=== PATIENT | male | born 1940 | race Caucasian/White ===

== ENCOUNTER 2023-11-26 11:57 | Inpatient (IN) ==
--- NOTE | 2023-11-26 12:11 | Emergency Department Note ---
Impression & Plan CHI (closed head injury), Facial laceration, Contusion of left shoulder, Knee pain, left, Ambulatory dysfunction ED Provider Note ED Provider Note NAME: KEY CHILDRESS AGE:83 SEX: Male : 1940 ARRIVES VIA: EMS INFORMANT: Patient ED PROVIDER(s): Michelle Lay DO CHIEF COMPLAINT: Fall, head injury HPI: This is an 83-year-old male who presents via EMS after a fall from home. Patient states his left knee "gave out" and he was not using his walker and he fell down striking his head on the floor. Patient believes he may have passed out very briefly but was able to crawl to begin to pull himself up and call a neighbor for help. The neighbor then contacted 911 due to concern for obvious head injury and patient's use of Coumadin. Patient states he takes a blood thinner due to a heart history and states he had prior heart surgery but cannot provide further details. He states his left knee gives out on him a lot and he has had frequent falls. He denies any recent fevers, chills, or illness. Denies any change in bowel or bladder function. He denies any change in his medication recently. PAST MEDICAL HISTORY:See Below PAST SURGICAL HISTORY:See Below FAMILY HISTORY:See Below SOCIAL HISTORY:See Below HOME MEDICATIONS:See Below ALLERGIES:See Below VITALS:See Below PHYSICAL EXAMINATION: GENERAL: alert, well appearing, well nourished, no distress, non-toxic EYE EXAM: normal conjunctiva, PERRL and EOM's grossly intact OROPHARYNX: no exudate, no erythema, lips, buccal mucosa, and tongue normal and mucous membranes are moist NECK: supple, no nuchal rigidity, no adenopathy, non-tender LUNGS: Clear to auscultation. Normal chest wall mechanics, no w/r/r HEART: no murmurs, S1 normal and S2 normal ABDOMEN: abdomen soft, non-tender, normo-active bowel sounds, no masses, no rebound or guarding. BACK: Back is symmetrical on inspection and there is no deformity, no midline tenderness, no CVA tenderness. SKIN: no rashes, petechiae, orbruising UPPER EXTREMITIES: upper extremities are grossly normal. FROM, nml pulses b/l. LOWER EXTREMITIES: No pitting edema. FROM, nml pulses b/l. NEURO EXAM: Normal sensorium, cranial nerves II-XII grossly intact, normal speech, no facial droop,nogross weakness of arms, no gross weakness of legs. Gross sensation intact. No ataxia. Vital Signs: reviewed and remarkable Differential Diagnosis: CHI, CVA, occult fracture, contusion, laceration, dehydration, stroke, anemia, hypoglycemia, hyponatremia, hypernatremia, urinary tract infection, pneumonia, bronchitis, sepsis, gastroenteritis, additional abdominal pathology, metabolic abnormalities, as well as others were considered MEDICAL DECISION MAKING: This is an 83-year-old male presents emergency department due to concern for fall and inability to get back up. Patient admits to multiple falls recently. He does use an ambulatory assistive device at home. He was afebrile and vital signs stable on arrival. He was noted to have obvious head/facial trauma and also complained of pain in the left knee and the left ribs. Labs drawn and sent, IV established, EKG and multiple x-rays performed at bedside interpreted by me and patient monitored on telemetry. He was sent for CT head and C-spine additionally. Patient's labs and imaging reassuring. He was cautiously hydrated and given IV Tylenol. He did have persistent complaints of pain at the left knee despite the negative x-ray. Patient was unable to stand and/or walk at bedside. Due to concern for ambulatory dysfunction in the setting of patient living at home alone and being anticoagulated with multiple recent falls, case discussed with the hospitalist team for additional evaluation and management. I did also involve case management to discuss options for ongoing care and/or assistance as well as considering inpatient rehab with the patient and family member who came to bedside. At this time I have low suspicion for any additional occult traumatic injury. Consultation(s): 1508: Discussed with Everton Alvarez hospitalist team, for additional evaluation and management. ER Treatment Provided: See below Diagnostics Interpreted By Me: -ECG: Normal sinus at 65, leftward axis, normal intervals, incomplete right bundle branch block, nonspecific ST/T wave changes, baseline artifact noted -Cardiac Monitoring: An order was placed for continuous cardiac monitoring. The monitor shows a rate of 66 with normal sinus rhythm. -Laboratory studies: As stated above and show below. -Imaging studies: X-ray Chest/ribs: A single view study of the chest was reviewed and was negative for cardiomegaly, focal infiltrate, effusion, pulmonary edema, or wide mediastinum. No evidence of rib fracture or pneumothorax X-ray pelvis: No obvious fracture or dislocation X-ray left shoulder: No obvious fracture or dislocation Triage Nursing Note Reviewed Prior/Outside Records Reviewed Past Med/Surg History Problem List Ambulatory dysfunction (Acute) Knee pain, left (Acute) Contusion of left shoulder (Acute) Facial laceration (Acute) CHI (closed head injury) (Acute) HTN (hypertension) HLD (hyperlipidemia) CHF (congestive heart failure) Medical History No pertinent family history Surgical History H/O heart surgery Social History Smoking Status: Never smoker Tobacco Type: Smokeless Tobacco (Dip or Chew) Second Hand Exposure: No; Do You Dip or Chew Tobacco: Yes (2 cans a day); Hx Alcohol Use: Yes Alcohol type: beer Hx Substance Use: No Preferred Language: Upper Sorbian Communication Ability: Effective Director Public Required: No Beliefs That Will Affect Care: None Current Living Situation: Alone Other Information That Helps Us Care for You: No Feels Safe at Home: Yes Safety Concerns: Feels Safe At This Time Assistive Devices: Cane and Walker Allergies Allergies Allergy/AdvReac Type Severity Reaction Status Date / Time No Known Allergies Allergy Unverified 11/26/23 15:12 Home Meds Home Medications Medication Instructions Recorded Confirmed atorvastatin 40 mg tablet 40 mg PO HS 06/07/19 11/26/23 carvedilol 25 mg tablet 25 mg PO BID 06/07/19 11/26/23 docusate sodium 100 mg capsule 100 mg PO BID PRN Constipation 06/07/19 11/26/23 furosemide 20 mg tablet 40 mg PO QAM 06/07/19 11/26/23 warfarin 2.5 mg tablet 5 mg PO QPM 06/07/19 11/26/23 amlodipine 5 mg tablet 5 mg PO QAM 09/23/19 11/27/23 Previous Rx's Medication Instructions Recorded diclofenac sodium 1 % topical gel 4 g topical QID #100 grams 04/06/22 (Voltaren Arthritis Pain) Results & Data (ED) Vital Signs Vital Signs - 24 hr 11/26/23 14:30 11/26/23 14:30 Pulse Rate from SpO2 Sensor 70 Blood Pressure 150/83 H Blood Pressure Mean 100 Pulse Oximetry 98 Laboratory Data 11/26/23 12:10 11/27/23 06:46 Lab Results 11/26/23 Range/Units 12:10 WBC 8.52 (4.8-10.8) K/ul RBC 4.59 L (4.70-6.10) M/uL Hgb 13.2 L (14.0-18.0) g/dl Hct 39.4 L (42.0-52.0) % MCV 85.8 (80.0-100.0) fL MCH 28.8 (25.0-34.0) pg MCHC 33.5 (32.0-36.0) g/dL RDW Std Deviation 42.6 (36.4-46.3) fL RDW Coeff of Juanito 13.5 (11.5-14.5) % Plt Count 282 (130-400) K/uL MPV 9.6 (9.4-12.4) fL Immature Gran % (Auto) 0.4 % Neut % (Auto) 70.3 % Lymph % (Auto) 19.5 % [place] % (Auto) 7.7 % Eos % (Auto) 1.5 % Baso % (Auto) 0.6 % Neut # (Auto) 5.99 (1.40-6.50) K/uL Lymph # (Auto) 1.66 (1.20-3.40) K/uL [place] # (Auto) 0.66 H (0.11-0.59) K/uL Eos # (Auto) 0.13 (0.00-0.50) K/uL Baso # (Auto) 0.05 (0.00-0.20) K/uL Immature Gran # (Auto) 0.03 (0.01-0.20) K/uL PT 22.2 H (9.0-12.0) Seconds INR 2.2 H (0.9-1.1) Sodium 141 (136-145) mmol/L Potassium 4.0 (3.5-5.1) mmol/L Chloride 109 H (98-107) mmol/L Carbon Dioxide 26 (21-32) mmol/L Anion Gap 6 (3-11) BUN 22 (6-23) mg/dl Creatinine 1.31 (0.6-1.4) mg/dl Est Cr Clr Drug Dosing 36.3 ml/min Est GFR ( Amer) 57.1 ml/min Est GFR (Non-Af Amer) 49.3 ml/min BUN/Creatinine Ratio 16.8 (10-20) Glucose 98 (70-99(Fasting)) mg/dl Calcium 9.1 (8.6-10.3) mg/dl Magnesium 2.4 (1.7-2.4) mg/dl Total Bilirubin 0.9 (0.2-1.0) mg/dl AST 15 (13-39) U/L ALT 11 (7-52) U/L Alkaline Phosphatase 155 H (34-104) U/L Troponin I High Sens 6.3 (0-20) pg/ml Total Protein 7.8 (6.0-8.3) gm/dl Albumin 3.9 (3.4-5.0) gm/dl Globulin 3.9 (2.5-4.0) gm/dl Albumin/Globulin Ratio 1.0 (0.9-2) Lipase 40 (11-82) U/L Administered Medications Acetaminophen (Acetaminophen 325 Mg Tab) 650 mg PO QID YEHUDA Stop: 12/26/23 20:59 Last Admin: 11/27/23 14:00 Dose: 650 mg Documented By: Admin: 11/27/23 09:40 Dose: 650 mg Documented By: Admin: 11/26/23 20:00 Dose: 650 mg Documented By: JERMAINE Atorvastatin Calcium (Atorvastatin 40 Mg Tab) 40 mg PO HS YEHUDA Stop: 12/26/23 20:59 Last Admin: 11/26/23 20:00 Dose: 40 mg Documented By: JERMAINE Carvedilol (Carvedilol 25 Mg Tab) 25 mg PO BID YEHUDA Stop: 12/26/23 20:59 Last Admin: 11/27/23 09:41 Dose: 25 mg Documented By: Admin: 11/26/23 20:00 Dose: 25 mg Documented By: JERMAINE Furosemide (Furosemide 40 Mg Tab) 40 mg PO QAM YEHDUA Stop: 12/27/23 08:59 Last Admin: 11/27/23 09:42 Dose: 40 mg Documented By: JOVANNY Warfarin Sodium (Warfarin Sod 5 Mg Tab) 5 mg PO DAILY@1600 [facility] Stop: 12/26/23 19:29 Last Admin: 11/26/23 20:00 Dose: 5 mg Documented By: JERMAINE Discontinued Medications Sodium Chloride (Nss) 500 mls @ 80 mls/hr IV .Q6H15M YEHUDA Stop: 12/26/23 12:14 Last Admin: 11/26/23 19:47 Dose: Not Given Documented By: Infusion: 11/26/23 14:47 Dose: Infused Documented By: Admin: 11/26/23 13:15 Dose: 80 mls/hr Documented By: XOCHITL Acetaminophen (Ofirmev) 1,000 mg in 100 mls @ 400 mls/hr IV NOW STA Stop: 11/26/23 13:53 Last Infusion: 11/26/23 14:47 Dose: Infused Documented By: Admin: 11/26/23 14:05 Dose: 400 mls/hr Documented By: XOCHITL Imaging Data Radiologist's Impression: Ribs w/Chest X-Ray 11/26/23 12:08 XR ribs LT min 2V w CXR1V CLINICAL HISTORY: trauma TECHNIQUE: 3 views of the left ribs were obtained. Single frontal view of the chest was obtained. Comparison: Comparison is made to chest radiographs for 923 FINDINGS: No acute fractures are seen. The chest wall and soft tissues are normal. Median sternotomy wires are unchanged. Calcified aortic knob is seen. The lungs are clear. No evidence of pleural effusion or pneumothorax. IMPRESSION: No evidence of acute fracture or other acute abnormalities in the visualized portions of the chest. ACT 112: Negative or not required by law. Electronically signed by: Shaun Gonzalez M.D. 11/26/2023 2:[address] 11/26/23 12:09 CT cervical spine wo con CLINICAL HISTORY: trauma TECHNIQUE: Multidetector row helical CT of the cervical spine was performed without administration of intravenous contrast. Coronal and sagittal reformations were obtained. Automated dose lowering techniques and/or adjustment according to patient size were utilized for this exam. Comparison: None available at the time of this dictation. FINDINGS: No acute fractures or subluxations are identified. Degenerative changes are seen in the visualized spine. The alignment is normal. Soft tissues are unremarkable. IMPRESSION: Degenerative changes without evidence of acute bony injury. ACT 112: Negative or not required by law. Electronically signed by: Shaun Gonzalez M.D. 11/26/2023 1:[address] 11/26/23 12:09 CT head/brain wo con CLINICAL HISTORY: 83 years-old Male with trauma. Acute head trauma TECHNIQUE: Multiple axial CT images of the head were obtained without contrast. A dose lowering technique was utilized adhering to the principles of ALARA. COMPARISON: 10/20/2022 FINDINGS: No acute intracranial hemorrhage, midline shift, intracranial mass, hydrocephalus, territorial ischemia or abnormal extra-axial collection. Involutional changes with suggestion of mild chronic microvascular ischemic disease. The calvarium is intact. The paranasal sinuses, mastoid air cells, and middle ear cavities are clear. IMPRESSION: No acute intracranial abnormality or calvarial fracture. ACT 112: Negative or not required by law. The above report was generated using voice recognition software. It may contain grammatical, syntax or spelling errors. Electronically signed by: Lincoln Velasquez M.D. 11/26/2023 1:07 PM Pelvis X-Ray 11/26/23 12:09 SINGLE VIEW PELVIS CLINICAL HISTORY: Trauma. Fall. FINDINGS: An AP, portable, supine pelvic radiograph is obtained. No prior studies are available for comparison at the time of dictation. The skeletal structures are osteopenic. There is no radiographic evidence of acute fracture involving the hips or bony pelvis. Mild arthritic change and joint space narrowing is seen in the hips. There is degenerative sclerosis of the sacroiliac joints. Lumbosacral spondylosis is partially visualized. The overlying soft tissues are within normal limits. Atherosclerotic calcification is noted in the femoral arteries. Surgical clips project over the left groin. IMPRESSION: No acute bony abnormality is identified. Electronically signed by: Vaibhav Price M.D. 11/26/2023 2:09 PM Knee X-Ray 11/26/23 12:11 LEFT KNEE 2 VIEWS CLINICAL HISTORY: Fall. Left knee injury. FINDINGS: AP and crosstable lateral views of the left knee are obtained. No prior studies are available for comparison at the time of dictation. The skeletal structures are osteopenic. No fracture is seen. There is minimal degenerative joint space narrowing. A joint effusion is observed. Soft tissue swelling is seen around the knee. There is advanced atherosclerotic calcification of the regional arteries. Surgical clips are seen in the distal thigh and upper calf. IMPRESSION: Soft tissue swelling and joint effusion with no fracture identified. Electronically signed by: Vaibhav Price M.D. 11/26/2023 2:22 PM Shoulder X-Ray 11/26/23 12:12 XR shoulder LT min 2V routine HISTORY: 83 years-old Male trauma acute left shoulder pain status post fall COMPARISON: Rib and chest radiographs of same day TECHNIQUE: 3 views of the left shoulder FINDINGS: Median sternotomy wires. Demineralized appearance of the bones. Moderate glenohumeral and AC joint osteoarthritis. No acute fracture or dislocation identified. IMPRESSION: No acute fracture or dislocation identified. ACT 112: Negative or not required by law. The above report was generated using voice recognition software. It may contain grammatical, syntax or spelling errors. Electronically signed by: Lincoln Velasquez M.D. 11/26/2023 2:54 PM Discharge Plan Visit Data Chief Complaint: Fall Stated Complaint: FALL, LAC TO HEAD, RIB PAIN ED Provider: Michelle Lay Discharge Problem: CHI (closed head injury), Facial laceration, Contusion of left shoulder, Knee pain, left, Ambulatory dysfunction Patient Disposition: Admitted As Inpatient Discharge Instructions Interventions: ED Discharge Assessment Last Done: 11/26/23 17:52
[2023-11-26 13:06] LABS: Albumin Level 3.9 gm/dl (3.4-5.0); BUN Creatinine Ratio 16.8 (10-20); Bilirubin,Total 0.9 mg/dl (0.2-1.0); Calcium 9.1 mg/dl (8.6-10.3); Creatinine Clr Calc Pharmacy 36.3 ml/min; Est GFR (African American) 57.1 ml/min; Est GFR (Non-African American) 49.3 ml/min; Globulin 3.9 gm/dl (2.5-4.0); Magnesium 2.4 mg/dl (1.7-2.4); Total Protein 7.8 gm/dl (6.0-8.3)
[2023-11-26 13:09] LABS: Basophils # (auto) 0.05 K/uL (0.00-0.20); Basophils % (auto) 0.6 %; Eosinophils # (auto) 0.13 K/uL (0.00-0.50); Eosinophils % (auto) 1.5 %; Hematocrit (blood only) 39.4 % (42.0-52.0); Hemoglobin 13.2 g/dl (14.0-18.0); Immature Granulocytes # (auto) 0.03 K/uL (0.01-0.20); Immature Granulocytes % (auto) 0.4 %; Lymphocytes # (auto) 1.66 K/uL (1.20-3.40); Lymphocytes % (auto) 19.5 %; Mean Corpuscular Hemoglobin 28.8 pg (25.0-34.0); Mean Corpuscular Hgb Conc 33.5 g/dL (32.0-36.0); Mean Corpuscular Volume 85.8 fL (80.0-100.0); Mean Platelet Volume 9.6 fL (9.4-12.4); Monocytes # (auto) 0.66 K/uL (0.11-0.59); Monocytes % (auto) 7.7 %; Neutrophils # (auto) 5.99 K/uL (1.40-6.50); Neutrophils % (auto) 70.3 %; Platelet Count 282 K/uL (130-400); RDW Coefficient of Variation 13.5 % (11.5-14.5); RDW Standard Deviation 42.6 fL (36.4-46.3); Red Blood Count 4.59 M/uL (4.70-6.10); White Blood Count 8.52 K/ul (4.8-10.8)
--- NOTE | 2023-11-26 13:09 | CT Scan Report ---
CT head/brain wo con CLINICAL HISTORY: 83 years-old Male with trauma. Acute head trauma TECHNIQUE: Multiple axial CT images of the head were obtained without contrast. A dose lowering tech nique was utilized adhering to the principles of ALARA. COMPARISON: 10/20/2022 FINDINGS: No acute intracranial hemorrhage, midline shift, intracranial mass, hydrocephalus, territorial ischem ia or abnormal extra-axial collection. Involutional changes with suggestion of mild chronic microvasc ular ischemic disease. The calvarium is intact. The paranasal sinuses, mastoid air cells, and middle ear cavities are clear . IMPRESSION: No acute intracranial abnormality or calvarial fracture. ACT 112: Negative or not required by law. The above report was generated using voice recognition software. It may contain grammatical, syntax o r spelling errors. Electronically signed by: Lincoln Velasquez M.D. 11/26/2023 1:07 PM
[2023-11-26 13:12] LABS: Troponin I High Sensitivity 6.3 pg/ml (0-20)
[2023-11-26 13:14] LABS: INR 2.2 (0.9-1.1); Prothrombin Time 22.2 Seconds (9.0-12.0)
[2023-11-26] MEDS: SODIUM CHLORIDE 0.9% 500 ML IV SCH (13:15)
--- NOTE | 2023-11-26 13:37 | CT Scan Report ---
CT cervical spine wo con CLINICAL HISTORY: trauma TECHNIQUE: Multidetector row helical CT of the cervical spine was performed without administration of intravenous contrast. Coronal and sagittal reformations were obtained. Automated dose lowering techn iques and/or adjustment according to patient size were utilized for this exam. Comparison: None available at the time of this dictation. FINDINGS: No acute fractures or subluxations are identified. Degenerative changes are seen in the visualized sp ine. The alignment is normal. Soft tissues are unremarkable. IMPRESSION: Degenerative changes without evidence of acute bony injury. ACT 112: Negative or not required by law. Electronically signed by: Shaun Gonzalez M.D. 11/26/2023 1:35 PM
[2023-11-26] MEDS: ACETAMINOPHEN 1,000 MG/100 ML VIAL IV STA (14:05)
--- NOTE | 2023-11-26 14:10 | XRay Report ---
SINGLE VIEW PELVIS CLINICAL HISTORY: Trauma. Fall. FINDINGS: An AP, portable, supine pelvic radiograph is obtained. No prior studies are available for c omparison at the time of dictation. The skeletal structures are osteopenic. There is no radiographic evidence of acute fracture involving the hips or bony pelvis. Mild arthritic change and joint space n arrowing is seen in the hips. There is degenerative sclerosis of the sacroiliac joints. Lumbosacral s pondylosis is partially visualized. The overlying soft tissues are within normal limits. Atherosclero tic calcification is noted in the femoral arteries. Surgical clips project over the left groin. IMPRESSION: No acute bony abnormality is identified. Electronically signed by: Vaibhav Price M.D. 11/26/2023 2:09 PM
--- NOTE | 2023-11-26 14:11 | XRay Report ---
XR ribs LT min 2V w CXR1V CLINICAL HISTORY: trauma TECHNIQUE: 3 views of the left ribs were obtained. Single frontal view of the chest was obtained. Comparison: Comparison is made to chest radiographs for 923 FINDINGS: No acute fractures are seen. The chest wall and soft tissues are normal. Median sternotomy wires are unchanged. Calcified aortic knob is seen. The lungs are clear. No evidenc e of pleural effusion or pneumothorax. IMPRESSION: No evidence of acute fracture or other acute abnormalities in the visualized portions of the chest. ACT 112: Negative or not required by law. Electronically signed by: Shaun Gonzalez M.D. 11/26/2023 2:10 PM
--- NOTE | 2023-11-26 14:23 | XRay Report ---
LEFT KNEE 2 VIEWS CLINICAL HISTORY: Fall. Left knee injury. FINDINGS: AP and crosstable lateral views of the left knee are obtained. No prior studies are availab le for comparison at the time of dictation. The skeletal structures are osteopenic. No fracture is se en. There is minimal degenerative joint space narrowing. A joint effusion is observed. Soft tissue sw elling is seen around the knee. There is advanced atherosclerotic calcification of the regional arter ies. Surgical clips are seen in the distal thigh and upper calf. IMPRESSION: Soft tissue swelling and joint effusion with no fracture identified. Electronically signed by: Vaibhav Price M.D. 11/26/2023 2:22 PM
--- NOTE | 2023-11-26 14:55 | XRay Report ---
XR shoulder LT min 2V routine HISTORY: 83 years-old Male trauma acute left shoulder pain status post fall COMPARISON: Rib and chest radiographs of same day TECHNIQUE: 3 views of the left shoulder FINDINGS: Median sternotomy wires. Demineralized appearance of the bones. Moderate glenohumeral and AC joint os teoarthritis. No acute fracture or dislocation identified. IMPRESSION: No acute fracture or dislocation identified. ACT 112: Negative or not required by law. The above report was generated using voice recognition software. It may contain grammatical, syntax o r spelling errors. Electronically signed by: Lincoln Velasquez M.D. 11/26/2023 2:54 PM
--- NOTE | 2023-11-26 16:41 | History & Physical Report ---
Date of Service November 26, 2023 Assessment & Plan (1) Ambulatory dysfunction: Plan: Physical therapy (2) Knee pain, left: Plan: Tylenol and as needed oxycodone (3) Contusion of left shoulder: Plan: Tylenol and as needed oxycodone (4) Facial laceration: Plan: Nursing wound care (5) CHI (closed head injury): Plan: Continue to monitor (6) HTN (hypertension): Plan: Continue home meds (7) HLD (hyperlipidemia): Plan: Continue home meds (8) CHF (congestive heart failure): Plan: Continue home meds Plan Patient 83-year-old gentleman presents to the emergency room after a mechanical fall at home. Patient has acute on chronic ambulatory dysfunction with acute closed head injury, contusion of the left shoulder, ribs and knee. Continue to care for patient in the hospital Physical therapy and Occupational Therapy evaluations Care management for assistance possible placement Scheduled Tylenol for pain control, oxycodone IR as needed for more severe pain Continue home medications as prescribed Continue to monitor INR and dose warfarin daily Admission and Anticipated Discharge Date Admission Date: 11/26/2023 Anticipated date of discharge: 11/28/23 History of Present Illness Chief Complaint: Fall at home Primary Care Provider: Akiko Joy MD Patient 83-year-old gentleman who continues to live independently at home. He has chronic ambulatory dysfunction and has usually used a cane to get around in his house. Recently he has been using a walker to get around in his home because he has been having some frequent falls. Earlier today was walking in his home and his foot got caught on a rug and he slipped and fell. He did hit his head. Neighbor found him and called 911. In the emergency room patient underwent extensive imaging. There is no evidence of fracture. Did have evidence of contusion over his left eye left shoulder and knee. Patient was unable to stand without significant pain or assistance here in the emergency department he was unable to ambulate. He was referred to our service for ongoing care here in the hospital due to the fact that he was unable to care for himself at home and is unsafe to go home. Time of my evaluation the patient denies any significant pain. He denies any loss of consciousness. He states has been eating and drinking well. Denies any fever or chills, no chest pain, no shortness of breath. He even really denies any significant joint pain at this time. States his bowels and bladder have been doing well. He does recognize he has been having increasing issues with ambulation and is willing to consider a rehab facility if deemed necessary. Allergies Allergy/AdvReac Type Severity Reaction Status Date / Time No Known Allergies Allergy Unverified 11/26/23 15:12 Home Medications Medication Instructions Recorded Confirmed Type atorvastatin 40 mg tablet 40 mg PO HS 06/07/19 11/26/23 History carvedilol 25 mg tablet 25 mg PO BID 06/07/19 11/26/23 History docusate sodium 100 mg capsule 100 mg PO BID PRN Constipation 06/07/19 11/26/23 History furosemide 20 mg tablet 40 mg PO QAM 06/07/19 11/26/23 History warfarin 2.5 mg tablet 5 mg PO QPM 06/07/19 11/26/23 History amlodipine 5 mg tablet 0 mg PO QAM 09/23/19 11/26/23 History diclofenac sodium 1 % topical gel 4 g topical QID #100 grams 04/06/22 11/26/23 Rx (Voltaren Arthritis Pain) Past Med/Surg History Problem List Ambulatory dysfunction (Acute) Knee pain, left (Acute) Contusion of left shoulder (Acute) Facial laceration (Acute) CHI (closed head injury) (Acute) HTN (hypertension) HLD (hyperlipidemia) CHF (congestive heart failure) Medical History No pertinent family history Surgical History H/O heart surgery Social History Smoking Status: Never smoker Tobacco Type: Smokeless Tobacco (Dip or Chew) Preferred Language: [place] Feels Safe at Home: Yes Review of Systems Review of Systems: Pertinent positive and negative review of systems as mentioned in the HPI Physical Exam Physical Exam: Constitutional: Alert, nontoxic HEENT: Mucous membranes moist. Sclera clear, contusion and small laceration over left lateral eyebrow and forehead Neck: Soft, no adenopathy Lungs: Clear to auscultation, decreased, no wheezes rales or rhonchi CV: S1-S2, regular, grade 3/6 systolic ejection murmur Abdomen: Soft, nontender, nondistended Extremities: No significant edema Musculoskeletal: Contusion over her left shoulder with some mild tenderness, evidence of contusion over left ribs but denies tenderness to palpation, mild contusion left knee, minimal tenderness to palpation Skin: Did not see any open skin tears from fall Neuro: No focal deficits, generalized weakness Psych: Cooperative, normal mood Results & Data Results & Data Vital Signs (Past 12 Hours) Vital Signs Temp Pulse Resp BP Pulse Ox O2 Del Method 11/26/23 14:30 150/83 H 11/26/23 14:30 98 11/26/23 14:14 96 11/26/23 14:13 142/79 H 11/26/23 13:19 64 14 98 11/26/23 13:18 65 15 98 11/26/23 13:18 141/70 H 11/26/23 13:17 66 18 98 11/26/23 13:06 69 18 99 11/26/23 13:06 152/74 H 11/26/23 13:04 67 12 11/26/23 12:30 132/88 11/26/23 12:30 68 16 98 11/26/23 12:29 67 11/26/23 12:27 71 22 97 11/26/23 12:15 36.8 C 70 18 151/85 H 98 Room Air Laboratory Results Reviewed imaging, laboratory and diagnostic studies. Pertinent findings as below. Personally reviewed chest x-ray, no consolidative pneumonia, evidence of previous cardiac surgery Hemoglobin 13.2 INR 2.2 EKG junctional rhythm Reviewed other imaging reports, no significant fractures Code Status & VTE Plan Code Status DNR/DNI VTE Prophylaxis Plan VTE Prophylaxis will be ordered: No Reason for no VTE drug order: Contraindicated (Patient on therapeutic warfarin)
--- NOTE | 2023-11-26 16:51 | Electrocardiogram Report ---
Test Reason : Blood Pressure : / mmHG Vent. Rate : 065 BPM Atrial Rate : 000 BPM P-R Int : 000 ms QRS Dur : 106 ms QT Int : 436 ms P-R-T Axes : 000 -34 034 degrees QTc Int : 453 ms Poor data quality, interpretation may be adversely affected probably sinus rhythm Left axis deviation Incomplete right bundle branch block Abnormal ECG When compared with ECG of 20-OCT-2022 14:52, Incomplete right bundle branch block is now Present Confirmed by Jose C Angel ([id number]) on 11/26/2023 4:51:07 PM Referred By: Confirmed By:Shay Angel
[2023-11-26 17:42] LABS: Appearance Urine Clear (Clear); Bacteria Urine Automated None Seen (None Seen); Bilirubin Urine Negative (Negative); Blood Urine Negative (Negative); Cast Urine Automated 0-2 /lpf (0-2); Color Urine Yellow; Epithelial Cell Urine Auto 0-2 /hpf (0-2); Glucose Urine UA Negative (Negative); Ketones Urine 1+ (Negative); Leukocyte Esterase Urine Negative (Negative); Nitrite Urine Negative (Negative); Protein Urine Trace (Negative); Urobilinogen Urine Negative (Negative); WBC Urine Automated 0-5 /hpf (0-5); pH Urine 6.5 (4.5-7.5)
[2023-11-26] MEDS ORDERED: ALUMINUM/MAGNESIUM SUSP 30 ML UDC PO PRN (19:00)
[2023-11-26] MEDS ORDERED: DOCUSATE SODIUM 100 MG CAP PO PRN (19:00)
[2023-11-26] MEDS ORDERED: ONDANSETRON INJ 2 MG/ML 2 ML VIAL IV PRN (19:00)
[2023-11-26] MEDS: WARFARIN SOD 5 MG TAB PO SCH (20:00)
[2023-11-26] MEDS: carvediloL 25 MG TAB PO SCH (20:00)
[2023-11-26] MEDS: ATORVASTATIN 40 MG TAB PO SCH (20:00)
[2023-11-26] MEDS: ACETAMINOPHEN 325 MG TAB PO SCH (20:00)
[2023-11-26 20:54] LABS: INR 1.9 (0.9-1.1); Prothrombin Time 19.8 Seconds (9.0-12.0)
[2023-11-27 07:32] LABS: BUN Creatinine Ratio 18.3 (10-20); Calcium 8.3 mg/dl (8.6-10.3); Creatinine Clr Calc Pharmacy 41.5 ml/min; Est GFR (African American) 66.9 ml/min; Est GFR (Non-African American) 57.7 ml/min; Potassium 3.8 mmol/L (3.5-5.1)
[2023-11-27 07:56] LABS: INR 2.1 (0.9-1.1); Prothrombin Time 21.7 Seconds (9.0-12.0)
[2023-11-27] MEDS ORDERED: amLODIPine BESYLATE 5 MG TAB PO SCH (09:00)
[2023-11-27] MEDS: FUROSEMIDE 40 MG TAB PO SCH (09:42)
--- NOTE | 2023-11-27 14:36 | Hospitalist Progress Note ---
Date of Service November 27, 2023 Assessment & Plan (1) Ambulatory dysfunction: Plan: Patient 83-year-old gentleman presents to the emergency room after a mechanical fall at home. Patient has acute on chronic ambulatory dysfunction with acute closed head injury, contusion of the left shoulder, ribs and knee. Ambulatory dysfunction Mechanical fall Uses cane/walker at baseline for ambulation Imaging studies showed no signs of acute fractures Patient denies any loss of consciousness PT OT, fall precautions Patient is interested in rehab placement if he qualifies based on therapy (2) Knee pain, left: Plan: Left knee x-ray:Soft tissue swelling and joint effusion with no fracture identified. Pain control (3) Contusion of left shoulder: Plan: Shoulder x-ray:No acute fracture or dislocation identified. Tylenol and as needed oxycodone (4) Facial laceration: Plan: Nursing wound care (5) CHI (closed head injury): Plan: --CT head:No acute intracranial abnormality or calvarial fracture. Continue to monitor (6) HTN (hypertension): Plan: Continue carvedilol Hold amlodipine for now Monitor BP (7) HLD (hyperlipidemia): Plan: Continue atorvastatin (8) CHF (congestive heart failure): Plan: Chronic heart failure with preserved EF Continue Lasix No signs of volume overload Monitor volume status Plan DVT Px: Coumadin CODE STATUS DNR/DNI Disposition PT OT prior to discharge Admission and Anticipated Discharge Date Admission Date: November 26, 2023 Subjective Patient is seen and examined at bedside Admits to have mild left rib, knee soreness Otherwise feels well Denies any dyspnea, dizziness, nausea, vomiting, abdominal pain Review of Systems Review of Systems: All systems reviewed & are unremarkable except as noted in Subjective Physical Exam Physical Exam: Physical Exam: Vitals signs as noted above General Appearance:Moderately built and nourished, no apparent distress Head: normocephalic, + Small laceration above left eyebrow Eyes: normal inspection, EOMI Neck: supple, Trachea midline Respiratory/Chest: Normal breath sounds, CTA, mild left rib tender, No accessory muscle use Cardiovascular: S1, S2, + murmur Abdomen/GI:Soft, Non tender, Bowel sounds present Extremities/Musculoskeletal:normal inspection, no edema Neurologic/Psych:AAOX3, grossly no focal neurological deficits, +decreased hearing Skin: normal color, warm Results & Data Results & Data Vital Signs (Past 12 Hours) Vital Signs Temp Pulse Resp BP Pulse Ox O2 Del Method 11/27/23 14:04 36.3 C L 59 L 16 127/71 99 Room Air 11/27/23 07:08 36.7 C 60 18 120/62 96 Room Air Laboratory Results [facility] 11/27/23 06:46 Sodium 140 Potassium 3.8 Chloride 110 H Carbon Dioxide 23 BUN 21 Creatinine 1.15 Glucose 91 Calcium 8.3 L Urine 11/26/23 Range/Units Unknown Urine Color Yellow Urine Appearance Clear (Clear) Urine pH 6.5 (4.5-7.5) Ur Specific [place] 1.020 (1.000-1.030) Urine Protein Trace H (Negative) Urine Glucose (UA) Negative (Negative)
--- OUTSIDE RECORDS SUMMARY | 2023-11-27 17:53 | External Medical Summary | Summary of Care ---
Author Name Unknown Organization [facility] Address [address] [facility] [address] Phone [phone] Care Team Providers Care Explosive Operator Bomb Name Role Phone Akiko Joy MD Primary Care Provide r Reason for Referral * Evaluate & Treat - Unlimited Visits (Within 3 days (urgent)) - Pending Review Specialty Diagnoses / Procedures Referred By Contac t Referred To Contact ANTI-COAG CLINIC / Pharmacy Diagnoses Paroxysmal atrial fibrillation (HCC) Akiko Joy MD [address] [place] [address] [place] [id number] Referral ID Status Reason Start Date Expiration Date Visits Requested Visits Authorized [id number] Pending Review Specialty Services Required 11/20/2023 99 99 Question Answer Referral Priority Within 3 days (urgent) Where should this appointment be scheduled? [facility] Antico[facility] referral for management of: Warfarin Indication and INR goal for Warfarin Management: Stroke Prevention: Atrial Fibrillation/Flutter 2.0 - 3.0 Relevant History: Bioprosthetic Aortic Valve Replacement Enoxaparin bridging required? No Minimum frequency patient should be seen in person for medication management: as appropriate per clinical condition and patient status By my signature, I understand that my patient Mal Tran will have his medication therapy managed by the [facility] ([facility]) per established policies, procedures, and protocols. I also certify that this referral may serve as an initiation of service for the management of drug therapy in the above noted patient. [facility] providers will be responsible for scheduling patient visits, obtaining appropriate laboratory studies, and adjusting medication management therapy per patient's need, in addition to those roles spelled out in the clinic policy, procedures, and drug management protocols. I understand that the service provided by the [facility] Clinic is voluntary and have informed patient that they can refuse the service at their discretion. I am aware that the [facility] Clinic will provide me with a copy of the patient encounter via my [employer]. I authorize the [facility] Clinic to carry out these activities on my behalf. I consider this program to be a necessary part of the patient's medical care. Akiko Joy MD Reason for Visit * Reason Onset Date Comments Referral 11/20/2023 Encounter Details Date Type Department Care Team (Late st Contact Info) Description 11/20/2023 Telephone Pharmacy Call Center [address] [place] [address] [facility] [address] [place] [address] Referral Allergies No known active allergiesdocumented as of this encounter (statuses as of 11/20/2023) Medications Medication Sig Dispensed Refills Start Date End Date Status SENNA LAXATIVE 8.6 MG PO TABS 1 tab at noon 30 Tab 5 12/31/2013 Active famotidine (PEPCID) 20 MG Tablet Take 1 Tab by mouth 2 times a day. 180 Tab 1 10/16/2017 Active Docusate Sodium 100 MG Oral Capsule (Colace) Take 1 Capsule by mouth in the morning and 1 Capsule before bedtime. 0 Active Diclofenac Sodium 1 % External Gel Apply topically to affected area. Apply 4g to knee up to 4 times a day 0 Active Warfarin Sodium 2.5 MG Oral Tablet (Coumadin)Indication s:Unspecified atrial fibrillation (HCC) TAKE 2-3 TABLETS BY MOUTH DAILY DIRECTED BY COUMADIN CLINIC ON PHONE. 270 Tablet 1 04/16/2023 Active Furosemide 20 MG Oral Tablet (Lasix)Indications:C oronary artery disease involving campo coronary artery of campo heart without angina pectoris TAKE 2 TABLETS BY MOUTH EVERY DAY 180 Tablet 1 05/19/2023 Active Atorvastatin Calcium 40 MG Oral Tablet (Lipitor)Indications :Dyslipidemia, goal LDL below 100 TAKE 1 TABLET BY MOUTH EVERYDAY AT BEDTIME 90 Tablet 1 05/19/2023 Active Carvedilol 25 MG Oral Tablet (Coreg)Indications:S /P aortic valve replacement,Aortocor onary bypass status,HTN, goal below 140/90 TAKE 1 TABLET BY MOUTH TWICE A DAY 180 Tablet 3 05/19/2023 Active amLODIPine Besylate 5 MG Oral Tablet (Norvasc)Indications :HTN, goal below 140/90 TAKE 1 TABLET BY MOUTH EVERY DAY 90 Tablet 1 07/20/2023 Active documented as of this encounter (statuses as of 11/20/2023) Active Problems Problem Noted Date Diagnosed Date Chronic kidney disease, stage 3a 09/24/2021 Overview: Per CKD protocol Hypertensive kidney disease with stage 3a chronic kidney disease 09/24/2021 Overview: Per CKD protocol Paroxysmal atrial fibrillation 02/17/2019 S/P aortic valve replacement 12/31/2013 CAD (coronary artery disease) 12/28/2013 Aortocoronary bypass status 12/28/2013 Dyslipidemia, goal LDL below 100 09/28/2013 HTN, goal below 140/90 03/24/2013 documented as of this encounter (statuses as of 11/20/2023) Resolved Problems Problem Noted Date Diagnosed Date Resolved Date Hypertensive kidney disease with stage 3 chronic kidney disease 11/19/2021 10/23/2022 Chronic coronary artery disease 02/20/2021 10/23/2022 Hypertensive kidney disease with chronic kidney disease stage III 05/07/2018 09/26/2021 Overview: Per CKD protocol Atrial fibrillation 12/31/2013 10/24/19 23 Aortic valve stenosis 11/25/20132017 Severe aortic stenosis 03/24/201311/25 Kidney disease, chronic, sta ge III (GFR 30-59 ml/min) (aka CKD) 09/26/2021 Overview: Per CKD protocol documented as of this encounter (statuses as of 11/20/2023) Immunizations Name Administration Dates Next Due COVID-19 mRNA, LNP-s, No Pre serve, 2-Dose Series (Moderna) 11/28/2020 COVID-19, MRNA-LNP, 23-24, P F, 30 MCG/0.3 mL, 12 YRS AND ABOVE, IM (PFIZER-Comirnaty) 09/22/2023 Pneumococcal Conjugate Vacc, 13 Valent (Prevnar) 11/23/2015,03/14/2012 Pneumococcal Polysaccharide PPV23 (Pneumovax) 03/14/2012 Seasonal Influenza, PF, 6 M & above, IM , (FluLaval or Fluzone) 05/07/2018 Seasonal Influenza, Quadriva lent Hd (Fluzone Hd) 03/26/2023 Seasonal Influenza, Quadriva lent, No Preserve, IM 04/16/2016,05/04/2015 Seasonal Influenza, Split, I IV3, With Preserve, Inj 04/13/2017,06/14/2014,03/24/2013 documented as of this encounter Social History Tobacco Use Types Packs/Day Years Used Date Smoking Tobacco: Never Smokeless Tobacco: Current Snuff Comments:cutting down Alcohol Use Standard Drinks/Week Comments Yes 0 (1 standard drink = 0.6 oz pur e alcohol) not very much PHQ-2 Answer Date Recorded PHQ-2 Score 0 02/17/2019 Hunger Vital Sign Answer Date Recorded Worried About Running Out of Food in the Last Ye ar Never true 02/20/2021 Ran Out of Food in the Last Year Never true 02/20/2021 Sex and Gender Information Value Date Recorded Sex Assigned at Male 02/17/2019 9:08 AM EDT Gender Identity Male 02/17/2019 9:08 AM EDT Sexual Orientation Not on file Job Start Date Occupation Industry Not on file Not on file Not on file documented as of this encounter Miscellaneous Notes * Telephone Encounter - Akiko Joy MD - 11/20/2023 9:01 AM EDT Signed * Telephone Encounter - Laura Ahmadi [facility] - 11/20/2023 8:53 AM EDT Please review and sign the pending referral for [facility] to continue managing patient's coumadin dosing and monitoring on your behalf. Thank You Laura Shaver, PharmD Clinical Pharmacist [facility] Pharm[facility] Services ([facility]) (formerly Telepharmacy) [phone] / [phone] 11/20/2023, 8:53 AM documented in this encounter Plan of Treatment Upcoming Encounters Date Type Department Care Team (Late st Contact Info) Description 03/24/2024 9:40 AM EDT Office Visit [address] [phone] Rebeca Mendez PA-C [address] [place] [address] [place] [phone] 09/24/2024 1:40 PM EDT Office Visit [address] [phone] Akiko Joy MD [address] [place] [address] [place] [phone] Scheduled Referrals Name Type Priority Associated Diagnoses Orde r Schedule ANTI-COAGULATION REFERRAL OP Referral Within 3 days (urgent) Paroxysmal atrial fibrillation (HCC) Ordered: 11/20/2023 Health Maintenance Due Date Last Done Comments Albumin/Creatinine Ratio 1958 DTaP,Tdap,and Td Vaccines (1 - Tdap) 1957 Zoster Vaccines (1 of 2) 1988 Depression Screening 02/18/2020 02/17/2019 CKD PHOS USE SMARTSET 76446 02/27/202402/11, 02/20/2021, 05/07/2018, Additional history exists CKD HGB USE SMARTSET 95963 09/23/202409/23, 09/24/2023, 04/09/2023, Additional history exists Pneumococcal Vaccine: 65+ Years Completed 11/23/2015, 03/14/2012, 03/14/2012 Influenza Vaccine (FLU shot) Completed , 05/07/2018, 04/13/2017, Additional history exists COVID-19 Vaccine Completed 09/22/2023, 11/28/2020 GARDASIL-HPV IMMUNIZATION SERIES Aged Out No longer eligible based on patient's age to complete this topic Hepatitis B Aged Out No longer eligi ble based on patient's age to complete this topic MENINGOCOCCAL (MENACTRA/MENVEO) Aged Out No longer eligible based on patient's age to complete this topic documented as of this encounter Medical Devices Not on filedocumented as of this encounter Visit Diagnoses Diagnosis Paroxysmal atrial fibrillation (HCC)- Primary Atrial fibrillation documented in this encounter Care Teams Explosive Operator Bomb Relationship Specialty Start Date End Date Akiko Joy MD PCP - General Family Medicine 05/22/15 documented as of this encounter
--- OUTSIDE RECORDS SUMMARY | 2023-11-27 17:53 | External Medical Summary | Summary of Care ---
Author Name Unknown Organization [facility] Address [address] [facility] [place] [address] Phone [phone] Care Team Providers Care Boiler Operator Name Role Phone Akiko Joy MD Primary Care Provide r Reason for Visit * Reason Comments Dosage Adjustment Via Phone (anticoag Cl inic) Encounter Details Date Type Department Care Team (Latest Contact Info) Description 11/20/2023 6:00 AM EDT Anticoagulation Pharmacy Call Center [phone] [place] [address] [facility] [address] [place] [address] Paroxysmal atrial fibrillation (HCC)* Allergies No known active allergiesdocumented as of [...] Oral Tablet (Lasix)Indications:C oronary artery disease involving false pass coronary artery of false pass heart without angina pectoris TAKE 2 TABLETS [...] on file documented as of this encounter Progress Notes * Olive Severino, party plan salesperson - 11/20/2023 9:05 AM EDT Contacts Type Contact Phone/Fax 11/20/2023 09:02 AM EDT Phone (Outgoing) Mal Tran (Self) [phone] (H) Spoke to Patient Subjective Patient Findings Negatives: Signs/symptoms of bleeding, Change in health, Change in activity, Upcoming invasive procedure, Missed doses, Extra doses, Change in medications, Change in diet/appetite, Bruising Advised patient to contact Anticoagulation Clinic if any unusual bruising or bleeding, recent illness, changes in medication, or questions/concerns. PT/INR results, Coumadin dose instructions, and next PT/INR date communicated as noted by Pharmacist: Yes TRE Roberson 11/20/2023, 9:05 AM * Laura Ahmadi RPh - 11/20/2023 8:52 AM EDT Images from the original note were not included. Coumadin Clinic (region specific) Objective Current Warfarin Dose As of 11/20/2023 Warfarin maintenance plan: 7.5 mg (2.5 mg x 3) every Sun, Tue; 5 mg (2.5 mg x 2) all other days INR Result As of 11/20/2023 INR goal: 2.0-3.0 INR used for dosin.5 (11/19/2023) Assessment & Plan Warfarin Plan As of 11/20/2023 Full warfarin instructions: 11/19: 10 mg; Otherwise 7.5 mg every Sun, Tue; 5 mg all other days Next INR check: 12/03/2023 Repeat PT/INR in 2 week(s) Weekly dose: not changed Additional Dosing Information: Description [facility] Tech to contact patient with dose instructions as noted. Laura Ahmadi RPh 11/20/2023, 8:52 AM documented in this encounter Plan of Treatment Upcoming Encounters Date Type Department Care Team (Late st Contact Info) Description 03/24/2024 9:40 AM EDT Office Visit [address] [place] [phone] Rebeca Mendez PA-C [address] [place] [address] [place] [address] 09/24/2024 1:40 PM EDT Office Visit Family Medicine [address] [place] [phone] Akiko Joy MD [address] [place] [address] [place] [address] Health Maintenance Due Date Last Done Comments Albumin/Creatinine Ratio 1956 DTaP,Tdap,and Td Vaccines (1 - Tdap) 1957 Zoster Vaccines (1 of 2) 1988 Depression Screening 02/18/2020 02/17/2019 CKD PHOS USE SMARTSET 60628 02/27/202402/11, 02/20/2021, 05/07/2018, Additional history exists CKD HGB USE SMARTSET 48663 09/23/202409/23, 09/24/2023, 04/09/2023, Additional history exists Pneumococcal [...] fibrillation documented in this encounter Care Teams Boiler Operator Relationship Specialty Start Date End Date Akiko Joy MD PCP - General Family Medicine 05/22/15 documented as of this encounter
--- OUTSIDE RECORDS SUMMARY | 2023-11-27 17:54 | External Medical Summary ---
Author Name Unknown Address Unknown Organization [id number][place] [place] [address] [place] [address] Laboratory Report Ordering Provider Test Date Status SHON VALADEZ 11/19/2023 07:42:00 Final Warfarin Therapy
INR: 2 .0-3.0 conventional anticoagulation
INR: 2.5- 3.5 high intensity anticoagulation Observation Date Value Abnormality Reference (Units ) Status PT 11/19/2023 07:42:00 18.4 Above high normal 11 .6-15.2 (seconds) Final INR 11/19/2023 07:42:00 1.5 Above high normal 0. 8-1.2 Final Performing Location [facility] [place] [address] [place] [address]
--- OUTSIDE RECORDS SUMMARY | 2023-11-27 17:54 | External Medical Summary | Summary of Care ---
Author Name Unknown Organization [facility] Address [address] [facility] [place] [address] Phone [phone] Care Team Providers Care Mascara Molder Name Role Phone Akiko Joy MD Primary Care Provide r Reason for Visit * Reason Comments Dosage Adjustment Via Phone (anticoag Cl inic) Encounter Details Date Type Department Care Team (Latest Contact Info) Description 11/20/2023 6:00 AM EDT Anticoagulation Pharmacy Call Center 58-60 [place] [address] [facility] 58 60 [place] [address] Paroxysmal atrial fibrillation (HCC)* Allergies No known [...] Oral Tablet (Lasix)Indications: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 Laura Ahmadi RPh 11/20/2023, 8:52 AM documented in this encounter Plan of Treatment Upcoming Encounters Date Type Department Care Team (Late st Contact Info) Description 03/24/2024 9:40 AM EDT Office Visit [address] [place] [phone] Rebeca Mendez PA-C [address] [place] [address] [place] [address] 09/24/2024 1:40 PM EDT Office Visit Family Medicine [address] [place] [phone] Akiko Joy MD [address] [place] [address] [place] [address] Health Maintenance Due Date Last Done Comments Albumin/Creatinine Ratio 1958 DTaP,Tdap,and Td Vaccines (1 - Tdap) 1957 Zoster Vaccines (1 of 2) 1988 Depression Screening 02/18/2020 02/17/2019 CKD PHOS USE SMARTSET 75600 02/27/202402/11, 02/20/2021, 05/07/2018, Additional history exists CKD HGB USE SMARTSET 86692 09/23/202409/23, 09/24/2023, 04/09/2023, Additional history exists Pneumococcal [...] fibrillation documented in this encounter Care Teams Mascara Molder Relationship Specialty Start Date End Date Akiko Joy MD PCP - General Family Medicine 05/22/15 documented as of this encounter
--- OUTSIDE RECORDS SUMMARY | 2023-11-27 17:54 | External Medical Summary | Summary of Care ---
Author Name Unknown Organization [facility] Address [address] [facility] [place] [address] Phone [phone] Care Team Providers Care Hose Tubing Backer Name Role Phone Akiko Joy MD Primary Care Provide r Reason for Visit * Reason Comments Dosage Adjustment Via Phone (anticoag Cl inic) Encounter Details Date Type Department Care Team (Latest Contact Info) Description 11/06/2023 6:00 AM EDT Anticoagulation Pharmacy Call Center 58-60 [place] [address] [facility] 58 60 [facility] [address] Anticoagulation management encounter* Allergies No known active allergiesdocumented as of this encounter (statuses as of 11/06/2023) Medications Medication Sig Dispensed Refills Start Date [...] Oral Tablet (Lasix)Indications: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 TAKE 2 TABLETS [...] as of this encounter (statuses as of 11/06/2023) Active Problems Problem Noted Date Diagnosed Date [...] as of this encounter (statuses as of 11/06/2023) Resolved Problems Problem Noted Date Diagnosed Date [...] as of this encounter (statuses as of 11/06/2023) Immunizations Name Administration Dates Next Due COVID-19 [...] as of this encounter Progress Notes * Nicole Avery, waiver analyst - 11/06/2023 9:21 AM EDT Contacts Type Contact Phone/Fax 11/06/2023 09:17 AM EDT Phone (Outgoing) Mal Tran (Self) [phone] (H) Spoke to Patient Subjective Patient Findings [...] date communicated as noted by Pharmacist: Yes NICOLE AVERY CPhT 11/06/2023, 9:21 AM * Monique Andrews RPh - 11/06/2023 8:18 AM EDT Images from the original note were not included. Coumadin Clinic (region specific) Objective Current Warfarin Dose As of 11/06/2023 Warfarin maintenance plan: 7.5 mg (2.5 mg x 3) every Sun, Tue; 5 mg (2.5 mg x 2) all other days INR Result As of 11/06/2023 INR goal: 2.0-3.0 INR used for dosin.4 (11/05/2023) Assessment & Plan Warfarin Plan As of 11/06/2023 Full warfarin instructions: 11/05: Hold; 11/06: Hold; Otherwise 7.5 mg every Sun, Tue; 5 mg all otherdays Next INR check: 11/17/2023 Repeat PT/INR in 1.5 week(s) Weekly dose: not changed Additional Dosing Information: Description [facility] ([facility]) Tech to contact patient with dose instructions as noted. Monique Andrews RPh 11/06/2023, 8:19 AM documented in this encounter Plan of Treatment Upcoming Encounters Date Type Department Care Team (Late st Contact Info) Description 03/24/2024 9:40 AM EDT Office Visit [address] [place] [address] Rebeca Mendez PA-C [address] [place] [address] [place] [address] 09/24/2024 1:40 PM EDT Office Visit Family Medicine [address] [place] [address] Akiko Joy MD [address] [place] [address] [place] [address] Health Maintenance Due Date Last Done Comments Albumin/Creatinine Ratio 1958 DTaP,Tdap,and Td Vaccines (1 - Tdap) 1957 Zoster Vaccines (1 of 2) 1988 Depression Screening 02/18/2020 02/17/2019 CKD PHOS USE SMARTSET 81942 02/27/202402/11, 02/20/2021, 05/07/2018, Additional history exists CKD HGB USE SMARTSET 58909 09/23/202409/23, 09/24/2023, 04/09/2023, Additional history exists Pneumococcal [...] as of this encounter Visit Diagnoses Diagnosis Anticoagulation management encounter- Primary Encounter for therapeutic drug monitoring documented in this encounter Care Teams Hose Tubing Backer Relationship Specialty Start Date End Date Akiko Joy MD PCP - General Family Medicine 05/22/15 documented as of this encounter
--- OUTSIDE RECORDS SUMMARY | 2023-11-27 17:55 | External Medical Summary ---
Author Name Unknown Address Unknown Organization K01:[place] [facility] [place] [address] [place] [address] Laboratory Report Ordering Provider Test Date Status SHON VALADEZ 10/22/2023 07:46:00 Final Warfarin Therapy
INR: 2 .0-3.0 conventional anticoagulation
INR: 2.5- 3.5 high intensity anticoagulation Observation Date Value Abnormality Reference (Units ) Status PT 10/22/2023 07:46:00 24.2 Above high normal 11 .6-15.2 (seconds) Final INR 10/22/2023 07:46:00 2.2 Above high normal 0. 8-1.2 Final Performing Location [facility] [place] [address] [place] [address]
--- OUTSIDE RECORDS SUMMARY | 2023-11-27 17:55 | External Medical Summary | Summary of Care ---
Author Name Unknown Organization [facility] Address [address] [facility] [place] [address] Phone [phone] Care Team Providers Care Dry Mixer Name Role Phone Akiko Joy MD Primary Care Provide r Reason for Visit * Reason Comments Dosage Adjustment Via Phone (anticoag Cl inic) Encounter Details Date Type Department Care Team (Latest Contact Info) Description 10/23/2023 6:00 AM EDT [facility] 58[facility]60 [facility] [address] [facility] 58 60 [facility] [address] detention current use of anticoagulant therapy* Allergies No known active allergiesdocumented as of this encounter (statuses as of 10/23/2023) Medications Medication Sig Dispensed Refills Start Date [...] Oral Tablet (Lasix)Indications: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 TAKE 2 TABLETS [...] as of this encounter (statuses as of 10/23/2023) Active Problems Problem Noted Date Diagnosed Date [...] as of this encounter (statuses as of 10/23/2023) Resolved Problems Problem Noted Date Diagnosed Date [...] as of this encounter (statuses as of 10/23/2023) Immunizations Name Administration Dates Next Due COVID-19 [...] as of this encounter Progress Notes * Javon Ahmadi, Brielle - 10/23/2023 8:36 AM EDT Contacts Type Contact Phone/Fax 10/23/2023 08:30 AM EDT Phone (Outgoing) Mal Tran (Self) [phone] (H) Spoke to Patient Subjective Patient Findings Negatives: Signs/symptoms of thrombosis, Signs/symptoms of bleeding, Change in health, Change in alcohol use, Change in activity, Upcoming invasive procedure, Missed doses, Extra doses, Change in medications, Change in diet/appetite, Bruising Advised patient to contact Anticoagulation Clinic if any unusual bruising or bleeding, recent illness, changes in medication, or questions/concerns. PT/INR results, Coumadin dose instructions, and next PT/INR date communicated as noted by Pharmacist: Yes Javon Ahmadi CPhT 10/23/2023, 8:36 AM * Monique Andrews RPh - 10/23/2023 8:07 AM EDT Coumadin Clinic (region specific) Objective Current Warfarin Dose As of 10/23/2023 Warfarin maintenance plan: 7.5 mg (2.5 mg x 3) every Sun, Tue; 5 mg (2.5 mg x 2) all other days INR Result As of 10/23/2023 INR goal: 2.0-3.0 INR used for dosin.2 (10/22/2023) Assessment & Plan Warfarin Plan As of 10/23/2023 Full warfarin instructions: 7.5 mg every Sun, Tue; 5 mg all other days No change documented: Monique Andrews RPh Next INR check: 11/05/2023 Repeat PT/INR in 2 week(s) Weekly dose: not changed Additional Dosing Information: Description [facility] Tech to contact patient with dose instructions as noted. Monique Andrews RPh 10/23/2023, 8:07 AM documented in this encounter Plan of Treatment Upcoming Encounters Date Type Department Care Team (Late st Contact Info) Description 11/06/2023 6:00 AM EDT Anticoagulation Pharmacy Call Center WB [address] [place] [address] [facility] [address] [facility] [place] [address] 03/24/2024 9:40 AM EDT Office Visit [address] [phone] Rebeca Mendez PA-C [address] [place] [address] [place] [address] 09/24/2024 1:40 PM EDT Office Visit [address] [phone] Akiko Joy MD [address] [place] [address] [place] [address] Health Maintenance Due Date Last Done Comments Albumin/Creatinine Ratio 1956 DTaP,Tdap,and Td Vaccines (1 - Tdap) 1957 Zoster Vaccines (1 of 2) 1988 Depression Screening 02/18/2020 02/17/2019 CKD PHOS USE SMARTSET 71012 02/27/202402/11, 02/20/2021, 05/07/2018, Additional history exists CKD HGB USE SMARTSET 05896 09/23/202409/23, 09/24/2023, 04/09/2023, Additional history exists Pneumococcal [...] as of this encounter Visit Diagnoses Diagnosis detention current use of anticoagulant therapy- Primary documented in this encounter Care Teams Dry Mixer Relationship Specialty Start Date End Date Akiko Joy MD PCP - General Family Medicine 05/22/15 documented as of this encounter
--- OUTSIDE RECORDS SUMMARY | 2023-11-27 17:55 | External Medical Summary ---
Author Name Unknown Address Unknown Organization K01:[facility] [place] - [address] [place] [address] Laboratory Report Ordering Provider Test Date Status SHON VALADEZ 11/05/2023 08:01:00 Final Warfarin Therapy
INR: 2 .0-3.0 conventional anticoagulation
INR: 2.5- 3.5 high intensity anticoagulation Observation Date Value Abnormality Reference (Units ) Status PT 11/05/2023 08:01:00 43.7 Above high normal 11 .6-15.2 (seconds) Final INR 11/05/2023 08:01:00 4.4 Above high normal 0. 8-1.2 Final Performing Location LAB[facility] [place] - [address] [place] [address]
--- OUTSIDE RECORDS SUMMARY | 2023-11-27 17:56 | External Medical Summary | Summary of Care ---
Author Name Unknown Organization [facility] Address [address] [facility] [place] [address] Phone [phone] Care Team Providers Care Metalworking Instructor Name Role Phone Akiko Joy MD Primary Care Provide r Reason for Visit * Reason Comments Dosage Adjustment Via Phone (anticoag Cl inic) Encounter Details Date Type Department Care Team (Latest Contact Info) Description 10/09/2023 6:00 AM EDT Anticoagulation Pharmacy Call Center 58-60 [place] [address] [facility] 58 60 [place] [address] Atrial fibrillation, unspecified type (HCC)* Allergies No known active allergiesdocumented as of this encounter (statuses as of 10/09/2023) Medications Medication Sig Dispensed Refills Start Date [...] Oral Tablet (Lasix)Indications: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 Clinical Pharmacist [facility] ([facility]) (formerly Telepharmacy) [phone] 10/09/2023,12:37 PM * Clayton Bates PHARM Tech - 10/09/2023 9:59 AM EDT Contacts Type Contact Phone/Fax 10/09/2023 09:55 AM EDT Phone (Outgoing) Marc Mal Nitish (Self) [phone] (H) Subjective Patient Findings Positives: Change in alcohol use (Had a couple beers advised same plan per [facility] advised greater then2 will increase INR and risk of bleed) Negatives: Signs/symptoms of thrombosis, Signs/symptoms of bleeding, Change in health, Change in activity, Upcoming invasive procedure, Missed doses, Extra doses, Change in medications, Change in diet/appetite, Bruising Advised patient to contact Anticoagulation Clinic if any unusual bruising or bleeding, recent illness, changes in medication, or questions/concerns. PT/INR results, Coumadin dose instructions, and next PT/INR date communicated as noted by Pharmacist: Yes TRE LANDRUM 10/09/2023, 9:59 AM * Monique Andrews [facility] - 10/09/2023 8:20 AM EDT Images from the original note were not included. Coumadin Clinic (region specific) Objective Current Warfarin Dose As of 10/09/2023 Warfarin maintenance plan: 7.5 mg (2.5 mg x 3) every Sun, Tue; 5 mg (2.5 mg x 2) all other days INR Result As of 10/09/2023 INR goal: 2.0-3.0 INR used for dosin.1 (10/08/2023) Assessment & Plan Warfarin Plan As of 10/09/2023 Full warfarin instructions: 10/08: Hold; 10/09: Hold; Otherwise 7.5 mg every Sun, Tue; 5 mg all otherdays Next INR check: 10/22/2023 Repeat PT/INR in 2 week(s) Weekly dose: not changed Additional Dosing Information: Description GML (MWF) Confirm current regimen w/ pt after 08/04 INR Tech to contact patient with dose instructions as noted. Monique Andrews RPh 10/09/2023, 8:21 AM documented in this encounter Plan of Treatment Upcoming Encounters Date Type Department Care Team (Late st Contact Info) Description 10/22/2023 7:00 AM EDT Laboratory Lab [facility] [address] [place] [address] [facility], G[facility] Draw [address] [place] [address] 10/23/2023 6:00 AM EDT Anticoagulation Pharmacy Call Center 58-60 [facility] [place] [address] [facility] 58 60 [facility] [place] [address] 03/24/2024 9:40 AM EDT Office Visit Family [address] [place] [phone] Rebeca Mendez PA-C [address] [place] [address] [place] [address] 09/24/2024 1:40 PM EDT Office Visit Family [address] [place] [phone] Akiko Joy MD [address] [place] [address] [place] [address] Health Maintenance Due Date Last Done Comments Albumin/Creatinine Ratio 1958 DTaP,Tdap,and Td Vaccines (1 - Tdap) 1957 Zoster Vaccines (1 of 2) 1988 Depression Screening 02/18/2020 02/17/2019 CKD PHOS USE SMARTSET 98605 02/27/202402/11, 02/20/2021, 05/07/2018, Additional history exists CKD HGB USE SMARTSET 65384 09/23/202409/23, 09/24/2023, 04/09/2023, Additional history exists Pneumococcal [...] as of this encounter Visit Diagnoses Diagnosis Atrial fibrillation, unspecified type (HCC)- Primary documented in this encounter Care Teams Metalworking Instructor Relationship Specialty Start Date End Date Akiko Joy MD PCP - General Family Medicine 05/22/15 documented as of this encounter
--- OUTSIDE RECORDS SUMMARY | 2023-11-27 17:57 | External Medical Summary ---
Author Name Unknown Address Unknown Organization K01:LABORATORY [facility] [place] - [address] [place] [address] Laboratory Report Ordering Provider Test Date Status SHON VALADEZ 10/08/2023 08:05:00 Final Warfarin Therapy
INR: 2 .0-3.0 conventional anticoagulation
INR: 2.5- 3.5 high intensity anticoagulation Observation Date Value Abnormality Reference (Units ) Status PT 10/08/2023 08:05:00 40.4 Above high normal 11 .6-15.2 (seconds) Final INR 10/08/2023 08:05:00 4.1 Above high normal 0. 8-1.2 Final Performing Location LABORATORY [facility] [place] - [address] [place] [address]
--- OUTSIDE RECORDS SUMMARY | 2023-11-27 17:57 | External Medical Summary ---
Author Name Unknown Address Unknown Organization K01:LAB[facility]ATORY [facility] [place] - [address] [facility] [address] [place] [address] Laboratory Report Ordering Provider Test Date Status SIMONA KENNY 09/24/2023 08:02:00 Final Observation Date Value Abnormality Reference (Units ) Status WBC, Total 09/24/2023 08:02:00 6.82 4.00-10.80 (K/uL) Final RBC 09/24/2023 08:02:00 4.04 4.50-5.25 (M/uL) Final Hemoglobin 09/24/2023 08:02:00 12.5 Below low normal 14.0-16.8 (g/dL) Final HCT 09/24/2023 08:02:00 37.2 Below low normal 40.0-48.4 (%) Final MCV 09/24/2023 08:02:00 92.1 82.0-99.5 (fL) Final MCH 09/24/2023 08:02:00 30.9 27.0-34.0 (pg) Final MCHC 09/24/2023 08:02:00 33.6 32.0-36.0 (g/dL) Final RDW 09/24/2023 08:02:00 14.1 11.5-15.5 (%) Final Platelets 09/24/2023 08:02:00 223 140-400 (K/uL) Final MPV 09/24/2023 08:02:00 10.3 6.6-11.1 (fL) Final Nucleated erythrocytes/100 leukocytes [Ratio] in Blood by Automated count 09/24/2023 08:02:00 0 <=0 (/100 WBCs) Final Performing Location LABORATORY [facility] [place] - [address] [place] [address]
--- OUTSIDE RECORDS SUMMARY | 2023-11-27 17:57 | External Medical Summary | Summary of Care ---
Author Name Unknown Organization [facility] Address [address] [facility] [place] [address] Phone [phone] Care Team Providers Care Patient Care Associate Name Role Phone Akiko Joy MD Primary Care Provide r Reason for Visit * Reason Comments Dosage Adjustment Via Phone (anticoag Cl inic) Encounter Details Date Type Department Care Team (Latest Contact Info) Description 09/25/2023 6:00 AM EDT Anticoagulation Pharmacy Call Center 58-60 [place] [address] [facility] 58 60 [place] [address] Atrial fibrillation (HCC)* Allergies No known active allergiesdocumented as of this encounter (statuses as of 09/25/2023) Medications Medication Sig Dispensed Refills Start Date [...] Oral Tablet (Lasix)Indications: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 TAKE 2 TABLETS [...] as of this encounter (statuses as of 09/25/2023) Active Problems Problem Noted Date Diagnosed Date [...] as of this encounter (statuses as of 09/25/2023) Resolved Problems Problem Noted Date Diagnosed Date [...] as of this encounter (statuses as of 09/25/2023) Immunizations Name Administration Dates Next Due COVID-19 [...] this encounter Progress Notes * Olive Severino, road contractor - 09/25/2023 8:31 AM EDT Contacts Type Contact Phone/Fax 09/25/2023 08:23 AM EDT Phone (Outgoing) Mal Tran (Self) [phone] (H) Spoke to Patient Subjective Patient Findings [...] PT/INR date communicated as noted by Pharmacist: TRE Macias 09/25/2023, 8:31 AM * Monique Andrews RPh - 09/25/2023 8:08 AM EDT Coumadin Clinic (region specific) Objective Current Warfarin Dose As of 09/25/2023 Warfarin maintenance plan: 7.5 mg (2.5 mg x 3) every Sun, Tue; 5 mg (2.5 mg x 2) all other days INR Result As of 09/25/2023 INR goal: 2.0-3.0 INR used for dosin.5 (09/24/2023) Assessment & Plan Warfarin Plan As of 09/25/2023 Full warfarin instructions: 7.5 mg every Sun, Tue; 5 mg all other days No change documented: Monique Andrews RPh Next INR check: 10/08/2023 Repeat PT/INR in 2 week(s) Weekly dose: not changed Additional Dosing Information: Description G[facility] ([facility]) Confirm current regimen w/ pt after 08/04 INR Tech to contact patient with dose instructions as noted. Monique Andrews RPh 09/25/2023, 8:08 AM documented in this encounter Plan of Treatment Upcoming Encounters Date Type Department Care Team (Late st Contact Info) Description 10/09/2023 6:00 AM EDT Anticoagulation Pharmacy Call Center [address] [place] [address] [facility] [address] [place] [address] 10/09/2023 11:00 AM EDT Cardiac Studies Cardiac Studies [address] [place] [address] 03/24/2024 9:40 AM EDT Office Visit [address] [place] [phone] Rebeca Mendez PA-C [address] [place] [address] [place] [address] 09/24/2024 1:40 PM EDT Office Visit [address] [place] [phone] Akiko Joy MD [address] [place] [address] [place] [address] Health Maintenance Due Date Last Done Comments Albumin/Creatinine Ratio 1958 DTaP,Tdap,and Td Vaccines (1 - Tdap) 1957 Zoster Vaccines (1 of 2) 1988 Depression Screening 02/18/2020 02/17/2019 CKD PHOS USE SMARTSET 39991 02/27/202402/11, 02/20/2021, 05/07/2018, Additional history exists CKD HGB USE SMARTSET 10988 09/23/202409/23, 09/24/2023, 04/09/2023, Additional history exists Pneumococcal [...] of this encounter Visit Diagnoses Diagnosis Atrial fibrillation (HCC)- Primary Atrial fibrillation documented in this encounter Care Teams Patient Care Associate Relationship Specialty Start Date End Date Akiko Joy MD PCP - General Family Medicine 05/22/15 documented as of this encounter
--- OUTSIDE RECORDS SUMMARY | 2023-11-27 17:57 | External Medical Summary ---
Author Name Unknown Address Unknown Organization K01:[facility]ORY [facility] [place] [address] [facility] [place] [address] Laboratory Report Ordering Provider Test Date Status SIMONA KENNY 09/24/2023 08:02:00 Final Observation Date Value Abnormality Reference (Units ) Status SYNC LEUKOCYTES IN BLOOD BY AUTOMATED COUNT 09/24/2023 08:02:00 6.82 4.00-10.80 (K/uL) Final Segs 09/24/2023 08:02:00 62.3 40.0-75.0 (%) Final Lymphs % 09/24/2023 08:02:00 21.6 18.0-42.0 (%) Final Monos 09/24/2023 08:02:00 11.4 Above high normal 1.0-11.0 (%) Final Eosinophils 09/24/2023 08:02:00 3.7 0.0-6.0 (%) Final Basos 09/24/2023 08:02:00 0.7 0.0-2.0 (%) Final Immature Granulocyte, Percent 09/24/2023 08:02:00 0.3 0.0-2.0 (%) Final Absolute Segs 09/24/2023 08:02:00 4.25 1.80-7.70 (K/uL) Final Lymphs, absolute 09/24/2023 08:02:00 1.47 1.00-4.80 (K/ul) Final Monos, Abs 09/24/2023 08:02:00 0.78 0.00-1.10 (K/uL) Final Eos, Abs 09/24/2023 08:02:00 0.25 0.00-0.70 (K/uL) Final Basos, Abs 09/24/2023 08:02:00 0.05 0.00-0.20 (K/uL) Final Immature Granulocytes, Number 09/24/2023 08:02:00 0.02 0.00-0.20 (K/uL) Final Performing Location LABOR[facility]ORY [facility] [place] - [facility] [address] [facility] [address]
--- OUTSIDE RECORDS SUMMARY | 2023-11-27 17:58 | External Medical Summary | Summary of Care ---
Author Name Unknown Organization [facility] Address [address] [facility] [place] [address] Phone [phone] Care Team Providers Care Healthcare Liaison Name Role Phone Akiko Joy MD Primary Care Provide r Reason for Referral * Precert (Within 10 days (routine)) - Pending Review Specialty Diagnoses / Procedures Referred By Contac t Referred To Contact Cardiac Studies Diagnoses Paroxysmal atrial fibrillation (HCC) Hypertensive kidney disease with stage 3a chronic kidney disease (HCC) S/P aortic valve replacement Procedures ECHO, COMPLETE (2D), TRANS-THORACIC Akiko Joy MD [address] [place] [address] [place] [address] Referral ID Status Reason Start Date Expiration Date Visits Requested Visits Authorized [id number] Pending Review Precert 09/22/2023 999 999 Reason for Visit * Reason Comments Re-Check Encounter Details Date Type Department Care Team (Late st Contact Info) Description 09/22/2023 4:00 PM EDT Office Visit Family Medicine [address] [place] [phone] Akiko Joy MD [address] [place] [address] [place] [address] Hypertensive kidney disease with stage 3a chronic kidney disease (HCC)*; Paroxysmal atrial fibrillation (HCC); Chronic kidney disease, stage 3a (HCC); HTN, goal below 140/90; Dyslipidemia, goal LDL below 100; Coronary artery disease involving [place] coronary artery of [place] heart without angina pectoris; S/P aortic valve replacement; Need for first booster dose of COVID-19 vaccine Allergies No known active allergiesdocumented as of this encounter (statuses as of 09/22/2023) Medications Medication Sig Dispensed Refills Start Date [...] Oral Tablet (Lasix)Indications:C oronary artery disease involving [place] coronary artery of [place] heart without angina pectoris TAKE 2 TABLETS [...] as of this encounter (statuses as of 09/22/2023) Active Problems Problem Noted Date Diagnosed Date [...] as of this encounter (statuses as of 09/22/2023) Resolved Problems Problem Noted Date Diagnosed Date [...] as of this encounter (statuses as of 09/22/2023) Immunizations Name Administration Dates Next Due COVID-19 mRNA, LNP-s, No Pre serve, 2-Dose Series (Moderna) 11/28/2020 COVID-19, MRNA-LNP, 23-24, P F, 30 MCG/0.3 mL, 12 YRS AND ABOVE, IM [facility] 09/22/2023 Pneumococcal Conjugate Vacc, 13 Valent (Prevnar) [...] on file documented as of this encounter Last Filed Vital Signs Vital Sign Reading Time Taken Comments Blood Pressure 122/62 09/22/2023 3:55 PM EDT Pulse 72 09/22/2023 3:55 PM EDT Temperature 36.6 C (97.8 F) 09/22/2023 3:55 PM ED T Respiratory Rate - - Oxygen Saturation 95% 09/22/2023 3:55 PM EDT Inhaled Oxygen Concentration - - Weight 63 kg (139 lb) 09/22/2023 3:55 PM EDT Height 162.6 cm (5' 4") 09/22/2023 3:55 PM EDT Body Mass Index 23.86 09/22/2023 3:55 PM EDT documented in this encounter Progress Notes * Akiko Joy MD - 09/22/2023 4:00 PM EDT Subjective: Mal Tran is a 83 year old male. Chief Complaint Patient presents with Re-Check HPI: Brief Clinical History Mr. Tran is an 83 year old man last seen in Family Medicine 5 months ago (03-26-23). He is not duefor eval of any conditions. Here for a check up with his [id number], who assists with his medications, shopping, bills, and driving. Last seen by me in 2018. Fell about one month ago and hurt the left hand. Is not hurting anymore. Has full ROM of the hand. Uses the cane for ambulation. States his son wanted him to mention it. Is on Coumadin. Has mobile lab come out. No longer sees cardiology. Had tissue aortic valve replacement in 2013. Denies any chest pain or shortness of breath. Is taking Lasix every day. [id number] he urinates a lot. Agrees to COVID booster today. Results for orders placed or performed in visit on 09/10/23 PT INR Result Value Ref Range Prothrombin Time 15.4 (H) 11.6 - 15.2 seconds INR 1.2 0.8 - 1.2 CBC Results: Results for orders placed or performed in visit on 02/20/21 CBC Result Value Ref Range WBC 9.85 4.00 - 10.80 K/uL RBC 4.72 4.50 - 5.25 M/uL HGB 14.0 14.0 - 16.8 g/dL HCT 42.2 40.0 - 48.4 % MCV 89.4 82.0 - 99.5 fL MCH 29.7 27.0 - 34.0 pg MCHC 33.2 32.0 - 36.0 g/dL RDW 14.6 11.5 - 15.5 % MPV 10.4 6.6 - 11.1 fL nRBCs 0 <=0 /100 WBCs PLT 243 140 - 400 K/uL Basic Panel Results: Results for orders placed or performed in visit on 05/07/18 BASIC METAB PANEL, BMP Result Value Ref Range BUN 20 6 - 20 mg/dL Creatinine 1.2 0.6 - 1.2 mg/dL Estimated Glomerular Filtration Rate 55.1 (L) >60 Sodium 142 135 - 146 mmol/L Potassium 4.0 3.5 - 5.1 mmol/L Chloride 106 98 - 107 mmol/L CO2 23 22 - 32 mmol/L Anion Gap 13 7 - 15 mmol/L Glucose 82 70 - 120 mg/dL Calcium 9.3 8.4 - 10.2 mg/dL PHM: Patient Active Problem List Diagnosis Code HTN, goal below 140/90 I10 Dyslipidemia, goal LDL below 100 E78.5 CAD (coronary artery disease) I25.10 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 180 Tab 1 Docusate Sodium 100 MG Oral Capsule (Colace) Take 1 Capsule by mouth in the morning and 1 Capsule before bedtime. Diclofenac Sodium 1 % External Gel Apply topically to affected area. Apply 4g to knee up to 4 timesa day Warfarin Sodium 2.5 MG Oral Tablet (Coumadin) TAKE 2-3 TABLETS BY MOUTH DAILY DIRECTED BY COUMADIN CLINIC ON PHONE. 270 Tablet 1 Furosemide 20 MG Oral Tablet (Lasix) TAKE 2 TABLETS BY MOUTH EVERY DAY 180 Tablet 1 Atorvastatin Calcium 40 MG Oral Tablet (Lipitor) TAKE 1 TABLET BY MOUTH EVERYDAY AT BEDTIME 90 Tablet 1 Carvedilol 25 MG Oral Tablet (Coreg) TAKE 1 TABLET BY MOUTH TWICE A DAY 180 Tablet 3 amLODIPine Besylate 5 MG Oral Tablet (Norvasc) TAKE 1 TABLET BY MOUTH EVERY DAY 90 Tablet 1 No current facility-administered medications for this visit. 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 Cesar Holley Past Surgical History: Procedure Laterality Date REMOVE TONSILS & ADENOIDS, UNDER 12 REPLACEMENT AORTIC VALVE, BYPASS WITH PROSTHETIC VALVE 12/08/2013 Dr. Holley--[facility] Nicasio-bioprosthetic Social History Socioeconomic History Marital status: Spouse name: Not on file Number of children: Not on file Years of education: Not on file Highest education level: Not on file Occupational History Not on file Tobacco Use Smoking status: Never Smokeless tobacco: Current Types: Snuff Tobacco comments: cutting down Substance and Sexual Activity Alcohol use: Yes Comment: not very much Drug use: No Sexual activity: Not on file Other Topics Concern Not on file Social History Narrative Not on file Social Determinants of Health Financial Resource Strain: Not on file Food Insecurity: No Food Insecurity (02/20/2021) Hunger Vital Sign Worried About Running Out of Food in the Last Year: Never true Ran Out of Food in the Last Year: Never true Transportation Needs: Not on file Physical Activity: Not on file Stress: Not on file Social Connections: Not on file Intimate Partner Violence: Not on file Housing Stability: Not on file Review of patient's allergies indicates: No Known Allergies Objective: BP 122/62 | Pulse 72 | Temp 36.6 C (97.8 F) (Tympanic) | Ht 1.626 m (5' 4") | Wt 63 kg (139 lb)| SpO2 95% | BMI 23.86 kg/m | BSA 1.69 m Physical Exam: General: alert, healthy, no distress, well nourished, and well developed Head: Normocephalic, No masses, lesions, tenderness or abnormalities Eye Exam: PERRLA, extraocular movements intact, conjunctiva are pink and non- injected, sclera clear Ears: External ears normal, Canals clear, TM's Normal Nose: no mucosal erythema, no mucosal edema, no purulent discharge Oropharynx: no exudate, no erythema, lips, buccal mucosa, and tongue normal, and mucous membranes are moist Neck: supple, no adenopathy, no bruits Heart: no gallops, irregularly irregular, and 2/6 holosystolic low pitched harsh murmur aortic area Lungs: chest symmetric with normal AP diameter, no chest deformities noted, no chest wall tenderness, lungs clear to auscultation Extremities: no clubbing, no cyanosis, 1+ distal lower extremity edema bilaterally Neuro Exam: alert & oriented x 3 with fluent speech, no focal motor/sensory deficits Extensive ROS Constitutional (f/c/wt/vision/hearing): Negative Resp (cough/sob/buchanan): Negative CV (cp/palp/fluttering/diaphoresis/buchanan/pnd):see above hpi GI (n/v/d/hrtburn): Negative Endo (hair/cold or heat intol/ 3 p's): Negative Neuro (shaking/weak/fatigu/parasthesi/): Negative Skin (rash/easy bruis/xerosis): Negative Psy (si/hi/halluc/): Negative (nocturia/hesit/drib/sexual review): Negative Lymph (swollen glands/b sx's/: Negative ASSESSMENT: Hypertensive kidney disease with stage 3a chronic kidney disease (HCC) (Primary)--blood pressure controlled with amlodipine 5 mg daily and carvedilol 25 mg twice daily. Due for GFR. Will have labs checked with next INR draw by mobile phlebotomy. - CBC WITH WBC DIFFERENTIAL; Future; Expected date: 09/22/2023 - COMPREHENSIVE METABOLIC PANEL; Future; Expected date: 09/22/2023 - ECHO, COMPLETE (2D), TRANS-THORACIC; Future; Expected date: 09/22/2023 Paroxysmal atrial fibrillation (HCC)--rate controlled. Continue Coumadin. Check echo. - ECHO, COMPLETE (2D), TRANS-THORACIC; Future; Expected date: 09/22/2023 Chronic kidney disease, stage 3a (HCC)--due for GFR as above. HTN, goal below 140/90--controlled as above. Dyslipidemia, goal LDL below 100--continue atorvastatin 40 mg daily. Due for lipid panel. - COMPREHENSIVE METABOLIC PANEL; Future; Expected date: 09/22/2023 - LIPID PANEL WITH DIRECT LDL IF TG IS HIGH; Future; Expected date: 09/22/2023 Coronary artery disease involving [place] coronary artery of [place] heart without angina pectoris--stable S/P aortic valve replacement--has murmur noted today. Has tissue aortic valve replacement in 2013. No longer seeing cardiology. Check follow-up echo. - ECHO, COMPLETE (2D), TRANS-THORACIC; Future; Expected date: 09/22/2023 Need for first booster dose of COVID-19 vaccine - COVID-19, MRNA-LNP, PF, 23-24, 30MCG/0.3ML, IM, 12YRS AND ABOVE ([place]) Follow Up: Return in about 6 months (around 03/24/2024) for Clinic Visit. | For: Clinic Visit PLAN: Continue present medication(s): Study(ies) ordered: Echocardiogram to follow-up aortic valve replacement and murmur. Has some leg edema as well. Immunization(s) ordered: COVID booster. Schedule labs: CBC w/diff, CMP, Lipid panel with next INR Patient education: Discussed echo, COVID booster, and labs. Follow up: in 6 month(s). Akiko Joy MD documented in this encounter Nursing Notes * Esthela Dennis LPN - 09/22/2023 3:55 PM EDT Recheck No concerns today documented in this encounter Plan of Treatment Upcoming Encounters Date Type Department Care Team (Late st Contact Info) Description 09/24/2023 9:00 AM EDT Laboratory Lab [facility] [address] [place] [address] [facility] Mobile Home Draw [address] [place] [address] 09/25/2023 6:00 AM EDT Anticoagulation Pharmacy Call Center [address] [place] [address] [facility], [facility] [address] [facility] [address] 10/09/2023 11:00 AM EDT Cardiac Studies Cardiac Studies [address] [place] [address] 03/24/2024 9:40 AM EDT Office Visit Family Medicine [address] [phone] Rebeca Mendez PA-C [address] [place] [address] [place] [address] 09/24/2024 1:40 PM EDT Office Visit [address] [place] [phone] Akiko Joy MD [address] [place] [address] [place] [address] Scheduled Orders Name Type Priority Associated Diagnoses Orde r Schedule CBC WITH WBC DIFFERENTIAL Lab Routine Hypertensive kidney disease with stage 3a chronic kidney disease (HCC) Expected: 09/22/2023 (Approximate), Expires: 09/21/2024 COMPREHENSIVE METABOLIC PANEL Lab Routine Dyslipidemia, goal LDL below 100 Hypertensive kidney disease with stage 3a chronic kidney disease (HCC) Expected: 09/22/2023 (Approximate), Expires: 09/21/2024 LIPID PANEL WITH DIRECT LDL IF TG IS HIGH Lab Routine Dyslipidemia, goal LDL below 100 Expected: 09/22/2023, Expires: 09/21/2024 ECHO, COMPLETE (2D), TRANS-THORACIC Echocardiology Routine Paroxysmal atrial fibrillation (HCC) Hypertensive kidney disease with stage 3a chronic kidney disease (HCC) S/P aortic valve replacement Expected: 09/22/2023 (Approximate), Expires: 09/21/2024 Health Maintenance Due Date Last Done Comments Albumin/Creatinine Ratio 1958 DTaP,Tdap,and Td Vaccines (1 - Tdap) 1957 Zoster Vaccines (1 of 2) 1988 Depression Screening 02/18/2020 02/17/2019 CKD PHOS USE SMARTSET 02208 02/27/202402/11, 02/20/2021, 05/07/2018, Additional history exists CKD HGB USE SMARTSET 79307 04/09/202404/09, 04/09/2023, 02/26/2023, Additional history exists Pneumococcal Vaccine: 65+ Years [...] as of this encounter Visit Diagnoses Diagnosis Hypertensive kidney disease with stage 3a chronic kidney disease (HCC)- Primary Paroxysmal atrial fibrillation (HCC) Atrial fibrillation Chronic kidney disease, stage 3a (HCC) HTN, goal below 140/90 Unspecified essential hypertension Dyslipidemia, goal LDL below 100 Other and unspecified hyperlipidemia Coronary artery disease involving p[place] coronary artery of p[place] heart without angina pectoris S/P aortic valve replacement Heart valve replaced by other means Need for first booster dose of COVID-19 vaccine documented in this encounter Care Teams Healthcare Liaison Relationship Specialty Start Date End Date Akiko Joy MD PCP - General Family Medicine 05/22/15 documented as of this encounter
--- OUTSIDE RECORDS SUMMARY | 2023-11-27 17:58 | External Medical Summary | Summary of Care ---
Author Name Unknown Organization [facility] Address [address] [facility] [place] [address] Phone [phone] Care Team Providers Care Rock Worker Name Role Phone Akiko Joy MD Primary Care Provide r Reason for Visit * Reason Comments Dosage Adjustment Via Phone (anticoag Cl inic) Encounter Details Date Type Department Care Team (Latest Contact Info) Description 09/11/2023 6:00 AM EST Anticoagulation Pharmacy Call Center [phone] [place] [address] [facility] [address] [place] [address] Atrial fibrillation (HCC)* Allergies No known active allergiesdocumented as of this encounter (statuses as of 09/11/2023) Medications Medication Sig Dispensed Refills Start Date [...] Oral Tablet (Lasix)Indications:C oronary artery disease involving [place] coronary artery of [place] heart without angina pectoris TAKE 2 TABLETS [...] as of this encounter (statuses as of 09/11/2023) Active Problems Problem Noted Date Diagnosed Date [...] as of this encounter (statuses as of 09/11/2023) Resolved Problems Problem Noted Date Diagnosed Date [...] as of this encounter (statuses as of 09/11/2023) Immunizations Name Administration Dates Next Due COVID-19 mRNA, LNP-s, No Pre serve, 2-Dose Series (Moderna) 11/28/2020 Pneumococcal Conjugate Vacc, 13 Valent (Prevnar) 11/23/2015,03/14/2012 [...] this encounter Progress Notes * Olive Severino, pharmacy data analyst - 09/11/2023 11:45 AM EST Contacts Type Contact Phone/Fax 09/11/2023 11:43 AM EST Phone (Outgoing) Mal Tran (Self) [phone] (H) Spoke to Patient Subjective Patient Findings [...] as noted by Pharmacist: Yes TRE Roberson 09/11/2023, 11:45 AM * Monique Andrews RPh - 09/11/2023 9:56 AM EST Images from the original note were not included. Coumadin Clinic (region specific) Objective Current Warfarin Dose As of 09/11/2023 Warfarin maintenance plan: 7.5 mg (2.5 mg x 3) every Sun; 5 mg (2.5 mg x 2) all other days INR Result As of 09/11/2023 INR goal: 2.0-3.0 INR used for dosin.2 (09/10/2023) Assessment & Plan Warfarin Plan As of 09/11/2023 Full warfarin instructions: : 10 mg; Otherwise 7.5 mg every Sun, Tue; 5 mg all other days Next INR check: 09/24/2023 Repeat PT/INR in 2 week(s) Weekly dose: increased Additional Dosing Information: Description L ([facility]) Confirm current regimen w/ pt after 08/04 INR Tech to contact patient with dose instructions as noted. Monique Andrews RPh 09/11/2023, 9:56 AM documented in this encounter Plan of Treatment Upcoming Encounters Date Type Department Care Team (Late st Contact Info) Description 09/22/2023 4:00 PM EDT Office Visit Family [address] [phone] Akiko Joy MD [address] [place] [address] [place] [address] 09/24/2023 9:00 AM EDT Laboratory Lab Mobile Phlebotomy [address] [place] [address] [facility], [facility] Mobile Home Draw [address] [place] [address] Health Maintenance Due Date Last Done Comments Albumin/Creatinine Ratio 1958 DTaP,Tdap,and Td Vaccines (1 - Tdap) 1957 Zoster Vaccines (1 of 2) 1988 Depression Screening 02/18/2020 02/17/2019 COVID-19 Vaccine (2 - 2022- season) 2023 11/28/2020 CKD PHOS USE SMARTSET 05351 02/27/202402/11, 02/20/2021, 05/07/2018, Additional history exists CKD HGB USE SMARTSET 51576 04/09/202404/09, 04/09/2023, 02/26/2023, Additional history exists Pneumococcal Vaccine: 65+ Years Completed 11/23/2015, 03/14/2012, 03/14/2012 Influenza Vaccine (FLU shot) Completed , 05/07/2018, 04/13/2017, Additional history exists GARDASIL-HPV IMMUNIZATION SERIES Aged Out No longer [...] fibrillation documented in this encounter Care Teams Rock Worker Relationship Specialty Start Date End Date Akiko Joy MD PCP - General Family Medicine 05/22/15 documented as of this encounter
--- OUTSIDE RECORDS SUMMARY | 2023-11-27 17:58 | External Medical Summary ---
Author Name Unknown Address Unknown Organization [id number]:[facility] [place] [address] [place] [address] Laboratory Report Ordering Provider Test Date Status SHON VALADEZ 09/24/2023 08:02:00 Final Warfarin Therapy
INR: 2 .0-3.0 conventional anticoagulation
INR: 2.5- 3.5 high intensity anticoagulation Observation Date Value Abnormality Reference (Units ) Status PT 09/24/2023 08:02:00 27.6 Above high normal 11 .6-15.2 (seconds) Final INR 09/24/2023 08:02:00 2.5 Above high normal 0. 8-1.2 Final Performing Location [facility] [place] [address] [place] [address]
--- OUTSIDE RECORDS SUMMARY | 2023-11-27 17:58 | External Medical Summary ---
Author Name Unknown Address Unknown Organization [id number]:[facility] [place] [facility] [address] [facility] [place] [address] Laboratory Report Ordering Provider Test Date Status SIMONA KENNY 09/24/2023 08:02:00 Final Observation Date Value Abnormality Reference (Units ) Status Triglyceride 09/24/2023 08:02:00 97 <=174 ( mg/dL) Final Triglyceride Reference Range s (mg/dL):
<150 Acceptable
150-174 Borderline high
175-499 High
>=500 Very high Cholesterol 09/24/2023 08:02:00 150 <200 (mg /dL) Final Total Cholesterol Reference Ranges (mg/dL):
<200 Desirable
200-239 Borderline high
>=240 High HDL 09/24/2023 08:02:00 42 >39 (mg/dL ) Final HDL Cholesterol Reference Ra nges (mg/dL):
>=60 High (Desirable)
<50 Low (Undesirable) For Females
<40 Low (Undesirable) For Males NON-HDL CHOLESTEROL 09/24/2023 08:02:00 108 <=159 (mg/dL) Final Non-HDL Cholesterol Referenc e Range (mg/dL):
<100 Target level for high risk ASCVD patient
<130 Optimal for general population
130-159 Near optimal for general population
160-189 Borderline High
190-219 High
>=220 Very High LDL, (calculated) 09/24/2023 08:02:00 89 <= 129 (mg/dL) Final LDL Cholesterol Reference Ra nges (mg/dL):
<70 Target level for high risk ASCVD patient
<100 Optimal for general population
100-129 Near optimal for general population
130-159 Borderline high
160-189 High
>=190 Very high Performing Location [facility]ORY [facility] [place] - [address] [facility] [address]
--- OUTSIDE RECORDS SUMMARY | 2023-11-27 17:59 | External Medical Summary ---
Author Name Unknown Address Unknown Organization [id number]:[facility] [place] - [address] [place] [address] Laboratory Report Ordering Provider Test Date Status SHON VALADEZ 09/10/2023 08:26:00 Final Warfarin Therapy
INR: 2 .0-3.0 conventional anticoagulation
INR: 2.5- 3.5 high intensity anticoagulation Observation Date Value Abnormality Reference (Units ) Status PT 09/10/2023 08:26:00 15.4 Above high normal 11 .6-15.2 (seconds) Final INR 09/10/2023 08:26:00 1.2 0.8-1.2 Final Performing Location [facility] [place] - [address] [place] [address]
--- OUTSIDE RECORDS SUMMARY | 2023-11-27 17:59 | External Medical Summary | Summary of Care ---
Author Name Unknown Organization [facility] Address [address] [facility] [place] [address] Phone [phone] Care Team Providers Care Rehabilitation Teacher Name Role Phone Akiko Joy MD Primary Care Provide r Reason for Visit * Reason Comments Dosage Adjustment Via Phone (anticoag Cl inic) Encounter Details Date Type Department Care Team (Latest Contact Info) Description 08/27/2023 6:00 PM EST Anticoagulation Pharmacy Call Center [address] [place] [address] [facility] [address] [place] [address] Atrial fibrillation, unspecified type (HCC)* Allergies No known active allergiesdocumented as of this encounter (statuses as of 08/27/2023) Medications Medication Sig Dispensed Refills Start Date [...] Oral Tablet (Lasix)Indications:C oronary artery disease involving [place] coronary artery of [place] heart without angina pectoris TAKE 2 TABLETS [...] as of this encounter (statuses as of 08/27/2023) Active Problems Problem Noted Date Diagnosed Date [...] as of this encounter (statuses as of 08/27/2023) Resolved Problems Problem Noted Date Diagnosed Date [...] as of this encounter (statuses as of 08/27/2023) Immunizations Name Administration Dates Next Due COVID-19 [...] as of this encounter Progress Notes * Alison Funez, [facility] - 08/27/2023 3:55 PM EST Images from the original note were not included. Medication Therapy Disease Management - Anticoagulation Patient: Mal Tran | : 1940 Subjective Contacts Type Contact Phone/Fax 08/27/2023 03:56 PM EST Phone (Outgoing) Mal Tran (Self) [phone] (H) Patient-Reported Symptoms: Patient Findings Negatives: Signs/symptoms of bleeding, Change in health, Upcoming invasive procedure, Missed doses,Extra doses, Change in medications, Change in diet/appetite, Bruising Objective Current Warfarin Dose As of 08/27/2023 Warfarin maintenance plan: 7.5 mg (2.5 mg x 3) every Sun; 5 mg (2.5 mg x 2) all other days INR Result As of 08/27/2023 INR goal: 2.0-3.0 INR used for dosin.2 (08/27/2023) Assessment & Plan Warfarin Plan As of 08/27/2023 Full warfarin instructions: 08/27: 10 mg; Otherwise 7.5 mg every Sun; 5 mg all other days Next INR check: 09/10/2023 Repeat PT/INR in 2 week(s) Weekly dose: not changed Additional Dosing Information: Description GML (MW) Confirm current regimen w/ pt after 08/04 INR Alison Funez RP Clinical Pharmacist 08/27/2023, 3:55 PM documented in this encounter Plan of Treatment Upcoming Encounters Date Type Department Care Team (Late st Contact Info) Description 09/11/2023 6:00 AM EST Anticoagulation Pharmacy Call Center WB [address] [place] [address] [facility] 58 60 [facility] [place] [address] 09/26/2023 3:20 PM EDT Office Visit Family Medicine [address] [place] [phone] Akiko Joy MD [address] [place] [address] [place] [address] Health Maintenance Due Date Last Done Comments Albumin/Creatinine Ratio 1958 DTaP,Tdap,and Td Vaccines (1 - Tdap) 1957 Zoster Vaccines (1 of 2) 1988 Depression Screening 02/18/2020 02/17/2019 COVID-19 Vaccine (2 - 2022-24 season) 2023 11/28/2020 CKD PHOS USE SMARTSET 88869 02/27/202402/11, 02/20/2021, 05/07/2018, Additional history exists CKD HGB USE SMARTSET 33375 04/09/202404/09, 04/09/2023, 02/26/2023, Additional history exists Pneumococcal [...] Primary documented in this encounter Care Teams Rehabilitation Teacher Relationship Specialty Start Date End Date Akiko Joy MD PCP - General Family Medicine 05/22/15 documented as of this encounter"
--- OUTSIDE RECORDS SUMMARY | 2023-11-27 18:00 | External Medical Summary ---
Author Name Unknown Address Unknown Organization [id number]:[facility] [address] [place] [address] Laboratory Report Ordering Provider Test Date Status SHON VALADEZ 08/27/2023 09:30:00 Final Warfarin Therapy
INR: 2 .0-3.0 conventional anticoagulation
INR: 2.5- 3.5 high intensity anticoagulation Observation Date Value Abnormality Reference (Units ) Status PT 08/27/2023 09:30:00 15.0 11.6-15.2 (seconds) Final INR 08/27/2023 09:30:00 1.2 0.8-1.2 Final Performing Location [facility] [address] [place] [address]
--- OUTSIDE RECORDS SUMMARY | 2023-11-27 18:00 | External Medical Summary | Summary of Care ---
Author Name Unknown Organization [facility] Address [address] [facility] [place] [address] Phone [phone] Care Team Providers Care Rail Transportation Operator Name Role Phone Akiko Joy MD Primary Care Provide r Reason for Visit * Reason Comments Dosage Adjustment Via Phone (anticoag Cl inic) Encounter Details Date Type Department Care Team (Latest Contact Info) Description 08/11/2023 6:00 AM [facility] Anticoagulation Pharmacy Call Center [phone] [place] [address] [facility] [address] [place] [address] Anticoagulation management encounter* Allergies No known active allergiesdocumented as of this encounter (statuses as of 08/11/2023) Medications Medication Sig Dispensed Refills Start Date [...] Oral Tablet (Lasix)Indications:C oronary artery disease involving [place] coronary artery of [place] heart without angina pectoris TAKE 2 TABLETS [...] as of this encounter (statuses as of 08/11/2023) Active Problems Problem Noted Date Diagnosed Date [...] as of this encounter (statuses as of 08/11/2023) Resolved Problems Problem Noted Date Diagnosed Date Resolved Date Hypertensive kidney disease with stage 3 chronic kidney disease 11/19/2021 10/23/2022 Chronic coronary artery disease 02/20/2021 10/23/2022 Hypertensive kidney disease with chronic kidney disease stage III 05/07/2018 09/26/2021 Overview: Per CKD protocol Atrial fibrillation 12/31/2013 10/24/19 Aortic valve stenosis 11/25/20132017 Severe aortic stenosis 03/24/201311/25 Kidney disease, chronic, sta ge III (GFR 30-59 ml/min) (aka CKD) 09/26/2021 Overview: Per CKD protocol documented as of this encounter (statuses as of 08/11/2023) Immunizations Name Administration Dates Next Due COVID-19 [...] as of this encounter Progress Notes * Michelle Leahy chemical engraver - 08/11/2023 7:38 AM EST 08/08 GML visit was cancelled by pt. Chart routed to GML asking that pt be rescheduled for 08/13/23. F/U call scheduled for 08/14 Thank you, Michelle Leahy Drip Molder [facility] ([facility]) (formerly Telepharmacy) [phone] 08/11/2023,7:39 AM documented in this encounter Plan of Treatment Upcoming Encounters Date Type Department Care Team (Late st Contact Info) Description 08/14/2023 6:00 AM EST Anticoagulation Pharmacy Call Center [phone] [place] [address] [facility] 58 60 [facility] [place] [address] 09/26/2023 3:20 PM EDT Office Visit Family Medicine [address] [place] [phone] Akiko Joy MD [address] [place] [address] [place] [address] Health Maintenance Due Date Last Done Comments Albumin/Creatinine Ratio 1958 DTaP,Tdap,and Td Vaccines (1 - Tdap) 1957 Zoster Vaccines (1 of 2) 1988 Depression Screening 02/18/2020 02/17/2019 COVID-19 Vaccine (2 - 2022- season) 2023 11/28/2020 CKD PHOS USE SMARTSET 64322 02/27/202402/11, 02/20/2021, 05/07/2018, Additional history exists CKD HGB USE SMARTSET 33753 04/09/202404/09, 04/09/2023, 02/26/2023, Additional history exists Pneumococcal [...] monitoring documented in this encounter Care Teams Rail Transportation Operator Relationship Specialty Start Date End Date Akiko Joy MD PCP - General Family Medicine 05/22/15 documented as of this encounter
--- OUTSIDE RECORDS SUMMARY | 2023-11-27 18:00 | External Medical Summary ---
Author Name Unknown Address Unknown Organization K01:[facility] - [address] [place] [address] Laboratory Report Ordering Provider Test Date Status SHON VALADEZ 08/13/2023 07:55:00 Final Warfarin Therapy
INR: 2 .0-3.0 conventional anticoagulation
INR: 2.5- 3.5 high intensity anticoagulation Observation Date Value Abnormality Reference (Units ) Status PT 08/13/2023 07:55:00 27.8 Above high normal 11 .6-15.2 (seconds) Final INR 08/13/2023 07:55:00 2.6 Above high normal 0. 8-1.2 Final Performing Location [facility] - [address] [place] [address]
--- OUTSIDE RECORDS SUMMARY | 2023-11-27 18:00 | External Medical Summary | Summary of Care ---
Author Name Unknown Organization [facility] Address [address] [facility] [place] [address] Phone [phone] Care Team Providers Care Ratings Analyst Name Role Phone Akiko Joy MD Primary Care Provide r Reason for Visit * Reason Comments Dosage Adjustment Via Phone (anticoag Cl inic) Encounter Details Date Type Department Care Team (Latest Contact Info) Description 08/14/2023 6:00 AM [facility] Anticoagulation Pharmacy Call Center [phone] [place] [address] [facility] [address] [facility] [place] [address] Anticoagulation management encounter* Allergies No known active allergiesdocumented as of this encounter (statuses as of 08/14/2023) Medications Medication Sig Dispensed Refills Start Date [...] Oral Tablet (Lasix)Indications:C oronary artery disease involving [place] coronary artery of [place] heart without angina pectoris TAKE 2 TABLETS [...] as of this encounter (statuses as of 08/14/2023) Active Problems Problem Noted Date Diagnosed Date [...] as of this encounter (statuses as of 08/14/2023) Resolved Problems Problem Noted Date Diagnosed Date [...] as of this encounter (statuses as of 08/14/2023) Immunizations Name Administration Dates Next Due COVID-19 [...] as of this encounter Progress Notes * Nida Craven, braille translator - 08/14/2023 10:54 AM EST Contacts Type Contact Phone/Fax 08/14/2023 10:52 AM EST Phone (Outgoing) Mal Tran (Self) [phone] (H) Spoke to Patient Subjective Patient Findings [...] date communicated as noted by Pharmacist: Yes NIDA CRAVEN braille translator 08/14/2023, 10:54 AM * Monique Andrews RP - 08/14/2023 8:50 AM EST Coumadin Clinic (region specific) Objective Current Warfarin Dose As of 08/14/2023 Warfarin maintenance plan: 7.5 mg (2.5 mg x 3) every Sun; 5 mg (2.5 mg x 2) all other days INR Result As of 08/14/2023 INR goal: 2.0-3.0 INR used for dosin.6 (08/13/2023) Assessment & Plan Warfarin Plan As of 08/14/2023 Full warfarin instructions: 7.5 mg every Sun; 5 mg all other days Next INR check: 08/25/2023 Repeat PT/INR in 1.5 week(s) Weekly dose: not changed Additional Dosing Information: Description [place] [facility] Confirm current regimen w/ pt after 08/04 INR Tech to contact patient with dose instructions as noted. Monique Andrews RPh 08/14/2023, 8:50 AM documented in this encounter Plan of Treatment Upcoming Encounters Date Type Department Care Team (Late st Contact Info) Description 08/27/2023 8:50 AM EST Laboratory Lab [facility] [address] [place] [address] [facility] [address] [place] [address] 09/26/2023 3:20 PM EDT Office Visit [address] [phone] Akiko Joy MD [address] [place] [address] [place] [address] Health Maintenance Due Date Last Done Comments Albumin/Creatinine Ratio 1956 DTaP,Tdap,and Td Vaccines (1 - Tdap) 1957 Zoster Vaccines (1 of 2) 1988 Depression Screening 02/18/2020 02/17/2019 COVID-19 Vaccine (2 - 2022- season) 2023 11/28/2020 CKD PHOS USE SMARTSET 30037 02/27/202402/11, 02/20/2021, 05/07/2018, Additional history exists CKD HGB USE SMARTSET 35100 04/09/202404/09, 04/09/2023, 02/26/2023, Additional history exists Pneumococcal [...] monitoring documented in this encounter Care Teams Ratings Analyst Relationship Specialty Start Date End Date Akiko Joy MD PCP - General Family Medicine 05/22/15 documented as of this encounter
--- OUTSIDE RECORDS SUMMARY | 2023-11-27 18:01 | External Medical Summary | Summary of Care ---
Author Name Unknown Organization [facility] Address [address] [facility] [place] [address] Phone [phone] Care Team Providers Care Medical Professionals Name Role Phone Akiko Joy MD Primary Care Provide r Reason for Visit * Reason Comments Dosage Adjustment Via Phone (anticoag Cl inic) Encounter Details Date Type Department Care Team (Latest Contact Info) Description 08/05/2023 6:45 AM EST Anticoagulation Pharmacy Call Center [address] [place] [address] [facility] 58 60 [place] [address] Atrial fibrillation, unspecified type (HCC)* Allergies No known active allergiesdocumented as of this encounter (statuses as of 08/05/2023) Medications Medication Sig Dispensed Refills Start Date [...] Oral Tablet (Lasix)Indications:C oronary artery disease involving [place] coronary artery of [place] heart without angina pectoris TAKE 2 TABLETS [...] as of this encounter (statuses as of 08/05/2023) Active Problems Problem Noted Date Diagnosed Date [...] as of this encounter (statuses as of 08/05/2023) Resolved Problems Problem Noted Date Diagnosed Date [...] as of this encounter (statuses as of 08/05/2023) Immunizations Name Administration Dates Next Due COVID-19 [...] of this encounter Progress Notes * Alison Funez [facility] - 08/05/2023 9:27 AM EST Per most recent encounter 07/28/23 - pt home from staying with family out of town. [facility] noted currentdosing of 7.5 mg on Sun and 5 mg all other days. Pt agreeable to GML 08/04. It appears that chart was not routed to GML team and ACC tracker was not updated. Updated ACC tracker to reflect dosing pt reported taking. GML comes to pt area MWF -- will route toGML for Friday08/08/23. Spoke with pt; he confirmed 08/08/23 is fine for INR draw at this time. Thanks, Alison Funez, PharmD Clinical Pharmacist [facility] ([facility]) [phone] 08/05/2023 9:31 AM documented in this encounter Plan of Treatment Upcoming Encounters Date Type Department Care Team (Late st Contact Info) Description 09/26/2023 3:20 PM EDT Office Visit Family Medicine [address] [place] [phone] Akiko Joy MD [address] [place] [address] [place] [address] Health Maintenance Due Date Last Done Comments Albumin/Creatinine Ratio 1958 DTaP,Tdap,and Td Vaccines (1 - Tdap) 1957 Zoster Vaccines (1 of 2) 1988 Depression Screening 02/18/2020 02/17/2019 COVID-19 Vaccine (2 - 2022- season) 2023 11/28/2020 CKD PHOS USE SMARTSET 06537 02/27/202402/11, 02/20/2021, 05/07/2018, Additional history exists CKD HGB USE SMARTSET 91310 04/09/202404/09, 04/09/2023, 02/26/2023, Additional history exists Pneumococcal [...] Primary documented in this encounter Care Teams Medical Professionals Relationship Specialty Start Date End Date Akiko Joy MD PCP - General Family Medicine 05/22/15 documented as of this encounter
--- OUTSIDE RECORDS SUMMARY | 2023-11-27 18:01 | External Medical Summary | Summary of Care ---
Author Name Unknown Organization [facility] Address [address] [facility] [place] [address] Phone [phone] Care Team Providers Care Rerecording Mixer Name Role Phone Efraín Joy MD Primary Care Provide r Reason for Visit * Reason Comments eRx-Medication Refill Encounter Details Date Type Department Care Team (Late st Contact Info) Description 07/20/2023 Refill Family Medicine [address] [phone] Efraín Joy MD [address] [place] [address] [place] [address] HTN, goal below 140/90 Allergies No known active allergiesdocumented as of this encounter (statuses as of 07/20/2023) Medications Medication Sig Dispensed Refills Start Date [...] Active Warfarin Sodium 2.5 MG Oral Tablet (Coumadin)Indicati ons:Unspecified atrial fibrillation (HCC) TAKE 2-3 TABLETS BY MOUTH DAILY DIRECTED BY COUMADIN CLINIC ON PHONE. 270 Tablet 1 04/16/2023 Active Furosemide 20 MG Oral Tablet (Lasix)Indications :Coronary artery disease involving [place] coronary artery of [place] heart without angina pectoris TAKE 2 TABLETS BY MOUTH EVERY DAY 180 Tablet 1 05/19/2023 Active Atorvastatin Calcium 40 MG Oral Tablet (Lipitor)Indicatio ns:Dyslipidemia, goal LDL below 100 TAKE 1 TABLET BY MOUTH EVERYDAY AT BEDTIME 90 Tablet 1 05/19/2023 Active Carvedilol 25 MG Oral Tablet (Coreg)Indications :S/P aortic valve replacement,Aortoc oronary bypass status,HTN, goal below 140/90 TAKE 1 TABLET BY MOUTH TWICE A DAY 180 Tablet 3 05/19/2023 Active amLODIPine Besylate 5 MG Oral Tablet (Norvasc)Indicatio ns:HTN, goal below 140/90 TAKE 1 TABLET BY MOUTH EVERY DAY 90 Tablet 1 07/20/2023 Active amLODIPine Besylate 5 MG Oral Tablet (Norvasc)Indicatio ns:HTN, goal below 140/90 TAKE 1 TABLET BY MOUTH EVERY DAY 90 Tablet 1 01/15/2023 Discontinued documented as of this encounter (statuses as of 07/20/2023) Active Problems Problem Noted Date Diagnosed Date [...] as of this encounter (statuses as of 07/20/2023) Resolved Problems Problem Noted Date Diagnosed Date [...] as of this encounter (statuses as of 07/20/2023) Immunizations Name Administration Dates Next Due COVID-19 [...] encounter Miscellaneous Notes * Telephone Encounter - Heather Phelan, [facility] - 07/20/2023 12:01 PM EST Signed Prescriptions: Disp Refills amLODIPine Besylate 5 MG Oral Tablet (Norv*90 Tab*1 Sig: TAKE 1 TABLET BY MOUTH EVERY DAYAuthorizing Provider: EFRAÍN JOY User: HEATHER PHELAN documented in this encounter Plan of Treatment Upcoming Encounters Date Type Department Care Team (Late st Contact Info) Description 09/26/2023 3:20 PM EDT Office Visit Family Medicine [address] [place] [phone] Efraín Joy MD [address] [place] [address] [place] [phone] Health Maintenance Due Date Last Done Comments Albumin/Creatinine Ratio 1958 DTaP,Tdap,and Td Vaccines (1 - Tdap) 1957 Zoster Vaccines (1 of 2) 1988 Depression Screening 02/18/2020 02/17/2019 COVID-19 Vaccine (2 - 2022- season) 2023 11/28/2020 CKD PHOS USE SMARTSET 65516 02/27/202402/11, 02/20/2021, 05/07/2018, Additional history exists CKD HGB USE SMARTSET 58092 04/09/202404/09, 04/09/2023, 02/26/2023, Additional history exists Pneumococcal [...] as of this encounter Visit Diagnoses Diagnosis HTN, goal below 140/90 Unspecified essential hypertension documented in this encounter Care Teams Rerecording Mixer Relationship Specialty Start Date End Date Efraín Joy MD PCP - General Family Medicine 05/22/15 documented as of this encounter
--- OUTSIDE RECORDS SUMMARY | 2023-11-27 18:01 | External Medical Summary | Summary of Care ---
Author Name Unknown Organization [facility] Address [address] [facility] [place] [address] Phone [phone] Care Team Providers Care Coal Screener Name Role Phone Akiko Joy MD Primary Care Provide r Reason for Visit * Reason Comments Dosage Adjustment Via Phone (anticoag Cl inic) Encounter Details Date Type Department Care Team (Latest Contact Info) Description 07/28/2023 6:45 AM [facility] Anticoagulation Pharmacy Call Center [address] [place] [address] [facility] 58 60 [place] [address] Anticoagulation management encounter* Allergies No known active allergiesdocumented as of this encounter (statuses as of 07/28/2023) Medications Medication Sig Dispensed Refills Start Date [...] Oral Tablet (Lasix)Indications:C oronary artery disease involving [place] coronary artery of [place] heart without angina pectoris TAKE 2 TABLETS [...] as of this encounter (statuses as of 07/28/2023) Active Problems Problem Noted Date Diagnosed Date [...] as of this encounter (statuses as of 07/28/2023) Resolved Problems Problem Noted Date Diagnosed Date [...] as of this encounter (statuses as of 07/28/2023) Immunizations Name Administration Dates Next Due COVID-19 [...] Progress Notes * Monique Andrews RPh - 07/28/2023 12:18 PM EST Date/Time Type Contact Phone/Fax 07/28/2023 12:26 PM EST by Monique Andrews RPh Outgoing Mal Tran (Self) Remove Spoke to Patient Pt is now home but has not had INR drawn. Denies any concerns at this time. States he takes 7.5mg on Friday only and 5mg all other days. Will confirm at next visit. Pt agrees to GML come next Mon 08/04 Monique Andrews Rph, Pharm.D. Clinical Pharmacist [facility] ([facility]) (formerly Telepharmacy) [phone] 07/28/2023,12:30 PM documented in this encounter Plan of Treatment Upcoming Encounters Date Type Department Care Team (Late st Contact Info) Description 09/26/2023 3:20 PM EDT Office Visit Family Medicine [address] [place] [phone] Akiko Joy MD [address] [place] [address] [place] [address] Health Maintenance Due Date Last Done Comments Albumin/Creatinine Ratio 1958 DTaP,Tdap,and Td Vaccines (1 - Tdap) 1957 Zoster Vaccines (1 of 2) 1988 Depression Screening 02/18/2020 02/17/2019 COVID-19 Vaccine (2 - 2022- season) 2023 11/28/2020 CKD PHOS USE SMARTSET 44319 02/27/202402/11, 02/20/2021, 05/07/2018, Additional history exists CKD HGB USE SMARTSET 70310 04/09/202404/09, 04/09/2023, 02/26/2023, Additional history exists Pneumococcal [...] monitoring documented in this encounter Care Teams Coal Screener Relationship Specialty Start Date End Date Akiko Joy MD PCP - General Family Medicine 05/22/15 documented as of this encounter
--- OUTSIDE RECORDS SUMMARY | 2023-11-27 18:02 | External Medical Summary | Summary of Care ---
Author Name Unknown Organization [facility] Address [address] [facility] [place] [address] Phone [phone] Care Team Providers Care Public Safety Teacher Name Role Phone Akiko Joy MD Primary Care Provide r Reason for Visit * Reason Comments Dosage Adjustment Via Phone (anticoag Cl inic) Encounter Details Date Type Department Care Team (Latest Contact Info) Description 07/17/2023 6:45 AM [facility] Anticoagulation Pharmacy Call Center [phone] [facility] [place] [address] [facility] [address] [facility] [address] Anticoagulation management encounter* Allergies No known active allergiesdocumented as of this encounter (statuses as of 07/17/2023) Medications Medication Sig Dispensed Refills Start Date [...] to 4 times a day 0 Active amLODIPine Besylate 5 MG Oral Tablet (Norvasc)Indications :HTN, goal below 140/90 TAKE 1 TABLET BY MOUTH EVERY DAY 90 Tablet 1 01/15/2023 Active Warfarin Sodium 2.5 MG Oral Tablet (Coumadin)Indication s:Unspecified atrial fibrillation (HCC) TAKE 2-3 TABLETS BY MOUTH DAILY DIRECTED BY COUMADIN CLINIC ON PHONE. 270 Tablet 1 04/16/2023 Active Furosemide 20 MG Oral Tablet (Lasix)Indications:C oronary artery disease involving lower [place] coronary artery of [place] heart without angina pectoris TAKE 2 TABLETS [...] A DAY 180 Tablet 3 05/19/2023 Active documented as of this encounter (statuses as of 07/17/2023) Active Problems Problem Noted Date Diagnosed Date [...] as of this encounter (statuses as of 07/17/2023) Resolved Problems Problem Noted Date Diagnosed Date [...] as of this encounter (statuses as of 07/17/2023) Immunizations Name Administration Dates Next Due COVID-19 [...] Progress Notes * Monique Andrews RPh - 07/17/2023 1:04 PM EST Result still not in process. Will continue to follow up for result. Per previous note pt temporarily staying with step daughter. Attempted to go to lab near her home. Last INR drawn 05/21/23. Monique Andrews Rph, Pharm.D. Clinical Pharmacist [facility] ([facility]) (formerly Telepharmacy) [phone] 07/17/2023,1:06 PM documented in this encounter Plan of Treatment Upcoming Encounters Date Type Department Care Team (Late st Contact Info) Description 09/26/2023 3:20 PM EDT Office Visit Family Medicine [address] [place] [address] Akiko Joy MD [address] [place] [address] [place] [address] Health Maintenance Due Date Last Done Comments Albumin/Creatinine Ratio 1958 DTaP,Tdap,and Td Vaccines (1 - Tdap) 1957 Zoster Vaccines (1 of 2) 1988 Depression Screening 02/18/2020 02/17/2019 COVID-19 Vaccine (2 - 2022- season) 2023 11/28/2020 CKD PHOS USE SMARTSET 77854 02/27/202402/11, 02/20/2021, 05/07/2018, Additional history exists CKD HGB USE SMARTSET 35083 04/09/202404/09, 04/09/2023, 02/26/2023, Additional history exists Pneumococcal [...] monitoring documented in this encounter Care Teams Public Safety Teacher Relationship Specialty Start Date End Date Akiko Joy MD PCP - General Family Medicine 05/22/15 documented as of this encounter
--- OUTSIDE RECORDS SUMMARY | 2023-11-27 18:03 | External Medical Summary | Summary of Care ---
Author Name Unknown Organization [facility] Address [address] [facility] [place] [address] Phone [phone] Care Team Providers Care Mandarin Speaking Nanny Name Role Phone Akiko Joy MD Primary Care Provide r Reason for Visit * Reason Comments Dosage Adjustment Via Phone (anticoag Cl inic) Encounter Details Date Type Department Care Team (Latest Contact Info) Description 07/10/2023 6:45 AM [facility] Anticoagulation Pharmacy Call Center [phone] [place] [address] [facility] 58 [address] [place] [address] Anticoagulation management encounter* Allergies No known active allergiesdocumented as of this encounter (statuses as of 07/10/2023) Medications Medication Sig Dispensed Refills Start Date [...] Oral Tablet (Lasix)Indications:C oronary artery disease involving [place] coronary artery of [place] heart without angina pectoris TAKE 2 TABLETS [...] as of this encounter (statuses as of 07/10/2023) Active Problems Problem Noted Date Diagnosed Date [...] as of this encounter (statuses as of 07/10/2023) Resolved Problems Problem Noted Date Diagnosed Date [...] as of this encounter (statuses as of 07/10/2023) Immunizations Name Administration Dates Next Due COVID-19 [...] Progress Notes * Monique Andrews RPh - 07/10/2023 12:07 PM EST Date/Time Type Contact Phone/Fax 07/10/2023 12:09 PM EST by Monique Andrews RPh Outgoing Marc Mal Nitish (Self) Remove Spoke to Patient Pt denies any concerns at this time. He hasn't been able to make it to the lab yet. States he will go next week. Monique Andrews Rph, Pharm.D. Clinical Pharmacist [facility] ([facility]) (formerly Telepharmacy) [phone] 07/10/2023,12:12 PM documented in this encounter Plan of Treatment Upcoming Encounters Date Type Department Care Team (Late st Contact Info) Description 09/26/2023 3:20 PM EDT Office Visit Family Medicine [address] [place] [phone] Akiko Joy MD [address] [place] [address] [place] [address] Health Maintenance Due Date Last Done Comments Albumin/Creatinine Ratio 1958 DTaP,Tdap,and Td Vaccines (1 - Tdap) 1957 Zoster Vaccines (1 of 2) 1988 Depression Screening 02/18/2020 02/17/2019 COVID-19 Vaccine (2 - 2022- season) 2023 11/28/2020 CKD PHOS USE SMARTSET 74370 02/27/202402/11, 02/20/2021, 05/07/2018, Additional history exists CKD HGB USE SMARTSET 93530 04/09/202404/09, 04/09/2023, 02/26/2023, Additional history exists Pneumococcal [...] monitoring documented in this encounter Care Teams Mandarin Speaking Nanny Relationship Specialty Start Date End Date Akiko Joy MD PCP - General Family Medicine 05/22/15 documented as of this encounter
--- OUTSIDE RECORDS SUMMARY | 2023-11-27 18:03 | External Medical Summary | Summary of Care ---
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 He is unsure of name but will call and let us know. [facility] will follow up once result received. Monique Andrews Rph, Pharm.D. Clinical Pharmacist [facility] ([facility]) (formerly Telepharmacy) [phone] 07/03/2023,10:25 AM * Alison Funez RPh - 07/02/2023 7:56 AM EST Received the following message from [facility] staff on teams, "Just wanted to give you a heads up that wewere informed that this patient is out of town until Aug." Alison Powell PharmD Clinical Pharmacist [facility] Pharm[facility] Services ([facility]) (Formerly Telepharmacy) [phone] 07/02/2023 7:57 AM documented in this encounter Plan of Treatment Upcoming Encounters Date Type Department Care Team (Late st Contact Info) Description 09/26/2023 3:20 PM EDT Office Visit Family Medicine [address] [phone] Akiko Joy MD [address] [place] [address] [place] [address] Health Maintenance Due Date Last Done Comments Albumin/Creatinine Ratio 1958 DTaP,Tdap,and Td Vaccines (1 - Tdap) 1957 Zoster Vaccines (1 of 2) 1988 Depression Screening 02/18/2020 02/17/2019 COVID-19 Vaccine (2 - 2022-24 season) 2023 11/28/2020 CKD PHOS USE SMARTSET 97808 02/27/202402/11, 02/20/2021, 05/07/2018, Additional history exists CKD HGB USE SMARTSET 31587 04/09/202404/09, 04/09/2023, 02/26/2023, Additional history exists Pneumococcal [...] monitoring documented in this encounter Care Teams Ship Construction Teacher Relationship Specialty Start Date End Date Akiko Joy MD PCP - General Family Medicine 05/22/15 documented as of this encounter
[2023-11-28] MEDS: oxyCODONE HCL IR 5 MG TAB (IMMEDIATE RELEASE) PO PRN (05:30)
[2023-11-28 08:53] LABS: BUN Creatinine Ratio 17.6 (10-20); Calcium 8.6 mg/dl (8.6-10.3); Creatinine Clr Calc Pharmacy 36.4 ml/min; Est GFR (African American) 57.1 ml/min; Est GFR (Non-African American) 49.3 ml/min; Potassium 3.9 mmol/L (3.5-5.1)
[2023-11-28 09:07] LABS: INR 2.5 (0.9-1.1); Prothrombin Time 25.2 Seconds (9.0-12.0)
--- NOTE | 2023-11-28 17:20 | Hospitalist Progress Note ---
Date of Service November 28, 2023 Assessment & Plan (1) Ambulatory dysfunction: Plan: Patient 83-year-old gentleman presents to the emergency room after a mechanical fall at home. Patient has acute on chronic ambulatory dysfunction with acute closed head injury, contusion of the left shoulder, ribs and knee. Ambulatory dysfunction Mechanical fall Uses cane/walker at baseline for ambulation Imaging studies showed no signs of acute fractures Patient denies any loss of consciousness PT OT, fall precautions Plan to discharge to rehab facility as able Case management to help with discharge planning (2) Knee pain, left: Plan: Left knee x-ray:Soft tissue swelling and joint effusion with no fracture identified. Pain control (3) Contusion of left shoulder: Plan: Shoulder x-ray:No acute fracture or dislocation identified. Tylenol and as needed oxycodone (4) Facial laceration: Plan: Nursing wound care (5) CHI (closed head injury): Plan: --CT head:No acute intracranial abnormality or calvarial fracture. Continue to monitor (6) HTN (hypertension): Plan: Continue carvedilol Hold amlodipine for now Blood pressure variable Continue to monitor BP Resume amlodipine if blood pressure persistently elevated (7) HLD (hyperlipidemia): Plan: Continue atorvastatin (8) CHF (congestive heart failure): Plan: Chronic heart failure with preserved EF Continue Lasix No signs of volume overload Monitor volume status Plan DVT Px: Coumadin CODE STATUS DNR/DNI Disposition PT OT prior to discharge Admission and Anticipated Discharge Date Admission Date: November 26, 2023 Subjective Patient is seen and examined at bedside left rib soreness improving Denies any left knee pain today No new complaints Denies any dyspnea, dizziness, nausea, vomiting, abdominal pain Waiting for rehab placement Review of Systems Review of Systems: All systems reviewed & are unremarkable except as noted in Subjective Physical Exam Physical Exam: Physical Exam: Vitals signs as noted above General Appearance:Moderately built and nourished, no apparent distress Head: normocephalic, + Small laceration above left eyebrow Eyes: normal inspection, EOMI Neck: supple, Trachea midline Respiratory/Chest: Normal breath sounds, CTA, mild left rib tender, No accessory muscle use Cardiovascular: S1, S2, + murmur Abdomen/GI:Soft, Non tender, Bowel sounds present Extremities/Musculoskeletal:normal inspection, no edema Neurologic/Psych:AAOX3, grossly no focal neurological deficits, +decreased hearing Skin: normal color, warm Results & Data Results & Data Vital Signs (Past 12 Hours) Vital Signs Temp Pulse Pulse Resp BP Pulse Ox O2 Del Method 11/28/23 14:59 36.5 C 66 16 144/76 H 97 Room Air 11/28/23 13:16 36.6 C 61 17 110/72 97 Room Air 11/28/23 07:29 36.6 C 64 16 120/76 95 Room Air Laboratory Results [facility] 11/28/23 08:03 Sodium 135 L Potassium 3.9 Chloride 105 Carbon Dioxide 25 BUN 23 Creatinine 1.31 Glucose 91 Calcium 8.6
[2023-11-29 07:58] LABS: INR 3.4 (0.9-1.1); Prothrombin Time 33.5 Seconds (9.0-12.0)
--- NOTE | 2023-11-29 16:16 | Hospitalist Progress Note ---
Date of Service November 29, 2023 Assessment & Plan (1) Ambulatory dysfunction: Plan: Patient 83-year-old gentleman presents to the emergency room after a mechanical fall at home. Patient has acute on chronic ambulatory dysfunction with acute closed head injury, contusion of the left shoulder, ribs and knee. Ambulatory dysfunction Mechanical fall Uses cane/walker at baseline for ambulation Imaging studies showed no signs of acute fractures Patient denies any loss of consciousness PT OT, fall precautions Case management to help with discharge planning Medically stable Waiting for rehab placement (2) Knee pain, left: Plan: Left knee x-ray:Soft tissue swelling and joint effusion with no fracture identified. Pain control (3) Contusion of left shoulder: Plan: Shoulder x-ray:No acute fracture or dislocation identified. Tylenol and as needed oxycodone (4) Facial laceration: Plan: Nursing wound care (5) CHI (closed head injury): Plan: --CT head:No acute intracranial abnormality or calvarial fracture. Continue to monitor (6) HTN (hypertension): Plan: Continue carvedilol Hold amlodipine for now--May need to discontinue on discharge Monitor BP (7) HLD (hyperlipidemia): Plan: Continue atorvastatin (8) CHF (congestive heart failure): Plan: Chronic heart failure with preserved EF Continue Lasix No signs of volume overload Monitor volume status Supratherapeutic INR INR 3.4 today Hold Coumadin today Plan DVT Px: Coumadin--held CODE STATUS DNR/DNI Disposition Rehab when accepted Admission and Anticipated Discharge Date Admission Date: November 26, 2023 Subjective Patient is seen and examined at bedside States feeling well today No new complaints Left knee pain resolved Waiting for rehab placement Denies any dyspnea, dizziness, nausea, vomiting, abdominal pain Review of Systems Review of Systems: All systems reviewed & are unremarkable except as noted in Subjective Physical Exam Physical Exam: Physical Exam: Vitals signs as noted above General Appearance:Moderately built and nourished, no apparent distress Head: normocephalic, + Small laceration above left eyebrow Eyes: normal inspection, EOMI Neck: supple, Trachea midline Respiratory/Chest: Normal breath sounds, CTA, mild left rib tender, No accessory muscle use Cardiovascular: S1, S2, + murmur Abdomen/GI:Soft, Non tender, Bowel sounds present Extremities/Musculoskeletal:normal inspection, no edema Neurologic/Psych:AAOX3, grossly no focal neurological deficits, +decreased hearing Skin: normal color, warm Results & Data Results & Data Vital Signs (Past 12 Hours) Vital Signs Temp Pulse Resp BP Pulse Ox O2 Del Method 11/29/23 14:27 36.6 C 65 16 128/72 94 Room Air 11/29/23 08:00 Room Air 11/29/23 07:03 36.8 C 62 16 131/70 94 Room Air
[2023-11-30 08:33] LABS: INR 3.3 (0.9-1.1); Prothrombin Time 32.1 Seconds (9.0-12.0)
--- NOTE | 2023-11-30 15:32 | Hospitalist Progress Note ---
Date of Service November 30, 2023 Assessment & Plan (1) Ambulatory dysfunction: Plan: Patient 83-year-old gentleman presents to the emergency room after a mechanical fall at home. Patient has acute on chronic ambulatory dysfunction with acute closed head injury, contusion of the left shoulder, ribs and knee. Ambulatory dysfunction Mechanical fall Uses cane/walker at baseline for ambulation Imaging studies showed no signs of acute fractures Patient denies any loss of consciousness PT OT, fall precautions Case management to help with discharge planning Medically stable Waiting for rehab placement Continue PT OT while hospitalized (2) Knee pain, left: Plan: Left knee x-ray:Soft tissue swelling and joint effusion with no fracture identified. Pain control (3) Contusion of left shoulder: Plan: Shoulder x-ray:No acute fracture or dislocation identified. Tylenol and as needed oxycodone Incentive spirometry (4) Facial laceration: Plan: Nursing wound care (5) CHI (closed head injury): Plan: --CT head:No acute intracranial abnormality or calvarial fracture. Continue to monitor (6) HTN (hypertension): Plan: Continue carvedilol Hold amlodipine for now--May need to discontinue on discharge Monitor BP (7) HLD (hyperlipidemia): Plan: Continue atorvastatin (8) CHF (congestive heart failure): Plan: Chronic heart failure with preserved EF Continue Lasix No signs of volume overload Monitor volume status Supratherapeutic INR INR 3.3 today Hold Coumadin today Plan DVT Px: Coumadin--held CODE STATUS DNR/DNI Disposition Rehab when accepted Admission and Anticipated Discharge Date Admission Date: November 26, 2023 Subjective Patient is seen and examined at bedside No new complaints Waiting for rehab placement Denies any dyspnea, dizziness, nausea, vomiting, abdominal pain Sitting in chair comfortably during my encounter Review of Systems Review of Systems: All systems reviewed & are unremarkable except as noted in Subjective Physical Exam Physical Exam: Physical Exam: Vitals signs as noted above General Appearance:Moderately built and nourished, no apparent distress Head: normocephalic, + Small laceration above left eyebrow Eyes: normal inspection, EOMI Neck: supple, Trachea midline Respiratory/Chest: Normal breath sounds, CTA, mild left rib tender, No accessory muscle use Cardiovascular: S1, S2, + murmur Abdomen/GI:Soft, Non tender, Bowel sounds present Extremities/Musculoskeletal:normal inspection, no edema Neurologic/Psych:AAOX3, grossly no focal neurological deficits, +decreased hearing Skin: normal color, warm Results & Data Results & Data Vital Signs (Past 12 Hours) Vital Signs Temp Pulse Pulse Resp BP Pulse Ox O2 Del Method 11/30/23 14:19 36.3 C L 65 65 16 107/63 97 Room Air 11/30/23 07:23 36.6 C 60 16 128/67 96 Room Air
[2023-12-01 07:40] LABS: INR 2.7 (0.9-1.1); Prothrombin Time 26.8 Seconds (9.0-12.0)
--- NOTE | 2023-12-01 16:51 | Hospitalist Progress Note ---
Date of Service December 01, 2023 Assessment & Plan (1) Ambulatory dysfunction: Plan: Patient 83-year-old gentleman presents to the emergency room after a mechanical fall at home. Patient has acute on chronic ambulatory dysfunction with acute closed head injury, contusion of the left shoulder, ribs and knee. Ambulatory dysfunction Mechanical fall Uses cane/walker at baseline for ambulation Imaging studies showed no signs of acute fractures Patient denies any loss of consciousness PT OT, fall precautions Case management to help with discharge planning Medically stable Continue PT OT while hospitalized Waiting for insurance Auth approval for rehab (2) Knee pain, left: Plan: Left knee x-ray:Soft tissue swelling and joint effusion with no fracture identified. Pain control (3) Contusion of left shoulder: Plan: Shoulder x-ray:No acute fracture or dislocation identified. Tylenol and as needed oxycodone Incentive spirometry No significant pain currently (4) Facial laceration: Plan: Nursing wound care (5) CHI (closed head injury): Plan: --CT head:No acute intracranial abnormality or calvarial fracture. Continue to monitor (6) HTN (hypertension): Plan: Continue carvedilol Hold amlodipine for now--May need to discontinue on discharge Monitor BP (7) HLD (hyperlipidemia): Plan: Continue atorvastatin (8) CHF (congestive heart failure): Plan: Chronic heart failure with preserved EF Continue Lasix No signs of volume overload Monitor volume status Supratherapeutic INR INR 3.3 today Hold Coumadin today Plan DVT Px: Coumadin--held CODE STATUS DNR/DNI Disposition Rehab when accepted Admission and Anticipated Discharge Date Admission Date: November 26, 2023 Subjective Patient is seen and examined at bedside Left rib pain much improved Denies any dyspnea, dizziness, nausea, vomiting, abdominal pain Waiting for insurance Auth approval for rehab Review of Systems Review of Systems: All systems reviewed & are unremarkable except as noted in Subjective Physical Exam Physical Exam: Physical Exam: Vitals signs as noted above General Appearance:Moderately built and nourished, no apparent distress Head: normocephalic, + Small laceration above left eyebrow Eyes: normal inspection, EOMI Neck: supple, Trachea midline Respiratory/Chest: Normal breath sounds, CTA, mild left rib tender, No accessory muscle use Cardiovascular: S1, S2, + murmur Abdomen/GI:Soft, Non tender, Bowel sounds present Extremities/Musculoskeletal:normal inspection, no edema Neurologic/Psych:AAOX3, grossly no focal neurological deficits, +decreased hearing Skin: normal color, warm Results & Data Results & Data Vital Signs (Past 12 Hours) Vital Signs Temp Pulse Resp BP Pulse Ox O2 Del Method 12/01/23 14:16 36.6 C 64 16 104/63 97 Room Air 12/01/23 08:00 Room Air 12/01/23 07:29 36.7 C 63 16 149/75 H 97 Room Air
[2023-12-02 07:40] LABS: INR 2.1 (0.9-1.1); Prothrombin Time 21.5 Seconds (9.0-12.0)
--- NOTE | 2023-12-02 13:06 | Hospitalist Progress Note ---
Date of Service December 02, 2023 Assessment & Plan (1) Ambulatory dysfunction: Plan: Patient 83-year-old gentleman presents to the emergency room after a mechanical fall at home. Patient has acute on chronic ambulatory dysfunction with acute closed head injury, contusion of the left shoulder, ribs and knee. Ambulatory dysfunction Mechanical fall Uses cane/walker at baseline for ambulation Imaging studies showed no signs of acute fractures Patient denies any loss of consciousness PT OT, fall precautions Case management to help with discharge planning Medically stable Continue PT OT while hospitalized A peer to peer was performed today and denied, this was discussed with CM who will apply for SNF auth (2) Knee pain, left: Plan: Left knee x-ray:Soft tissue swelling and joint effusion with no fracture identified. Pain control (3) Contusion of left shoulder: Plan: Shoulder x-ray:No acute fracture or dislocation identified. Tylenol and as needed oxycodone Incentive spirometry No significant pain currently (4) Facial laceration: Plan: Nursing wound care (5) CHI (closed head injury): Plan: --CT head:No acute intracranial abnormality or calvarial fracture. Continue to monitor (6) HTN (hypertension): Plan: Continue carvedilol Hold amlodipine for now--May need to discontinue on discharge BP has been stable off amlodipine (7) HLD (hyperlipidemia): Plan: Continue atorvastatin (8) CHF (congestive heart failure): Plan: Chronic heart failure with preserved EF Continue Lasix No signs of volume overload Monitor volume status Supratherapeutic INR INR 2.1 will resume warfarin Plan DVT Px: Coumadin CODE STATUS DNR/DNI Disposition Rehab when accepted A total of 40 minutes was spent coordinating, documenting, and providing care for this patient excluding time spent in the performance of separately billed services. This included personally viewing all current laboratories and imaging studies, medication reconciliation, outpatient chart review, and discussion with specialists. Admission and Anticipated Discharge Date Admission Date: November 26, 2023 Supervising Physician Co-Signing Physician Notes Patient is not personally evaluated by me on 12/02/2023. Patient is currently being managed by [facility] by Esthela Sherman PA-C Subjective Patient seen and examined in 376. Follow-up ambulatory dysfunction and fall. He continues to have right anterior chest wall discomfort. It is worse with inspiration. He otherwise has no complaints. He denies shortness of breath, cough, nausea or vomiting. He is tolerating diet. He is moving bowels and voiding without difficulty. Review of Systems Review of Systems: All systems reviewed & are unremarkable except as noted in HPI & below Physical Exam Physical Exam: Gen: WD/WN, NAD, A&O x3 HEENT: Normocephalic, atraumatic, conjunctivae moist, sclerae anicteric, mucous membranes moist. Lung: Clear to Auscultation bilaterally, no wheezes/rales/rhonchi Heart: Regular rate, regular rhythm, no murmurs, rubs, or gallops Abdomen: Soft, NT, ND +BS x 4 Extremities: No edema Skin: Warm, no rash, negative turgor. Results & Data Results & Data Vital Signs (Past 12 Hours) Vital Signs Temp Pulse Resp BP Pulse Ox O2 Del Method 12/02/23 07:47 36.7 C 61 17 126/71 97 Room Air Medications Administered Current Inpatient Medications Acetaminophen (Acetaminophen 325 Mg Tab) 650 mg PO QID [facility] Stop: 12/26/23 20:59 Last Admin: 12/02/23 07:55 Dose: 650 mg Al Hydrox/Mg Hydrox/Simethicone (Aluminum/Magnesium Susp 30 Ml Udc) 30 ml PO Q6H PRN PRN Reason: Dyspepsia Stop: 12/26/23 18:59 Atorvastatin Calcium (Atorvastatin 40 Mg Tab) 40 mg PO HS [facility] Stop: 12/26/23 20:59 Last Admin: 12/01/23 19:30 Dose: 40 mg Carvedilol (Carvedilol 25 Mg Tab) 25 mg PO BID [facility] Stop: 12/26/23 20:59 Last Admin: 12/02/23 07:55 Dose: 25 mg Docusate Sodium (Docusate Sodium 100 Mg Cap) 100 mg PO BID PRN PRN Reason: Constipation Stop: 12/26/23 18:59 Furosemide (Furosemide 40 Mg Tab) 40 mg PO QAM [facility] Stop: 12/27/23 08:59 Last Admin: 12/02/23 07:55 Dose: 40 mg Ondansetron HCl (Ondansetron Inj 2 Mg/Ml 2 Ml Vial) 4 mg IV Q6H PRN PRN Reason: Nausea Stop: 12/26/23 18:59 Warfarin Sodium (Warfarin Sod 2.5 Mg Tab) 2.5 mg PO DAILY@1600 [facility] Stop: 12/31/23 15:59
[2023-12-02] MEDS: WARFARIN SOD 2.5 MG TAB PO SCH (17:12)
[2023-12-03 06:38] LABS: INR 1.7 (0.9-1.1); Prothrombin Time 17.6 Seconds (9.0-12.0)
--- NOTE | 2023-12-03 11:32 | Discharge Summary ---
Discharge Summary Date of Service December 03, 2023 Notes For Next Care Provider Please obtain INR in 2 days. INR today is 1.7. I would recommend resume patients dosing per [facility] pharmacy, as below. Pt follows with [facility] anticoagulation clinic. Per anti coagulation clinic recommendation is 7.5mg of warfarin on Friday and Friday; 5mg all other days. Medication Changes From Visit STOP Amlodipine Admission HPI Per Admitting Provider Patient 83-year-old gentleman who continues to live independently at home. He has chronic ambulatory dysfunction and has usually used a cane to get around in his house. Recently he has been using a walker to get around in his home because he has been having some frequent falls. Earlier today was walking in his home and his foot got caught on a rug and he slipped and fell. He did hit his head. Neighbor found him and called 911. In the emergency room patient underwent extensive imaging. There is no evidence of fracture. Did have evidence of contusion over his left eye left shoulder and knee. Patient was unable to stand without significant pain or assistance here in the emergency department he was unable to ambulate. He was referred to our service for ongoing care here in the hospital due to the fact that he was unable to care for himself at home and is unsafe to go home. Time of my evaluation the patient den ies any significant pain. He denies any loss of consciousness. He states has been eating and drinking well. Denies any fever or chills, no chest pain, no shortness of breath. He even really denies any significant joint pain at this time. States his bowels and bladder have been doing well. He does recognize he has been having increasing issues with ambulation and is willing to consider a rehab facility if deemed necessary. Admission Exam Per Admitting Provider Constitutional: Alert, nontoxic HEENT: Mucous membranes moist. Sclera clear, contusion and small laceration over left lateral eyebrow and forehead Neck: Soft, no adenopathy Lungs: Clear to auscultation, decreased, no wheezes rales or rhonchi CV: S1-S2, regular, grade 3/6 systolic ejection murmur Abdomen: Soft, nontender, nondistended Extremities: No significant edema Musculoskeletal: Contusion over her left shoulder with some mild tenderness, evidence of contusion over left ribs but denies tenderness to palpation, mild contusion left knee, minimal tenderness to palpation Skin: Did not see any open skin tears from fall Neuro: No focal deficits, generalized weakness Psych: Cooperative, normal mood Principal Dx & Hospital Course #1 = Principal Diagnosis (1) Ambulatory dysfunction: Patient 83-year-old gentleman presents to the emergency room after a mechanical fall at home. Patient has acute on chronic ambulatory dysfunction with acute closed head injury, contusion of the left shoulder, ribs and knee. Ambulatory dysfunction Mechanical fall Uses cane/walker at baseline for ambulation Imaging studies showed no signs of acute fractures Patient denies any loss of consciousness PT OT, fall precautions Case management to help with discharge planning Medically stable Continue PT OT while hospitalized He will be discharged to SNF today, he continues to have some L sided chest wall musculoskeletal pain, his L forehead laceration is healing with steri strips in place (2) Knee pain, left: Left knee x-ray:Soft tissue swelling and joint effusion with no fracture identified. Pain control (3) Contusion of left shoulder: Shoulder x-ray:No acute fracture or dislocation identified. Tylenol and as needed oxycodone Incentive spirometry No significant pain currently (4) Facial laceration: Allow steri strips to fall off Keep Clean, dry (5) CHI (closed head injury): --CT head:No acute intracranial abnormality or calvarial fracture. Continue to monitor (6) HTN (hypertension): Continue carvedilol Discontinue amlodipine as blood pressure has been adequate with out it recommend continuing to monitor blood pressure at rehab (7) HLD (hyperlipidemia): Continue atorvastatin (8) CHF (congestive heart failure): Chronic heart failure with preserved EF Continue Lasix No signs of volume overload Monitor volume status Supratherapeutic INR INR 1.7 today, it was on hold at one point due to supratherapeutic INR will resume warfarin at recommended home dose with close follow up Plan DVT Px: Coumadin CODE STATUS DNR/DNI [facility]position [facility] A total of 44 minutes was spent coordinating, documenting, and providing care for this patient excluding time spent in the performance of separately billed services. This included personally viewing all current laboratories and imaging studies, medication reconciliation, outpatient chart review, and discussion with specialists. On day of discharge pt is in good spirits and ready to go to rehab. He continues to still have some L sided chest wall discomfort but this is improving. He has no acute concerns and is hemodynamically stable. INR is 1.7 today and will continue home warfarin dosing with close monitoring of INR. Discharge Exam Gen: WD/WN, NAD, A&O x3 HEENT: Normocephalic, atraumatic, conjunctivae moist, sclerae anicteric, mucous membranes moist. Lung: Clear to Auscultation bilaterally, no wheezes/rales/rhonchi Heart: Regular rate, regular rhythm, no murmurs, rubs, or gallops Abdomen: Soft, NT, ND +BS x 4 Extremities: No edema Skin: Warm, no rash, negative turgor. Updated Medication List Medication Instructions Recorded Confirmed Type atorvastatin 40 mg tablet 40 mg PO HS 06/07/19 11/26/23 History carvedilol 25 mg tablet 25 mg PO BID 06/07/19 11/26/23 History docusate sodium 100 mg capsule 100 mg PO BID PRN Constipation 06/07/19 11/26/23 History furosemide 20 mg tablet 40 mg PO QAM 06/07/19 11/26/23 History warfarin 2.5 mg tablet 5 mg PO QPM 06/07/19 11/26/23 History diclofenac sodium 1 % topical gel 4 g topical QID #100 grams 04/06/22 11/26/23 Rx (Voltaren Arthritis Pain) Hospital Stay Data Consultations 11/26/23 15:12 ED Decision to Admit Stat Diagnostic Imagining Performed Ribs w/Chest X-Ray 11/26/23 12:08 XR ribs LT min 2V w CXR1V CLINICAL HISTORY: trauma TECHNIQUE: 3 views of the left ribs were obtained. Single frontal view of the chest was obtained. Comparison: Comparison is made to chest radiographs for 923 FINDINGS: No acute fractures are seen. The chest wall and soft tissues are normal. Median sternotomy wires are unchanged. Calcified aortic knob is seen. The lungs are clear. No evidence of pleural effusion or pneumothorax. IMPRESSION: No evidence of acute fracture or other acute abnormalities in the visualized portions of the chest. ACT 112: Negative or not required by law. Electronically signed by: Shaun Gonzalez M.D. 11/26/2023 2:[address] 11/26/23 12:09 CT cervical spine wo con CLINICAL HISTORY: trauma TECHNIQUE: Multidetector row helical CT of the cervical spine was performed without administration of intravenous contrast. Coronal and sagittal reformations were obtained. Automated dose lowering techniques and/or adjustment according to patient size were utilized for this exam. Comparison: None available at the time of this dictation. FINDINGS: No acute fractures or subluxations are identified. Degenerative changes are seen in the visualized spine. The alignment is normal. Soft tissues are unremarkable. IMPRESSION: Degenerative changes without evidence of acute bony injury. ACT 112: Negative or not required by law. Electronically signed by: Shaun Gonzalez M.D. 11/26/2023 1:[address] 11/26/23 12:09 CT head/brain wo con CLINICAL HISTORY: 83 years-old Male with trauma. Acute head trauma TECHNIQUE: Multiple axial CT images of the head were obtained without contrast. A dose lowering technique was utilized adhering to the principles of ALARA. COMPARISON: 10/20/2022 FINDINGS: No acute intracranial hemorrhage, midline shift, intracranial mass, hydrocephalus, territorial ischemia or abnormal extra-axial collection. Involutional changes with suggestion of mild chronic microvascular ischemic disease. The calvarium is intact. The paranasal sinuses, mastoid air cells, and middle ear cavities are clear. IMPRESSION: No acute intracranial abnormality or calvarial fracture. ACT 112: Negative or not required by law. The above report was generated using voice recognition software. It may contain grammatical, syntax or spelling errors. Electronically signed by: Lincoln Velasquez M.D. 11/26/2023 1:07 PM Pelvis X-Ray 11/26/23 12:09 SINGLE VIEW PELVIS CLINICAL HISTORY: Trauma. Fall. FINDINGS: An AP, portable, supine pelvic radiograph is obtained. No prior studies are available for comparison at the time of dictation. The skeletal structures are osteopenic. There is no radiographic evidence of acute fracture involving the hips or bony pelvis. Mild arthritic change and joint space na rrowing is seen in the hips. There is degenerative sclerosis of the sacroiliac joints. Lumbosacral spondylosis is partially visualized. The overlying soft tissues are within normal limits. Atherosclerotic calcification is noted in the femoral arteries. Surgical clips project over the left groin. IMPRESSION: No acute bony abnormality is identified. Electronically signed by: Vaibhav Price M.D. 11/26/2023 2:09 PM Knee X-Ray 11/26/23 12:11 LEFT KNEE 2 VIEWS CLINICAL HISTORY: Fall. Left knee injury. FINDINGS: AP and crosstable lateral views of the left knee are obtained. No prior studies are available for comparison at the time of dictation. The skeletal structures are osteopenic. No fracture is seen. There is minimal degenerative joint space narrowing. A joint effusion is observed. Soft tissue swelling is seen around the knee. There is advanced atherosclerotic calcification of the regional arteries. Surgical clips are seen in the distal thigh and upper calf. IMPRESSION: Soft tissue swelling and joint effusion with no fracture identified. Electronically signed by: Vaibhav Price M.D. 11/26/2023 2:22 PM Shoulder X-Ray 11/26/23 12:12 XR shoulder LT min 2V routine HISTORY: 83 years-old Male trauma acute left shoulder pain status post fall COMPARISON: Rib and chest radiographs of same day TECHNIQUE: 3 views of the left shoulder FINDINGS: Median sternotomy wires. Demineralized appearance of the bones. Moderate glenohumeral and AC joint osteoarthritis. No acute fracture or dislocation identified. IMPRESSION: No acute fracture or dislocation identified. ACT 112: Negative or not required by law. The above report was generated using voice recognition software. It may contain grammatical, syntax or spelling errors. Electronically signed by: Lincoln Velasquez M.D. 11/26/2023 2:54 PM Pending Results Patient Have Any Pending Studies at Discharge: No Discharge Instructions Given to Patient (Per Discharging Provider) MEDICATION CHANGES: * STOP amlodipine * Continue all other medications * SUMMARY OF TEST RESULTS: You were admitted to hospital after suffering a fall. You had a laceration to your Left forehead as well as multiple areas of contusions. You INR was high and low during your hospital stay. You will need to have this closely monitored at rehab. Your amlodipine was discontinued as your blood pressure was normal with out it. Continue to monitor your blood pressure at home. PENDING TEST RESULTS: None RECOMMENDATIONS FOR FOLLOW-UP: Please follow up with Primary Care Provider upon discharge from rehab facility. Please have your INR checked with in 2 days of being discharged. Your INR on day of discharge was 1.7. Pt follows with [facility] anticoagulation clinic. Per anti coagulation clinic recommendation is 7.5mg of warfarin on Friday and Friday; 5mg all other days. OTHER INSTRUCTIONS: Seek medical attention if you have: * temperature above 101 * chest pain or trouble breathing * abdominal pain, nausea, vomiting * diarrhea, dark stools or bloody stools * any unanswered questions or concerns Call 911 if symptoms are severe. Please take good care of yourself. It has been a pleasure taking care of you. Please take care of yourself. If you have any questions regarding your recent hospitalization please contact [facility] and request Everton Teague @ [phone]. Total Time Total Time Spent Total Time Spent (In Minutes): 45 minutes Supervising Physician Co-Signing Physician Notes I have seen and discussed the case with the collaborating advanced practitioner. I agree with the above H&P. I have reviewed and confirmed the patients medical history, the findings on physical examination, and the patients diagnosis and treatment plan with Lane WILSON and agree with the information documented. In short, Mr. Tran is an 83 year old gentleman admitted for evaluation of mechanical fall. Patient determined stable for discharge to SNF. Chronic medical conditions stable. Patient with subtherapeutic INR, resumed on home dosing with plans for close INR follow up . GENERAL APPEARANCE: AxOx4, generally well-appearing gentleman, no acute distress. HEENT: NC, AT. MMM. EOMI, clear conjunctiva, oropharynx clear. NECK: Supple without lymphadenopathy. No stiffness or restricted ROM. HEART: Normal rate and regular rhythm, normal S1/S1, no m/r/g LUNGS: CTAB, moving air well. No crackles or wheezes are heard. ABDOMEN: Soft, nontender, nondistended with good bowel sounds heard. BACK: No CVAT, no obvious deformity. EXTREMITIES: Without cyanosis, clubbing or edema. NEUROLOGICAL: Grossly nonfocal. Alert and oriented, moving all 4 extremities. CN not formally tested but appear grossly intact Plan as above. I spent a total of 15 minutes coordinating, documenting, and providing care for this patient excluding time spent in the performance of separately billed services. All of the aforementioned completed outside of collaborating with the assigned advanced practitioner for a full treatment plan. I have reviewed the advanced practitioner's documentation, and I agree with, and take responsibility for the plan of care
== END 2023-12-03 13:12 | DRG 914 ==
LOC: ED 11:57 → SUATTDRO 16:24 → 3N 16:24

== ENCOUNTER 2024-04-11 03:43 | Observation (INO) ==
--- OUTSIDE RECORDS SUMMARY | 2024-04-11 03:48 | External Medical Summary | Summary of Care ---
Author Name Unknown Organization [facility] Address [address] [facility] [place] [address] Phone [phone] Care Team Providers Care Manager Of Pmo Name Role Phone Akiko Joy MD Primary Care Provide r Encounter Details Date Type Department Care Team (Late st Contact Info) Description 02/27/2024 Orders Only Centralized Clinical [facility] Services, [facility] [address] [place] [address] [place] [id number] Alison Funez, [facility] [phone] [place] [id number] Paroxysmal atrial fibrillation (HCC)* Allergies No known active allergiesdocumented as of this encounter (statuses as of 02/27/2024) Medications Medication Sig Dispensed Refills Start Date End Date Status Acetaminophen 325 MG Oral Tablet (Tylenol) Take 2 Tablets by mouth every 4 hours as needed for Fever >38C(100.5F), Pain, Severe, Pain, Moderate or Pain, Mild. 12/09/2023 Active Atorvastatin Calcium 40 MG Oral Tablet (Lipitor)Indications :Dyslipidemia, goal LDL below 100 TAKE 1 TABLET BY MOUTH EVERYDAY AT BEDTIME 90 Tablet 1 12/11/2023 Active Carvedilol 25 MG Oral Tablet (Coreg)Indications:S /P aortic valve replacement,Aortocor onary bypass status,HTN, goal below 140/90 Take 1 Tablet by mouth in the morning and 1 Tablet before bedtime. 180 Tablet 3 12/11/2023 Active Diclofenac Sodium 1 % External Gel (Voltaren) Apply topically to affected area 4 times a day as needed (joint and muscle pain). Apply 4g to knee up to 4 times a day 100 g 12/11/2023 Active Warfarin Sodium 2.5 MG Oral Tablet (Coumadin)Indication s:Unspecified atrial fibrillation (HCC) Take 2-3 tablets by mouth daily as directed by Coumadin Clinic on phone. 270 Tablet 1 12/11/2023 Active Furosemide 20 MG Oral Tablet (Lasix)Indications:C oronary artery disease involving [place] coronary artery of [place] heart without angina pectoris TAKE 2 TABLETS BY MOUTH EVERY DAY 180 Tablet 1 01/19/2024 Active documented as of this encounter (statuses as of 02/27/2024) Active Problems Problem Noted Date Diagnosed Date Ambulatory dysfunction 12/15/2023 DNR (do not resuscitate) 12/09/2023 Cerebrovascular disease 12/09/2023 DDD (degenerative disc disease), cervical 2023 Chronic kidney disease, stage 3a 09/24/2021 Overview: Per CKD protocol Hypertensive kidney disease with stage 3a chronic kidney disease 09/24/2021 Overview: Per CKD protocol Paroxysmal atrial fibrillation 02/17/2019 S/P aortic valve replacement 12/31/2013 CAD (coronary artery disease) 12/28/2013 Aortocoronary bypass status 12/28/2013 Dyslipidemia, goal LDL below 100 09/28/2013 HTN, goal below 140/90 03/24/2013 documented as of this encounter (statuses as of 02/27/2024) Resolved Problems Problem Noted Date Diagnosed Date [...] as of this encounter (statuses as of 02/27/2024) Immunizations Name Administration Dates Next Due COVID-19 [...] on file documented as of this encounter Plan of Treatment Upcoming Encounters Date Type Department Care Team (Late st Contact Info) Description 03/10/2024 7:00 AM EDT Laboratory Lab Mobile Phlebotomy [facility] [address] [place] [id number] [facility] [address] [place] [address] [id number] 03/11/2024 6:00 AM EDT Anticoagulation Centralized Clinical [facility]acy Services, [facility] [address] [place] [address] [place] [address] [place] [address] 03/24/2024 9:40 AM EDT Office Visit [address] [place] [phone] Rebeca Mendez PA-C [address] [place] [address] [place] [id number] 09/24/2024 1:40 PM EDT Office Visit [address] [place] [phone] Akiko Joy MD [address] [place] [address] [place] [id number] Scheduled Orders Name Type Priority Associated Diagnoses Orde r Schedule PT INR Lab Routine Paroxysmal atrial fibrillation (HCC) Other, Please specify in Comments field for 26 Occurrences starting 02/27/2024 until 02/26/2025 Health Maintenance Due Date Last Done Comments Albumin/Creatinine Ratio 1958 DTaP,Tdap,and Td Vaccines (1 - Tdap) 1957 Zoster Vaccines (1 of 2) 1988 Adult Wellness Visit 02/18/2020 02/17/2019 Depression Screening 02/18/2020 02/17/2019 COVID-19 Vaccine ( season) 2024 09/22/2023, 11/28/2020 CKD PHOS USE SMARTSET 60715 02/27/202402/11, 02/20/2021, 05/07/2018, Additional history exists Influenza Vaccine (FLU shot) (#1) 2024 03/26/2023, 05/07/2018, 06/19/2017, Additional history exists CKD HGB USE SMARTSET 44725 12/09/202412/09, 12/05/2023, 09/24/2023, Additional history exists Pneumococcal Vaccine: 65+ Years Completed 11/23/2015, 03/14/2012, 03/14/2012 HPV (Gardasil) Vaccine Aged Out No lo nger eligible based on patient's age to complete this topic Hepatitis B Vaccine Aged Out No longe r eligible based on patient's age to complete this topic MENINGOCOCCAL (MENACTRA/MENVEO) Aged Out No longer eligible based on patient's age to complete this topic documented as of this encounter Medical Devices Not on filedocumented as of this encounter Visit Diagnoses Diagnosis Paroxysmal atrial fibrillation (HCC)- Primary Atrial fibrillation documented in this encounter Care Teams Manager Of Pmo Relationship Specialty Start Date End Date Akiko Joy MD PCP - General Family Medicine 05/22/15 documented as of this encounter
--- OUTSIDE RECORDS SUMMARY | 2024-04-11 03:48 | External Medical Summary ---
Author Name Unknown Address Unknown Organization [id number]:LABORATORY [facility] [place] - [address] [place] [address] Laboratory Report Ordering Provider Test Date Status ALLYSONSHON 03/31/2024 07:36:00 Final Please draw PT/INR every 1-4 weeks or as requested by the [facility]

Warfarin Therapy
INR: 2.0-3.0 conventional anticoagulation
INR: 2.5-3.5 high intensity anticoagulation Observation Date Value Abnormality Reference (Units ) Status PT 03/31/2024 07:36:00 21.1 Above high normal 11 .6-15.2 (seconds) Final INR 03/31/2024 07:36:00 1.8 Above high normal 0. 8-1.2 Final Performing Location LABORATORY [facility] [place] - [address] [place] [address]
--- OUTSIDE RECORDS SUMMARY | 2024-04-11 03:48 | External Medical Summary ---
Author Name Unknown Address Unknown Organization K01:[place] [facility] [place] [address] [place] [address] Laboratory Report Ordering Provider Test Date Status SHON VALADEZ 02/04/2024 07:38:00 Final Warfarin Therapy
INR: 2 .0-3.0 conventional anticoagulation
INR: 2.5- 3.5 high intensity anticoagulation Observation Date Value Abnormality Reference (Units ) Status PT 02/04/2024 07:38:00 21.0 Above high normal 11 .6-15.2 (seconds) Final INR 02/04/2024 07:38:00 1.8 Above high normal 0. 8-1.2 Final Performing Location [facility] [place] [address] [place] [address]
--- OUTSIDE RECORDS SUMMARY | 2024-04-11 03:48 | External Medical Summary ---
Author Name Unknown Address Unknown Organization K01:LABORATORY [facility] [place] - [address] [place] [address] Laboratory Report Ordering Provider Test Date Status BERNARD KELLY 04/07/2024 13:52:30 Final Observation Date Value Abnormality Reference (Units ) Status Triglyceride 04/07/2024 13:52:30 201 Above high normal <=174 (mg/dL) Final Triglyceride Reference Range s (mg/dL):
<150 Acceptable
150-174 Borderline high
175-499 High
>=500 Very high Cholesterol 04/07/2024 13:52:30 206 Above high normal <200 (mg/dL) Final Total Cholesterol Reference Ranges (mg/dL):
<200 Desirable
200-239 Borderline high
>=240 High HDL 04/07/2024 13:52:30 46 >39 (mg/dL ) Final HDL Cholesterol Reference Ra nges (mg/dL):
>=60 High (Desirable)
<50 Low (Undesirable) For Females
<40 Low (Undesirable) For Males NON-HDL CHOLESTEROL 04/07/2024 13:52:30 160 Above high normal <=159 (mg/dL) Final Non-HDL Cholesterol Referenc e Range (mg/dL):
<100 Target level for high risk ASCVD patient
<130 Optimal for general population
130-159 Near optimal for general population
160-189 Borderline High
190-219 High
>=220 Very High LDL, (calculated) 04/07/2024 13:52:30 120 <= 129 (mg/dL) Final LDL Cholesterol Reference Ra nges (mg/dL):
<70 Target level for high risk ASCVD patient
<100 Optimal for general population
100-129 Near optimal for general population
130-159 Borderline high
160-189 High
>=190 Very high Performing Location LABORATORY [facility] [place] - [address] [facility] [address]
--- OUTSIDE RECORDS SUMMARY | 2024-04-11 03:48 | External Medical Summary | Summary of Care ---
Author Name Unknown Organization [facility] Address [address] [place] [address] Phone [phone] Care Team Providers Care Kitchen Steward/Stewardess Name Role Phone Akiko Joy MD Primary Care Provide r Reason for Visit * Reason Onset Date Comments Hospital Call 03/11/2024 Encounter Details Date Type Department Care Team (Late st Contact Info) Description 03/11/2024 Telephone Pharmacy, [place] [address] [place] [address] [facility] [address], [place] [id number] Hospital Call Allergies No known active allergiesdocumented as of this encounter (statuses as of 03/11/2024) Medications Medication Sig Dispensed Refills Start Date [...] Oral Tablet (Lasix)Indications: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 Please see [facility] encounter today 03/11/24 for warfarin dosing/monitoring instructions. Thanks, Alison Funez PharmD Clinical Pharmacist [facility] Services ([facility]) [phone] 03/11/2024 7:57 AM * Telephone Encounter - Georgi Smith [facility] - 03/11/2024 12:47 AM EDT [phone] (home) INR= 5.3 Goal INR 2-3 Did not call patient due to the lateness of the hours in which the call was received from the lab. Anticoagulation Clinic pharmacist will contact patient in morning with further dosing instructions. Georgi Smith [facility] Clinical Pharmacist Medication Therapy Management Clinic 03/11/2024, 12:47 AM documented in this encounter Plan of Treatment Upcoming Encounters Date Type Department Care Team (Late st Contact Info) Description 03/24/2024 9:40 AM EDT Office Visit [address] [phone] Rebeca Mendez PA-C [address] [place] [address] [place] [address] 09/24/2024 1:40 PM EDT Office Visit [address] [phone] Akiko Joy MD [address] [place] [address] [place] [address] Health Maintenance Due Date Last Done Comments Albumin/Creatinine Ratio 1958 DTap/Tdap Vaccines (1 - Tdap) 1957 Zoster Vaccines (1 of 2) 1988 Adult Wellness Visit 02/18/2020 02/17/2019 Depression Screening 02/18/2020 02/17/2019 COVID-19 Vaccine (3 season) 2024 09/22/2023, 11/28/2020 CKD PHOS USE SMARTSET 00690 02/27/202402/11, 02/20/2021, 05/07/2018, Additional history exists Influenza Vaccine (FLU shot) (#1) 2024 03/26/2023, 05/07/2018, 06/19/2017, Additional history exists CKD HGB USE SMARTSET 31194 12/09/202412/09, 12/05/2023, 09/24/2023, Additional history exists Pneumococcal [...] Not on filedocumented as of this encounter Care Teams Kitchen Steward/Stewardess Relationship Specialty Start Date End Date Akiko Joy MD PCP - General Family Medicine 05/22/15 documented as of this encounter
--- OUTSIDE RECORDS SUMMARY | 2024-04-11 03:48 | External Medical Summary | Summary of Care ---
Author Name Unknown Organization [facility] Address [address] [facility] [place] [address] Phone [phone] Care Team Providers Care Supervisor Paper Machine Name Role Phone Akiko Joy MD Primary Care Provide r Reason for Visit * Reason Comments Dosage Adjustment Via Phone (anticoag Cl inic) Encounter Details Date Type Department Care Team (Late st Contact Info) Description 01/16/2024 6:00 AM EDT Anticoagulation [facility] Services, Juvenal Guerrero [address] [place] [address] [place] [address] [facility], [address] [place] [address] Paroxysmal atrial fibrillation (HCC)* Allergies No known active allergiesdocumented as of this encounter (statuses as of 01/16/2024) Medications Medication Sig Dispensed Refills Start Date [...] times a day 100 g 12/11/2023 Active Furosemide 20 MG Oral Tablet (Lasix)Indications: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 180 Tablet 1 12/11/2023 Active Warfarin Sodium 2.5 MG Oral Tablet (Coumadin)Indication s:Unspecified atrial fibrillation (HCC) Take 2-3 tablets by mouth daily as directed by Coumadin Clinic on phone. 270 Tablet 1 12/11/2023 Active documented as of this encounter (statuses as of 01/16/2024) Active Problems Problem Noted Date Diagnosed Date [...] as of this encounter (statuses as of 01/16/2024) Resolved Problems Problem Noted Date Diagnosed Date [...] as of this encounter (statuses as of 01/16/2024) Immunizations Name Administration Dates Next Due COVID-19 [...] Progress Notes * Monique Andrews RPh - 01/16/2024 4:11 PM EDT Tracker updated Monique Andrews Rph, Pharm.D. Clinical Pharmacist [facility] ([facility]) [phone] 01/16/2024,4:11 PM * Cat Houser PHARM Tech - 01/16/2024 9:21 AM EDT Contacts Type Contact Phone/Fax 01/16/2024 09:15 AM EDT Phone (Outgoing) Mal Tran (Self) [phone] (H) Subjective Patient Findings Negatives: Signs/symptoms of thrombosis, Signs/symptoms of bleeding, Change in health, Change in alcohol use, Change in activity, Upcoming invasive procedure, Missed doses, Extra doses, Change in medications, Change in diet/appetite, Bruising Comments: Pt already took his dosing for today, so he will hold his dose for tomorrow 01/17/24 Advised patient to contact Anticoagulation Clinic if any unusual bruising or bleeding, recent illness, changes in medication, or questions/concerns. PT/INR results, Coumadin dose instructions, and next PT/INR date communicated as noted by Pharmacist: Yes TRE CHANDLER 01/16/2024, 9:21 AM * Monique Andrews RP - 01/16/2024 8:21 AM EDT Images from the original note were not included. Coumadin Clinic (region specific) Objective Current Warfarin Dose As of 01/16/2024 Warfarin maintenance plan: 7.5 mg (2.5 mg x 3) every Sun, Tue; 5 mg (2.5 mg x 2) all other days INR Result As of 01/16/2024 INR goal: 2.0-3.0 INR used for dosin.3 (01/14/2024) Assessment & Plan Warfarin Plan As of 01/16/2024 Full warfarin instructions: 01/15: Hold; Otherwise 7.5 mg every Sun, Tue; 5 mg all other days Next INR check: 02/04/2024 Repeat PT/INR in 3 week(s) Weekly dose: not changed Additional Dosing Information: Description GML (MWF) Tech to contact patient with dose instructions as noted. Monique Andrews RPh 01/16/2024, 8:21 AM documented in this encounter Plan of Treatment Upcoming Encounters Date Type Department Care Team (Late st Contact Info) Description 02/04/2024 7:10 AM EDT Laboratory Lab [facility] [address] [place] [address] [facility] Draw [address] [place] [address] 02/05/2024 6:00 AM EDT Anticoagulation Centralized Clinical Pharmacy Services, Juvenal Guerrero [address] [place] [address] [place] [address] [facility], [address] [place] [address] 03/24/2024 9:40 AM EDT Office Visit Family [address] [place] [phone] Rebeca Mendez PA-C [address] [place] [address] [place] [address] 09/24/2024 1:40 PM EDT Office Visit [address] [phone] Akiko Joy MD [address] [place] [address] [place] [address] Health Maintenance Due Date Last Done Comments Albumin/Creatinine Ratio 1958 DTaP,Tdap,and Td Vaccines (1 - Tdap) 1957 Zoster Vaccines (1 of 2) 1988 Depression Screening 02/18/2020 02/17/2019 COVID-19 Vaccine (3 - season) 2024 09/22/2023, 11/28/2020 CKD PHOS USE SMARTSET 59861 02/27/202402/11, 02/20/2021, 05/07/2018, Additional history exists Influenza Vaccine (FLU shot) (#1) 2024 03/26/2023, 05/07/2018, 06/19/2017, Additional history exists CKD HGB USE SMARTSET 73384 12/09/202412/09, 12/05/2023, 09/24/2023, Additional history exists Pneumococcal [...] fibrillation documented in this encounter Care Teams Supervisor Paper Machine Relationship Specialty Start Date End Date Akiko Joy MD PCP - General Family Medicine 05/22/15 documented as of this encounter
--- OUTSIDE RECORDS SUMMARY | 2024-04-11 03:48 | External Medical Summary ---
Author Name Unknown Address Unknown Organization K01:LABORATORY [facility] [place] - [address] [place] [address] Laboratory Report Ordering Provider Test Date Status BERNARD KELLY 04/07/2024 13:52:30 Final Observation Date Value Abnormality Reference (Units ) Status WBC, Total 04/07/2024 13:52:30 11.29 Above high normal 4 .00-10.80 (K/uL) Final RBC 04/07/2024 13:52:30 4.33 4.50-5.25 (M/uL) Final Hemoglobin 04/07/2024 13:52:30 12.9 Below low normal 14 .0-16.8 (g/dL) Final Anemia reflex testing trigge rs on a HGB < 12.0 for Females and HGB < 13.0 for Males in accordance with the WHO Anemia Guidelines
Anemia reflex testing triggers on a HGB < 12.0 for Females and HGB < 13.0 for Males in accordance with the WHO Anemia Guidelines HCT 04/07/2024 13:52:30 39.0 Below low normal 40. 0-48.4 (%) Final MCV 04/07/2024 13:52:30 90.1 82.0-99.5 (fL) Final MCH 04/07/2024 13:52:30 29.8 27.0-34.0 (pg) Final MCHC 04/07/2024 13:52:30 33.1 32.0-36.0 (g/dL) Final RDW 04/07/2024 13:52:30 14.0 11.5-15.5 (%) Final Platelets 04/07/2024 13:52:30 265 140-400 (K /uL) Final MPV 04/07/2024 13:52:30 9.9 6.6-11.1 ( fL) Final Nucleated erythrocytes/100 leukocytes [Ratio] in Blood by Automated count 04/07/2024 13:52:30 0 <=0 (/100 WBCs) Final Performing Location LABORATORY [facility] [place] - [facility] [address] [facility] [address]
--- OUTSIDE RECORDS SUMMARY | 2024-04-11 03:48 | External Medical Summary ---
Author Name Unknown Address Unknown Organization K01:LAB[facility]ORY [facility] [place] [address] [place] [address] Laboratory Report Ordering Provider Test Date Status KULDEEP KELLYGABBY 04/07/2024 13:52:30 Final Observation Date Value Abnormality Reference (Units ) Status Iron 04/07/2024 13:52:30 63 45-176 (ug /dL) Final Iron-binding capacity 04/07/2024 13:52:30 289 250-425 (ug/dL) Final Transferrin Sat % 04/07/2024 13:52:30 22 15 -55 (%) Final Performing Location LAB[facility]ATORY [facility] [place] [address] [place] [address]
--- OUTSIDE RECORDS SUMMARY | 2024-04-11 03:48 | External Medical Summary ---
Author Name Unknown Address Unknown Organization K01:[place] [facility] [place] [address] [facility] [place] [address] Laboratory Report Ordering Provider Test Date Status BERNARD KELYL 04/07/2024 13:52:30 Final Observation Date Value Abnormality Reference (Units ) Status SYNC LEUKOCYTES IN BLOOD BY AUTOMATED COUNT 04/07/2024 13:52:30 11.29 Above high normal 4.00-10.80 (K/uL) Final Segs 04/07/2024 13:52:30 65.4 40.0-75.0 (%) Final Lymphs % 04/07/2024 13:52:30 20.8 18.0-42.0 (%) Final Monos 04/07/2024 13:52:30 9.4 1.0-11.0 (%) Final Eosinophils 04/07/2024 13:52:30 3.1 0.0-6.0 (%) Final Basos 04/07/2024 13:52:30 0.8 0.0-2.0 (%) Final Immature Granulocyte, Percent 04/07/2024 13:52:30 0.5 0.0-2.0 (%) Final Absolute Segs 04/07/2024 13:52:30 7.38 1.80-7.70 (K/uL) Final Lymphs, absolute 04/07/2024 13:52:30 2.35 1.00-4.80 (K/ul) Final Monos, Abs 04/07/2024 13:52:30 1.06 0.00-1.10 (K/uL) Final Eos, Abs 04/07/2024 13:52:30 0.35 0.00-0.70 (K/uL) Final Basos, Abs 04/07/2024 13:52:30 0.09 0.00-0.20 (K/uL) Final Immature Granulocytes, Number 04/07/2024 13:52:30 0.06 0.00-0.20 (K/uL) Final Performing Location [place] [facility] [place] [facility] [address] [place] [address]
--- OUTSIDE RECORDS SUMMARY | 2024-04-11 03:48 | External Medical Summary | Summary of Care ---
Author Name Unknown Organization [facility] Address [address] [facility] [place] [address] Phone [phone] Care Team Providers Care Sales And Marketing Professional Name Role Phone Akiko Joy MD Primary Care Provide r Reason for Visit * Reason Comments Dosage Adjustment Via Phone (anticoag Cl inic) Encounter Details Date Type Department Care Team (Late st Contact Info) Description 03/25/2024 6:00 AM EDT Anticoagulation Centralized Clinical Pharmacy Services, Juvenal Guerrero [address] [place] [address] [place] [address] [facility], [address] [place] [address] Paroxysmal atrial fibrillation (HCC)* Allergies No known active allergiesdocumented as of this encounter (statuses as of 03/25/2024) Medications Medication Sig Dispensed Refills Start Date [...] Oral Tablet (Lasix)Indications: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 TAKE 2 TABLETS BY MOUTH EVERY DAY 180 Tablet 1 01/19/2024 Active documented as of this encounter (statuses as of 03/25/2024) Active Problems Problem Noted Date Diagnosed Date [...] as of this encounter (statuses as of 03/25/2024) Resolved Problems Problem Noted Date Diagnosed Date [...] as of this encounter (statuses as of 03/25/2024) Immunizations Name Administration Dates Next Due COVID-19 [...] lent, No Preserve, IM 04/16/2016,05/04/2015 Seasonal Influenza, Trivalen t, (IIV3), with Preserv, (Fluzone) 04/13/2017,06/14/2014,03/24/2013 documented as of this encounter Social [...] of this encounter Progress Notes * Nicole Lora, [facility] - 03/25/2024 7:27 AM EDT Patient was marked a no show for [facility] appointment on 03/24/2024. Routed chart to [facility] to have patientplaced back on schedule for tomorrow 03/26/2024. Patient is back on schedule for [facility] to follow up on for 03/29/2024. Thank you, Nicole Lora CPhT Podiatric Medicine Doctor II [facility] Clinical Pharmacy Services ([facility]) 03/25/2024,7:30 AM documented in this encounter Plan of Treatment Upcoming Encounters Date Type Department Care Team (Late st Contact Info) Description 03/29/2024 6:00 AM EDT Anticoagulation Centralized Clinical Pharmacy Services, Juvenal Guerrero [address] [place] [address] [place] [address] [facility], [address] [place] [address] 04/07/2024 1:40 PM EDT Office Visit [address] [place] [phone] Rebeca Mendez PA-C [address] [place] [address] [place] [address] 09/24/2024 1:40 PM EDT Office [place] [address] [place] [phone] Akiko Joy MD [address] [place] [address] [place] [address] Health Maintenance Due Date Last Done Comments Albumin/Creatinine Ratio 1956 DTap/Tdap Vaccines (1 - Tdap) 1957 Zoster Vaccines (1 of 2) 1988 Adult Wellness Visit 02/18/2020 02/17/2019 Depression Screening 02/18/2020 02/17/2019 CKD PHOS USE SMARTSET 80573 02/27/2024 0812/2022, 02/20/2021, 05/07/2018, Additional history exists COVID-19 Vaccine ( season) 2024 09/22/2023, 11/28/2020 Influenza Vaccine (FLU shot) (#1) 2024 03/26/2023, 05/07/2018, 06/19/2017, Additional history exists CKD HGB USE SMARTSET 06854 12/09/202412/09, 12/05/2023, 09/24/2023, Additional history exists Pneumococcal [...] fibrillation documented in this encounter Care Teams Sales And Marketing Professional Relationship Specialty Start Date End Date Akiko Joy MD PCP - General Family Medicine 05/22/15 documented as of this encounter
--- OUTSIDE RECORDS SUMMARY | 2024-04-11 03:48 | External Medical Summary ---
Author Name Unknown Address Unknown Organization K01:[place] [facility] [place] [address] [facility] [place] [address] Laboratory Report Ordering Provider Test Date Status BERNARD KELLY 04/07/2024 13:52:30 Final Observation Date Value Abnormality Reference (Units ) Status BUN 04/07/2024 13:52:30 24 Above high normal 6-20 (mg/dL) Final Creatinine 04/07/2024 13:52:30 1.5 Above high normal 0.6-1.2 (mg/dL) Final Glomerular filtration rate/1.73 sq M.predicted [Volume Rate/Area] in Serum, Plasma or Blood by Creatinine-based formula (CKD-EPI) 04/07/2024 13:52:30 46 Below low normal >=60 (mL/min) Final eGFR is calculated based on the CKD-EPI 2020 equation. Sodium 04/07/2024 13:52:30 143 135-146 (m mol/L) Final Potassium 04/07/2024 13:52:30 4.0 3.5-5.1 (m mol/L) Final Cl 04/07/2024 13:52:30 109 Above high normal 98 -107 (mmol/L) Final CO2 04/07/2024 13:52:30 22 22-32 (mmo l/L) Final Anion gap 04/07/2024 13:52:30 12 7-15 (mmol /L) Final Glucose 04/07/2024 13:52:30 95 70-120 (mg /dL) Final Albumin 04/07/2024 13:52:30 4.3 3.8-5.0 (g /dL) Final AST (Aspartate aminotransferase) 04/07/2024 13:52:30 19 10-50 (U/L) Fin al Alk Phos 04/07/2024 13:52:30 118 35-130 (U/ L) Final Bilirubin, Total 04/07/2024 13:52:30 0.7 <=1 .2 (mg/dL) Final Calcium 04/07/2024 13:52:30 9.2 8.4-10.2 ( mg/dL) Final Protein 04/07/2024 13:52:30 7.3 6.0-8.3 (g /dL) Final ALT (Alanine aminotransferase) 04/07/2024 13:52:30 15 10-50 (U/L) Blayne cook Performing Location LABOR[facility]ORY [facility] [place] [address] [facility] [address]
--- OUTSIDE RECORDS SUMMARY | 2024-04-11 03:48 | External Medical Summary ---
Author Name Unknown Address Unknown Organization K0G:LABORATORY [facility] [facility] - [address] [place] [address] Laboratory Report Ordering Provider Test Date Status SHON VALADEZ 02/25/2024 07:00:00 Final Warfarin Therapy
INR: 2 .0-3.0 conventional anticoagulation
INR: 2.5- 3.5 high intensity anticoagulation Observation Date Value Abnormality Reference (Units ) Status PT 02/25/2024 07:00:00 38.7 Above high normal 11 .6-15.2 (seconds) Final INR 02/25/2024 07:00:00 3.9 Above high normal 0. 8-1.2 Final Performing Location LABORATORY [facility] - [address] [place] [address]
--- OUTSIDE RECORDS SUMMARY | 2024-04-11 03:48 | External Medical Summary ---
Author Name Unknown Address Unknown Organization K01:[place] [facility] [place] [address] [place] [address] Laboratory Report Ordering Provider Test Date Status BERNARD KELLY 04/07/2024 13:52:30 Final Observation Date Value Abnormality Reference (Units ) Status Vitamin B12 04/07/2024 13:52:30 [phone] (pg/mL) Final Performing Location LABORATORY [facility] - [address] [place] [address]
--- OUTSIDE RECORDS SUMMARY | 2024-04-11 03:48 | External Medical Summary ---
Author Name Unknown Address Unknown Organization K01:[place] [facility] [place] [address] [place] [address] Laboratory Report Ordering Provider Test Date Status SHON VALADEZ 01/14/2024 07:22:00 Final Warfarin Therapy
INR: 2 .0-3.0 conventional anticoagulation
INR: 2.5- 3.5 high intensity anticoagulation Observation Date Value Abnormality Reference (Units ) Status PT 01/14/2024 07:22:00 34.0 Above high normal 11 .6-15.2 (seconds) Final INR 01/14/2024 07:22:00 3.3 Above high normal 0. 8-1.2 Final Performing Location LAB[facility] [facility] [place] [address] [place] [address]
--- OUTSIDE RECORDS SUMMARY | 2024-04-11 03:48 | External Medical Summary | Summary of Care ---
Author Name Unknown Organization [facility] Address [address] [facility] [place] [place] [address] Phone [phone] Care Team Providers Care Phlebotomy Specialist Name Role Phone Akiko Joy MD Primary Care Provide r Reason for Visit * Reason Comments Outpatient Testing Encounter Details Date Type Department Care Team (Late st Contact Info) Description 04/07/2024 2:20 PM EDT Laboratory Laboratory [address] [place] [phone] [place], Lab [address] [place] [address] HTN, goal below 140/90; Dyslipidemia, goal LDL below 100 Allergies No known active allergiesdocumented as of this encounter (statuses as of 04/07/2024) Medications Medication Sig Dispensed Refills Start Date End Date Status Acetaminophen 325 MG Oral Tablet (Tylenol) Take 2 Tablets by mouth every 4 hours as needed for Fever >38C(100.5F), Pain, Severe, Pain, Moderate or Pain, Mild. 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 TAKE 2 TABLETS BY MOUTH EVERY DAY 180 Tablet 1 01/19/2024 Active Atorvastatin Calcium 40 MG Oral Tablet (Lipitor)Indications :Dyslipidemia, goal LDL below 100 TAKE 1 TABLET BY MOUTH EVERYDAY AT BEDTIME 90 Tablet 1 04/07/2024 Active documented as of this encounter (statuses as of 04/07/2024) Active Problems Problem Noted Date Diagnosed Date [...] as of this encounter (statuses as of 04/07/2024) Resolved Problems Problem Noted Date Diagnosed Date [...] as of this encounter (statuses as of 04/07/2024) Immunizations Name Administration Dates Next Due COVID-19 mRNA, LNP-s, No Pre serve, 2-Dose Series (Moderna) 11/28/2020 COVID-19, MRNA-LNP, 23-24, P F, 30 MCG/0.3 mL, 12 YRS AND ABOVE, IM (PFIZER-Comirnaty) 09/22/2023 Pneumococcal Conjugate Vacc, 13 Valent (Prevnar) 11/23/2015,03/14/2012 Pneumococcal Polysaccharide PPV23 (Pneumovax) 03/14/2012 Seasonal Influenza, High Dos e, Trivalent, PF, IM (Fluzone HD) 04/07/2024 Seasonal Influenza, PF, 6 M & above, [...] Care Team (Late st Contact Info) Description 04/14/2024 7:05 AM EDT Laboratory Lab Mobile Phlebotomy [facility] [address] [place] [address] [facility], Gml Mobile Home Draw [address] [facility] [place] [address] 04/15/2024 6:00 AM EDT Anticoagulation Central[facility] Clinical [facility], Juvenal Guerrero [address] [place] [address] [place] [address] [place] [address] 09/24/2024 1:40 PM EDT Office Visit Family Medicine [address] [place] [phone] Akiko Joy MD [address] [place] [address] [place] [address] Pending Results Name Type Priority Associated Diagnoses Date /Time COMPREHENSIVE METABOLIC PANEL Lab Routine HTN, goal below 140/90 04/07/2024 1:52 PM EDT CBC WITH WBC DIFFERENTIAL AND ANEMIA REFLEX WORKUP Lab Routine HTN, goal below 140/90 04/07/2024 1:52 PM EDT LIPID PANEL WITH DIRECT LDL IF TG IS HIGH Lab Routine Dyslipidemia, goal LDL below 100 04/07/2024 1:52 PM EDT ALBUMIN / CREATININE RATIO, URINE Lab Routine HTN, goal below 140/90 04/07/2024 1:52 PM EDT PHOSPHORUS Lab Routine HTN, goal below 140/90 04/07/2024 1:52 PM EDT ANEMIA CBC Lab Routine HTN, goal below 140/90 04/07/2024 1:52 PM EDT DIFFERENTIAL, AUTOMATED Lab Routine HTN, goal below 140/90 04/07/2024 1:52 PM EDT ANEMIA REFLEX CHEMISTRY HOLD Lab Routine HTN, goal below 140/90 04/07/2024 1:52 PM EDT Health Maintenance Due Date Last Done Comments Albumin/Creatinine Ratio 1958 DTap/Tdap Vaccines (1 - Tdap) 1957 Zoster Vaccines (1 of 2) 1988 Adult Wellness Visit 02/18/2020 02/17/2019 Depression Screening 02/18/2020 02/17/2019 CKD PHOS USE SMARTSET 11402 02/27/202402/11, 02/20/2021, 05/07/2018, Additional history exists COVID-19 Vaccine ( season) 2024 09/22/2023, 11/28/2020 CKD HGB USE SMARTSET 74338 12/09/202412/09, 12/05/2023, 09/24/2023, Additional history exists Pneumococcal Vaccine: 65+ Years Completed 11/23/2015, 03/14/2012, 03/14/2012 Influenza Vaccine (FLU shot) Completed , 03/26/2023, 05/07/2018, Additional history exists HPV (Gardasil) Vaccine Aged Out No lo [...] LDL below 100 Other and unspecified hyperlipidemia documented in this encounter Care Teams Phlebotomy Specialist Relationship Specialty Start Date End Date Akiko Joy MD PCP - General Family Medicine 05/22/15 documented as of this encounter
--- OUTSIDE RECORDS SUMMARY | 2024-04-11 03:48 | External Medical Summary | Summary of Care ---
Author Name Unknown Organization [facility] Address [address] [facility] [place] [address] Phone [phone] Care Team Providers Care Orthopedic Nurse Name Role Phone Akiko Joy MD Primary Care Provide r Reason for Visit * Reason Comments Dosage Adjustment Via Phone (anticoag Cl inic) Encounter Details Date Type Department Care Team (Late st Contact Info) Description 03/11/2024 6:00 AM EDT Anticoagulation Centralized Clinical Pharmacy Services, Juvenal Guerrero [address] [place] [address] [place] [address] [facility], [address] [place] [address] Paroxysmal atrial fibrillation (HCC)* Allergies No known [...] Oral Tablet (Lasix)Indications:C oronary artery disease involving [place] coronary artery of [place] heart without angina pectoris TAKE 2 TABLETS [...] Progress Notes * Monique Andrews RPh - 03/11/2024 12:58 PM EDT Tracker updated Monique Andrews Rph, Pharm.D. Clinical Pharmacist [facility] ([facility]) [phone] 03/11/2024,12:59 PM * Javon Ahmadi CPhT - 03/11/2024 10:11 AM EDT Contacts Contact Date/Time Type Contact Phone/Fax 03/11/2024 08:44 AM EDT Phone (Outgoing) Marc Mal Nitish (Self) [phone] (H) No Answer/Busy 03/11/2024 10:07 AM EDT Phone (Outgoing) Mal Tran (Self) [phone] (H) Spoke to Patient Subjective Patient Findings Negatives: Signs/symptoms of thrombosis, Signs/symptoms of bleeding, Change in health, Change in alcohol use, Change in activity, Upcoming invasive procedure, Missed doses, Extra doses, Change in medications, Change in diet/appetite, Bruising Comments: Patient Held Coumadin last evening. Advised Hold today and then 7.5 mg every Tue; 5 mg all other days. Advised patient to contact Anticoagulation Clinic if any unusual bruising or bleeding, recent illness, changes in medication, or questions/concerns. PT/INR results, Coumadin dose instructions, and next PT/INR date communicated as noted by Pharmacist: Yes (See comment above) Javon Ahmadi CPhT 03/11/2024, 10:11 AM * Monique Andrews RP - 03/11/2024 7:55 AM EDT Images from the original note were not included. Coumadin Clinic (region specific) Objective Current Warfarin Dose As of 03/11/2024 Warfarin maintenance plan: 7.5 mg (2.5 mg x 3) every Sun, Tue; 5 mg (2.5 mg x 2) all other days INR Result As of 03/11/2024 INR goal: 2.0-3.0 INR used for dosin.3 (03/10/2024) Assessment & Plan Warfarin Plan As of 03/11/2024 Full warfarin instructions: 03/11: Hold; 03/12: Hold; Otherwise 7.5 mg every Tue; 5 mg all other days Next INR check: 03/19/2024 Repeat PT/INR in 1.5 week(s) Weekly dose: decreased Additional Dosing Information: Description [facility] (MWF) Tech to contact patient with dose instructions as noted. Monique Andrews RPh 03/11/2024, 7:55 AM documented in this encounter Plan of Treatment Upcoming Encounters Date Type Department Care Team (Late st Contact Info) Description 03/19/2024 7:05 AM EDT Laboratory Lab Mobile Phlebotomy [facility] [address] [place] [address] [facility], l Mobile Home Draw [address] [place] [address] 03/22/2024 6:00 AM EDT Anticoagulation Centralized Clinical Pharmacy Services, Juvenal Guerrero [address] [place] [address] [place] [address] [facility], [address] [place] [address] 03/24/2024 9:40 AM EDT Office Visit [address] [phone] Rebeca Mendez PA-C [address] [place] [address] [place] [address] 09/24/2024 1:40 PM EDT Office Visit [address] [phone] Akiko Joy MD [address] [place] [address] [place] [address] Health Maintenance Due Date Last Done Comments Albumin/Creatinine Ratio 1956 DTap/Tdap Vaccines (1 - Tdap) 1957 Zoster Vaccines (1 of 2) 1988 Adult Wellness Visit 02/18/2020 02/17/2019 Depression Screening 02/18/2020 02/17/2019 COVID-19 Vaccine (3 season) 2024 09/22/2023, 11/28/2020 CKD PHOS USE SMARTSET 39810 02/27/202402/11, 02/20/2021, 05/07/2018, Additional history exists Influenza Vaccine (FLU shot) (#1) 2024 03/26/2023, 05/07/2018, 06/19/2017, Additional history exists CKD HGB USE SMARTSET 18018 12/09/202412/09, 12/05/2023, 09/24/2023, Additional history exists Pneumococcal [...] fibrillation documented in this encounter Care Teams Orthopedic Nurse Relationship Specialty Start Date End Date Akiko Joy MD PCP - General Family Medicine 05/22/15 documented as of this encounter
--- OUTSIDE RECORDS SUMMARY | 2024-04-11 03:48 | External Medical Summary ---
Author Name Unknown Address Unknown Organization K01:[facility] [address] [place] [address] Laboratory Report Ordering Provider Test Date Status BERNARD KELLY 04/07/2024 13:52:30 Final Observation Date Value Abnormality Reference (Units ) Status Phosphate 04/07/2024 13:52:30 3.1 2.5-4.8 (m g/dL) Final Performing Location [facility] [address] [place] [address]
--- OUTSIDE RECORDS SUMMARY | 2024-04-11 03:48 | External Medical Summary | Summary of Care ---
Author Name Unknown Organization [facility] Address [address] [place] [address] Phone [phone] Care Team Providers Care Screen Room Operator Name Role Phone Akiko Joy MD Primary Care Provide r Reason for Visit * Reason Onset Date Comments Re-Check Medication Administration 04/07/2024 Flu an d/or Pneumo Inj Encounter Details Date Type Department Care Team (Late st Contact Info) Description 04/07/2024 1:40 PM EDT Office Visit Family Medicine [address] [phone] Rebeca Mendez PA-C [address] [place] [address] [place] [address] HTN, goal below 140/90*; Need for prophylactic vaccination and inoculation against influenza; Coronary artery disease involving [place] coronary artery of [place] heart without angina pectoris; S/P aortic valve replacement; Cerebrovascular disease; Chronic kidney disease, stage 3a (HCC); DDD (degenerative disc disease), cervical; Dyslipidemia, goal LDL below 100; Paroxysmal atrial fibrillation (HCC); Hypertensive kidney disease with stage 3a chronic kidney disease (HCC) Allergies No known active allergiesdocumented as of this encounter (statuses as of 04/07/2024) Medications Medication Sig Dispensed Refills Start Date End Date Status Acetaminophen 325 MG Oral Tablet (Tylenol) Take 2 Tablets by mouth every 4 hours as needed for Fever >38C(100.5F), Pain, Severe, Pain, Moderate or Pain, Mild. 12/09/2023 Active Carvedilol 25 MG Oral Tablet (Coreg)Indications :S/P aortic valve replacement,Aortoc oronary bypass status,HTN, goal below 140/90 Take 1 [...] Oral Tablet (Coumadin)Indicati ons:Unspecified atrial fibrillation (HCC) Take 2-3 tablets by mouth daily as directed by Coumadin Clinic on phone. 270 Tablet 1 12/11/2023 Active Furosemide 20 MG Oral Tablet (Lasix)Indications :Coronary artery disease involving [place] coronary artery of [place] heart without angina pectoris TAKE 2 TABLETS BY MOUTH EVERY DAY 180 Tablet 1 01/19/2024 Active Atorvastatin Calcium 40 MG Oral Tablet (Lipitor)Indicatio ns:Dyslipidemia, goal LDL below 100 TAKE 1 TABLET BY MOUTH EVERYDAY AT BEDTIME 90 Tablet 1 04/07/2024 Active Atorvastatin Calcium 40 MG Oral Tablet (Lipitor)Indicatio ns:Dyslipidemia, goal LDL below 100 TAKE 1 TABLET BY MOUTH EVERYDAY AT BEDTIME 90 Tablet 1 12/11/2023 Discontinue d(Refill) documented as of this encounter (statuses as [...] Sign Reading Time Taken Comments Blood Pressure 120/72 04/07/2024 1:38 PM EDT Pulse 61 04/07/2024 1:38 PM EDT Temperature 36.1 C (97 F) 04/07/2024 1:38 PM EDT Respiratory Rate - - Oxygen Saturation 97% 04/07/2024 1:38 PM EDT Inhaled Oxygen Concentration - - Weight 64.4 kg (142 lb) 04/07/2024 1:38 PM EDT Height 162.6 cm (5' 4") 04/07/2024 1:38 PM EDT Body Mass Index 24.37 04/07/2024 1:38 PM EDT documented in this encounter Progress Notes * Rebeca Mendez PA-C - 04/07/2024 1:43 PM EDT Nursing Notes: Esthela Dennis LPN 04/07/24 1338 Sign at exiting of workspace 6 month recheck No concerns today Pt here today for recheck. Pt with PMH of HTN, dyslipidemia, A. Fib, CKD, CAD, SP AVR. Pt has no issues at this time. Pt is due for some labs. Review of patient's allergies indicates: No Known Allergies Current Outpatient Medications Medication Sig Dispense Refill Acetaminophen 325 MG Oral Tablet (Tylenol) Take 2 Tablets by mouth every 4 hours as needed for Fever >38C(100.5F), Pain, Severe, Pain, Moderate or Pain, Mild. Atorvastatin Calcium 40 MG Oral Tablet (Lipitor) TAKE 1 TABLET BY MOUTH EVERYDAY AT BEDTIME 90 Tablet 1 Carvedilol 25 MG Oral Tablet (Coreg) Take 1 Tablet by mouth in the morning and 1 Tablet before bedtime. 180 Tablet 3 Diclofenac Sodium 1 % External Gel (Voltaren) Apply topically to affected area 4 times a day as needed (joint and muscle pain). Apply 4g to knee up to 4 times a day 100 g 0 Warfarin Sodium 2.5 MG Oral Tablet (Coumadin) Take 2-3 tablets by mouth daily as directed by Coumadin Clinic on phone. 270 Tablet 1 Furosemide 20 MG Oral Tablet (Lasix) TAKE 2 TABLETS BY MOUTH EVERY DAY 180 Tablet 1 No current facility-administered medications for this visit. 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 Cesar Holley Social History Socioeconomic History Marital status: Spouse [...] Never true Transportation Needs: Not on file Social Connections: Unknown (04/07/2024) Social Connections How often do you feel lonely or isolated from those around you? (Adult - for ages 18 years and over): Not on file Housing Stability: Not on file O:Blood pressure 120/72, pulse 61, temperature 36.1 C (97 F), temperature source Tympanic, height 1.626 m (5' 4"), weight 64.4 kg (142 lb), SpO2 97%. GENERAL: alert, healthy, and no distress NECK: supple, no adenopathy, no bruits, thyroid normal size, non-tender, without nodularity EYES: PERRLA, conjunctiva are pink and non-injected, sclera clear EARS: External ears normal, Canals clear, TM's Normal NOSE: no mucosal erythema, no mucosal edema, no purulent discharge OROPHARYNX: no exudate, no erythema, lips, buccal mucosa, and tongue normal, and mucous membranes are moist HEART: regular rate & rhythm, no murmur, and no gallops LUNGS: chest symmetric with normal AP diameter, no chest deformities noted, no chest wall tenderness, lungs clear to auscultation EXTREMITIES: less than 2 second capillary refill, no joint deformities, effusion, or inflammation. Mild edema in lower legs A:HTN, goal below 140/90 (Primary) - COMPREHENSIVE METABOLIC PANEL; Future; Expected date: 04/07/2024 - CBC WITH WBC DIFFERENTIAL AND ANEMIA REFLEX WORKUP; Future; Expected date: 04/07/2024 - ALBUMIN / CREATININE RATIO, URINE; Future; Expected date: 04/07/2024 - PHOSPHORUS; Future; Expected date: 04/07/2024 Need for prophylactic vaccination and inoculation against influenza - INFLUENZA VAC., TRIVALENT, HD, PF, 65 AND ABOVE, 0.5 ML IM (FLUZONE HD) Coronary artery disease involving [place] coronary artery of [place] heart without angina pectoris S/P aortic valve replacement Cerebrovascular disease Chronic kidney disease, stage 3a (HCC) DDD (degenerative disc disease), cervical Dyslipidemia, goal LDL below 100 - LIPID PANEL WITH DIRECT LDL IF TG IS HIGH; Future; Expected date: 04/07/2024 - Atorvastatin Calcium 40 MG Oral Tablet (Lipitor); TAKE 1 TABLET BY MOUTH EVERYDAY AT BEDTIME Paroxysmal atrial fibrillation (HCC) Hypertensive kidney disease with stage 3a chronic kidney disease (HCC) Will check some labs. Continue current meds. Any questions/problems, please call. If anything changes, worsens, develops new sx, please call [facility]. Follow Up: Return if symptoms worsen or fail to improve. Rebeca Mendez PA-C documented in this encounter Nursing Notes * Esthela Dennis LPN - 04/07/2024 1:38 PM EDT 6 month recheck No concerns today documented in this encounter Plan of Treatment Upcoming Encounters Date Type Department Care Team (Late st Contact Info) Description 04/07/2024 2:20 PM EDT Laboratory Laboratory [address] [place] [phone] [place] [address] HTN, goal below 140/90; Dyslipidemia, goal LDL below 100 04/14/2024 7:05 AM EDT Laboratory Lab Mobile Phlebotomy [facility] [address] [place] [address] [facility], Gml Mobile Home Draw [address] [place] [address] 04/15/2024 6:00 AM EDT Anticoagulation Centralized Clinical Pharmacy Services, Juvenal Guerrero [address] [place] [address] [place] [address] [facility], [address] [place] [address] 09/24/2024 1:40 PM EDT Office Visit Family Medicine [address] [place] [phone] Akiko Joy MD [address] [place] [address] [place] [address] Pending Results Name Type Priority Associated Diagnoses [...] goal below 140/90 04/07/2024 1:52 PM EDT Scheduled Orders Name Type Priority Associated Diagnoses Orde r Schedule COMPREHENSIVE METABOLIC PANEL Lab Routine HTN, goal below 140/90 Expected: 04/07/2024 (Approximate), Expires: 04/07/2025 CBC WITH WBC DIFFERENTIAL AND ANEMIA REFLEX WORKUP Lab Routine HTN, goal below 140/90 Expected: 04/07/2024 (Approximate), Expires: 04/07/2025 LIPID PANEL WITH DIRECT LDL IF TG IS HIGH Lab Routine Dyslipidemia, goal LDL below 100 Expected: 04/07/2024, Expires: 04/07/2025 ALBUMIN / CREATININE RATIO, URINE Lab Routine HTN, goal below 140/90 Expected: 04/07/2024 (Approximate), Expires: 04/07/2025 PHOSPHORUS Lab Routine HTN, goal below 140/90 Expected: 04/07/2024 (Approximate), Expires: 04/07/2025 Health Maintenance Due Date Last Done Comments Albumin/Creatinine Ratio 1956 DTap/Tdap Vaccines (1 - Tdap) 1957 Zoster Vaccines (1 of 2) 1988 Adult Wellness Visit 02/18/2020 02/17/2019 Depression Screening 02/18/2020 02/17/2019 CKD PHOS USE SMARTSET 66647 02/27/202402/11, 02/20/2021, 05/07/2018, Additional history exists COVID-19 Vaccine ( season) 2024 09/22/2023, 11/28/2020 CKD HGB USE SMARTSET 89265 12/09/202412/09, 12/05/2023, 09/24/2023, Additional history exists Pneumococcal [...] encounter Visit Diagnoses Diagnosis HTN, goal below 140/90- Primary Unspecified essential hypertension Need for prophylactic vaccination and inoculation against influenza Coronary artery disease involving [place] coronary artery of [place] heart without angina pectoris S/P aortic valve replacement Heart valve replaced by other means Cerebrovascular disease Cerebrovascular disease, unspecified Chronic kidney disease, stage 3a (HCC) DDD (degenerative disc disease), cervical Degeneration of cervical intervertebral disc Dyslipidemia, goal LDL below 100 Other and unspecified hyperlipidemia Paroxysmal atrial fibrillation (HCC) Atrial fibrillation Hypertensive kidney disease with stage 3a chronic kidney disease (HCC) HTN, goal below 140/90 Unspecified essential hypertension Dyslipidemia, goal LDL below 100 Other and unspecified hyperlipidemia documented in this encounter Care Teams Screen Room Operator Relationship Specialty Start Date End Date Akiko Joy MD PCP - General Family Medicine 05/22/15 documented as of this encounter
--- OUTSIDE RECORDS SUMMARY | 2024-04-11 03:48 | External Medical Summary | Summary of Care ---
Author Name Unknown Organization [facility] Address [address] [facility] [place] [address] Phone [phone] Care Team Providers Care Automotive Drivability Technician Name Role Phone Akiko Joy MD Primary Care Provide r Reason for Visit * Reason Comments Dosage Adjustment Via Phone (anticoag Cl inic) Encounter Details Date Type Department Care Team (Late st Contact Info) Description 03/18/2024 6:00 AM EDT Anticoagulation Centralized Clinical Pharmacy Services, Juvenal Guerrero [address] [place] [place] [address] [place] [address] [facility], [address] [place] [address] Paroxysmal atrial fibrillation (HCC)* Allergies No known active allergiesdocumented as of this encounter (statuses as of 03/18/2024) Medications Medication Sig Dispensed Refills Start Date [...] Oral Tablet (Lasix)Indications:C oronary artery disease involving [place] coronary artery of [place] heart without angina pectoris TAKE 2 TABLETS BY MOUTH EVERY DAY 180 Tablet 1 01/19/2024 Active documented as of this encounter (statuses as of 03/18/2024) Active Problems Problem Noted Date Diagnosed Date [...] as of this encounter (statuses as of 03/18/2024) Resolved Problems Problem Noted Date Diagnosed Date [...] as of this encounter (statuses as of 03/18/2024) Immunizations Name Administration Dates Next Due COVID-19 [...] this encounter Progress Notes * Nida Craven, [facility] - 03/18/2024 8:41 AM EDT Contacts Contact Date/Time Type Contact Phone/Fax 03/18/2024 08:40 AM EDT Phone (Outgoing) Mal Tran (Self) [phone] (H) Spoke to Patient Subjective Patient Findings [...] as noted by Pharmacist: Yes NIDA CRAVEN CPhT 03/18/2024, 8:41 AM * Monique Andrews RPh - 03/18/2024 8:24 AM EDT Coumadin Clinic (region specific) Objective Current Warfarin Dose As of 03/18/2024 Warfarin maintenance plan: 7.5 mg (2.5 mg x 3) every Tue; 5 mg (2.5 mg x 2) all other days INR Result As of 03/18/2024 INR goal: 2.0-3.0 INR used for dosin.5 (2024) Assessment & Plan Warfarin Plan As of 03/18/2024 Full warfarin instructions: 7.5 mg every Tue; 5 mg all other days No change documented: Monique Andrews RPh Next INR check: 03/24/2024 Repeat PT/INR in 1 week(s) Weekly dose: not changed Additional Dosing Information: Description [facility] Tech to contact patient with dose instructions as noted. Monique Andrews RPh 03/18/2024, 8:24 AM documented in this encounter Plan of Treatment Upcoming Encounters Date Type Department Care Team (Late st Contact Info) Description 03/24/2024 9:40 AM EDT Office Visit [address] [phone] Rebeca Mendez PA-C [address] [place] [address] [place] [address] 03/25/2024 6:00 AM EDT Anticoagulation Centralized Clinical Pharmacy Services, Juvenal Guerrero [address] [place] [address] [place] [address] [facility], [address] [place] [address] 09/24/2024 1:40 PM EDT Office Visit Family Medicine [address] [place] [phone] Akiko Joy MD [address] [place] [address] [place] [address] Health Maintenance Due Date Last Done Comments Albumin/Creatinine Ratio 1956 DTap/Tdap Vaccines (1 - Tdap) 1957 Zoster Vaccines (1 of 2) 1988 Adult Wellness Visit 02/18/2020 02/17/2019 Depression Screening 02/18/2020 02/17/2019 CKD PHOS USE SMARTSET 76392 02/27/202402/11, 02/20/2021, 05/07/2018, Additional history exists COVID-19 Vaccine (3 - 2022- season) 2024 09/22/2023, 11/28/2020 Influenza Vaccine (FLU shot) (#1) 2024 03/26/2023, 05/07/2018, 06/19/2017, Additional history exists CKD HGB USE SMARTSET 40230 12/09/202412/09, 12/05/2023, 09/24/2023, Additional history exists Pneumococcal [...] fibrillation documented in this encounter Care Teams Automotive Drivability Technician Relationship Specialty Start Date End Date Akiko Joy MD PCP - General Family Medicine 05/22/15 documented as of this encounter
--- OUTSIDE RECORDS SUMMARY | 2024-04-11 03:48 | External Medical Summary | Summary of Care ---
Author Name Unknown Organization [facility] Address [address] [facility] [place] [address] Phone [phone] Care Team Providers Care Tire Design Engineer Name Role Phone Akiko Joy MD Primary Care Provide r Reason for Visit * Reason Comments Dosage Adjustment Via Phone (anticoag Cl inic) Encounter Details Date Type Department Care Team (Late st Contact Info) Description 04/01/2024 6:00 AM EDT Anticoagulation Centralized Clinical Pharmacy Services, Juvenal Guerrero [address] [place] [address] [place] [address] [facility], [address] [place] [address] Paroxysmal atrial fibrillation (HCC)* Allergies No known active allergiesdocumented as of this encounter (statuses as of 04/01/2024) Medications Medication Sig Dispensed Refills Start Date [...] Oral Tablet (Lasix)Indications:C oronary artery disease involving [place] coronary artery of [place] heart without angina pectoris TAKE 2 TABLETS BY MOUTH EVERY DAY 180 Tablet 1 01/19/2024 Active documented as of this encounter (statuses as of 04/01/2024) Active Problems Problem Noted Date Diagnosed Date [...] as of this encounter (statuses as of 04/01/2024) Resolved Problems Problem Noted Date Diagnosed Date [...] as of this encounter (statuses as of 04/01/2024) Immunizations Name Administration Dates Next Due COVID-19 [...] this encounter Progress Notes * Olive Severino, composition tile layer - 04/01/2024 1:20 PM EDT Contacts Contact Date/Time Type Contact Phone/Fax 04/01/2024 10:51 AM EDT Phone (Outgoing) Mal Tran (Self) [phone] (H) No Answer/Busy - line was busy 04/01/2024 01:18 PM EDT Phone (Outgoing) Mal Tran (Self) [phone] (H) Spoke to Patient Subjective Patient Findings [...] as noted by Pharmacist: Yes TRE Roberson 04/01/2024, 1:20 PM * Monique Andrews RPh - 04/01/2024 8:09 AM EDT Coumadin Clinic (region specific) Objective Current Warfarin Dose As of 04/01/2024 Warfarin maintenance plan: 7.5 mg (2.5 mg x 3) every Tue; 5 mg (2.5 mg x 2) all other days INR Result As of 04/01/2024 INR goal: 2.0-3.0 INR used for dosin.8 (03/31/2024) Assessment & Plan Warfarin Plan As of 04/01/2024 Full warfarin instructions: 04/01: 7.5 mg; Otherwise 7.5 mg every Tue; 5 mg all other days Next INR check: 04/14/2024 Repeat PT/INR in 2 week(s) Weekly dose: not changed Additional Dosing Information: Description GML (MW) Tech to contact patient with dose instructions as noted. Monique Andrews RPh 04/01/2024, 8:09 AM documented in this encounter Plan of Treatment Upcoming Encounters Date Type Department Care Team (Late st Contact Info) Description 04/07/2024 1:40 PM EDT Office Visit [address] [place] [phone] Rebeca Mendez PA-C [address] [place] [address] [place] [address] 04/14/2024 7:05 AM EDT Laboratory Lab Mobile Phlebotomy [facility] [address] [place] [address] [facility], [facility] Mobile Home Draw [address] [place] [address] 04/15/2024 6:00 AM EDT Anticoagulation Centralized Clinical Pharmacy Services, Juvenal Guerrero [address] [place] [address] [place] [address] [facility], [address] [place] [address] 09/24/2024 1:40 PM EDT Office Visit [address] [place] [phone] Akiko Joy MD [address] [place] [address] [place] [address] Health Maintenance Due Date Last Done Comments Albumin/Creatinine Ratio 1958 DTap/Tdap Vaccines (1 - Tdap) 1957 Zoster Vaccines (1 of 2) 1988 Adult Wellness Visit 02/18/2020 02/17/2019 Depression Screening 02/18/2020 02/17/2019 CKD PHOS USE SMARTSET 60296 02/27/202402/11, 02/20/2021, 05/07/2018, Additional history exists COVID-19 Vaccine ( - 2023- season) 2024 09/22/2023, 11/28/2020 Influenza Vaccine (FLU shot) (#1) 2024 03/26/2023, 05/07/2018, 06/19/2017, Additional history exists CKD HGB USE SMARTSET 32724 12/09/202412/09, 12/05/2023, 09/24/2023, Additional history exists Pneumococcal [...] fibrillation documented in this encounter Care Teams Tire Design Engineer Relationship Specialty Start Date End Date Akiko Joy MD PCP - General Family Medicine 05/22/15 documented as of this encounter
--- OUTSIDE RECORDS SUMMARY | 2024-04-11 03:48 | External Medical Summary | Summary of Care ---
Author Name Unknown Organization [facility] Address [address] [facility] [place] [address] Phone [phone] Care Team Providers Care Blade Boner Name Role Phone Efraín Joy MD Primary Care Provide r Reason for Visit * Reason Comments eRx-Medication Refill Encounter Details Date Type Department Care Team (Late st Contact Info) Description 01/17/2024 Refill Family Medicine [address] [phone] Efraín Joy MD [address] [place] [address] [place] [address] Coronary artery disease involving [place] coronary artery of [place] heart without angina pectoris Allergies No known active allergiesdocumented as of this encounter (statuses as of 01/19/2024) Medications Medication Sig Dispensed Refills Start Date [...] 12/11/2023 Active Carvedilol 25 MG Oral Tablet (Coreg)Indications [...] Oral Tablet (Lasix)Indications :Coronary artery disease involving [place] coronary artery of [place] heart without angina pectoris TAKE 2 TABLETS BY MOUTH EVERY DAY 180 Tablet 1 01/19/2024 Active Furosemide 20 MG Oral Tablet (Lasix)Indications :Coronary artery disease involving [place] coronary artery of [place] heart without angina pectoris Take 2 Tablets by mouth in the morning. 180 Tablet 1 12/11/2023 Discontinued documented as of this encounter (statuses as of 01/19/2024) Active Problems Problem Noted Date Diagnosed Date [...] as of this encounter (statuses as of 01/19/2024) Resolved Problems Problem Noted Date Diagnosed Date Resolved Date Hypertensive kidney disease with stage 3 chronic kidney disease 11/19/2021 10/23/2022 Chronic coronary artery disease 02/20/2021 10/23/2022 Hypertensive kidney disease with chronic kidney disease stage III 05/07/2018 09/26/2021 Overview: Per CKD protocol Atrial fibrillation 12/31/2013 04/12/20 23 Aortic valve stenosis 11/25/20132017 Severe aortic stenosis 03/24/201311/25 Kidney disease, chronic, sta ge III (GFR 30-59 ml/min) (aka CKD) 09/26/2021 Overview: Per CKD protocol documented as of this encounter (statuses as of 01/19/2024) Immunizations Name Administration Dates Next Due COVID-19 [...] encounter Miscellaneous Notes * Telephone Encounter - Philippe Berry RPh - 01/19/2024 1:24 PM EDTSigned Prescriptions: Disp Refills Furosemide 20 MG Oral Tablet (Lasix) 180 Ta*1 Sig: TAKE 2 TABLETS BY MOUTH EVERY DAYAuthorizing Provider: EFRAÍN JOY User: PHILIPPE BERRY- documented in this encounter Plan of Treatment Upcoming Encounters Date Type Department Care Team (Late st Contact Info) Description 02/04/2024 7:10 AM EDT Laboratory Lab Mobile [facility] [address] [facility] [place] [address] [facility], [facility] Mobile Home Draw [facility] [facility] [place] [address] 02/05/2024 6:00 AM EDT Anticoagulation Centralized Clinical Pharmacy Services, [address] [place] [address] [place] [address] 03/24/2024 9:40 AM EDT Office Visit [address] [place] [phone] Rebeca Mendez PA-C [address] [place] [address] [place] [address] 09/24/2024 1:40 PM EDT Office Visit [address] [place] [phone] Efraín Joy MD [address] [place] [address] [place] [address] Health Maintenance Due Date Last Done Comments Albumin/Creatinine Ratio 1958 DTaP,Tdap,and Td Vaccines (1 - Tdap) 1957 Zoster Vaccines (1 of 2) 1988 Depression Screening 02/18/2020 02/17/2019 COVID-19 Vaccine (3 - 2022- season) 2024 09/22/2023, 11/28/2020 CKD PHOS USE SMARTSET 47773 02/27/202402/11, 02/20/2021, 05/07/2018, Additional history exists Influenza Vaccine (FLU shot) (#1) 2024 03/26/2023, 05/07/2018, 06/19/2017, Additional history exists CKD HGB USE SMARTSET 05343 12/09/202412/09, 12/05/2023, 09/24/2023, Additional history exists Pneumococcal [...] as of this encounter Visit Diagnoses Diagnosis Coronary artery disease involving [place] coronary artery of [place] heart without angina pectoris documented in this encounter Care Teams Blade Boner Relationship Specialty Start Date End Date Efraín Joy MD PCP - General Family Medicine 05/22/15 documented as of this encounter
--- OUTSIDE RECORDS SUMMARY | 2024-04-11 03:48 | External Medical Summary ---
Author Name Unknown Address Unknown Organization K01:LABORATORY [facility] - [facility] [place] [address] [place] [address] Laboratory Report Ordering Provider Test Date Status [id number] 04/07/2024 13:52:30 Final Observation Date Value Abnormality Reference (Units ) Status Retic, % (auto) 04/07/2024 13:52:30 1.54 0.80-1.90 (%) Final Reticulocytes, Absolute 04/07/2024 13:52:30 66.4 31.3-100.1 (K/uL) Final Reticulocyte fraction, immature 04/07/2024 13:52:30 11.7 2.5-20.6 (%) Final Reticulocyte HGB 04/07/2024 13:52:30 33.6 29.7-37.4 (pg) Final Performing Location LABORATORY [facility] - [address] [place] [address]
--- OUTSIDE RECORDS SUMMARY | 2024-04-11 03:48 | External Medical Summary | Summary of Care ---
Author Name Unknown Organization [facility] Address [address] [facility] [place] [address] Phone [phone] Care Team Providers Care Airborne Operations Superintendent Name Role Phone Akiko Joy MD Primary Care Provide r Reason for Visit * Reason Comments Dosage Adjustment Via Phone (anticoag Cl inic) Encounter Details Date Type Department Care Team (Late st Contact Info) Description 02/26/2024 6:00 AM EDT Anticoagulation Centralized Clinical Pharmacy Services, Juvenal Guerrero [address] [place] [address] [place] [address] [facility], [address] [place] [address] Paroxysmal atrial fibrillation (HCC)* Allergies No known active allergiesdocumented as of this encounter (statuses as of 02/26/2024) Medications Medication Sig Dispensed Refills Start Date [...] Oral Tablet (Lasix)Indications:C oronary artery disease involving [place] coronary artery of [place] heart without angina pectoris TAKE 2 TABLETS BY MOUTH EVERY DAY 180 Tablet 1 01/19/2024 Active documented as of this encounter (statuses as of 02/26/2024) Active Problems Problem Noted Date Diagnosed Date [...] as of this encounter (statuses as of 02/26/2024) Resolved Problems Problem Noted Date Diagnosed Date [...] as of this encounter (statuses as of 02/26/2024) Immunizations Name Administration Dates Next Due COVID-19 [...] as of this encounter Progress Notes * Yuli Castillo, lactation consultant - 02/26/2024 10:07 AM EDT Contacts Type Contact Phone/Fax 02/26/2024 10:04 AM EDT Phone (Outgoing) Mal Tran (Self) [phone] (H) Spoke to Patient Subjective Patient Findings [...] communicated as noted by Pharmacist: Yes TRE GARDINER Tech 02/26/2024, 10:07 AM * Monique Andrews RPh - 02/25/2024 8:47 PM EDT Images from the original note were not included. Coumadin Clinic (region specific) Objective Current Warfarin Dose As of 02/26/2024 Warfarin maintenance plan: 7.5 mg (2.5 mg x 3) every Sun, Tue; 5 mg (2.5 mg x 2) all other days INR Result As of 02/26/2024 INR goal: 2.0-3.0 INR used for dosin.9 (02/25/2024) Assessment & Plan Warfarin Plan As of 02/26/2024 Full warfarin instructions: 02/25: Hold; Otherwise 7.5 mg every Sun, Tue; 5 mg all other days Next INR check: 03/10/2024 Repeat PT/INR in 2 week(s) Weekly dose: not changed Additional Dosing Information: Description [facility] Tech to contact patient with dose instructions as noted. Monique Andrews RPh 02/25/2024, 8:47 PM documented in this encounter Plan of Treatment Upcoming Encounters Date Type Department Care Team (Late st Contact Info) Description 03/24/2024 9:40 AM EDT Office Visit Family [address] [place] [phone] Rebeca Mendez PA-C [address] [place] [address] [place] [phone] 09/24/2024 1:40 PM EDT Office Visit Family Medicine [address] [place] [phone] Akiko Joy MD [address] [place] [address] [place] [address] Health Maintenance Due Date Last Done Comments Albumin/Creatinine Ratio 1956 DTaP,Tdap,and Td Vaccines (1 - Tdap) 1957 Zoster Vaccines (1 of 2) 1988 Adult Wellness Visit 02/18/2020 02/17/2019 Depression Screening 02/18/2020 02/17/2019 COVID-19 Vaccine ( season) 2024 09/22/2023, 11/28/2020 CKD PHOS USE SMARTSET 67328 02/27/202402/11, 02/20/2021, 05/07/2018, Additional history exists Influenza Vaccine (FLU shot) (#1) 2024 03/26/2023, 05/07/2018, 06/19/2017, Additional history exists CKD HGB USE SMARTSET 52775 12/09/202412/09, 12/05/2023, 09/24/2023, Additional history exists Pneumococcal [...] fibrillation documented in this encounter Care Teams Airborne Operations Superintendent Relationship Specialty Start Date End Date Akiko Joy MD PCP - General Family Medicine 11/9/15 documented as of this encounter
--- OUTSIDE RECORDS SUMMARY | 2024-04-11 03:48 | External Medical Summary ---
Author Name Unknown Address Unknown Organization K01:[facility] [place] [address] [place] [address] Laboratory Report Ordering Provider Test Date Status BERNARD KELLY 04/07/2024 13:52:30 Final Observation Date Value Abnormality Reference (Units ) Status Folic Acid 04/07/2024 13:52:30 9.7 >4.5 (ng/ mL) Final Performing Location [facility] [place] [address] [place] [address]
--- OUTSIDE RECORDS SUMMARY | 2024-04-11 03:48 | External Medical Summary ---
Author Name Unknown Address Unknown Organization K01:[place] [place] [address] [place] [address] Laboratory Report Ordering Provider Test Date Status SHON VALADEZ 03/10/2024 08:04:00 Final Please draw PT/INR every 1-4 weeks or as requested by the [facility] Coumadin Clinic

Warfarin Therapy
INR: 2.0-3.0 conventional anticoagulation
INR: 2.5-3.5 high intensity anticoagulation Observation Date Value Abnormality Reference (Units ) Status PT 03/10/2024 08:04:00 49.8 Above high normal 11.6-15.2 (seconds) Final INR 03/10/2024 08:04:00 5.3 Above upper panic limits 0.8-1.2 Final Performing Location [facility] [place] [address] [place] [address]
--- OUTSIDE RECORDS SUMMARY | 2024-04-11 03:48 | External Medical Summary ---
Author Name Unknown Address Unknown Organization K01:[facility]ORY [facility] [place] [address] [place] [address] Laboratory Report Ordering Provider Test Date Status BERNARD KELLY 04/07/2024 13:52:30 Final Observation Date Value Abnormality Reference (Units ) Status Ferritin 04/07/2024 13:52:30 127 30-400 (ng /mL) Final Performing Location LABORATORY [facility] - [address] [place] [address]
--- OUTSIDE RECORDS SUMMARY | 2024-04-11 03:48 | External Medical Summary | Summary of Care ---
Author Name Unknown Organization [facility] Address [address] [facility] [place] [address] Phone [phone] Care Team Providers Care Concrete Carpenter Name Role Phone Akiko Joy MD Primary Care Provide r Reason for Visit * Reason Comments eRx-Medication Refill Encounter Details Date Type Department Care Team (Late st Contact Info) Description 01/17/2024 Refill Family Medicine [address] [phone] Akiko Joy MD [address] [place] [address] [place] [address] HTN, goal below 140/90 Allergies No known [...] Oral Tablet (Lasix)Indications :Coronary artery disease involving [place] coronary artery of [place] heart without angina pectoris Take 2 Tablets [...] encounter Miscellaneous Notes * Telephone Encounter - Selina Groves, [facility] - 01/19/2024 1:23 PM EDT Refused Prescriptions: Disp Refills amLODIPine Besylate 5 MG Oral Tablet (Norv*90 Tab*1 Sig: TAKE 1TABLET BY MOUTH EVERY DAYRefused By: SELINA GROVES for Refusal: Course of treatment c omplete documented in this encounter Plan of Treatment Upcoming Encounters Date Type Department Care Team (Late st Contact Info) Description 02/04/2024 7:10 AM EDT Laboratory Lab Mobile Phlebotomy [facility] [address] [facility] [address] [place] [address] [facility], Gml Mobile Home Draw [address] [place] [address] 02/05/2024 6:00 AM EDT Anticoagulation Centralized Clinical Pharmacy Services, [address] [place] [address] [facility], [address] [place] [address] 03/24/2024 9:40 AM EDT Office Visit Family [address] [phone] Rebeca Mendez PA-C [address] [place] [address] [place] [address] 09/24/2024 1:40 PM EDT Office Visit Family [address] [phone] Akiko Joy MD [address] [place] [address] [place] [address] Health Maintenance Due Date Last Done Comments Albumin/Creatinine Ratio 1956 DTaP,Tdap,and Td Vaccines (1 - Tdap) 1957 Zoster Vaccines (1 of 2) 1988 Depression Screening 02/18/2020 02/17/2019 COVID-19 Vaccine ( season) 2024 09/22/2023, 11/28/2020 CKD PHOS USE SMARTSET 30376 02/27/202402/11, 02/20/2021, 05/07/2018, Additional history exists Influenza Vaccine (FLU shot) (#1) 2024 03/26/2023, 05/07/2018, 06/19/2017, Additional history exists CKD HGB USE SMARTSET 16016 12/09/202412/09, 12/05/2023, 09/24/2023, Additional history exists Pneumococcal [...] hypertension documented in this encounter Care Teams Concrete Carpenter Relationship Specialty Start Date End Date Akiko Joy MD PCP - General Family Medicine 05/22/15 documented as of this encounter
--- OUTSIDE RECORDS SUMMARY | 2024-04-11 03:48 | External Medical Summary | Summary of Care ---
Author Name Unknown Organization [facility] Address [address] [facility] [place] [address] Phone [phone] Care Team Providers Care Microscopist Name Role Phone Akiko Joy MD Primary Care Provide r Reason for Visit * Reason Comments Dosage Adjustment Via Phone (anticoag Cl inic) Encounter Details Date Type Department Care Team (Late st Contact Info) Description 02/05/2024 6:00 AM EDT Anticoagulation Centralized Clinical Pharmacy Services, Juvenal Guerrero [address] [place] [address] [place] [address] [facility], [address] [place] [address] Paroxysmal atrial fibrillation (HCC)* Allergies No known active allergiesdocumented as of this encounter (statuses as of 02/05/2024) Medications Medication Sig Dispensed Refills Start Date [...] Oral Tablet (Lasix)Indications:C oronary artery disease involving [place] coronary artery of [place] heart without angina pectoris TAKE 2 TABLETS BY MOUTH EVERY DAY 180 Tablet 1 01/19/2024 Active documented as of this encounter (statuses as of 02/05/2024) Active Problems Problem Noted Date Diagnosed Date [...] as of this encounter (statuses as of 02/05/2024) Resolved Problems Problem Noted Date Diagnosed Date [...] as of this encounter (statuses as of 02/05/2024) Immunizations Name Administration Dates Next Due COVID-19 [...] of this encounter Progress Notes * Michelle Leahy, medical illustrator - 02/05/2024 8:59 AM EDT Contacts Type Contact Phone/Fax 02/05/2024 08:57 AM EDT Phone (Outgoing) Mal Tran (Self) [phone] (H) Spoke to Patient Subjective Patient Findings [...] communicated as noted by Pharmacist: Yes TRE SANTOYO 02/05/2024, 8:59 AM * Alison Funez RPh - 02/05/2024 8:53 AM EDT Images from the original note were not included. Coumadin Clinic (region specific) Objective Current Warfarin Dose As of 02/05/2024 Warfarin maintenance plan: 7.5 mg (2.5 mg x 3) every Sun, Tue; 5 mg (2.5 mg x 2) all other days INR Result As of 02/05/2024 INR goal: 2.0-3.0 INR used for dosin.8 (02/04/2024) Assessment & Plan Warfarin Plan As of 02/05/2024 Full warfarin instructions: 02/04: 7.5 mg; Otherwise 7.5 mg every Sun, Tue; 5 mg all other days Next INR check: 02/25/2024 Repeat PT/INR in 3 week(s) Weekly dose: not changed Additional Dosing Information: Description [facility]) Tech to contact patient with dose instructions as noted. Alison Funez RPh 02/05/2024, 8:53 AM documented in this encounter Plan of Treatment Upcoming Encounters Date Type Department Care Team (Late st Contact Info) Description 02/26/2024 6:00 AM EDT Anticoagulation Centralized Clinical Pharmacy Services, Juvenal Guerrero [address] [place] [address] [place] [address] [facility], [address] [place] [address] 03/24/2024 9:40 AM EDT Office Visit [address] [phone] Rebeca Mendez PA-C [address] [place] [address] [place] [address] 09/24/2024 1:40 PM EDT Office Visit [address] [place] [phone] Akiko Joy MD [address] [place] [address] [place] [address] Health Maintenance Due Date Last Done Comments Albumin/Creatinine Ratio 1958 DTaP,Tdap,and Td Vaccines (1 - Tdap) 1957 Zoster Vaccines (1 of 2) 1988 Depression Screening 02/18/2020 02/17/2019 COVID-19 Vaccine (3 - season) 2024 09/22/2023, 11/28/2020 CKD PHOS USE SMARTSET 64632 02/27/202402/11, 02/20/2021, 05/07/2018, Additional history exists Influenza Vaccine (FLU shot) (#1) 2024 03/26/2023, 05/07/2018, 06/19/2017, Additional history exists CKD HGB USE SMARTSET 75571 12/09/202412/09, 12/05/2023, 09/24/2023, Additional history exists Pneumococcal [...] fibrillation documented in this encounter Care Teams Microscopist Relationship Specialty Start Date End Date Akiko Joy MD PCP - General Family Medicine 05/22/15 documented as of this encounter
--- OUTSIDE RECORDS SUMMARY | 2024-04-11 03:48 | External Medical Summary ---
Author Name Unknown Address Unknown Organization K01:[facility] [place] [address] [facility] [address] [place] [address] Laboratory Report Ordering Provider Test Date Status BERNARD KELLY 04/07/2024 13:52:30 Final Observation Date Value Abnormality Reference (Units ) Status TSH 04/07/2024 13:52:30 4.98 Above high normal 0. 27-4.20 (uIU/mL) Final Performing Location LABORATORY C - [address] [place] [address]
--- OUTSIDE RECORDS SUMMARY | 2024-04-11 03:48 | External Medical Summary ---
Author Name Unknown Address Unknown Organization K01:LABORATORY [facility] - [address] [place] [address] Laboratory Report Ordering Provider Test Date Status SHON VALADEZ 2024 08:09:00 Final Please draw PT/INR every 1-4 weeks or as requested by the [facility] Coumadin Clinic

Warfarin Therapy
INR: 2.0-3.0 conventional anticoagulation
INR: 2.5-3.5 high intensity anticoagulation Observation Date Value Abnormality Reference (Units ) Status PT 2024 08:09:00 27.3 Above high normal 11 .6-15.2 (seconds) Final INR 2024 08:09:00 2.5 Above high normal 0. 8-1.2 Final Performing Location LABORATORY [facility] - [address] [place] [address]
--- OUTSIDE RECORDS SUMMARY | 2024-04-11 03:49 | External Medical Summary | Continuity Of Care Document ---
Author Name Unknown Address [address] [place] [address] Organization [facility] ( ) Care Team Providers Care Plain Clothes Police Officer Name Role Phone Rufino Yrntoby Primary Care Provider [phone] Allergies Allergy Reaction Start Date End Date Status NO KNOWN DRUG ALLERGIES A ctive VITAL SIGNS Date Time Diastolic blood pressure Systolic blood pressure Body height Body weight Temperature SpO2 Blood Sugar Pulse Respirations 93830 522 14179 0 75.00 mm[Hg] - Sitting 135.00 mm[Hg] - Sitting 97.00 Oral 97.00 % 66.00/ min 18.00/min 00503 522 02661 2 75.00 mm[Hg] - Sitting 135.00 mm[Hg] - Sitting 97.00 Ear 66.00/ min 18.00/min 36582 522 15944 2 138.00 NI [id number] 08590 8 66 NI [id number] 522 52905 0 138.00 NI [id number] 1
--- OUTSIDE RECORDS SUMMARY | 2024-04-11 03:49 | External Medical Summary ---
Author Name Unknown Address Unknown Organization K0G:[facility] [address] [place] [address] Laboratory Report Ordering Provider Test Date Status SHON VALADEZ 12/26/2023 09:45:00 Final Warfarin Therapy
INR: 2 .0-3.0 conventional anticoagulation
INR: 2.5- 3.5 high intensity anticoagulation Observation Date Value Abnormality Reference (Units ) Status PT 12/26/2023 09:45:00 43.9 Above high normal 11 .6-15.2 (seconds) Final INR 12/26/2023 09:45:00 4.6 Above high normal 0. 8-1.2 Final Results rechecked. Performing Location [facility] [address] [place] [address]
--- OUTSIDE RECORDS SUMMARY | 2024-04-11 03:49 | External Medical Summary | Summary of Care ---
Author Name Unknown Organization [facility] Address [address] [facility] [place] [address] Phone [phone] Care Team Providers Care Treasury Accountant Name Role Phone Akiko Joy MD Primary Care Provide r Reason for Visit * Reason Comments Dosage Adjustment Via Phone (anticoag Cl inic) Encounter Details Date Type Department Care Team (Latest Contact Info) Description 12/04/2023 6:00 AM EDT Anticoagulation Pharmacy Call Center 58[address] [place] [address] [facility] 58 60 [place] [address] Paroxysmal atrial fibrillation (HCC)* Allergies No known active allergiesdocumented as of this encounter (statuses as of 12/04/2023) Medications Medication Sig Dispensed Refills Start Date End Date Status Docusate Sodium 100 MG Oral Capsule (Colace) Take 1 Capsule by mouth in the morning and 1 Capsule before bedtime. Active Diclofenac Sodium 1 % External Gel Apply topically to affected area. Apply 4g to knee up to 4 times a day Active Warfarin Sodium 2.5 MG Oral Tablet (Coumadin)Indication s:Unspecified atrial fibrillation (HCC) TAKE 2-3 TABLETS BY MOUTH DAILY DIRECTED BY COUMADIN CLINIC ON PHONE. 270 Tablet 1 04/16/2023 Active Furosemide 20 MG Oral Tablet (Lasix)Indications:C oronary artery disease involving [place] coronary artery of [place] heart without angina pectoris TAKE 2 TABLETS [...] as of this encounter (statuses as of 12/04/2023) Active Problems Problem Noted Date Diagnosed Date [...] as of this encounter (statuses as of 12/04/2023) Resolved Problems Problem Noted Date Diagnosed Date [...] as of this encounter (statuses as of 12/04/2023) Immunizations Name Administration Dates Next Due COVID-19 mRNA, LNP-s, No Pre serve, 2-Dose Series (Moderna) 11/28/2020 COVID-19, MRNA-LNP, 23-24, P F, 30 MCG/0.3 mL, 12 YRS AND ABOVE, IM ([facility]) 09/22/2023 Pneumococcal Conjugate Vacc, 13 Valent (Prevnar) [...] this encounter Progress Notes * Michelle Leahy letterset press set up operator - 12/04/2023 7:37 AM EDT Pt no showed GML appt on 12/02. Chart routed to mobile lab asking that pt be rescheduled for pt/inr draw on F/U call scheduled. Thank you, Michelle Leahy Pv Design And Installation Technician [facility] ([facility]) [phone] 12/04/2023,7:39 AM documented in this encounter Plan of Treatment Upcoming Encounters Date Type Department Care Team (Late st Contact Info) Description 12/11/2023 6:00 AM EDT Anticoagulation Pharmacy Call Center WB 58-08 [facility] [place] [address] [facility] 58 60 [facility] [place] [address] 03/24/2024 9:40 AM EDT Office Visit [address] [phone] Rebeca Mendez PA-C [address] [place] [address] [place] [address] 09/24/2024 1:40 PM EDT Office Visit [address] [place] [phone] Akiko Joy MD [address] [place] [address] [place] [address] Health Maintenance Due Date Last Done Comments Albumin/Creatinine Ratio 1958 DTaP,Tdap,and Td Vaccines (1 - Tdap) 1957 Zoster Vaccines (1 of 2) 1988 Depression Screening 02/18/2020 02/17/2019 COVID-19 Vaccine ( - 2022- season) 2024 09/22/2023, 11/28/2020 CKD PHOS USE SMARTSET 77119 02/27/202402/11, 02/20/2021, 05/07/2018, Additional history exists CKD HGB USE SMARTSET 82494 09/23/202409/23, 09/24/2023, 04/09/2023, Additional history exists Pneumococcal [...] fibrillation documented in this encounter Care Teams Treasury Accountant Relationship Specialty Start Date End Date Akiko Joy MD PCP - General Family Medicine 05/22/15 documented as of this encounter
--- OUTSIDE RECORDS SUMMARY | 2024-04-11 03:49 | External Medical Summary ---
Author Name Unknown Address Unknown Organization K0G:[facility] [address] [place] [address] Laboratory Report Ordering Provider Test Date Status SIMONA KENNY 12/10/2023 06:00:00 Final Observation Date Value Abnormality Reference (Units ) Status HCT 12/10/2023 06:00:00 33.2 Below low normal 40. 0-48.4 (%) Final Performing Location [facility] [address] [place] [address]
--- OUTSIDE RECORDS SUMMARY | 2024-04-11 03:49 | External Medical Summary | Summary of Care ---
Author Name Unknown Organization [facility] Address [address] [facility] [place] [address] Phone [phone] Care Team Providers Care Rotary Shear Worker Helper Name Role Phone Akiko Joy MD Primary Care Provide r Reason for Visit * Reason Comments Dosage Adjustment Via Phone (anticoag Cl inic) Encounter Details Date Type Department Care Team (Latest Contact Info) Description 12/26/2023 6:00 PM EDT Anticoagulation [facility], [place]ven[place] Guerrero [address] [place] [address] [place] [address] [facility] 58 60 [facility] [place] [address] Paroxysmal atrial fibrillation (HCC)* Allergies No known active allergiesdocumented as of this encounter (statuses as of 12/26/2023) Medications Medication Sig Dispensed Refills Start Date [...] Oral Tablet (Lasix)Indications: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 180 Tablet 1 12/11/2023 Active Warfarin Sodium 2.5 MG Oral Tablet (Coumadin)Indication s:Unspecified atrial fibrillation (HCC) Take 2-3 tablets by mouth daily as directed by Coumadin Clinic on phone. 270 Tablet 1 12/11/2023 Active documented as of this encounter (statuses as of 12/26/2023) Active Problems Problem Noted Date Diagnosed Date [...] as of this encounter (statuses as of 12/26/2023) Resolved Problems Problem Noted Date Diagnosed Date [...] as of this encounter (statuses as of 12/26/2023) Immunizations Name Administration Dates Next Due COVID-19 [...] this encounter Progress Notes * Nicole Avery, [facility] - 12/26/2023 1:19 PM EDT Contacts Type Contact Phone/Fax 12/26/2023 12:50 PM EDT Phone (Outgoing) Mal Tran (Self) [phone] (H) No Answer/Busy 12/26/2023 01:15 PM EDT Phone (Outgoing) Mal Tran (Self) [phone] (H) Spoke to Patient Subjective Patient Findings [...] noted by Pharmacist: Yes NICOLE AVERY CPhT 12/26/2023, 1:19 PM * Monique Andrews RPh - 12/26/2023 12:38 PM EDT Images from the original note were not included. Coumadin Clinic (region specific) Objective Current Warfarin Dose As of 12/26/2023 Warfarin maintenance plan: 7.5 mg (2.5 mg x 3) every Sun, Tue; 5 mg (2.5 mg x 2) all other days INR Result As of 12/26/2023 INR goal: 2.0-3.0 INR used for dosin.6 (12/26/2023) Assessment & Plan Warfarin Plan As of 12/26/2023 Full warfarin instructions: 12/25: Hold; 12/26: Hold; Otherwise 7.5 mg every Sun, Tue; 5 mg all otherdays Next INR check: 01/02/2024 Repeat PT/INR in 1 week(s) Weekly dose: not changed Additional Dosing Information: Description GML (MW) Tech to contact patient with dose instructions as noted. Monique Andrews RPh 12/26/2023, 12:38 PM documented in this encounter Plan of Treatment Upcoming Encounters Date Type Department Care Team (Late st Contact Info) Description 01/05/2024 6:00 AM EDT Anticoagulation [facility], Juvenal Guerrero [address] [place] [address] [place] [address] [facility] 58 60 [facility] [place] [address] 03/24/2024 9:40 AM EDT Office Visit [address] [place] [phone] Rebeca Mendez PA-C [address] [place] [address] [place] [address] 09/24/2024 1:40 PM EDT Office Visit [address] [place] [phone] Akiko Joy MD [address] [place] [address] [place] [address] Health Maintenance Due Date Last Done Comments Albumin/Creatinine Ratio 1958 DTaP,Tdap,and Td Vaccines (1 - Tdap) 1957 Zoster Vaccines (1 of 2) 1988 Depression Screening 02/18/2020 02/17/2019 COVID-19 Vaccine (3 - 2022- season) 2024 09/22/2023, 11/28/2020 CKD PHOS USE SMARTSET 99896 02/27/202402/11, 02/20/2021, 05/07/2018, Additional history exists CKD HGB USE SMARTSET 51670 12/09/202412/09, 12/05/2023, 09/24/2023, Additional history exists Pneumococcal Vaccine: 65+ Years Completed 11/23/2015, 03/14/2012, 03/14/2012 Influenza Vaccine (FLU shot) Completed , 05/07/2018, 06/19/2017, Additional history exists GARDASIL-HPV IMMUNIZATION SERIES Aged [...] fibrillation documented in this encounter Care Teams Rotary Shear Worker Helper Relationship Specialty Start Date End Date Akiko Joy MD PCP - General Family Medicine 05/22/15 documented as of this encounter
--- OUTSIDE RECORDS SUMMARY | 2024-04-11 03:49 | External Medical Summary ---
Author Name Unknown Address Unknown Organization K0G:[facility] [address] [place] [address] Laboratory Report Ordering Provider Test Date Status SIMONA KENNY 12/05/2023 05:25:00 Final Warfarin Therapy
INR: 2 .0-3.0 conventional anticoagulation
INR: 2.5- 3.5 high intensity anticoagulation Observation Date Value Abnormality Reference (Units ) Status PT 12/05/2023 05:25:00 24.3 Above high normal 11 .6-15.2 (seconds) Final INR 12/05/2023 05:25:00 2.2 Above high normal 0. 8-1.2 Final Performing Location [facility] [address] [place] [address]
--- OUTSIDE RECORDS SUMMARY | 2024-04-11 03:49 | External Medical Summary | Summary of Care ---
Author Name Unknown Organization [facility] Address [address] 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 58 60 [facility] [place] [address] 03/24/2024 9:40 AM EDT Office Visit [address] [place] [phone] Rebeca Mendez PA-C [address] [place] [address] [place] [address] 09/24/2024 1:40 PM EDT Office Visit [address] [place] [phone] Akiko Joy MD [address] [place] [address] [place] [address] Scheduled Orders Name Type Priority Associated Diagnoses Orde r Schedule CBC Lab Routine Confusion Chronic kidney disease (CKD) A-fib ([facility]) Expected: 12/05/2023, Expires: 12/03/2024 BASIC METABOLIC PANEL Lab Routine Confusion Chronic kidney disease (CKD) A-fib ([facility]) Expected: 12/05/2023, Expires: 12/03/2024 PT INR Lab Routine Confusion Chronic kidney disease (CKD) A-fib ([facility]) Expected: 12/05/2023, Expires: 12/03/2024 Health Maintenance Due Date Last Done Comments Albumin/Creatinine Ratio 1956 DTaP,Tdap,and Td Vaccines (1 - Tdap) 1957 Zoster Vaccines (1 of 2) 1988 Depression Screening 02/18/2020 02/17/2019 COVID-19 Vaccine (3 - season) 2024 09/22/2023, 11/28/2020 CKD PHOS USE SMARTSET 66667 02/27/202402/11, 02/20/2021, 05/07/2018, Additional history exists CKD HGB USE SMARTSET 65592 09/23/202409/23, 09/24/2023, 04/09/2023, Additional history exists Pneumococcal [...] as of this encounter Visit Diagnoses Diagnosis Confusion- Primary Unspecified psychosis Chronic kidney disease (CKD) Chronic kidney disease, unspecified A-fib (HCC) Atrial fibrillation documented in this encounter Care Teams Logging Shovel Operator Relationship Specialty Start Date End Date Akiko Joy MD PCP - General Family Medicine 05/22/15 documented as of this encounter
--- OUTSIDE RECORDS SUMMARY | 2024-04-11 03:49 | External Medical Summary | Summary of Care ---
Author Name Unknown Organization [facility] Address [address] [facility] [place] [address] Phone [phone] Care Team Providers Care Insurance Adviser Name Role Phone Akiko Joy MD Primary Care Provide r Reason for Visit * Reason Comments eRx-Medication Refill Encounter Details Date Type Department Care Team (Late st Contact Info) Description 12/17/2023 Refill Family Medicine [address] [place] [phone] Rebeca Mendez PA-C [address] [place] [address] [place] [address] Dyslipidemia, goal LDL below 100; Coronary artery disease involving [place] coronary artery of [place] heart without angina pectoris Allergies No known active allergiesdocumented as of this encounter (statuses as of 12/18/2023) Medications Medication Sig Dispensed Refills Start Date [...] Oral Tablet (Lasix)Indications: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 180 Tablet 1 12/11/2023 Active Warfarin Sodium 2.5 MG Oral Tablet (Coumadin)Indication s:Unspecified atrial fibrillation (HCC) Take 2-3 tablets by mouth daily as directed by Coumadin Clinic on phone. 270 Tablet 1 12/11/2023 Active documented as of this encounter (statuses as of 12/18/2023) Active Problems Problem Noted Date Diagnosed Date [...] as of this encounter (statuses as of 12/18/2023) Resolved Problems Problem Noted Date Diagnosed Date [...] as of this encounter (statuses as of 12/18/2023) Immunizations Name Administration Dates Next Due COVID-19 [...] encounter Miscellaneous Notes * Telephone Encounter - Nida Dudley, [facility] - 12/18/2023 9:57 AM EDTRefused Prescriptions: Disp Refills Atorvastatin Calcium 40 MG Oral Tablet (Li*90 Tab*1 Sig: TAKE 1TABLET BY MOUTH EVERYDAY AT BEDTIMERefused By: NIDA DUDLEY for Refusal: Other (comment below)Reason for Refusal Comment: pt provied hardcopy from [facility] at discharge. Furosemide 20 MG Oral Tablet (Lasix) 180 Ta*1 Sig: TAKE 2 TABLETS BY MOUTH EVERY DAYRefused By: NIDA DUDLEY for Refusal: Other (comment below)Reason for Refusal Comment: pt provied hardcopy from [facility] at discharge. * Telephone Encounter - Nida Dudley RPh - 12/18/2023 9:55 AM EDT Discharged from [facility] 12[facility]11/23. Orders from 12/11/23 were not transmitted electronically. Patient requested printed orders. Thank you, Nida Dudley, PharmD Clinical Pharmacist [facility] ([facility]) 12/18/23 9:57 AM [phone] documented in this encounter Plan of Treatment Upcoming Encounters Date Type Department Care Team (Late st Contact Info) Description 12/18/2023 3:20 PM EDT Office Visit Family Medicine [address] [place] [phone] Curt Jacob MD [address] [place] [address] [place] [address] 12/22/2023 5:30 PM EDT Anticoagulation [facility], Juvenal Guerrero [address] [place] [address] [place] [address] [facility], [address] [place] [address] 03/24/2024 9:40 AM EDT Office Visit [address] [place] [phone] Rebeca Mendez PA-C [address] [place] [address] [place] [address] 09/24/2024 1:40 PM EDT Office Visit [address] [place] [phone] Akiko Joy MD [address] [place] [address] [place] [address] Health Maintenance Due Date Last Done Comments Albumin/Creatinine Ratio 1956 DTaP,Tdap,and Td Vaccines (1 - Tdap) 1957 Zoster Vaccines (1 of 2) 1988 Depression Screening 02/18/2020 02/17/2019 COVID-19 Vaccine (3 - season) 2024 09/22/2023, 11/28/2020 CKD PHOS USE SMARTSET 95096 02/27/202402/11, 02/20/2021, 05/07/2018, Additional history exists CKD HGB USE SMARTSET 20921 12/09/202412/09, 12/05/2023, 09/24/2023, Additional history exists Pneumococcal [...] as of this encounter Visit Diagnoses Diagnosis Dyslipidemia, goal LDL below 100 Other and unspecified hyperlipidemia Coronary artery disease involving [place] coronary artery of [place] heart without angina pectoris documented in this encounter Care Teams Insurance Adviser Relationship Specialty Start Date End Date Akiko Joy MD PCP - General Family Medicine 05/22/15 documented as of this encounter
--- OUTSIDE RECORDS SUMMARY | 2024-04-11 03:49 | External Medical Summary ---
Author Name Unknown Address Unknown Organization K0G:[facility] [address] [place] [address] Laboratory Report Ordering Provider Test Date Status SIMONA KENNY 12/10/2023 06:00:00 Final Warfarin Therapy
INR: 2 .0-3.0 conventional anticoagulation
INR: 2.5- 3.5 high intensity anticoagulation Observation Date Value Abnormality Reference (Units ) Status PT 12/10/2023 06:00:00 26.9 Above high normal 11 .6-15.2 (seconds) Final INR 12/10/2023 06:00:00 2.5 Above high normal 0. 8-1.2 Final Performing Location [facility] [address] [place] [address]
--- OUTSIDE RECORDS SUMMARY | 2024-04-11 03:49 | External Medical Summary ---
Author Name Unknown Address Unknown Organization K0G:[facility] [address] [place] [address] Laboratory Report Ordering Provider Test Date Status SIMONA KENNY 12/05/2023 05:25:00 Final Observation Date Value Abnormality Reference (Units ) Status BUN 12/05/2023 05:25:00 34 Above high normal 6-20 (mg/dL) Final Creatinine 12/05/2023 05:25:00 1.3 Above high normal 0.6-1.2 (mg/dL) Final Glomerular filtration rate/1.73 sq M.predicted [Volume Rate/Area] in Serum, Plasma or Blood by Creatinine-based formula (CKD-EPI) 12/05/2023 05:25:00 52 Below low normal >=60 (mL/min) Final eGFR is calculated based on the CKD-EPI 2020 equation Sodium 12/05/2023 05:25:00 143 135-146 (m mol/L) Final Potassium 12/05/2023 05:25:00 4.0 3.5-5.1 (m mol/L) Final Cl 12/05/2023 05:25:00 109 Above high normal 98 -107 (mmol/L) Final CO2 12/05/2023 05:25:00 23 22-32 (mmo l/L) Final Anion gap 12/05/2023 05:25:00 11 7-15 (mmol /L) Final Glucose 12/05/2023 05:25:00 88 70-120 (mg /dL) Final Calcium 12/05/2023 05:25:00 8.8 8.4-10.2 ( mg/dL) Final [facility] [place] [address]
--- OUTSIDE RECORDS SUMMARY | 2024-04-11 03:49 | External Medical Summary | Summary of Care ---
Author Name Unknown Organization [facility] Address [address] [facility] [place] [address] Phone [phone] Care Team Providers Care Beauty Director Name Role Phone Akiko Joy MD Primary Care Provide r Reason for Visit * Reason Onset Date Comments Shelter Visit - Discharge 12/11/2023 Encounter Details Date Type Department Care Team (Latest Contact Info) Description 12/11/2023 11:00 AM EDT Shelter Visit [facility] [address] [place] [address] Mel Boyd PA-C [address] [place] [address] Fall, subsequent encounter*; Laceration of left eyebrow, subsequent encounter; Contusion of left chest wall, subsequent encounter; Paroxysmal atrial fibrillation (HCC); Hypertensive kidney disease with stage 3a chronic kidney disease (HCC); Dyslipidemia, goal LDL below 100; Coronary artery disease involving [place] coronary artery of [place] heart without angina pectoris; S/P aortic valve replacement Allergies No known active allergiesdocumented as of this encounter (statuses as of 12/11/2023) Medications Medication Sig Dispensed Refills Start Date End Date Status Acetaminophen 325 MG Oral Tablet (Tylenol) Take 2 Tablets by mouth every 4 hours as needed for Fever >38C(100.5F), Pain, Severe, Pain, Moderate or Pain, Mild. 12/09/2023 Active Diclofenac Sodium 1 % External Gel Apply topically to affected area. Apply 4g to knee up to 4 times a day 4 Discontinue d(Refill) Warfarin Sodium 2.5 MG Oral Tablet (Coumadin)Indicati ons:Unspecified atrial fibrillation (HCC) TAKE 2-3 TABLETS BY MOUTH DAILY DIRECTED BY COUMADIN CLINIC ON PHONE. 270 Tablet 1 04/16/2023 4 Discontinue d(Refill) Furosemide 20 MG Oral Tablet (Lasix)Indications :Coronary artery disease involving [place] coronary artery of [place] heart without angina pectoris TAKE 2 TABLETS BY MOUTH EVERY DAY 180 Tablet 1 05/19/2023 4 Discontinue d(Refill) Atorvastatin Calcium 40 MG Oral Tablet (Lipitor)Indicatio ns:Dyslipidemia, goal LDL below 100 TAKE 1 TABLET BY MOUTH EVERYDAY AT BEDTIME 90 Tablet 1 05/19/2023 4 Discontinue d(Refill) Carvedilol 25 MG Oral Tablet (Coreg)Indications :S/P aortic valve replacement,Aortoc oronary bypass status,HTN, goal below 140/90 TAKE 1 TABLET BY MOUTH TWICE A DAY 180 Tablet 3 05/19/2023 4 Discontinue d(Refill) documented as of this encounter (statuses as of 12/11/2023) Active Problems Problem Noted Date Diagnosed Date DNR (do not resuscitate) 12/09/2023 Cerebrovascular disease [...] as of this encounter (statuses as of 12/11/2023) Resolved Problems Problem Noted Date Diagnosed Date [...] as of this encounter (statuses as of 12/11/2023) Immunizations Name Administration Dates Next Due COVID-19 [...] Description 12/18/2023 3:20 PM EDT Office Visit [address] [place] [phone] Curt Jacob MD [address] [place] [address] [place] [address] 12/22/2023 5:30 PM EDT Anticoagulation Pharmacy Call Center WB [address] Public [place] [address] [facility], [facility] 58 60 [facility] [place] [address] 03/24/2024 9:40 AM EDT Office Visit [address] [place] [phone] Rebeca Mendez PA-C [address] [place] [address] [place] [address] 09/24/2024 1:40 PM EDT Office [place] [address] [place] [phone] Akiko Joy MD [address] [place] [address] [place] [address] Health Maintenance Due Date Last Done Comments Albumin/Creatinine Ratio 1958 DTaP,Tdap,and Td Vaccines (1 - Tdap) 1957 Zoster Vaccines (1 of 2) 1988 Depression Screening 02/18/2020 02/17/2019 COVID-19 Vaccine (3 - 2022- season) 2024 09/22/2023, 11/28/2020 CKD PHOS USE SMARTSET 76249 02/27/2024 08/12/2022, 02/20/2021, 05/07/2018, Additional history exists CKD HGB USE SMARTSET 63172 12/09/202412/09, 12/05/2023, 09/24/2023, Additional history exists Pneumococcal [...] as of this encounter Visit Diagnoses Diagnosis Fall, subsequent encounter- Primary Laceration of left eyebrow, subsequent encounter Contusion of left chest wall, subsequent encounter Paroxysmal atrial fibrillation (HCC) Atrial fibrillation Hypertensive kidney disease with stage 3a chronic kidney disease (HCC) Dyslipidemia, goal LDL below 100 Other and unspecified hyperlipidemia Coronary artery disease involving [place] coronary artery of [place] heart without angina pectoris S/P aortic valve replacement Heart valve replaced by other means documented in this encounter Care Teams Beauty Director Relationship Specialty Start Date End Date Akiko Joy MD PCP - General Family Medicine 05/22/15 documented as of this encounter
--- OUTSIDE RECORDS SUMMARY | 2024-04-11 03:49 | External Medical Summary | Continuity Of Care Document ---
Author Name Unknown Address [address] [place] [address] Organization [facility] ( ) Care Team Providers Care Manager Medical Writing Name Role Phone Akiko Joy Primary Care Provider [phone] Allergies Allergy Reaction Start Date End Date Status NO KNOWN DRUG ALLERGIES A ctive Problems Code Description Start Date End Date Status W19.XXXA Unspecified fall, initial encounter 12/03/2023 Active S09.90XD Unspecified injury o f head, subsequent encounter 12/03/2023 Active S01.91XD Laceration without f oreign body of unspecified part of head, subsequent encounter 12/03/2023 Activ e S40.012D Contusion of left sh oulder, subsequent encounter 12/03/2023 Active M25.562 Pain in left knee 12/03/2023 Active R26.2 Difficulty in walking, not elsewhere classified 12/03/2023 Active I10. Essential (primary) hypertension 12/03/2023 Active I50.9 Heart failure, unspecified 12/03/2023 0 Active E78.5 Hyperlipidemia, unspecified 12/03/2023 00 Active VITAL SIGNS Date Time Diastolic blood pressure Systolic blood pressure Body height Body weight Temperature SpO2 Blood Sugar Pulse Respirations 522 59679 0 75.00 mm[Hg] - Sitting 135.00 mm[Hg] - Sitting 97.00 Oral 97.00 % 66.00/ min 18.00/min 522 77652 2 75.00 mm[Hg] - Sitting 135.00 mm[Hg] - Sitting 97.00 Ear 66.00/ min 18.00/min 522 12437 2 138.00 NI 522 31833 8 66 NI 85002 522 21275 0 138.00 NI 21054 523 00498 1 88874 523 86540 0 73.00 mm[Hg] - Sitting 130.00 mm[Hg] - Sitting 98.80 Oral 95.00 % 70.00/ min 20.00/min 67573 523 31506 2 73.00 mm[Hg] - Sitting 130.00 mm[Hg] - Sitting 98.80 X-Other 16633 523 13304 7 66 NI 138.00 NI 70.00/ min 20.00/min 33372 524 55530 8 19628 524 78311 8 45420 524 64865 5 46478 525 96316 2 79.00 mm[Hg] - Sitting 130.00 mm[Hg] - Sitting 97.30 Ear 95.00 % 71.00/ min 20.00/min 09516 525 75327 8 70.00 mm[Hg] - Sitting 122.00 mm[Hg] - Sitting 99.50 Ear 94.00 % 66.00/ min 18.00/min 19233 526 88075 1 70.00 mm[Hg] - Sitting 144.00 mm[Hg] - Sitting 98.30 Oral 98.00 % 65.00/ min 16.00/min 93793 527 50227 5 76.00 mm[Hg] - Sitting 127.00 mm[Hg] - Sitting 98.20 Ear 96.00 % 71.00/ min 20.00/min
--- OUTSIDE RECORDS SUMMARY | 2024-04-11 03:49 | External Medical Summary | Continuity Of Care Document ---
Author Name Unknown Address [address] [place] [address] Organization [facility] ( ) Care Team Providers Care Sizer Hand Name Role Phone Rufino Yrntoby Primary Care Provider [phone] Allergies Allergy Reaction Start Date End Date Status NO KNOWN DRUG ALLERGIES A ctive VITAL SIGNS Date Time Diastolic blood pressure Systolic blood pressure Body height Body weight Temperature SpO2 Blood Sugar Pulse Respirations 36458 522 84655 0 75.00 mm[Hg] - Sitting 135.00 mm[Hg] - Sitting 97.00 Oral 97.00 % 66.00/ min 18.00/min 04636 522 51670 2 75.00 mm[Hg] - Sitting 135.00 mm[Hg] - Sitting 97.00 Ear 66.00/ min 18.00/min 77954 522 81329 2 138.00 NI 69796 522 35223 8 66 NI 72971 522 68196 0 138.00 NI 73340 523 57456 1
--- OUTSIDE RECORDS SUMMARY | 2024-04-11 03:49 | External Medical Summary | Summary of Care ---
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 Apply 4g to knee up to 4 times a day Active Warfarin Sodium 2.5 MG Oral Tablet (Coumadin)Indication s:Unspecified atrial fibrillation (HCC) TAKE 2-3 TABLETS BY MOUTH DAILY DIRECTED BY COUMADIN CLINIC ON PHONE. 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 12/09/2023 Active documented as of this encounter (statuses as of 12/10/2023) Active Problems Problem Noted Date Diagnosed Date [...] as of this encounter (statuses as of 12/10/2023) Resolved Problems Problem Noted Date Diagnosed Date [...] as of this encounter (statuses as of 12/10/2023) Immunizations Name Administration Dates Next Due COVID-19 [...] Care Team (Late st Contact Info) Description 12/10/2023 6:10 AM EDT Laboratory Lab Mobile Phlebotomy [facility] [address] [facility] [place] [address] [place] [address] 12/10/2023 8:30 AM EDT Longterm Visit [address] [place] [address] Akiko Joy MD [address] [place] [address] [place] [address] 12/11/2023 6:00 AM EDT Anticoagulation Pharmacy Call Center [facility] [address] [facility] [place] [address] [facility] 58 60 [facility] [place] [address] 03/24/2024 9:40 AM EDT Office Visit [address] [place] [address] Rebeca Mendez PA-C [address] [place] [address] [place] [address] 09/24/2024 1:40 PM EDT Office [place] [address] [place] [address] Akiko Joy MD [address] [place] [address] [place] [address] Scheduled Orders Name Type Priority Associated Diagnoses Orde r Schedule PT INR Lab Routine buttermaker helper (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 Expected: 12/11/2023, Expires: 12/09/2024 HCT Lab Routine intermediate (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 Expected: 12/10/2023, Expires: 12/09/2024 HGB Lab Routine buttermaker helper (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 Expected: 12/10/2023, Expires: 12/09/2024 Health Maintenance Due Date Last Done Comments Albumin/Creatinine Ratio 1958 DTaP,Tdap,and Td Vaccines (1 - Tdap) 1957 Zoster Vaccines (1 of 2) 1988 Depression Screening 02/18/2020 02/17/2019 COVID-19 Vaccine (3 - season) 2024 09/22/2023, 11/28/2020 CKD PHOS USE SMARTSET 52350 02/27/202402/11, 02/20/2021, 05/07/2018, Additional history exists CKD HGB USE SMARTSET 15383 12/04/202412/04, 09/24/2023, 09/24/2023, Additional history exists Pneumococcal Vaccine: 65+ [...] as of this encounter Visit Diagnoses Diagnosis intermediate (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- Primary Long-term (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 documented in this encounter Care Teams Transitional Living Specialist Relationship Specialty Start Date End Date Akiko Joy MD PCP - General Family Medicine 05/22/15 documented as of this encounter
--- OUTSIDE RECORDS SUMMARY | 2024-04-11 03:49 | External Medical Summary | Summary of Care ---
Author Name Unknown Organization [facility] Address [address] [place] [address] Phone [phone] Care Team Providers Care Industrial Machine Operator Name Role Phone Akiko Joy MD Primary Care Provide r Reason for Visit * Reason Comments eRx-Medication Refill Encounter Details Date Type Department Care Team (Late st Contact Info) Description 01/04/2024 Refill Family Medicine [address] [phone] Rbeeca Mendez PA-C [address] [place] [address] [place] [address] Dyslipidemia, goal LDL below 100 Allergies No known active allergiesdocumented as of this encounter (statuses as of 01/05/2024) Medications Medication Sig Dispensed Refills Start Date [...] Oral Tablet (Lasix)Indications:C oronary artery disease involving [place] coronary artery of [place] heart without angina pectoris Take 2 Tablets by mouth in the morning. 180 Tablet 1 12/11/2023 Active Warfarin Sodium 2.5 MG Oral Tablet (Coumadin)Indication s:Unspecified atrial fibrillation (HCC) Take 2-3 tablets by mouth daily as directed by Coumadin Clinic on phone. 270 Tablet 1 12/11/2023 Active documented as of this encounter (statuses as of 01/05/2024) Active Problems Problem Noted Date Diagnosed Date [...] as of this encounter (statuses as of 01/05/2024) Resolved Problems Problem Noted Date Diagnosed Date [...] as of this encounter (statuses as of 01/05/2024) Immunizations Name Administration Dates Next Due COVID-19 [...] encounter Miscellaneous Notes * Telephone Encounter - Cecilia Morales [facility] - 01/05/2024 1:00 PM EDTRefused Prescriptions: Disp Refills Atorvastatin Calcium 40 MG Oral Tablet (Li*90 Tab*1 Sig: TAKE 1TABLET BY MOUTH EVERYDAY AT BEDTIMERefused By: CECILIA MORALES for Refusal: Too soon--------- documented in this encounter Plan of Treatment Upcoming Encounters Date Type Department Care Team (Late st Contact Info) Description 03/24/2024 9:40 AM EDT Office Visit [address] [place] [phone] Rebeca Mendez PA-C [address] [place] [address] [place] [address] 09/24/2024 1:40 PM EDT Office Visit [address] [place] [phone] Akiko Joy MD [address] [place] [address] [place] [address] Health Maintenance Due Date Last Done Comments Albumin/Creatinine Ratio 1956 DTaP,Tdap,and Td Vaccines (1 - Tdap) 1957 Zoster Vaccines (1 of 2) 1988 Depression Screening 02/18/2020 02/17/2019 COVID-19 Vaccine (3 - 2022- season) 2024 09/22/2023, 11/28/2020 CKD PHOS USE SMARTSET 59311 02/27/202402/11, 02/20/2021, 05/07/2018, Additional history exists CKD HGB USE SMARTSET 93187 12/09/202412/09, 12/05/2023, 09/24/2023, Additional history exists Pneumococcal [...] hyperlipidemia documented in this encounter Care Teams Industrial Machine Operator Relationship Specialty Start Date End Date Akiko Joy MD PCP - General Family Medicine 05/22/15 documented as of this encounter
--- OUTSIDE RECORDS SUMMARY | 2024-04-11 03:49 | External Medical Summary ---
Author Name Unknown Address Unknown Organization [facility] [address] [place] [address] Laboratory Report Ordering Provider Test Date Status SIMONA KENNY 12/05/2023 05:25:00 Final Observation Date Value Abnormality Reference (Units ) Status WBC, Total 12/05/2023 05:25:00 7.25 4.00-10.8 0 (K/uL) Final RBC 12/05/2023 05:25:00 3.78 4.50-5.25 (M/uL) Final Hemoglobin 12/05/2023 05:25:00 11.1 Below low normal 14 .0-16.8 (g/dL) Final HCT 12/05/2023 05:25:00 33.8 Below low normal 40. 0-48.4 (%) Final MCV 12/05/2023 05:25:00 89.4 82.0-99.5 (fL) Final MCH 12/05/2023 05:25:00 29.4 27.0-34.0 (pg) Final MCHC 12/05/2023 05:25:00 32.8 32.0-36.0 (g/dL) Final RDW 12/05/2023 05:25:00 14.4 11.5-15.5 (%) Final Platelets 12/05/2023 05:25:00 220 140-400 (K /uL) Final MPV 12/05/2023 05:25:00 9.9 6.6-11.1 ( fL) Final Performing Location [facility] [address] [place] [address]
--- OUTSIDE RECORDS SUMMARY | 2024-04-11 03:49 | External Medical Summary | Summary of Care ---
Author Name Unknown Organization [facility] Address [address] [facility] [place] [address] Phone [phone] Care Team Providers Care Workplace Rehabilitation Officer Name Role Phone Akiko Joy MD Primary Care Provide r Reason for Visit * Reason Comments Dosage Adjustment Via Phone (anticoag Cl inic) Encounter Details Date Type Department Care Team (Latest Contact Info) Description 01/05/2024 6:00 AM EDT Anticoagulation [facility], Juvenal Guerrero [address] [place] [address] [place] [address] [facility] 58 60 [facility] [place] [address] Paroxysmal atrial fibrillation (HCC)* Allergies No known [...] Oral Tablet (Lasix)Indications:C oronary artery disease involving [place] coronary artery of [place] heart without angina pectoris Take 2 Tablets [...] as of this encounter Progress Notes * Laura Ahmadi, LT[facility], located within [facility] - 01/05/2024 4:10 PM EDT Medication Therapy Disease Management - Anticoagulation Patient: Mal Talbert [place] | : 1940 Subjective Contacts Type Contact Phone/Fax 01/05/2024 10:56 AM EDT Phone (Outgoing) Mal Tran (Self) [phone] ([phone]) No Answer/Busy 01/05/2024 04:09 PM EDT Phone (Outgoing) Mal Tran (Self) [phone] (H) Patient-Reported Symptoms: Patient Findings Negatives: Signs/symptoms of thrombosis, Signs/symptoms of bleeding, Change in health, Change in alcohol use, Change in activity, Upcoming invasive procedure, Missed doses, Extra doses, Change in medications, Change in diet/appetite, Bruising Comments: Patient denies any concerns - he confirmed he is currently away but will be home in a couple of days- He advised he will be home by 01/11 and can schedule GML that day. Objective Current Warfarin Dose As of 01/05/2024 Warfarin maintenance plan: 7.5 mg (2.5 mg x 3) every Sun, Tue; 5 mg (2.5 mg x 2) all other days INR Result As of 01/05/2024 INR goal: 2.0-3.0 INR used for dosing: No new INR was available at the time of this encounter. Assessment & Plan Warfarin Plan As of 01/05/2024 Full warfarin instructions: 7.5 mg every Sun, Tue; 5 mg all other days Next INR check: 01/12/2024 Repeat PT/INR in 1 week(s) Weekly dose: not changed Additional Dosing Information: Description GML ([facility]) Laura Ahmadi RPh Clinical Pharmacist 01/05/2024, 4:11 PM * Yuli Castillo, desktop architect - 01/05/2024 6:55 AM EDT Patient marked a no show by G[facility], with note from them that patient is out of town until middle of January. No future GML appointment scheduled, please advise. User Action Outcome Comment CY WILLETT 12/31/2023 5:03 AM out of town till middle of january Thank you, Yuli Castillo Genetic Counsellor [facility] ([facility]) 01/05/2024,6:56 AM documented in this encounter Plan of Treatment Upcoming Encounters Date Type Department Care Team (Late st Contact Info) Description 01/13/2024 6:00 AM EDT [facility] Clinical Pharmacy Services, Juvenal Guerrero [address] [place] [address] [place] [address] [place] [address] [address] [facility] [place] [address] 03/24/2024 9:40 AM EDT Office Visit Family [address] [place] [phone] Rebeca Mendez PA-C [address] [place] [address] [place] [address] 09/24/2024 1:40 PM EDT Office Visit [address] [place] [phone] Akiko Joy MD [address] [place] [address] [place] [address] Health Maintenance Due Date Last Done Comments Albumin/Creatinine Ratio 1956 DTaP,Tdap,and Td Vaccines (1 - Tdap) 1957 Zoster Vaccines (1 of 2) 1988 Depression Screening 02/18/2020 02/17/2019 COVID-19 Vaccine ( season) 2024 09/22/2023, 11/28/2020 CKD PHOS USE SMARTSET 00662 02/27/202402/11, 02/20/2021, 05/07/2018, Additional history exists CKD HGB USE SMARTSET 15854 12/09/202412/09, 12/05/2023, 09/24/2023, Additional history exists Pneumococcal [...] fibrillation documented in this encounter Care Teams Workplace Rehabilitation Officer Relationship Specialty Start Date End Date Akiko Joy MD PCP - General Family Medicine 05/22/15 documented as of this encounter"
--- OUTSIDE RECORDS SUMMARY | 2024-04-11 03:49 | External Medical Summary | Summary of Care ---
Author Name Unknown Organization [facility] Address [address] [facility] [place] [address] Phone [phone] Care Team Providers Care Respiratory Equipment Assistant Name Role Phone Akiko Joy MD Primary Care Provide r Reason for Visit * Reason Comments Dosage Adjustment Via Phone (anticoag Cl inic) Encounter Details Date Type Department Care Team (Latest Contact Info) Description 12/11/2023 6:00 AM EDT Anticoagulation Pharmacy Call Center [address] [place] [address] [facility] 58 60 [place] [address] Paroxysmal atrial fibrillation (HCC)* Allergies No known [...] Tablet (Lasix)Indications:C oronary artery disease involving [place] coronary artery of [place] heart without angina pectoris TAKE 2 [...] this encounter Progress Notes * Alison Funez, [facility] - 12/11/2023 8:32 AM EDT Medication Therapy Disease Management - Anticoagulation Patient: Mal Tran | : 1940 [facility] Patient Anticoagulation Encounter Patient is a resident at: [facility] -- Fax sent to number listed above detailing plan of care below. Please notify clinic with any unusual brusing or bleeding, N/V/D, medication or diet changes or anymissed or extra doses of Coumadin. Subjective Patient-Reported Symptoms: Objective Current Warfarin Dose As of 12/11/2023 Warfarin maintenance plan: 7.5 mg (2.5 mg x 3) every Sun, Tue; 5 mg (2.5 mg x 2) all other days INR Result As of 12/11/2023 INR goal: 2.0-3.0 INR used for dosin.5 (12/10/2023) Assessment & Plan Warfarin Plan As of 12/11/2023 Full warfarin instructions: 7.5 mg every Sun, Tue; 5 mg all other days No change documented: Alison Funez RPh Next INR check: 12/22/2023 Repeat PT/INR in 1.5 week(s) Weekly dose: not changed Additional Dosing Information: Description GML ([facility]) Alison Funez RPh Clinical Pharmacist 12/11/2023, 8:32 AM documented in this encounter Plan of Treatment Upcoming Encounters Date Type Department Care Team (Late st Contact Info) Description 12/22/2023 5:30 PM EDT Anticoagulation Pharmacy Call Center [address] [facility] [place] [address] [facility] 58 60 [facility] [place] [address] 03/24/2024 9:40 AM EDT Office Visit [address] [place] [phone] Rebeca Mendez PA-C [address] [place] [address] [place] [address] 09/24/2024 1:40 PM EDT Office Visit [address] [place] [phone] Akiko Joy MD [address] [place] [address] [place] [address] Health Maintenance Due Date Last Done Comments Albumin/Creatinine Ratio 1956 DTaP,Tdap,and Td Vaccines (1 - Tdap) 1957 Zoster Vaccines (1 of 2) 1988 Depression Screening 02/18/2020 02/17/2019 COVID-19 Vaccine (3 - 2022- season) 2024 09/22/2023, 11/28/2020 CKD PHOS USE SMARTSET 90128 02/27/202402/11, 02/20/2021, 05/07/2018, Additional history exists CKD HGB USE SMARTSET 34700 12/09/202412/09, 12/05/2023, 09/24/2023, Additional history exists Pneumococcal [...] fibrillation documented in this encounter Care Teams Respiratory Equipment Assistant Relationship Specialty Start Date End Date Akiko Joy MD PCP - General Family Medicine 05/22/15 documented as of this encounter"
--- OUTSIDE RECORDS SUMMARY | 2024-04-11 03:49 | External Medical Summary | Continuity Of Care Document ---
Author Name Unknown Address [address] [place] [address] Organization [facility] ( ) Care Team Providers Care Synthetic Filament Spinner Name Role Phone Akiko Joy Primary Care Provider [phone] Allergies Allergy Reaction Start Date End Date [...] Temperature SpO2 Blood Sugar Pulse Respirations 522 69579 0 75.00 mm[Hg] - Sitting 135.00 mm[Hg] - Sitting 97.00 Oral 97.00 % 66.00/ min 18.00/min 522 49415 2 75.00 mm[Hg] - Sitting 135.00 mm[Hg] - Sitting 97.00 Ear 66.00/ min 18.00/min 522 36028 2 138.00 NI 522 88322 8 66 NI 10882 522 90564 0 138.00 NI 17767 523 23790 1 30918 523 63805 0 73.00 mm[Hg] - Sitting 130.00 mm[Hg] - Sitting 98.80 Oral 95.00 % 70.00/ min 20.00/min 50465 523 87428 2 73.00 mm[Hg] - Sitting 130.00 mm[Hg] - Sitting 98.80 X-Other 21321 523 19110 7 66 NI 138.00 NI 70.00/ min 20.00/min 80185 524 37465 8 99169 524 30661 8 16103 524 41310 5 65459 525 30418 2 79.00 mm[Hg] - Sitting 130.00 mm[Hg] - Sitting 97.30 Ear 95.00 % 71.00/ min 20.00/min
--- OUTSIDE RECORDS SUMMARY | 2024-04-11 03:49 | External Medical Summary | Continuity Of Care Document ---
Author Name Unknown Address [address] [place] [address] Organization [facility] ( ) Care Team Providers Care Electric Arc Furnace Operator Name Role Phone Rufino Yrntoby Primary Care Provider [phone] Allergies Allergy Reaction Start Date End Date Status NO KNOWN DRUG ALLERGIES A ctive VITAL SIGNS Date Time Diastolic blood pressure Systolic blood pressure Body height Body weight Temperature SpO2 Blood Sugar Pulse Respirations 56287 522 99076 0 75.00 mm[Hg] - Sitting 135.00 mm[Hg] - Sitting 97.00 Oral 97.00 % 66.00/ min 18.00/min 72333 522 46949 2 75.00 mm[Hg] - Sitting 135.00 mm[Hg] - Sitting 97.00 Ear 66.00/ min 18.00/min 20298 522 43647 2 138.00 NI [address]300 522 15247 8 66 NI 72011 522 09242 0 138.00 NI 23819 523 45473 1
--- OUTSIDE RECORDS SUMMARY | 2024-04-11 03:49 | External Medical Summary | Summary of Care ---
Author Name Unknown Organization [facility] Address [address] [facility] [place] [address] Phone [phone] Care Team Providers Care Meter Mechanic Name Role Phone Akiko Joy MD Primary Care Provide r Reason for Visit * Reason Onset Date Comments Hospital Follow-Up 12/15/2023 [facility] Encounter Details Date Type Department Care Team (Late st Contact Info) Description 12/15/2023 Telephone [address] [place] [phone] Radha Damico, RN Hospital Follow-Up ([facility]) Allergies No known active allergiesdocumented as of this encounter (statuses as of 12/15/2023) Medications Medication Sig Dispensed Refills Start Date [...] Oral Tablet (Lasix)Indications:C oronary artery disease involving [place] coronary artery of [place] heart without angina pectoris Take 2 Tablets by mouth in the morning. 180 Tablet 1 12/11/2023 Active Warfarin Sodium 2.5 MG Oral Tablet (Coumadin)Indication s:Unspecified atrial fibrillation (HCC) Take 2-3 tablets by mouth daily as directed by [facility] on phone. 270 Tablet 1 12/11/2023 Active documented as of this encounter (statuses as of 12/15/2023) Active Problems Problem Noted Date Diagnosed Date [...] as of this encounter (statuses as of 12/15/2023) Resolved Problems Problem Noted Date Diagnosed Date [...] as of this encounter (statuses as of 12/15/2023) Immunizations Name Administration Dates Next Due COVID-19 [...] encounter Miscellaneous Notes * Telephone Encounter - Radha Damico RN - 12/15/2023 2:30 PM EDT Transitions of Care Note Reason for Referral:Recent Admission Phone visit for follow up: JUANA Admitted to: [facility], Date: 12/02 Discharged to: home, Date: 12/10 Diagnosis driving hospitalization: Fall, subsequent encounter (Primary) Source/Contact: Patient SUBJECTIVE Consent: Verbal consent for review of hospital discharge: Yes REVIEW OF SYSTEMS Patient/Other Reports: Current patient/caregiver problems or concerns: none at this time CV: Denies problems Pulmonary: Denies problems Chills/Sweats/Fever:Denies chills/sweats Denies fever Appetite:Denies problems such as nausea, vomiting, burning, decreased appetite Current diet: as before Bowel: denies problems Bladder: denies problems Wound (If applicable): N/A Pain:Denies Sleep:Denies problems FUNCTIONAL STATUS: ADL'S: Needs Assistance With:N/A as pt is independent IADL'S: Needs Assistance With:N/A as pt is independent Cognitive and Mental Health: denies problems, alert and oriented x 3, and able to communicate, understand instructions, process information. MEDICATION RECONCILIATION Medications: No new medications or medication changes OBJECTIVE ASSESSMENT Medication Risk Assessment: No risks identified Did patient fail outpatient treatment? No Discharge instructions available for review? Yes PLAN Symptom Monitoring Interventions:Member/caregiver education - signs and symptoms to contact PrimaryCare (DO NOT DELETE-Three diaz symptoms patient is to report to PCP) 1. Falls 2. Feeling lightheaded/dizzy 3. pain Academic Affairs ManagerWire Saw Operator of Care interventions/Action Plan: Medication reconciliation and 5 - 7 day follow-up with PCP in place - Date: 12/17 Educated on role of JUANA completed with patient/caregiver. Educated patient/caregiver on patient right to have input on JUANA plan of care. Verification of Home Health/DME if indicated: NO Identified Care Gaps: Yes Care Gaps closed this call: Appointment made or confirmed and Transition of Care follow-up communication Re-evaluation of Plan of Care and progress towards goals achievement: Patient education this visit: Verbal, as above Plan to follow-up as previously scheduled, instructed to call Primary Care Provider with change in symptoms or as needed before next follow-up, discharge needs met, verbalizes understanding and agrees with plan. Radha Damico, RN documented in this encounter Plan of Treatment Upcoming Encounters Date Type Department Care Team (Late st Contact Info) Description 12/18/2023 3:20 PM EDT Office Visit [address] [phone] Curt Jacob MD [address] [place] [address] [place] [address] 12/22/2023 5:30 PM EDT Anticoagulation Pharmacy Call Center WB 58-60 [facility] [place] [address] [facility] 58 60 [facility] [place] [address] 03/24/2024 9:40 AM EDT Office Visit Family [address] [phone] Rebeca Mendez PA-C [address] [place] [address] [place] [address] 09/24/2024 1:40 PM EDT Office Visit [address] [phone] Akiko Joy MD [address] [place] [address] [place] [address] Health Maintenance Due Date Last Done Comments Albumin/Creatinine Ratio 1956 DTaP,Tdap,and Td Vaccines (1 - Tdap) 1957 Zoster Vaccines (1 of 2) 1988 Depression Screening 02/18/2020 02/17/2019 COVID-19 Vaccine (3 - 2022- season) 2024 09/22/2023, 11/28/2020 CKD PHOS USE SMARTSET 88605 02/27/202402/11, 02/20/2021, 05/07/2018, Additional history exists CKD HGB USE SMARTSET 62204 12/09/202412/09, 12/05/2023, 09/24/2023, Additional history exists Pneumococcal [...] filedocumented as of this encounter Care Teams Meter Mechanic Relationship Specialty Start Date End Date Akiko Joy MD PCP - General Family Medicine 05/22/15 documented as of this encounter
--- OUTSIDE RECORDS SUMMARY | 2024-04-11 03:49 | External Medical Summary | Summary of Care ---
Author Name Unknown Organization [facility] Address [address] [place] [address] Phone [phone] Care Team Providers Care Music Assistant Name Role Phone Akiko Joy MD Primary Care Provide r Encounter Details Date Type Department Care Team (Late st Contact Info) Description 12/11/2023 Orders Only [facility] [address] [place], [place] [phone] Mel Boyd PA-C [address] [place] [address] Dyslipidemia, goal LDL below 100; S/P aortic valve replacement; Aortocoronary bypass status; HTN, goal below 140/90; Coronary artery disease involving [place] coronary artery of [place] heart without angina pectoris; Unspecified atrial fibrillation (HCC) Allergies No known active allergiesdocumented as [...] Oral Tablet (Lasix)Indications :Coronary artery disease involving [place] coronary artery of [place] heart without angina pectoris Take 2 Tablets by mouth in the morning. 180 Tablet 1 12/11/2023 Active Warfarin Sodium 2.5 MG Oral Tablet (Coumadin)Indicati ons:Unspecified atrial fibrillation (HCC) Take 2-3 tablets by mouth daily as directed by [facility] on phone. 270 Tablet 1 12/11/2023 Active Diclofenac Sodium 1 % External [...] Oral Tablet (Lasix)Indications :Coronary artery disease involving [place] coronary artery of [place] heart without angina pectoris TAKE 2 TABLETS [...] 12/18/2023 3:20 PM EDT Office Visit Family [address] [place] [phone] Curt Jacob MD [address] [place] [address] [place] [address] 12/22/2023 5:30 PM EDT Anticoagulation Pharmacy Call Center 58-60 [facility] [place] [address] [facility] 58 60 [facility] [place] [address] 03/24/2024 9:40 AM EDT Office Visit Family [address] [place] [phone] Rebeca Mendez PA-C [address] [place] [address] [place] [address] 09/24/2024 1:40 PM EDT Office Visit Family [address] [place] [phone] Akiko Joy MD [address] [place] [address] [place] [address] Health Maintenance Due Date Last Done Comments Albumin/Creatinine Ratio 1956 DTaP,Tdap,and Td Vaccines (1 - Tdap) 1957 Zoster Vaccines (1 of 2) 1988 Depression Screening 02/18/2020 02/17/2019 COVID-19 Vaccine (3 - 2022- season) 2024 09/22/2023, 11/28/2020 CKD PHOS USE SMARTSET 06401 02/27/202402/11, 02/20/2021, 05/07/2018, Additional history exists CKD HGB USE SMARTSET 55338 12/09/202412/09, 12/05/2023, 09/24/2023, Additional history exists Pneumococcal [...] LDL below 100 Other and unspecified hyperlipidemia S/P aortic valve replacement Heart valve replaced by other means 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
--- OUTSIDE RECORDS SUMMARY | 2024-04-11 03:49 | External Medical Summary | Summary of Care ---
Author Name Unknown Organization [facility] Address [address] [facility] [place] [address] Phone [phone] Care Team Providers Care Atomizer Assembler Name Role Phone Akiko Joy MD Primary Care Provide r Reason for Visit * Reason Onset Date Comments Hospital Follow-Up 12/04/2023 JUANA Encounter Details Date Type Department Care Team (Late st Contact Info) Description 12/04/2023 Telephone Family Medicine [address] [phone] Akiko Joy MD [address] [place] [address] [place] [address] Hospital Follow-Up (JUANA) Allergies No known active allergiesdocumented as of [...] Oral Tablet (Lasix)Indications:C oronary artery disease involving [place] coronary artery of [place] heart without angina pectoris TAKE 2 TABLETS [...] encounter Miscellaneous Notes * Telephone Encounter - Crista Naranjo RN - 12/04/2023 7:53 AM EDT Transitions of Care Note Reason for Referral:Recent Admission Phone visit for follow up: Inpatient Hospitalization Admitted to: [facility], Date: 11/26/23 Discharged to: SNF, Date: 12/03/23 JUANA call not indicated due to patient discharged to SNF. documented in this encounter Plan of Treatment Upcoming Encounters Date Type Department Care Team (Late st Contact Info) Description 12/11/2023 6:00 AM EDT Anticoagulation Pharmacy Call Center 58-60 [facility] [place] [address] [facility] 58 60 [facility] [place] [address] 03/24/2024 9:40 AM EDT Office Visit [address] [phone] Rebeca Mendez PA-C [address] [place] [address] [place] [address] 09/24/2024 1:40 PM EDT Office Visit [address] [phone] Akiko Joy MD [address] [place] [address] [place] [address] Health Maintenance Due Date Last Done Comments Albumin/Creatinine Ratio 1956 DTaP,Tdap,and Td Vaccines (1 - Tdap) 1957 Zoster Vaccines (1 of 2) 1988 Depression Screening 02/18/2020 02/17/2019 COVID-19 Vaccine (2022- season) 2024 09/22/2023, 11/28/2020 CKD PHOS USE SMARTSET 97814 02/27/202402/11, 02/20/2021, 05/07/2018, Additional history exists CKD HGB USE SMARTSET 72906 09/23/202409/23, 09/24/2023, 04/09/2023, Additional history exists Pneumococcal [...] filedocumented as of this encounter Care Teams Atomizer Assembler Relationship Specialty Start Date End Date Akiko Joy MD PCP - General Family Medicine 05/22/15 documented as of this encounter
--- OUTSIDE RECORDS SUMMARY | 2024-04-11 03:49 | External Medical Summary | Summary of Care ---
Author Name Unknown Organization [facility] Address [address] [facility] [place] [address] Phone [phone] Care Team Providers Care Solar Development Engineer Name Role Phone Akiko Joy MD Primary Care Provide r Reason for Visit * Reason Comments Dosage Adjustment Via Phone (anticoag Cl inic) Encounter Details Date Type Department Care Team (Latest Contact Info) Description 12/22/2023 5:30 PM EDT Anticoagulation [facility], [place] [address] [place] [address] [place] [address] [facility] 58 60 [facility] [place] [address] Paroxysmal atrial fibrillation (HCC)* Allergies No known active allergiesdocumented as of this encounter (statuses as of 12/22/2023) Medications Medication Sig Dispensed Refills Start Date [...] Oral Tablet (Lasix)Indications:C oronary artery disease involving [place] coronary artery of [place] heart without angina pectoris Take 2 Tablets by mouth in the morning. 180 Tablet 1 12/11/2023 Active Warfarin Sodium 2.5 MG Oral Tablet (Coumadin)Indication s:Unspecified atrial fibrillation (HCC) Take 2-3 tablets by mouth daily as directed by [facility]in Clinic on phone. 270 Tablet 1 12/11/2023 Active documented as of this encounter (statuses as of 12/22/2023) Active Problems Problem Noted Date Diagnosed Date [...] as of this encounter (statuses as of 12/22/2023) Resolved Problems Problem Noted Date Diagnosed Date [...] as of this encounter (statuses as of 12/22/2023) Immunizations Name Administration Dates Next Due COVID-19 [...] of this encounter Progress Notes * Monique Andrews, [facility] - 12/22/2023 1:46 PM EDT Medication Therapy Disease Management - Anticoagulation Patient: Mal Talbert Marc | : 1940 Subjective Contacts Type Contact Phone/Fax 12/22/2023 01:47 PM EDT Phone (Outgoing) Mal Tran (Self) [phone] (H) No Answer/Busy 12/22/2023 03:12 PM EDT Phone (Outgoing) Mal Tran (Self) [phone] (H) Spoke to Patient Patient-Reported Symptoms: Patient Findings Positives: Other complaints Negatives: Signs/symptoms of thrombosis, Signs/symptoms of bleeding, Change in health, Change in alcohol use, Change in activity, Upcoming invasive procedure, Missed doses, Extra doses, Change in medications, Change in diet/appetite, Bruising Comments: Pt discharged from [facility] to home. ACC managed Warfarin while admitted to [facility]. Objective Current Warfarin Dose As of 12/22/2023 Warfarin maintenance plan: 7.5 mg (2.5 mg x 3) every Sun, Tue; 5 mg (2.5 mg x 2) all other days INR Result As of 12/22/2023 INR goal: 2.0-3.0 INR used for dosing: No new INR was available at the time of this encounter. Assessment & Plan Warfarin Plan As of 12/22/2023 Full warfarin instructions: 7.5 mg every Sun, Tue; 5 mg all other days Next INR check: 12/26/2023 Repeat PT/INR in 5 day(s) Weekly dose: not changed Additional Dosing Information: Description [facility] Monique Andrews RPh Clinical Pharmacist 12/22/2023, 1:46 PM * Yuli Castillo chrome polisher - 12/22/2023 12:34 PM EDT Spoke with [facility]. Patient was discharged from their facility to home on 12/11/23. No new INR, please advise. Thank you, Yuli Castillo Contract Administration Specialist [facility] 12/22/2023,12:35 PM documented in this encounter Plan of Treatment Upcoming Encounters Date Type Department Care Team (Late st Contact Info) Description 12/26/2023 6:00 PM EDT Anticoagulation [facility], [place] Guerrero [address] [place] [address] [place] [address] [facility] 58 60 [facility] [place] [address] 03/24/2024 9:40 AM EDT Office Visit [address] [place] [phone] Rebeca Mendez PA-C [address] [place] [address] [place] [address] 09/24/2024 1:40 PM EDT Office Visit [address] [place] [phone] Akiko Joy MD [address] [place] [address] [place] [address] Health Maintenance Due Date Last Done Comments Albumin/Creatinine Ratio 1956 DTaP,Tdap,and Td Vaccines (1 - Tdap) 1957 Zoster Vaccines (1 of 2) 1988 Depression Screening 02/18/2020 02/17/2019 COVID-19 Vaccine (3 - 2022- season) 2024 09/22/2023, 11/28/2020 CKD PHOS USE SMARTSET 63305 02/27/202402/11, 02/20/2021, 05/07/2018, Additional history exists CKD HGB USE SMARTSET 31949 12/09/202412/09, 12/05/2023, 09/24/2023, Additional history exists Pneumococcal [...] fibrillation documented in this encounter Care Teams Solar Development Engineer Relationship Specialty Start Date End Date Akiko Joy MD PCP - General Family Medicine 05/22/15 documented as of this encounter"
--- OUTSIDE RECORDS SUMMARY | 2024-04-11 03:49 | External Medical Summary | Summary of Care ---
Author Name Unknown Organization [facility] Address [address] [place] [place] [address] Phone [phone] Care Team Providers Care Chief Investment Officer Name Role Phone Akiko Joy MD Primary Care Provide r Reason for Visit * Reason Onset Date Comments Alf Visit 12/09/2023 Encounter Details Date Type Department Care Team (Latest Contact Info) Description 12/09/2023 1:00 PM EDT Alf Visit [facility] [address] [place] [address] Mel Boyd PA-C [address] [place] [address] Ambulatory dysfunction*; Fall, initial encounter; Contusion of left shoulder, initial encounter; Facial laceration, initial encounter; Closed head injury, initial encounter; Paroxysmal atrial fibrillation (HCC); Coronary artery disease involving [place] coronary artery of [place] heart without angina pectoris; Dyslipidemia, goal LDL below 100; Hypertensive kidney disease with stage 3a chronic kidney disease (HCC) Allergies No known active allergiesdocumented as of this encounter (statuses as of 12/09/2023) Medications Medication Sig Dispensed Refills Start Date [...] Oral Tablet (Lasix)Indications :Coronary artery disease involving [place] coronary artery of [place] heart without angina pectoris TAKE 2 TABLETS [...] Pain, Moderate or Pain, Mild. 12/09/2023 Active Docusate Sodium 100 MG Oral Capsule (Colace) Take 1 Capsule by mouth in the morning and 1 Capsule before bedtime. Discontinue d(Medicatio n List Clean Up) documented as of this encounter (statuses as of 12/09/2023) Active Problems Problem Noted Date Diagnosed Date [...] as of this encounter (statuses as of 12/09/2023) Resolved Problems Problem Noted Date Diagnosed Date [...] as of this encounter (statuses as of 12/09/2023) Immunizations Name Administration Dates Next Due COVID-19 [...] EDT Laboratory [facility] [address] [facility] [place] [address] [facility] 100 [facility] [place] [address] 12/10/2023 8:30 AM EDT Alf Visit [address] [place] [address] Akiko Joy MD [address] [place] [address] [place] [address] 12/11/2023 6:00 AM EDT Anticoagulation Pharmacy Call Center 58-60 [facility] [place] [address] [facility] 58 60 [facility] [place] [address] 03/24/2024 9:40 AM EDT Office Visit Family Medicine [address] [place] [phone] Rebeca Mendez PA-C [address] [place] [address] [place] [address] 09/24/2024 1:40 PM EDT Office Visit Family [address] [place] [address] Akiko Joy MD [address] [place] [address] [place] [address] Health Maintenance Due Date Last Done Comments Albumin/Creatinine Ratio 1956 DTaP,Tdap,and Td Vaccines (1 - Tdap) 1957 Zoster Vaccines (1 of 2) 1988 Depression Screening 02/18/2020 02/17/2019 COVID-19 Vaccine (3 - season) 2024 09/22/2023, 11/28/2020 CKD PHOS USE SMARTSET 24049 02/27/202402/11, 02/20/2021, 05/07/2018, Additional history exists CKD HGB USE SMARTSET 27436 12/04/202412/04, 09/24/2023, 09/24/2023, Additional history exists Pneumococcal [...] as of this encounter Visit Diagnoses Diagnosis Ambulatory dysfunction- Primary Fall, initial encounter Contusion of left shoulder, initial encounter Facial laceration, initial encounter Closed head injury, initial encounter Paroxysmal atrial fibrillation (HCC) Atrial fibrillation Coronary artery disease involving [place] coronary artery of [place] heart without angina pectoris Dyslipidemia, goal LDL below 100 Other and unspecified hyperlipidemia Hypertensive kidney disease with stage 3a chronic kidney disease (HCC) documented in this encounter Care Teams Chief Investment Officer Relationship Specialty Start Date End Date Akiko Joy MD PCP - General Family Medicine 05/22/15 documented as of this encounter
--- OUTSIDE RECORDS SUMMARY | 2024-04-11 03:49 | External Medical Summary ---
Author Name Unknown Address Unknown Organization [facility] [place] [address] Laboratory Report Ordering Provider Test Date Status SIMONA KENNY 12/10/2023 06:00:00 Final Observation Date Value Abnormality Reference (Units ) Status Hemoglobin 12/10/2023 06:00:00 10.9 Below low normal 14 .0-16.8 (g/dL) Final Performing Location [facility] [place] [address]
--- OUTSIDE RECORDS SUMMARY | 2024-04-11 03:49 | External Medical Summary | Continuity Of Care Document ---
Author Name Unknown Address [address] [place] [address] Organization [facility] ( ) Care Team Providers Care Mica Paster Name Role Phone Akiko Joy Primary Care Provider [phone] Allergies Allergy Reaction Start Date End Date [...] Temperature SpO2 Blood Sugar Pulse Respirations 522 40670 0 75.00 mm[Hg] - Sitting 135.00 mm[Hg] - Sitting 97.00 Oral 97.00 % 66.00/ min 18.00/min 522 71605 2 75.00 mm[Hg] - Sitting 135.00 mm[Hg] - Sitting 97.00 Ear 66.00/ min 18.00/min 522 74244 2 138.00 NI 522 30531 8 66 NI 38315 522 80308 0 138.00 NI 87100 523 05900 1 55281 523 25019 0 73.00 mm[Hg] - Sitting 130.00 mm[Hg] - Sitting 98.80 Oral 95.00 % 70.00/ min 20.00/min 00415 523 79349 2 73.00 mm[Hg] - Sitting 130.00 mm[Hg] - Sitting 98.80 X-Other 21379 523 41481 7 66 NI 138.00 NI 70.00/ min 20.00/min 17413 524 63135 8 71133 524 60962 8 48983 524 03870 5 26155 525 90147 2 79.00 mm[Hg] - Sitting 130.00 mm[Hg] - Sitting 97.30 Ear 95.00 % 71.00/ min 20.00/min 54517 525 06145 8 70.00 mm[Hg] - Sitting 122.00 mm[Hg] - Sitting 99.50 Ear 94.00 % 66.00/ min 18.00/min 38376 526 03629 1 70.00 mm[Hg] - Sitting 144.00 mm[Hg] - Sitting 98.30 Oral 98.00 % 65.00/ min 16.00/min 29097 527 66172 5 76.00 mm[Hg] - Sitting 127.00 mm[Hg] - Sitting 98.20 Ear 96.00 % 71.00/ min 20.00/min 55886 528 31239 7 66.00 mm[Hg] - Sitting 110.00 mm[Hg] - Sitting 98.70 Ear 94.00 % 69.00/ min 18.00/min 98485 529 14992 7 135.00 NI 94255 529 35789 7 135.00 NI 31163 530 81141 2 62.00 mm[Hg] - Sitting 127.00 mm[Hg] - Sitting 98.10 Oral 96.00 % 59.00/ min 16.00/min
--- OUTSIDE RECORDS SUMMARY | 2024-04-11 03:50 | External Medical Summary | Summary of Care ---
Author Name Unknown Organization [facility] [address] [facility] [facility] [address] Phone [phone] Care Team Providers Care Grocery Packer Name Role Phone Akiko Joy MD Primary Care Provide r Reason for Visit * Reason Onset Date Comments [facility] Visit - Admission 12/03/2023 Encounter Details Date Type Department Care Team (Latest Contact Info) Description 12/03/2023 10:00 AM EDT [facility] Visit [address] [place] [id number] Akiko Joy MD [address] [place] [address] [place] [address] Fall, subsequent encounter*; Laceration of left eyebrow, subsequent encounter; Contusion of left chest wall, subsequent encounter; Paroxysmal atrial fibrillation (HCC); Hypertensive kidney disease with stage 3a chronic kidney disease (HCC); Coronary artery disease involving [place] coronary artery of [place] heart without angina pectoris; Aortocoronary bypass status; Dyslipidemia, goal LDL below 100; S/P aortic valve replacement Allergies No known active allergiesdocumented as of this encounter (statuses as of 12/03/2023) Medications Medication Sig Dispensed Refills Start Date [...] Oral Tablet (Lasix)Indications :Coronary artery disease involving [place] coronary artery [...] A DAY 180 Tablet 3 05/19/2023 Active SENNA LAXATIVE 8.6 MG PO TABS 1 tab at noon 30 Tab 5 12/31/2013 4 Discontinued famotidine (PEPCID) 20 MG Tablet Take 1 Tab by mouth 2 times a day. 180 Tab 1 10/16/2017 4 Discontinued amLODIPine Besylate 5 MG Oral Tablet (Norvasc)Indicatio ns:HTN, goal below 140/90 TAKE 1 TABLET BY MOUTH EVERY DAY 90 Tablet 1 07/20/2023 4 Discontinued documented as of this encounter (statuses as of 12/03/2023) Active Problems Problem Noted Date Diagnosed Date [...] as of this encounter (statuses as of 12/03/2023) Resolved Problems Problem Noted Date Diagnosed Date [...] as of this encounter (statuses as of 12/03/2023) Immunizations Name Administration Dates Next Due COVID-19 [...] as of this encounter Progress Notes * Akiko Joy MD - 12/03/2023 2:22 PM EDT ADMISSION HISTORY and PHYSICAL TRANSITION EVENT: Type: SNF admission Date: December 02 Code Status: No Code Name: Mal Tran Date of : 1940 This note pertains to care provided at [facility]. Please see facility medical record for original note. This note is not to be edited or addended in [employer]. Editing or addending needs to occur in the facilities medical record. S: Mal Tran had been admitted to [facility] from [facility] for PT and OT. Recently admitted to [facility] on 11/26/23 because of fall with head laceration and was transferred here and admitted on12/03/2023. Patient of Dr. Joy with PMH of CAD s/p CABG, hypertension with stage 3a CKD, PAF on Coumadin, s/p aortic valve replacement, and dyslipidemia who presented to the ED after a fall at home. Patient states he had taken the garbage out onto the porch and it was wet and slippery because of the rain. He slid and fell going back into the house and hit the left side of his head and his glasses cut above the left eyebrow area. He thinks he was "almost knocked out." He was able to call a neighbor who summoned EMS and was taken to the hospital. He was having pain in the left shoulder, left chest, and left knee after the fall. In the ED, his CBC was normal other than slightly low H&H of 13.2/39.4. INR was 2.2. Creatininewas 1.31. X-ray of the ribs/chest showed no evidence of acute fracture. CT of the cervical spine was negative for acute injuries and showed degenerative changes. Head CT was also negative for acute changes. Pelvis x-cory was negative. Left knee x-ray showed soft tissue swelling and joint effusion wit h no fracture identified. Left shoulder x-ray showed no acute fracture or dislocation. Patient noted to have a laceration above left lateral eyebrow and Steri-strips applied. Pain was controlled with Tylenol and diclofenac gel. His amlodipine was discontinued for concerns of hypotension and blood pressure remained stable. Patient was felt to need PT/OT prior to returning home alone. He states his pain is improved but still having some pain over the left ribs. States Tylenol works well. Appetite is good. No chest pain or shortness of breath. Denies constipation or difficulty urinating. Past Medical History: Patient Active Problem List Diagnosis HTN, goal below 140/90 Dyslipidemia, goal LDL below 100 CAD (coronary artery disease) Aortocoronary bypass status S/P aortic valve replacement Paroxysmal atrial fibrillation (HCC) Chronic kidney disease, stage 3a (HCC) Hypertensive kidney disease with stage 3a chronic kidney disease (HCC) Current Outpatient Medications Medication Sig Dispense Refill Docusate Sodium 100 MG Oral Capsule (Colace) [...] MOUTH TWICE A DAY 180 Tablet 3 No current facility-administered medications for this visit. Review of patient's allergies indicates: No Known Allergies Social History Tobacco Use Smoking status: Never Smokeless tobacco: Current Types: Snuff Tobacco comments: cutting down Substance Use Topics Alcohol use: Yes Comment: not very much Vaping/E-Cigarette Use Vaping/E-Cigarette Substances Vaping/E-Cigarette Devices Past Surgical History: Procedure Laterality Date REMOVE TONSILS & ADENOIDS, UNDER 12 REPLACEMENT AORTIC VALVE, BYPASS WITH PROSTHETIC VALVE 12/08/2013 Dr. Holley--[facility] [place]-bioprosthetic Family History Problem Relation Name Age of Onset Hypertension Mother Heart Disorder Mother Stroke Mother Hypertension Father Heart Disorder Father Heart Disorder Sister Gastro-intestinal disorder Sister hiatal hernia Heart Disorder Sister Family Status Relation Status Mo at age 69 stroke Fa at age 28 [place] Bro Sis Alive Sis Alive Sis Alive Sis Alive Bro Alive Bro Alive Sis (Not Specified) Sis (Not Specified) Sis (Not Specified) Results for orders placed or performed in visit on 11/19/23 PT INR Result Value Ref Range Prothrombin Time 18.4 (H) 11.6 - 15.2 seconds INR 1.5 (H) 0.8 - 1.2 CBC Results: Results for orders placed or performed in visit on 09/24/23 CBC Result Value Ref Range WBC 6.82 4.00 - 10.80 K/uL RBC 4.04 4.50 - 5.25 M/uL HGB 12.5 (L) 14.0 - 16.8 g/dL HCT 37.2 (L) 40.0 - 48.4 % MCV 92.1 82.0 - 99.5 fL MCH 30.9 27.0 - 34.0 pg MCHC 33.6 32.0 - 36.0 g/dL RDW 14.1 11.5 - 15.5 % PLT 223 140 - 400 K/uL MPV 10.3 6.6 - 11.1 fL nRBCs 0 <=0 /100 WBCs Basic Panel Results: Results for orders placed [...] mg/dL Calcium 9.3 8.4 - 10.2 mg/dL Review of Systems: Constitutional ROS: No change in weight, No fatigue, No fevers, sweats, or chills, and +generalizedweakness Eye ROS: No eye pain, redness, discharge and Positive for reduced vision in the right eye Ear ROS: No ear pain, No drainage, No tinnitus or vertigo, and No recent change in hearing Nose ROS: No history of frequent colds or sinusitis, No nasal stuffiness, No history of Hay Fever, and No significant epistaxis Mouth/Throat ROS: No bleeding gums, No thrush, or No sore throat Pulmonary ROS: No cough, sputum, or hemoptysis, No wheezing, No shortness of breath, and No recent change in breathing Cardiovascular ROS: No chest pain, No shortness of breath, No orthopnea, No paroxysmal nocturnal dyspnea, No palpitations, No syncope, and +PAF on Coumadin, +chronic lower extremity edema Gastrointestinal ROS: No abdominal pain, No change in bowel habits, No significant heartburn, No significant change in appetite, No nausea, vomiting, diarrhea, or constipation, No hematemesis, No blood in stools or black tarry stools, No abdominal bloating or early satiety, and No dysphagia Genito-Urinary Male ROS: No dysuria, No frequency, and No incontinence Musculoskeletal/Extremities ROS: +as per HPI Hematologic/Lymphatic ROS: No anemia, No chills, No night sweats, No swollen nodes, and No weight loss Skin/Integumentary ROS: No rash and No itching Neurologic ROS: No headaches and No seizures Endocrine ROS: No heat intolerance, No cold intolerance, No thyroid trouble, No excessive thirst orurination, and No history of diabetes Psychiatric ROS: No depression, No anxiety, and No psychosis. Some grief due to loss of and brother ADL skills: dependent Ambulates with walker OBJECTIVE: PHYSICAL EXAM: I reviewed the most recent facilities vitals. Refer to vital signs flowsheet in intermediate chart.General: alert, no distress, well nourished, and well developed Head: Normocephalic, No masses, lesions, tenderness or abnormalities Eye Exam: PERRLA, extraocular movements intact, conjunctiva are pink and non- injected, sclera clear Ears: External ears normal Nose: no mucosal erythema, no mucosal edema, no purulent discharge Oropharynx: no exudate, no erythema, lips, buccal mucosa, and tongue normal, and mucous membranes are moist Neck: supple, no adenopathy, no bruits Heart: no gallops and irregularly irregular Lungs: chest symmetric with normal AP diameter, no chest deformities noted, no chest wall tenderness, lungs clear to auscultation Abdomen: abdomen soft, non-tender, normal bowel sounds, and no masses or organomegaly Extremities: no clubbing, no cyanosis, trace lower extremity edema bilaterally Neuro Exam: alert & oriented x 3 with fluent speech, no focal motor/sensory deficits Skin: +ecchymosis of left lower anterior rib area. Steri-strips to left lateral supraorbital area clean, dry, and intact ASSESSMENT: Fall, subsequent encounter (Primary)--reviewed hospital records. No fractures. Appears to be mechanical fall. Start routine Tylenol for pain. Laceration of left eyebrow, subsequent encounter--Steri-strips in place. Healing well without signsof infection. Contusion of left chest wall, subsequent encounter--healing. No rib fractures on imaging. Paroxysmal atrial fibrillation (HCC)--rate controlled with carvedilol 25 mg twice daily. Continue Coumadin. Check CBC Hypertensive kidney disease with stage 3a chronic kidney disease (HCC)--blood pressure controlled with carvedilol 25 mg twice daily. GFR mildly reduced and stable. Check BMP. Coronary artery disease involving [place] coronary artery of [place] heart without angina pectoris--no new cardiac symptoms. Aortocoronary bypass status--stable and remote. Dyslipidemia, goal LDL below 100--continue atorvastatin 40 mg daily. S/P aortic valve replacement--stable. PLAN: 1. Continue present medication(s): Begin medication: Acetaminophen 650 mg TID routine for pain from fall. Referral to: Anticoagulation clinic for coumadin management Schedule labs: CBC and BMP with next INR 2. Admission orders, medications, labs, hospital records and care plan reviewed. 3. Physical Therapy, Occupational Therapy, and Speech Therapy ordered. 4. Care plan reviewed. 5. Advance Directives were discussed: The patient is a DNR 6. Half-Way Home Treatment Given: n/a Electronically signed by: Akiko Joy MD I spent a total of 37 minutes coordinating, documenting, and providing care for this patient excluding time spent in the performance of separately billed services or time spent by another provider/QHP. 3 documented in this encounter Plan of Treatment Upcoming Encounters Date Type Department Care Team (Late st Contact Info) Description 12/04/2023 6:00 AM EDT Anticoagulation Pharmacy Call Center WB [phone] [facility] [place] [address] [facility] [address] [facility] [place] [address] 03/24/2024 9:40 AM EDT Office Visit [address] [phone] Rebeca Mendez PA-C [address] [place] [address] [place] [id number] 09/24/2024 1:40 PM EDT Office Visit Family Medicine [address] [place] [phone] Akiko Joy MD [address] [place] [address] [place] [id number] Health Maintenance Due Date Last Done Comments Albumin/Creatinine Ratio 1958 DTaP,Tdap,and Td Vaccines (1 - Tdap) 1957 Zoster Vaccines (1 of 2) 1988 Depression Screening 02/18/2020 02/17/2019 COVID-19 Vaccine (3 - 2022- season) 2024 09/22/2023, 11/28/2020 CKD PHOS USE SMARTSET [id number] 02/27/202402/11, 02/20/2021, 05/07/2018, Additional history exists CKD HGB USE SMARTSET 89177 09/23/202409/23, 09/24/2023, 04/09/2023, Additional history exists Pneumococcal [...] with stage 3a chronic kidney disease (HCC) Coronary artery disease involving [place] coronary artery of [place] heart without angina pectoris Aortocoronary bypass status Postsurgical aortocoronary bypass status Dyslipidemia, goal LDL below 100 Other and unspecified hyperlipidemia S/P aortic valve replacement Heart valve replaced by other means documented in this encounter Care Teams Grocery Packer Relationship Specialty Start Date End Date Akiko Joy MD PCP - General Family Medicine 05/22/15 documented as of this encounter
[2024-04-11 04:17] LABS: Basophils # (auto) 0.07 K/uL (0.00-0.20); Basophils % (auto) 0.8 %; Eosinophils % (auto) 4.6 %; Hematocrit (blood only) 36.5 % (42.0-52.0); Hemoglobin 12.3 g/dl (14.0-18.0); Immature Granulocytes # (auto) 0.03 K/uL (0.01-0.20); Immature Granulocytes % (auto) 0.3 %; Lymphocytes # (auto) 1.48 K/uL (1.20-3.40); Mean Corpuscular Hgb Conc 33.7 g/dL (32.0-36.0); Mean Corpuscular Volume 86.1 fL (80.0-100.0); Mean Platelet Volume 9.4 fL (9.4-12.4); Monocytes # (auto) 0.76 K/uL (0.11-0.59); Monocytes % (auto) 8.7 %; Neutrophils # (auto) 5.99 K/uL (1.40-6.50); Neutrophils % (auto) 68.6 %; Platelet Count 245 K/uL (130-400); RDW Coefficient of Variation 13.8 % (11.5-14.5); RDW Standard Deviation 43.1 fL (36.4-46.3); Red Blood Count 4.24 M/uL (4.70-6.10); White Blood Count 8.73 K/ul (4.8-10.8)
[2024-04-11 04:33] LABS: BUN Creatinine Ratio 17.8 (10-20); Bilirubin Direct 0.1 mg/dl (0-0.2); Bilirubin,Total 0.8 mg/dl (0.2-1.0); Calcium 8.7 mg/dl (8.6-10.3); Creatinine Clr Calc Pharmacy 37.1 ml/min; Est GFR (African American) 57.8 ml/min; Est GFR (Non-African American) 49.9 ml/min; Magnesium 2.1 mg/dl (1.7-2.4); Total Protein 7.5 gm/dl (6.0-8.3)
--- NOTE | 2024-04-11 04:42 | Emergency Department Note ---
History of Present Illness General Chief complaint: Flu Like Symptoms Stated complaint: FLU LIKE SYMTOMS Time Seen by Provider: 04/11/24 03:48 History of Present Illness This 84-year-old male presents ER complaining fever, chills cough and chest discomfort tonight. Patient got his flu vaccine a few days ago. Patient denies abdominal pain, vomiting, diarrhea, headache, sore throat. He speaking full sentences. Home Medications Medication Instructions Recorded Confirmed Type atorvastatin 40 mg tablet 40 mg PO HS 06/07/19 11/26/23 History carvedilol 25 mg tablet 25 mg PO BID 06/07/19 11/26/23 History docusate sodium 100 mg capsule 100 mg PO BID PRN Constipation 06/07/19 11/26/23 History furosemide 20 mg tablet 40 mg PO QAM 06/07/19 11/26/23 History warfarin 2.5 mg tablet 5 mg PO QPM 06/07/19 11/26/23 History diclofenac sodium 1 % topical gel 4 g topical QID #100 grams 04/06/22 11/26/23 Rx (Voltaren Arthritis Pain) Allergies Allergy/AdvReac Type Severity Reaction Status Date / Time No Known Allergies Allergy Unverified 11/26/23 15:12 Past Med/Surg History Problem List (Updated 04/11/24 @ 05:57 by Arianna Rodriguez PA-C) Viral illness (Acute) Chest pain (Acute) Ambulatory dysfunction (Acute) Knee pain, left (Acute) HTN (hypertension) HLD (hyperlipidemia) CHF (congestive heart failure) Medical History No pertinent family history Surgical History H/O heart surgery Social History Smoking Status: Never smoker Tobacco Type: Smokeless Tobacco (Dip or Chew) Second Hand Exposure: No; Do You Dip or Chew Tobacco: Yes (2 cans a day); Hx Alcohol Use: Yes Alcohol type: beer Hx Substance Use: No Preferred Language: Ukrainian Communication Ability: Effective Director Of Guidance Required: No Beliefs That Will Affect Care: None Current Living Situation: Alone Feels Safe at Home: Yes Assistive Devices: Cane and Walker Review of Systems A total of 10 systems reviewed and were otherwise negative Physical Exam Vital Signs Vital Signs - 24 hr 04/11/24 03:50 04/11/24 03:50 04/11/24 03:55 Temperature 36.6 C Temperature Source Oral Pulse Rate 61 Pulse Rate from SpO2 Sensor Respiratory Rate 18 Respiratory Effort / Characteristics Non-Labored Non-Labored Respiratory Depth Normal Normal Blood Pressure 156/82 H Blood Pressure Mean 106 Pulse Oximetry 97 Oxygen Delivery Method Room Air Room Air Sepsis Recent Fever Within 48 Hours No Sepsis New/Unexplained Change in Mental Status No Sepsis Action Taken by Nursing No Action Required 04/11/24 03:55 04/11/24 04:00 04/11/24 04:06 Temperature Temperature Source Pulse Rate 61 62 Pulse Rate from SpO2 Sensor 62 Respiratory Rate 18 Respiratory Effort / Characteristics Non-Labored Respiratory Depth Normal Blood Pressure Blood Pressure Mean Pulse Oximetry 97 Oxygen Delivery Method Sepsis Recent Fever Within 48 Hours Sepsis New/Unexplained Change in Mental Status Sepsis Action Taken by Nursing 04/11/24 04:10 04/11/24 04:12 04/11/24 04:24 Temperature Temperature Source Pulse Rate 62 Pulse Rate from SpO2 Sensor Respiratory Rate 21 17 Respiratory Effort / Characteristics Non-Labored Respiratory Depth Normal Blood Pressure Blood Pressure Mean Pulse Oximetry Oxygen Delivery Method Sepsis Recent Fever Within 48 Hours Sepsis New/Unexplained Change in Mental Status Sepsis Action Taken by Nursing 04/11/24 04:36 04/11/24 05:09 04/11/24 05:15 Temperature Temperature Source Pulse Rate 62 69 Pulse Rate from SpO2 Sensor Respiratory Rate 19 18 Respiratory Effort / Characteristics Non-Labored Respiratory Depth Normal Blood Pressure Blood Pressure Mean Pulse Oximetry Oxygen Delivery Method Sepsis Recent Fever Within 48 Hours Sepsis New/Unexplained Change in Mental Status Sepsis Action Taken by Nursing 04/11/24 05:27 04/11/24 05:30 Temperature Temperature Source Pulse Rate Pulse Rate from SpO2 Sensor Respiratory Rate Respiratory Effort / Characteristics Non-Labored Respiratory Depth Normal Blood Pressure 128/83 Blood Pressure Mean 106 Pulse Oximetry 98 Oxygen Delivery Method Sepsis Recent Fever Within 48 Hours Sepsis New/Unexplained Change in Mental Status Sepsis Action Taken by Nursing VITALS: Vitals are noted on the nurse's note and reviewed by myself. Vital signs stable. GENERAL: Pleasant gentleman, in no acute distress, nondiaphoretic, well- developed well-nourished. SKIN: The skin was without rashes, erythema, edema, or bruising. There is no tenting of the skin. Capillary reflex less than 2 seconds. HEAD: Normocephalic atraumatic. EARS: External auditory canals clear EYES: Pupils equal round and reactive to light and accommodation. Conjunctivae without injection, sclerae without icterus. Extraocular movements intact. NOSE: Patent, no discharge. MOUTH: Mucous membranes moist. Pharynx without erythema or exudate. Uvula midline. Airway patent. Tongue does not deviate. NECK: Supple without nuchal rigidity. No lymphadenopathy. No thyromegaly. Cervical spine is nontender. No JVD. HEART: Regular rate and rhythm LUNGS: Clear to auscultation bilaterally without wheezes, rales or rhonchi. No retractions or accessory muscle use. ABDOMEN: Positive bowel sounds x 4. Normal tympanic percussion. Soft, nontender, without masses or organomegaly. Sampson sign negative. No guarding or rebound tenderness. No CVA tenderness MUSCULOSKELETAL: No muscle atrophy, erythema, or edema noted. NEURO: Patient was alert and oriented to person place and time. Normal sensation to light and sharp touch. No focal neurological deficits. Medical Decision Making Medical Records Attestation: I reviewed the patient's medical records. Home Medications Current Medication List: was personally reviewed by me Laboratory Data Attestation: I reviewed the patient's lab results. 04/11/24 04:00 04/11/24 04:00 Lab Results 04/11/24 04/11/24 04/11/24 Range/Units 04:00 04:15 04:58 WBC 8.73 (4.8-10.8) K/ul RBC 4.24 L (4.70-6.10) M/uL Hgb 12.3 L (14.0-18.0) g/dl Hct 36.5 L (42.0-52.0) % MCV 86.1 (80.0-100.0) fL MCH 29.0 (25.0-34.0) pg MCHC 33.7 (32.0-36.0) g/dL RDW Std Deviation 43.1 (36.4-46.3) fL RDW Coeff of Juanito 13.8 (11.5-14.5) % Plt Count 245 (130-400) K/uL MPV 9.4 (9.4-12.4) fL Immature Gran % (Auto) 0.3 % Neut % (Auto) 68.6 % Lymph % (Auto) 17.0 % [place] % (Auto) 8.7 % Eos % (Auto) 4.6 % Baso % (Auto) 0.8 % Neut # (Auto) 5.99 (1.40-6.50) K/uL Lymph # (Auto) 1.48 (1.20-3.40) K/uL [place] # (Auto) 0.76 H (0.11-0.59) K/uL Eos # (Auto) 0.40 (0.00-0.50) K/uL Baso # (Auto) 0.07 (0.00-0.20) K/uL Immature Gran # (Auto) 0.03 (0.01-0.20) K/uL PT 24.1 H (9.0-12.0) Seconds INR 2.4 H (0.9-1.1) APTT 35 H (21-31) Seconds PTT Ratio 1.3 Sodium 136 (136-145) mmol/L Potassium 4.0 (3.5-5.1) mmol/L Chloride 104 (98-107) mmol/L Carbon Dioxide 25 (21-32) mmol/L Anion Gap 7 (3-11) BUN 23 (6-23) mg/dl Creatinine 1.29 (0.6-1.4) mg/dl Est Cr Clr Drug Dosing 37.1 ml/min Est GFR ( Amer) 57.8 ml/min Est GFR (Non-Af Amer) 49.9 ml/min BUN/Creatinine Ratio 17.8 (10-20) Glucose 101 H (70-99(Fasting)) mg/dl Lactate 0.9 (0.4-2.0) mmol/L Calcium 8.7 (8.6-10.3) mg/dl Magnesium 2.1 (1.7-2.4) mg/dl Total Bilirubin 0.8 (0.2-1.0) mg/dl Direct Bilirubin 0.1 (0-0.2) mg/dl AST 16 (13-39) U/L ALT 11 (7-52) U/L Alkaline Phosphatase 99 (34-104) U/L Troponin I High Sens 8.0 (0-20) pg/ml B-Natriuretic Peptide 181 H (0-100) pg/ml Total Protein 7.5 (6.0-8.3) gm/dl Albumin 4.0 (3.4-5.0) gm/dl Lipase Cancelled Procalcitonin < 0.02 (0-0.5) ng/ml Urine Color Yellow Urine Appearance Clear (Clear) Urine pH 6.5 (4.5-7.5) Ur Specific [place] 1.005 (1.000-1.030) Urine Protein Negative (Negative) Urine Glucose (UA) Negative (Negative) Urine Ketones Negative (Negative) Urine Blood Negative (Negative) Urine Nitrite Negative (Negative) Urine Bilirubin Negative (Negative) Urine Urobilinogen Negative (Negative) Ur Leukocyte Esterase Negative (Negative) Adenovirus (PCR) Not Detected (NotDetected) B. pertussis DNA (PCR) Not Detected (NotDetected) B.parapertussis DNA PCR Not Detected (NotDetected) C. pneumoniae DNA (PCR) Not Detected (NotDetected) Coronavirus OC43 (PCR) Not Detected (NotDetected) Coronavirus HKU1 (PCR) Not Detected (NotDetected) Coronavirus 229E (PCR) Not Detected (NotDetected) SARS-CoV-2 (PCR) Not Detected (NotDetected) Coronavirus NL63 (PCR) Not Detected (NotDetected) Human Metapneumovir PCR Not Detected (NotDetected) Influenza Type A (PCR) Not Detected (NotDetected) Influenza Type B (PCR) Not Detected (NotDetected) M. pneumoniae (PCR) Not Detected (NotDetected) Parainfluenza 1 (PCR) Not Detected (NotDetected) Parainfluenza 2 (PCR) Not Detected (NotDetected) Parainfluenza 3 (PCR) Not Detected (NotDetected) Parainfluenza 4 (PCR) Not Detected (NotDetected) RSV (PCR) Not Detected (NotDetected) Entero/Rhino (PCR) Not Detected (NotDetected) Imaging Data Attestation: I personally reviewed and interpreted this imaging study as follows: MDM Narrative Prior records/ancillary studies reviewed and summarized above. Nursing notes reviewed. Additional history obtained from EMS. The patient's history was concerning for weakness, fever, chills and chest pain. Differential diagnosis: Etiologies such as metabolic, infection, hypo/hyperglycemia, electrolyte abnormalities, cardiac sources, intracerebral event, toxicologic, neurologic, as well as others were entertained. Physical examination: As above. ER treatment provided: IV Lock An order was placed for continuous cardiac monitoring. The monitor shows a rate of 60-100 with a sinus rhythm per my interpretation. Septic protocol was initiated On reassessment the patient felt better. Diagnostics interpretation by me: ECG: Ordered for chest pain EKG: Poor baseline, no acute ST changes, rate of 62. Impression normal sinus rhythm poor baseline independently interpreted by myself The labs Independently Interpreted by myself revealed mild anemia No worrisome leukocytosis Negative troponin Blood cultures pending Imaging studies: Chest x-ray with no acute consolidation, pneumothorax or free air per my independent or potation HEART SCORE: Hx: high/mod/low suspicion: 0 ECG: ST depression/nonspecific changes/normal: 0 Age: Greater than 65/45-64/less than 45: 2 Risk factors: (Hypertension, hyperlipidemia, diabetes, coronary disease, tobacco use, cocaine use): 2 Troponin: Greater than 2 times normal limits/1-2 times normal limits/normal: 0 Total: 4 Consultation: A consultation was placed with the hospitalist. The case was discussed and diagnostics were reviewed. The patient was evaluated in the ER for further treatment. Exam and history seem consistent with chest pain and cold symptoms. First troponin was negative. Clear x-ray. Medicine is consulted case discussed. Patient be admitted to the medical service. By the evaluation outlined above emergent etiologies such as electrolyte abnormalities, intracerebral event, toxologic, neurologic, abnormalities blood glucose, metabolic, as well as others were deemed relatively unlikely. The pt informed about the findings as listed above. All questions were answered and pleased with the treatment. The chart was completed utilizing [employer] Speech voice recognition software. Grammatical errors, random word insertions, pronoun errors, and incomplete sentences are an occassional consequence of this system due to software limitations, ambient noise, and hardware issues. Any formal questions or concerns about the content, text, or information contained within the body of this dictation should be directly addressed to the physician retirement assistant for clarification. Impression & Plan Chest pain, Viral illness Discharge Plan Visit Data Chief Complaint: Flu Like Symptoms Stated Complaint: FLU LIKE SYMTOMS ED Provider: Michelle Lay ED Midlevel Provider: Arianna Rodriguez Discharge Problem: Chest pain, Viral illness Patient Disposition: Admitted As Inpatient Condition: Good Forms Stand Alone Forms: My [facility] Prescriptions Prescriptions: No Action atorvastatin 40 mg tablet 40 mg PO HS carvedilol 25 mg tablet 25 mg PO BID warfarin 2.5 mg tablet 5 mg PO QPM docusate sodium 100 mg Capsule 100 mg PO BID PRN (Reason: Constipation) furosemide 20 mg Tablet 40 mg PO QAM diclofenac sodium [Voltaren Arthritis Pain] 1 % gel 4 g topical QID Qty: 100 0RF Rx Instructions: apply to single knee, ankle, foot; for foot includes sole/toes/top of foot Referrals Referrals: Akiko Joy MD [Primary Care Provider] - Discharge Problem: Chest pain Qualifiers: Chest pain type: unspecified Qualified Code(s): R07.9 - Chest pain, unspecified
[2024-04-11 04:52] LABS: INR 2.4 (0.9-1.1); Partial Thromboplastin Ratio 1.3; Partial Thromboplastin Time 35 Seconds (21-31); Prothrombin Time 24.1 Seconds (9.0-12.0)
[2024-04-11 04:59] LABS: Adenovirus PCR Not Detected (NotDetected); Bordetella parapertussis PCR Not Detected (NotDetected); Bordetella pertussis PCR Not Detected (NotDetected); Chlamydia pneumoniae PCR Not Detected (NotDetected); Coronavirus 229E PCR Not Detected (NotDetected); Coronavirus CoV-2 (COVID19)PCR Not Detected (NotDetected); Coronavirus HKU1 PCR Not Detected (NotDetected); Coronavirus NL63 PCR Not Detected (NotDetected); Coronavirus OC43PCR Not Detected (NotDetected); Human Metapneumovirus PCR Not Detected (NotDetected); Influenza A PCR Not Detected (NotDetected); Influenza B PCR Not Detected (NotDetected); Mycoplasma pneumoniae PCR Not Detected (NotDetected); Parainfluenza Virus 1 PCR Not Detected (NotDetected); Parainfluenza Virus 2 PCR Not Detected (NotDetected); Parainfluenza Virus 3 PCR Not Detected (NotDetected); Parainfluenza Virus 4 PCR Not Detected (NotDetected); Respiratory Syncytial VirusPCR Not Detected (NotDetected); Rhinovirus/Enterovirus PCR Not Detected (NotDetected)
[2024-04-11 05:44] LABS: Appearance Urine Clear (Clear); Bilirubin Urine Negative (Negative); Blood Urine Negative (Negative); Color Urine Yellow; Glucose Urine UA Negative (Negative); Ketones Urine Negative (Negative); Leukocyte Esterase Urine Negative (Negative); Nitrite Urine Negative (Negative); Protein Urine Negative (Negative); Specific Gravity Urine 1.005 (1.000-1.030); Urobilinogen Urine Negative (Negative); pH Urine 6.5 (4.5-7.5)
--- NOTE | 2024-04-11 05:56 | Emergency Department Note ---
ED Visit Note I was consulted by the Advanced Practice Provider. I approved the management plan and take responsibility for the patient management. -History/Physical/Personally seeing the patient -MDM -I independently interpreted the following studies:Studies and results .
[2024-04-11] MEDS: OPTIRAY 320 100ml IV ONE (06:01)
[2024-04-11] MEDS: ACETAMINOPHEN 325 MG TAB PO STA (06:26)
[2024-04-11] MEDS: SODIUM CHLORIDE 0.9% 1,000 ML IV ONE (06:27)
--- NOTE | 2024-04-11 07:17 | History & Physical Report ---
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 Patient requests for son to be given updates regarding care. Mr. Pierre Tran contact #[phone]. Text document was generated using [employer] voice recognition software. It may contain grammatical or spelling errors. Kindly contact undersigned for clarification of any documentation item in question. History of Present Illness Chief Complaint: Abdominal pain, weakness Primary Care Provider: Akiko Joy MD History obtained from patient and records. Medical history significant for CAD status CABG, status post bioprosthetic AVR, A-fib on Coumadin, pulmonary hypertension, hypertension, hyperlipidemia, CVA, chronic anemia (baseline hemoglobin of 12), ambulatory dysfunction as per records. Last admission November 2023 for mechanical fall secondary to ambulatory dysfunction. Patient not feeling well the last couple of days. Achy abdominal discomfort without chest pain, SOB, diarrhea symptoms. Denies headache symptoms. Feeling weak. Medical History as above Surgical History : Tonsillectomy/adenectomy, bioprosthetic AVR Family History : Stroke, heart disease Personal/Social history : Non-smoker, occasional EtOH intake Allergies Allergy/AdvReac Type Severity Reaction Status Date / Time No Known Allergies Allergy Unverified 11/26/23 15:12 Home Medications Medication Instructions Recorded Confirmed Type atorvastatin 40 mg tablet 40 mg PO HS 06/07/19 04/11/24 History carvedilol 25 mg tablet 25 mg PO BID 06/07/19 04/11/24 History docusate sodium 100 mg capsule 100 mg PO BID PRN Constipation 06/07/19 04/11/24 History furosemide 20 mg tablet 40 mg PO QAM 06/07/19 04/11/24 History warfarin 2.5 mg tablet 5 mg PO UD 06/07/19 04/11/24 History diclofenac sodium 1 % topical gel 4 g topical UD 04/11/24 04/11/24 History (Voltaren Arthritis Pain) Past Med/Surg History Problem List (Updated 04/11/24 @ 08:37 by Dain Medeiros MD) Abdominal pain Viral illness (Acute) Chest pain (Acute) Ambulatory dysfunction (Acute) Knee pain, left (Acute) HTN (hypertension) HLD (hyperlipidemia) CHF (congestive heart failure) Medical History No pertinent family history Surgical History H/O heart surgery Social History Smoking Status: Never smoker Tobacco Type: Smokeless Tobacco (Dip or Chew) Second Hand Exposure: No; Do You Dip or Chew Tobacco: Yes (2 cans a day); Hx Alcohol Use: Yes Alcohol type: beer Hx Substance Use: No Preferred Language: Portuguese Communication Ability: Effective 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 Beliefs That Will Affect Care: None Current Living Situation: Alone Feels Safe at Home: Yes Assistive Devices: Cane and Walker Review of Systems Review of Systems: As per HPI, all other systems reviewed and negative Physical Exam Physical Exam: GENERAL: Comfortable, pleasant, slightly hard of hearing, no respiratory distress SKIN: Normal color, warm HEENT: Pale palpebral conjunctivae, no ptosis, dry buccal mucosa NECK : Supple, no tenderness CHEST : CTA, no tenderness HEART : Bradycardic, no obvious murmurs ABDOMEN: Some distention, nontender EXTREMITIES : No LE swelling/tenderness, no other conspicuous deformities noted NEUROLOGIC : Coherent, no facial asymmetry, slightly hard of hearing, no other gross focality Results & Data Results & Data Vital Signs (Past 12 Hours) Vital Signs Temp Pulse Resp BP Pulse Ox O2 Del Method 04/11/24 06:42 55 L 20 04/11/24 06:33 70 18 04/11/24 06:24 59 L 22 04/11/24 06:15 61 21 04/11/24 06:06 131/83 04/11/24 05:48 61 23 97 04/11/24 05:42 61 21 97 04/11/24 05:30 62 22 97 04/11/24 05:27 128/83 04/11/24 05:27 128/83 98 04/11/24 05:09 69 18 04/11/24 04:36 62 19 04/11/24 04:24 62 17 04/11/24 04:12 21 04/11/24 04:06 62 04/11/24 04:00 61 18 97 04/11/24 03:55 Room Air 04/11/24 03:50 36.6 C 61 18 156/82 H 97 Room Air Laboratory Results Laboratory Results WBC 8.73 K/ul (4.8-10.8) 04/11/24 04:00 RBC 4.24 M/uL (4.70-6.10) L 04/11/24 04:00 Hgb 12.3 g/dl (14.0-18.0) L 04/11/24 04:00 Hct 36.5 % (42.0-52.0) L 04/11/24 04:00 MCV 86.1 fL (80.0-100.0) 04/11/24 04:00 MCH 29.0 pg (25.0-34.0) 04/11/24 04:00 MCHC 33.7 g/dL (32.0-36.0) 04/11/24 04:00 RDW Std Deviation 43.1 fL (36.4-46.3) 04/11/24 04:00 RDW Coeff of Juanito 13.8 % (11.5-14.5) 04/11/24 04:00 Plt Count 245 K/uL (130-400) 04/11/24 04:00 MPV 9.4 fL (9.4-12.4) 04/11/24 04:00 Immature Gran % (Auto) 0.3 % 04/11/24 04:00 Neut % (Auto) 68.6 % 04/11/24 04:00 Lymph % (Auto) 17.0 % 04/11/24 04:00 [place] % (Auto) 8.7 % 04/11/24 04:00 Eos % (Auto) 4.6 % 04/11/24 04:00 Baso % (Auto) 0.8 % 04/11/24 04:00 Neut # (Auto) 5.99 K/uL (1.40-6.50) 04/11/24 04:00 Lymph # (Auto) 1.48 K/uL (1.20-3.40) 04/11/24 04:00 [place] # (Auto) 0.76 K/uL (0.11-0.59) H 04/11/24 04:00 Eos # (Auto) 0.40 K/uL (0.00-0.50) 04/11/24 04:00 Baso # (Auto) 0.07 K/uL (0.00-0.20) 04/11/24 04:00 Immature Gran # (Auto) 0.03 K/uL (0.01-0.20) 04/11/24 04:00 PT 24.1 Seconds (9.0-12.0) H 04/11/24 04:00 INR 2.4 (0.9-1.1) H 04/11/24 04:00 APTT 35 Seconds (21-31) H 04/11/24 04:00 PTT Ratio 1.3 04/11/24 04:00 Sodium 136 mmol/L (136-145) 04/11/24 04:00 Potassium 4.0 mmol/L (3.5-5.1) 04/11/24 04:00 Chloride 104 mmol/L (98-107) 04/11/24 04:00 Carbon Dioxide 25 mmol/L (21-32) 04/11/24 04:00 Anion Gap 7 (3-11) 04/11/24 04:00 BUN 23 mg/dl (6-23) 04/11/24 04:00 Creatinine 1.29 mg/dl (0.6-1.4) 04/11/24 04:00 Est Cr Clr Drug Dosing 37.1 ml/min 04/11/24 04:00 Est GFR ( Amer) 57.8 ml/min 04/11/24 04:00 Est GFR (Non-Af Amer) 49.9 ml/min 04/11/24 04:00 BUN/Creatinine Ratio 17.8 (10-20) 04/11/24 04:00 Glucose 101 mg/dl (70-99(Fasting)) H 04/11/24 04:00 Lactate 0.9 mmol/L (0.4-2.0) 04/11/24 04:58 Calcium 8.7 mg/dl (8.6-10.3) 04/11/24 04:00 Magnesium 2.1 mg/dl (1.7-2.4) 04/11/24 04:00 Total Bilirubin 0.8 mg/dl (0.2-1.0) 04/11/24 04:00 Direct Bilirubin 0.1 mg/dl (0-0.2) 04/11/24 04:00 AST 16 U/L (13-39) 04/11/24 04:00 ALT 11 U/L (7-52) 04/11/24 04:00 Alkaline Phosphatase 99 U/L (34-104) 04/11/24 04:00 Troponin I High Sens 8.0 pg/ml (0-20) 04/11/24 04:00 B-Natriuretic Peptide 181 pg/ml (0-100) H 04/11/24 04:00 Total Protein 7.5 gm/dl (6.0-8.3) 04/11/24 04:00 Albumin 4.0 gm/dl (3.4-5.0) 04/11/24 04:00 Lipase 72 U/L (11-82) 04/11/24 04:00 Lipase Cancelled 04/11/24 04:00 Procalcitonin < 0.02 ng/ml (0-0.5) 04/11/24 04:00 Urine Color Yellow 04/11/24 04:15 Urine Appearance Clear (Clear) 04/11/24 04:15 Urine pH 6.5 (4.5-7.5) 04/11/24 04:15 Ur Specific [place] 1.005 (1.000-1.030) 04/11/24 04:15 Urine Protein Negative (Negative) 04/11/24 04:15 Urine Glucose (UA) Negative (Negative) 04/11/24 04:15 Urine Ketones Negative (Negative) 04/11/24 04:15 Urine Blood Negative (Negative) 04/11/24 04:15 Urine Nitrite Negative (Negative) 04/11/24 04:15 Urine Bilirubin Negative (Negative) 04/11/24 04:15 Urine Urobilinogen Negative (Negative) 04/11/24 04:15 Ur Leukocyte Esterase Negative (Negative) 04/11/24 04:15 Adenovirus (PCR) Not Detected (NotDetected) 04/11/24 04:00 B. pertussis DNA (PCR) Not Detected (NotDetected) 04/11/24 04:00 B.parapertussis DNA PCR Not Detected (NotDetected) 04/11/24 04:00 C. pneumoniae DNA (PCR) Not Detected (NotDetected) 04/11/24 04:00 Coronavirus OC43 (PCR) Not Detected (NotDetected) 04/11/24 04:00 Coronavirus HKU1 (PCR) Not Detected (NotDetected) 04/11/24 04:00 Coronavirus 229E (PCR) Not Detected (NotDetected) 04/11/24 04:00 SARS-CoV-2 (PCR) Not Detected (NotDetected) 04/11/24 04:00 Coronavirus NL63 (PCR) Not Detected (NotDetected) 04/11/24 04:00 Human Metapneumovir PCR Not Detected (NotDetected) 04/11/24 04:00 Influenza Type A (PCR) Not Detected (NotDetected) 04/11/24 04:00 Influenza Type B (PCR) Not Detected (NotDetected) 04/11/24 04:00 M. pneumoniae (PCR) Not Detected (NotDetected) 04/11/24 04:00 Parainfluenza 1 (PCR) Not Detected (NotDetected) 04/11/24 04:00 Parainfluenza 2 (PCR) Not Detected (NotDetected) 04/11/24 04:00 Parainfluenza 3 (PCR) Not Detected (NotDetected) 04/11/24 04:00 Parainfluenza 4 (PCR) Not Detected (NotDetected) 04/11/24 04:00 RSV (PCR) Not Detected (NotDetected) 04/11/24 04:00 Entero/Rhino (PCR) Not Detected (NotDetected) 04/11/24 04:00 Diagnostic Findings Chest x-ray as per my interpretation cardiomegaly EKG as per my interpretation : Rate 60, junctional rhythm, LAD, LAFB, no ischemia
[2024-04-11] MEDS ORDERED: PROMETHAZINE 6.25 MG/50.25 ML BAG IV PRN (07:18)
[2024-04-11] MEDS ORDERED: ACETAMINOPHEN 325 MG TAB PO PRN (07:18)
[2024-04-11] MEDS ORDERED: traMADol HCL 50 MG TABLET PO PRN (07:18)
--- NOTE | 2024-04-11 08:13 | XRay Report ---
SINGLE VIEW CHEST CLINICAL HISTORY: Sepsis FINDINGS: An AP, portable, upright chest radiograph is compared to study dated 11/26/2023. The patient is status post midline sternotomy and cardiac valve surgery. The heart is enlarged noting atheroscle rotic calcification of the thoracic aorta. The pulmonary vasculature is noncongested. Chronic interst itial thickening is similar to previous. There is bibasilar scarring/atelectasis. The lungs and pleur al spaces are otherwise clear. No pneumothorax is seen. The skeletal structures are osteopenic. The b sergio thorax is grossly intact. IMPRESSION: Cardiomegaly with no active disease in the chest. ACT 112: Negative or not required by law. Electronically signed by: Vaibhav Price M.D. 04/11/2024 8:11 AM
[2024-04-11 08:28] LABS: Thyroid Stimulating Hormone 8.539 uIu/ml (0.300-4.500)
--- NOTE | 2024-04-11 08:33 | CT Scan Report ---
Exam(s): CT ABDOMEN + PELVIS With Contrast IV Amt: 93 ml EXAM: CT Abdomen and Pelvis With Intravenous Contrast CLINICAL HISTORY: Reason for exam: abd pain, coumadin. TECHNIQUE: Axial computed tomography images of the abdomen and pelvis with intravenous contrast. CTDI is 13.37 mGy and DLP is 686.03 mGy-cm. Automated exposure control was utilized for the study. A dose lowering technique was utilized adhering to the principles of ALARA. CONTRAST: Patient received 93 ml of IV contrast COMPARISON: No relevant prior studies available. FINDINGS: Lung bases: Unremarkable. No mass. No consolidation. Heart: Mild cardiomegaly. Mitral annular calcifications are seen. Mediastinum: Small hiatus hernia. ABDOMEN: Liver: Unremarkable. No mass. Gallbladder and bile ducts: Unremarkable. No calcified stones. No ductal dilation. Pancreas: Unremarkable. No mass. No ductal dilation. Spleen: Unremarkable. No splenomegaly. Adrenals: Unremarkable. No mass. Kidneys and ureters: Unremarkable. No solid mass. No hydronephrosis. Stomach and bowel: There is sigmoid colonic diverticulosis. No obstruction. No mucosal thickening. Small hiatus hernia. PELVIS: Appendix: Normal appendix. Bladder: Unremarkable. No mass. Reproductive: Mild prostatomegaly. ABDOMEN and PELVIS: Intraperitoneal space: Unremarkable. No free air. No significant fluid collection. Bones/joints: Moderately advanced multilevel degenerative disc disease changes seen in the lumbar spine. No acute fracture. No dislocation. Soft tissues: Unremarkable. Vasculature: Unremarkable. No abdominal aortic aneurysm. Lymph nodes: Unremarkable. No enlarged lymph nodes. IMPRESSION: No abdominal or pelvic hematoma Electronically signed by: Maximus Payne MD 04/11/24 08:32 AM
[2024-04-11] MEDS ORDERED: DOCUSATE SODIUM 100 MG CAP PO PRN (08:58)
[2024-04-11 09:04] LABS: T4 Free Thyroxine 1.05 ng/dl (0.61-1.60)
[2024-04-11] MEDS: carvediloL 3.125 MG TAB PO SCH (10:27)
--- NOTE | 2024-04-11 15:17 | Communication Note ---
Date of Service: April 11, 2024 evaluated patient at bedside who reports no return of nausea or vomiting, patient also noted diarrhea day prior but no episode as of yet on exam Reports no appetite as of time of exam around breakfast. CT abp reviewed: no clear signs of bleeding or anything apparent contributing to patient's symptoms #Nausea & Vomiting appears self limited CTM encourage PO intake #Ambulatory dysfunction PT OT, fall precautions Medically stable over all PT/OT ordered # HTN Continue carvedilol # HLD Continue atorvastatin #Chronic heart failure with preserved EF #CAD s/p CABG 2013 No signs of volume overload Monitor volume status Hold lasix, likely resume in am #Chronic anticoagulation #Aortic stenosis s/p AVR INR 2.4, therapeutic Continue Coumadin Trend INR DVT ppx: warfarin Dispo pending PT/OT eval
[2024-04-11] MEDS: DICLOFENAC SOD 1% GEL 100 GM TUBE EXT SCH (16:22)
[2024-04-11] MEDS: carvediloL 12.5 MG TAB PO SCH (16:25)
[2024-04-11] MEDS: WARFARIN SOD 5 MG TAB PO SCH (16:31)
--- NOTE | 2024-04-11 16:54 | Electrocardiogram Report ---
Test Reason : Blood Pressure : */* mmHG Vent. Rate : 62 BPM Atrial Rate : * BPM P-R Int : * ms QRS Dur : 112 ms QT Int : 492 ms P-R-T Axes : * -25 -2 degrees QTcB Int : 499 ms Probable Normal sinus Rhythm Nonspecific ST and T wave abnormality Prolonged QT Abnormal ECG When compared with ECG of 26-Nov-2023 12:04, Artifact limits interpretation Incomplete right bundle branch block is no longer Present Minimal criteria for Anterior infarct are no longer Present Confirmed by Fanny Carrillo (Lux) on 04/11/2024 4:53:48 PM Referred By: REFERRED SELF Confirmed By: Fanny Carrillo
[2024-04-11] MEDS: ATORVASTATIN 40 MG TAB PO SCH (19:47)
[2024-04-12 07:33] VITALS: RESP 18; O2SAT 97
[2024-04-12 08:14] LABS: Basophils # (auto) 0.04 K/uL (0.00-0.20); Basophils % (auto) 0.6 %; Eosinophils # (auto) 0.23 K/uL (0.00-0.50); Eosinophils % (auto) 3.3 %; Hematocrit (blood only) 32.1 % (42.0-52.0); Immature Granulocytes # (auto) 0.01 K/uL (0.01-0.20); Immature Granulocytes % (auto) 0.1 %; Lymphocytes # (auto) 1.72 K/uL (1.20-3.40); Lymphocytes % (auto) 24.9 %; Mean Corpuscular Hemoglobin 29.3 pg (25.0-34.0); Mean Corpuscular Hgb Conc 34.3 g/dL (32.0-36.0); Mean Corpuscular Volume 85.4 fL (80.0-100.0); Mean Platelet Volume 9.6 fL (9.4-12.4); Monocytes # (auto) 0.68 K/uL (0.11-0.59); Monocytes % (auto) 9.8 %; Neutrophils # (auto) 4.23 K/uL (1.40-6.50); Neutrophils % (auto) 61.3 %; Platelet Count 207 K/uL (130-400); RDW Coefficient of Variation 13.9 % (11.5-14.5); RDW Standard Deviation 43.1 fL (36.4-46.3); Red Blood Count 3.76 M/uL (4.70-6.10); White Blood Count 6.91 K/ul (4.8-10.8)
[2024-04-12 08:31] LABS: BUN Creatinine Ratio 15.9 (10-20); Calcium 8.6 mg/dl (8.6-10.3); Est GFR (African American) 59.5 ml/min; Est GFR (Non-African American) 51.3 ml/min; Potassium 3.9 mmol/L (3.5-5.1)
[2024-04-12 08:32] LABS: INR 1.7 (0.9-1.1); Prothrombin Time 17.6 Seconds (9.0-12.0)
--- NOTE | 2024-04-12 13:25 | Hospitalist Progress Note ---
Date of Service April 12, 2024 Assessment & Plan (1) Abdominal pain: Plan Mr. Tran is an 84 year old gentleman with history of ambulatory dysfunction, HTN, HFpEF, aortic stenosis s/p repair on chronic AC who is admitted for nausea and vomiting. Course self limited and no clear eitology. Patient cleared by PT/OT for discharge, however, unable to contact family at this time,. Will continue to make efforts for discharge. #Nausea & Vomiting appears self limited CTM encourage PO intake #Ambulatory dysfunction PT OT, fall precautions Medically stable over all PT/OT ordered # HTN Continue carvedilol # HLD Continue atorvastatin #Chronic heart failure with preserved EF #CAD s/p CABG 2013 No signs of volume overload Monitor volume status Hold lasix, likely resume in am #Chronic anticoagulation #Aortic stenosis s/p AVR INR 2.4, therapeutic Continue Coumadin Trend INR DVT ppx: warfarin Dispo pending contact with family Admission and Anticipated Discharge Date Admission Date: April 11, 2024 Subjective NAEO reports feeling well overall Attempting to discharge but unable to get ahold of family Physical Exam Constitutional: WD/WN, vitals as above Respiratory: normal respiratory effort, lungs clear to auscultation Cardiovascular: RRR, no murmur, no edema Gastrointestinal (Abdomen): normal bowel sounds, soft, nontender, no hepatosplenomegaly Neurologic: PERRL, EOMI, accommodation nl, no face palsy, no dysarthria Results & Data Results & Data Vital Signs (Past 12 Hours) Vital Signs Temp Pulse Resp BP Pulse Ox O2 Del Method 04/12/24 07:32 36.8 C 57 L 18 140/69 97 Room Air Laboratory Results Short CBC 04/12/24 Range/Units 07:31 WBC 6.91 (4.8-10.8) K/ul Hgb 11.0 L (14.0-18.0) g/dl Hct 32.1 L (42.0-52.0) % Plt Count 207 (130-400) K/uL BMP 04/12/24 07:31 Sodium 138 Potassium 3.9 Chloride 110 H Carbon Dioxide 23 BUN 20 Creatinine 1.26 Glucose 85 Calcium 8.6 Medications Administered Home Medications Medication Instructions Recorded Confirmed Last Taken atorvastatin 40 mg tablet 40 mg PO HS 06/07/19 04/11/24 11/25/23 docusate sodium 100 mg capsule 100 mg PO BID PRN Constipation 06/07/19 04/11/24 09/23/19 furosemide 20 mg tablet 40 mg PO QAM 06/07/19 04/11/24 11/26/23 warfarin 2.5 mg tablet 5 mg PO UD 06/07/19 04/11/24 11/25/23 acetaminophen 325 mg tablet 650 mg PO Q4H PRN pain/fever 04/11/24 04/11/24 Unknown diclofenac sodium 1 % topical gel 4 g topical UD 04/11/24 04/11/24 Unknown (Voltaren Arthritis Pain) carvedilol 25 mg tablet 12.5 mg (1/2 x 25 mg) PO BID 30 04/12/24 Unknown days #30 tabs Active Medications Generic Name Dose Route Start Last Admin Trade Name Freq PRN Reason Stop Dose Admin Atorvastatin Calcium 40 mg 04/11/24 21:00 04/11/24 19:47 Atorvastatin 40 Mg Tab PO 05/11/24 20:59 40 mg HS [facility] Administration Carvedilol 12.5 mg 04/11/24 17:00 04/12/24 08:38 Carvedilol 12.5 Mg Tab PO 05/11/24 16:59 Not Given BIDM [facility] Diclofenac Sodium 4 gm 04/11/24 17:00 04/12/24 12:07 Diclofenac Sod 1% Gel 100 Gm Tube EXT 05/11/24 16:59 4 gm QID [facility] Administration Protocol Warfarin Sodium 5 mg 04/11/24 16:00 04/11/24 16:31 Warfarin Sod 5 Mg Tab PO 05/11/24 15:59 5 mg [email or web address] [facility] Administration
[2024-04-13 06:30] LABS: BUN Creatinine Ratio 18.9 (10-20); Calcium 8.7 mg/dl (8.6-10.3); Creatinine Clr Calc Pharmacy 37.7 ml/min; Est GFR (African American) 58.9 ml/min; Est GFR (Non-African American) 50.8 ml/min
[2024-04-13 06:37] LABS: INR 1.8 (0.9-1.1); Prothrombin Time 18.1 Seconds (9.0-12.0)
[2024-04-13 07:30] VITALS: BP 142/71; PULSE 57; TEMP 98.1
--- NOTE | 2024-04-13 13:18 | Discharge Summary ---
Discharge Summary Date of Service April 13, 2024 Principal Dx & Hospital Course #1 = Principal Diagnosis (1) Abdominal pain: Plan Mr. Tran is an 84 year old gentleman with history of ambulatory dysfunction, HTN, HFpEF, aortic stenosis s/p repair on chronic AC who is admitted for nausea and vomiting. Course self limited and no clear eitology. Patient cleared by PT/OT for discharge, however, unable to contact family at this time. Patient's son contacted at [phone] Patient with uneventful admission. Did reduce coreg to 12.5 bid given liable bp. given age, would opt for more liberal bp control, especially w/ hx of ambulatory dysfunction. #Nausea & Vomiting appears self limited CTM encourage PO intake #Ambulatory dysfunction PT OT, fall precautions Medically stable over all pt cleared for home # HTN Continue carvedilol, reduced dose to 12.5mg bid # HLD Continue atorvastatin #Chronic heart failure with preserved EF #CAD s/p CABG 2013 No signs of volume overload Monitor volume status resume lasix #Chronic anticoagulation #Aortic stenosis s/p AVR INR 2.4, therapeutic Continue Coumadin Notes For Next Care Provider Medication Changes From Visit Reduced Coreg to 12.5mg bid given liable bp (110s-140s) Admission HPI Per Admitting Provider History obtained from patient and records. Medical history significant for CAD status CABG, status post bioprosthetic AVR, A-fib on Coumadin, pulmonary hypertension, hypertension, hyperlipidemia, CVA, chronic anemia (baseline hemoglobin of 12), ambulatory dysfunction as per records. Last admission November 2023 for mechanical fall secondary to ambulatory dysfunction. Patient not feeling well the last couple of days. Achy abdominal discomfort without chest pain, SOB, diarrhea symptoms. Denies headache symptoms. Feeling weak. Medical History as above Surgical History : Tonsillectomy/adenectomy, bioprosthetic AVR Family History : Stroke, heart disease Personal/Social history : Non-smoker, occasional EtOH intake Admission Exam Per Admitting Provider GENERAL: Comfortable, pleasant, slightly hard of hearing, no respiratory distress SKIN: Normal color, warm HEENT: Pale palpebral conjunctivae, no ptosis, dry buccal mucosa NECK : Supple, no tenderness CHEST : CTA, no tenderness HEART : Bradycardic, no obvious murmurs ABDOMEN: Some distention, nontender EXTREMITIES : No LE swelling/tenderness, no other conspicuous deformities noted NEUROLOGIC : Coherent, no facial asymmetry, slightly hard of hearing, no other gross focality Discharge Exam Constitutional WD/WN, vitals as above Respiratory normal respiratory effort, lungs clear to auscultation Cardiovascular RRR, no murmur, no edema Gastrointestinal (Abdomen) normal bowel sounds, soft, nontender, no hepatosplenomegaly Neurologic PERRL, EOMI, accommodation nl, no face palsy, no dysarthria Updated Medication List Medication Instructions Recorded Confirmed Type atorvastatin 40 mg tablet 40 mg PO HS 06/07/19 04/11/24 History docusate sodium 100 mg capsule 100 mg PO BID PRN Constipation 06/07/19 04/11/24 History furosemide 20 mg tablet 40 mg PO QAM 06/07/19 04/11/24 History warfarin 2.5 mg tablet 5 mg PO UD 06/07/19 04/11/24 History acetaminophen 325 mg tablet 650 mg PO Q4H PRN pain/fever 04/11/24 04/11/24 History diclofenac sodium 1 % topical gel 4 g topical UD 04/11/24 04/11/24 History (Voltaren Arthritis Pain) carvedilol 25 mg tablet 12.5 mg (1/2 x 25 mg) PO BID 30 04/12/24 Rx days #30 tabs Hospital Stay Data Diagnostic Imagining Performed 04/11/24 05:37 CT Abd and Pelvis [CT abd pelvis IV con only] Stat Pending Results Patient Have Any Pending Studies at Discharge: No Discharge Instructions Given to Patient (Per Discharging Provider) You were admitted for nausea and vomiting which appeared to be self limited and resolved with no medical intervention You were noted to be low on your blood pressure with current management therefore the following medications were adjusted: Decreased your Coreg 25mg two times a day to 12.5 mg two times a day Please resume all other medications as prescribed Total Time Total Time Spent Total Time Spent (In Minutes): 45
[2024-04-13] MEDS: WARFARIN SOD 7.5 MG TAB PO SCH (15:39)
== END 2024-04-13 16:29 | disposition home health service (06) ==
LOC: ED 03:43 → 3W 03:43 → SUATTDRO 07:18 → 3W 09:09

== ENCOUNTER 2024-06-24 14:53 | Inpatient (IN) ==
--- NOTE | 2024-06-24 15:17 | Emergency Department Note ---
Impression & Plan MALIK (acute kidney injury), Fall, Leukocytosis, Elevated troponin, Closed rib fracture ED Provider Note NAME: KEY CHILDRESS AGE: 84 SEX: M : 1940 ARRIVES VIA: Ambulance INFORMANT: Patient ED PROVIDER(S): Kristopher Bhandari DO CHIEF COMPLAINT: Trauma HPI: Patient is an 84-year-old male who presents to the ER following a fall. He notes that he believes he was going to the bathroom last night and he fell in the hallway. He does not remember exactly what happened but does believe that he lost his balance. He admits to right-sided chest pain and pelvis pain. He does admit to diffuse weakness. No shortness of breath. No nausea, vomiting, or diarrhea. No dysuria, urgency, or frequency. No other exacerbating or remitting factors. ADDITIONAL HISTORY OBTAINED: Per HPI Chronic Medical/Social Conditions Affecting Care: Per HPI PAST MEDICAL HISTORY:See Below PAST SURGICAL HISTORY:See Below FAMILY HISTORY:See Below SOCIAL HISTORY:See Below HOME MEDICATIONS:See Below ALLERGIES:See Below VITALS:See Below PHYSICAL EXAMINATION: GENERAL: Sitting up in bed, alert, well appearing, well nourished, no distress, non-toxic HEAD: Redness and some mild edema over the right forehead/cheek EYE EXAM: normal conjunctiva. PERRL and EOM's grossly intact. OROPHARYNX: no exudate, no erythema, lips, buccal mucosa, and tongue normal and mucous membranes are moist NECK: supple, no nuchal rigidity, no adenopathy, non-tender CHEST: Stable to compression over the anterior chest but tenderness over the right side LUNGS: Clear to auscultation. Normal chest wall mechanics HEART: no murmurs, S1 normal and S2 normal ABDOMEN: abdomen soft, non-tender, normo-active bowel sounds, no masses, no rebound or guarding. BACK: Back is symmetrical on inspection and there is no deformity, no midline tenderness, no CVA tenderness. PELVIS: Tenderness over the right pelvis SKIN: no rashes and no bruising UPPER EXTREMITIES: upper extremities are grossly normal. LOWER EXTREMITIES: Flexion-extension bilateral hips knees and ankles. Skin breakdown over bilateral knees. NEURO EXAM: Normal sensorium, cranial nerves II-XII grossly intact, normal speech, no gross weakness of arms, no gross weakness of legs. MEDICAL DECISION MAKING: Patient is AN 84-year-old male who presents ER for above-stated complaint. IV was established and blood work was obtained. Labs show mild leukocytosis 17,000. No significant anemia. INR 1.4. BMP with a small acidosis with a bicarb of 18 and a creatinine which is significantly elevated 2.7 up from a baseline of 1.2. LFTs and bilirubin were unremarkable. CK was unremarkable. Troponin mildly elevated at 200. Lipase was normal. UA was clean. Patient was given IV fluids and Gax[place] was placed. CT of the head cervical spine chest abdomen pelvis showed 3-4 left-sided rib fractures. Patient has no tenderness on the left but pain is on the right. Question if these are old. Patient Summar updated at bedside. Discussed case with the hospitalist for further evaluation management treatment. He does have right-sided pelvis pain but no findings on CT. Consults/Care Managements Discussions: Per [facility] Triage Nursing notes reviewed. Limited review of prior medical records performed Vital Signs: reviewed and remarkable for no significant abnormalities Differential diagnosis: Differential diagnoses include major intracranial, cervical, spinal, thoracic, abdominal, pelvic and neurologic injury. Fracture, contusion, sprain, strain, laceration, abrasions included as well. ER treatment provided: See below Diagnostics interpreted by me include EKG and cardiac monitoring as listed below: -Cardiac Monitoring: An order was placed for continuous cardiac monitoring. The monitor shows a rate of 92 with sinus rhythm. -ECG: Sinus rhythm rate of 90 Normal axis Poor baseline T wave inversion in the V2 through V4 QTc 499 -Laboratory studies:Interpreted by me as stated above in MDM and shown below. Imaging studies: Xrays: As interpreted by me: Portable AP upright 1 view of the chest shows no focal infiltrate CTs show: CT finch scan as described above showed multiple rib fractures Procedures: None Critical Care: None Past Med/Surg History Problem List (Updated 06/24/24 @ 20:43 by Kristopher Bhandari DO) Closed rib fracture (Acute) Elevated troponin (Acute) Leukocytosis (Acute) MALIK (acute kidney injury) (Acute) half-way current use of anticoagulant PAF (paroxysmal atrial fibrillation) Elevated troponin Hypertensive urgency Acute worsening of stage 3 chronic kidney disease Syncope Multiple contusions Multiple rib fractures Fall (Acute) Chest pain (Acute) Ambulatory dysfunction (Acute) Knee pain, left (Acute) HTN (hypertension) HLD (hyperlipidemia) CHF (congestive heart failure) Medical History Abdominal pain Viral illness Contusion of left shoulder Facial laceration CHI (closed head injury) No pertinent family history Surgical History H/O heart surgery Social History Smoking Status: Never smoker Tobacco Type: Smokeless Tobacco (Dip or Chew) Second Hand Exposure: No; Do You Dip or Chew Tobacco: No; Hx Alcohol Use: Yes Alcohol type: beer Hx Substance Use: No Preferred Language: Japanese Communication Ability: Effective Cupola Tender Required: No Beliefs That Will Affect Care: None Current Living Situation: Family Current Living Situation Comment: Lives with the Aunt. Feels Safe at Home: Yes Assistive Devices: Cane and Glasses Allergies Allergies Allergy/AdvReac Type Severity Reaction Status Date / Time No Known Allergies Allergy Unverified 11/26/23 15:12 Home Meds Home Medications Medication Instructions Recorded Confirmed atorvastatin 40 mg tablet 40 mg PO HS 06/07/19 06/24/24 docusate sodium 100 mg capsule 100 mg PO BID PRN Constipation 06/07/19 06/24/24 furosemide 20 mg tablet 40 mg PO QAM 06/07/19 06/24/24 warfarin 2.5 mg tablet 5 mg PO UD 06/07/19 06/24/24 acetaminophen 325 mg tablet 650 mg PO Q4H PRN pain/fever 04/11/24 06/24/24 diclofenac sodium 1 % topical gel 4 g topical UD 04/11/24 06/24/24 (Voltaren Arthritis Pain) Previous Rx's Medication Instructions Recorded carvedilol 25 mg tablet 12.5 mg (1/2 x 25 mg) PO BID 30 04/12/24 days #30 tabs Results & Data (ED) Vital Signs Vital Signs - 24 hr 06/24/24 15:00 06/24/24 16:04 06/24/24 16:04 Temperature 36.6 C 36.1 C L Temperature Source Axillary Gaxiola Cath ( Temp Sensing) Pulse Rate 95 H 97 H Pulse Rate [Finger] 95 H Respiratory Rate 18 18 18 Respiratory Effort / Characteristics Non-Labored Spontaneous Respiratory Depth Normal Blood Pressure 194/120 H Blood Pressure [Right Arm] 186/117 H Blood Pressure Mean 144 Blood Pressure Mean [Right Arm] 140 Blood Pressure Position [Right Arm] Lying Pulse Oximetry 96 97 97 Oxygen Delivery Method Room Air Room Air Room Air Sepsis New/Unexplained Change in Mental Status No Sepsis Action Taken by Nursing No Action Required Laboratory Data 06/24/24 15:15 06/24/24 15:15 Lab Results 06/24/24 06/24/24 06/24/24 Range/Units 15:15 15:36 17:06 WBC 17.11 H (4.8-10.8) K/ul RBC 5.38 (4.70-6.10) M/uL Hgb 16.0 (14.0-18.0) g/dl POC Hgb 15.0 (14.0-18.0) g/dl Hct 45.9 (42.0-52.0) % POC Hct 44 (42-52) % MCV 85.3 (80.0-100.0) fL MCH 29.7 (25.0-34.0) pg MCHC 34.9 (32.0-36.0) g/dL RDW Std Deviation 44.9 (36.4-46.3) fL RDW Coeff of Juanito 14.6 H (11.5-14.5) % Plt Count 241 (130-400) K/uL MPV 10.0 (9.4-12.4) fL Immature Gran % (Auto) 0.5 % Neut % (Auto) 86.0 % Lymph % (Auto) 6.3 % [place] % (Auto) 6.9 % Eos % (Auto) 0.1 % Baso % (Auto) 0.2 % Neut # (Auto) 14.73 H (1.40-6.50) K/uL Lymph # (Auto) 1.07 L (1.20-3.40) K/uL [place] # (Auto) 1.18 H (0.11-0.59) K/uL Eos # (Auto) 0.01 (0.00-0.50) K/uL Baso # (Auto) 0.03 (0.00-0.20) K/uL Immature Gran # (Auto) 0.09 (0.01-0.20) K/uL PT 14.6 H (9.0-12.0) Seconds INR 1.4 H (0.9-1.1) APTT 28 (21-31) Seconds PTT Ratio 1.0 POC Sodium 142 (135-144) mmol/L Sodium 141 (136-145) mmol/L POC Potassium 4.1 (3.3-5.0) mmol/L Potassium 4.4 (3.5-5.1) mmol/L POC Chloride 112 (101-112) mmol/L Chloride 108 H (98-107) mmol/L Carbon Dioxide 19 L (21-32) mmol/L POC Total CO2 18 L (24-31) mmol/L Anion Gap 14 H (3-11) POC Anion Gap 17.0 (16-25) mmol/L POC BUN 76 H (7-18) mg/dl BUN 79 H (6-23) mg/dl Creatinine 2.79 H (0.6-1.4) mg/dl POC Creatinine 3.0 H (0.6-1.3) mg/dl Est Cr Clr Drug Dosing 17.8 ml/min eGFR 21.40 BUN/Creatinine Ratio 28.3 H (10-20) Glucose 133 H (70-99(Fasting)) mg/dl POC Glucose (other) 135 H (70-99) mg/dl Calcium 9.5 (8.6-10.3) mg/dl POC Ioniz Calcium Rick 1.09 L (1.12-1.32) mmol/l Total Bilirubin 1.3 H (0.2-1.0) mg/dl AST 22 (13-39) U/L ALT 17 (7-52) U/L Alkaline Phosphatase 101 (34-104) U/L Total Creatine Kinase 172 (30-223) U/L Troponin I High Sens 214.0 H* 192.5 H* (0-20) pg/ml Total Protein 8.4 H (6.0-8.3) gm/dl Albumin 4.3 (3.4-5.0) gm/dl Globulin 4.1 H (2.5-4.0) gm/dl Albumin/Globulin Ratio 1.0 (0.9-2) Lipase 38 (11-82) U/L Urine Color Yellow Urine Appearance Cloudy A (Clear) Urine pH 5.0 (4.5-7.5) Ur Specific [place] 1.021 (1.000-1.030) Urine Protein 1+ H (Negative) Urine Glucose (UA) Negative (Negative) Urine Ketones Trace H (Negative) Urine Blood 1+ H (Negative) Urine Nitrite Negative (Negative) Urine Bilirubin Negative (Negative) Urine Urobilinogen Negative (Negative) Ur Leukocyte Esterase Negative (Negative) Urine WBC (Auto) 0-5 (0-5) /hpf Urine RBC (Auto) 0-2 (0-2) /hpf U Hyaline Cast (Auto) 3-5 H (0-2) /lpf U Epithel Cells (Auto) 0-2 (0-2) /hpf Urine Bacteria (Auto) None Seen (None Seen) Administered Medications Sodium Chloride (Nss) 1,000 mls @ 80 mls/hr IV .[id number] Stop: 06/25/24 17:59 Last Admin: 06/24/24 18:33 Dose: 80 mls/hr Documented By: HS Discontinued Medications Sodium Chloride (Nss) 1,000 mls @ 999 mls/hr IV .[id number] ONE Stop: 06/24/24 16:39 Last Infusion: 06/24/24 17:10 Dose: Infused Documented By: Admin: 06/24/24 16:07 Dose: 999 mls/hr Documented By: JULIA Labetalol HCl (Labetalol Hcl Iv 5 Mg/Ml 20ml) 5 mg IV NOW STA Stop: 06/24/24 17:45 Last Admin: 06/24/24 18:33 Dose: 5 mg Documented By: HS Imaging Data Radiologist's Impression: Chest X-Ray 06/24/24 15:11 XR chest 1V portable HISTORY: 84 years-old Male Trauma acute chest trauma. COMPARISON: 04/11/2024 TECHNIQUE: AP view of the chest FINDINGS: Cardiac silhouette is enlarged. Median sternotomy with cardiac valvular prosthesis. Mild chronic interstitial coarsening. No pneumothorax, pleural effusion or airspace consolidation. Left upper quadrant surgical clips. Acute mildly displaced fracture lateral left seventh rib with probable additional acute nondisplaced lateral left rib fractures. IMPRESSION: Acute left-sided rib fractures without pneumothorax identified. ACT 112: Negative or not required by law. The above report was generated using voice recognition software. It may contain grammatical, syntax or spelling errors. Electronically signed by: Lincoln Velasquez M.D. 06/24/2024 3:[address] 06/24/24 15:12 EXAM: CT Cervical Spine Without Intravenous Contrast INDICATION: Fall. TECHNIQUE: Axial computed tomography images of the cervical spine without intravenous contrast. Sagittal and coronal reformatted images were created and reviewed. This CT exam was performed using one or more of the following dose reduction techniques: automated exposure control, adjustment of the mA and/or kV according to patient size, and/or use of iterative reconstruction technique. COMPARISON: 11/26/2023 FINDINGS: Limitations: None. Vertebrae: Stable osteoporosis with multilevel mild to moderate facet arthrosis and moderate to severe spondylosis and uncal spurring from C3-C6. No acute fracture. No traumatic subluxation noted. Discs/spinal canal/neural foramina: There is moderate disc space narrowing at all levels. Moderate ventral canal and mild bilateral foraminal stenosis noted at C3-C4, C5-C6 and C6-C7. Moderate to severe canal and bilateral foraminal stenosis C4-C5. Soft tissues: No significant abnormality noted. Vasculature: Atherosclerotic calcification noted. Sinuses: Mild chronic bilateral maxillary sinus thickening noted. No sinus fluid visualized. Lung apices: No significant abnormality noted. IMPRESSION: No cervical fracture. Stable chronic changes. ACT 112: Negative or not required by law. Electronically signed by Aide Matias 06-24-2024 4:27 PM Abdomen/Pelvis CT 06/24/24 15:38 EXAM: CT Abdomen and Pelvis Without Intravenous Contrast INDICATION: Failed today. Abdominal pain. TECHNIQUE: Axial computed tomography images of the abdomen and pelvis without intravenous contrast. Sagittal and coronal reformatted images were created and reviewed. This CT exam was performed using one or more of the following dose reduction techniques: automated exposure control, adjustment of the mA and/or kV according to patient size, and/or use of iterative reconstruction technique. COMPARISON: No relevant prior studies available. FINDINGS: Limitations: Assessment of organ and aortic integrity is limited in the absence of IV contrast. Lung bases: No abnormality noted. Pleural space: No visualized pleural effusion or pneumothorax. Heart: Cardiomegaly. Aortic valve prosthesis noted. Dense coronary calcification. No pericardial effusion. There is mild pericardial calcification along the right atrium. Mediastinum: No abnormality noted. ABDOMEN: Liver: Lack of intravenous contrast limits detection of some masses. No abnormality noted. Gallbladder and bile ducts: No calcified stones or surrounding fluid. Pancreas: No pancreatic mass, calcification, inflammation or ductal dilation noted. Spleen: No significant abnormality noted. Adrenals: No significant abnormality noted. Kidneys and ureters: No abnormality noted. No stones. No hydronephrosis. No significant perinephric fluid. Stomach and bowel: Colonic diverticulosis without diverticulitis. No intestinal thickening or obstruction. PELVIS: Appendix: Well seen and appears normal. Bladder: Catheter balloon inflated in the urinary bladder which is collapsed and not optimally assessed. No visible stones. Reproductive: No abnormalities noted. ABDOMEN and PELVIS: Intraperitoneal space: No free air. No significant fluid collection. Bones/joints: There are acute fractures of the lateral left seventh, anterior left 4th through 6th ribs. Multilevel degenerative changes noted in the spine with moderate to severe canal stenosis most significant at L4-L5. No acute osseous abnormality. Soft tissues: There are small bilateral fat containing inguinal hernias. Vasculature: Atherosclerotic calcification of the aorta and branches. No aneurysm. Lymph nodes: No pathologically enlarged lymph nodes. IMPRESSION: 1. There are acute fractures of the lateral left seventh, anterior left 4th through 6th ribs. 2. Allowing for limitations secondary to lack of IV contrast, no traumatic change of the intra-abdominal or pelvic organs noted. ACT 112: Negative or not required by law. Electronically signed by Aide Matias 06-24-2024 4:[address] 06/24/24 15:38 EXAM: CT Chest Without Intravenous Contrast INDICATION: Fall. TECHNIQUE: Axial computed tomography images of the chest without intravenous contrast. Sagittal and coronal reformatted images were created and reviewed. This CT exam was performed using one or more of the following dose reduction techniques: automated exposure control, adjustment of the mA and/or kV according to patient size, and/or use of iterative reconstruction technique. COMPARISON: No relevant prior studies available. FINDINGS: Limitations: Assessment of aortic integrity limited in the absence of IV contrast. Lungs and pleural spaces: Scattered atelectasis in both lungs. No bronchiectasis, honeycombing or reticulation. No pleural effusion or pneumothorax. Heart: Cardiomegaly. Aortic valve prosthesis present. There is pericardial calcification along the bilateral atria. Thyroid: No abnormality noted. Bones/joints: Acute fracture left lateral seventh ribs displaced nearly 1 cortex width. There are acute nondisplaced fractures of the left anterior 3rd through 6th ribs. Age-indeterminate fractures right lateral 3rd through 6th ribs. Mild diffuse thoracic spondylosis. No vertebral body fracture or subluxation noted. Sternotomy well-healed. Soft tissues: No significant abnormality noted. Vasculature: Atherosclerotic calcification of the aorta and branches. No aneurysm. Lymph nodes: No enlarged lymph nodes. IMPRESSION: 1. Acute left and age-indeterminate right rib fractures as above. 2. No other traumatic change identified allowing for the lack of IV contrast. ACT 112: Negative or not required by law. Electronically signed by Aide Matias 06-24-2024 4:[address] 06/24/24 15:38 EXAM: CT Head Without Intravenous Contrast INDICATION: Fall this morning. TECHNIQUE: Axial computed tomography images of the head/brain without intravenous contrast. Sagittal and/or coronal reformats are provided. Sagittal and coronal reformatted images were created and reviewed. This CT exam was performed using one or more of the following dose reduction techniques: automated exposure control, adjustment of the mA and/or kV according to patient size, and/or use of iterative reconstruction technique. COMPARISON: 11/26/2023 FINDINGS: Limitations: None. Brain and extra-axial spaces: There is age appropriate cortical atrophy and chronic ischemic periventricular white matter hypodensity. No acute infarct, hemorrhage or mass noted. Bones/joints: No change old fracture of the medial wall right orbit. No acute fracture. Soft tissues: Small right frontal scalp hematoma noted. Vasculature: No acute abnormality noted. Sinuses: No layering fluid in the visualized portions of the paranasal sinuses. Mastoid air cells: No mastoid effusion. Orbits: No significant abnormality noted. IMPRESSION: 1. Cerebral atrophy. No acute changes. 2. Small right frontal scalp hematoma noted. ACT 112: Negative or not required by law. Electronically signed by Aide Matias 06-24-2024 4:25 PM Discharge Plan Visit Data Chief Complaint: Fall ED Provider: Kristopher Bhandari Discharge Problem: MALIK (acute kidney injury), Fall, Leukocytosis, Elevated troponin, Closed rib fracture Patient Disposition: Admitted As Inpatient Discharge Instructions Interventions: ED Discharge Assessment Last Done: 06/24/24 19:50 Discharge Problem: Fall Qualifiers: Encounter type: initial encounter Qualified Code(s): W19.XXXA - Unspecified fall, initial encounter Leukocytosis Qualifiers: Leukocytosis type: unspecified Qualified Code(s): D72.829 - Elevated white blood cell count, unspecified Closed rib fracture Qualifiers: Encounter type: initial encounter Rib fracture type: multiple ribs Laterality: left Qualified Code(s): S22.42XA - Multiple fractures of ribs, left side, initial encounter for closed fracture
[2024-06-24 15:47] LABS: Basophils # (auto) 0.03 K/uL (0.00-0.20); Basophils % (auto) 0.2 %; Eosinophils # (auto) 0.01 K/uL (0.00-0.50); Eosinophils % (auto) 0.1 %; Hematocrit (blood only) 45.9 % (42.0-52.0); Immature Granulocytes # (auto) 0.09 K/uL (0.01-0.20); Immature Granulocytes % (auto) 0.5 %; Lymphocytes # (auto) 1.07 K/uL (1.20-3.40); Lymphocytes % (auto) 6.3 %; Mean Corpuscular Hemoglobin 29.7 pg (25.0-34.0); Mean Corpuscular Hgb Conc 34.9 g/dL (32.0-36.0); Mean Corpuscular Volume 85.3 fL (80.0-100.0); Monocytes # (auto) 1.18 K/uL (0.11-0.59); Monocytes % (auto) 6.9 %; Neutrophils # (auto) 14.73 K/uL (1.40-6.50); Platelet Count 241 K/uL (130-400); RDW Coefficient of Variation 14.6 % (11.5-14.5); RDW Standard Deviation 44.9 fL (36.4-46.3); Red Blood Count 5.38 M/uL (4.70-6.10); White Blood Count 17.11 K/ul (4.8-10.8)
[2024-06-24 15:48] LABS: iSTAT Ionized Calcium 1.09 mmol/l (1.12-1.32); iSTAT Potassium 4.1 mmol/L (3.3-5.0)
[2024-06-24 15:54] LABS: Albumin Level 4.3 gm/dl (3.4-5.0); BUN Creatinine Ratio 28.3 (10-20); Bilirubin,Total 1.3 mg/dl (0.2-1.0); Calcium 9.5 mg/dl (8.6-10.3); Creatinine Clr Calc Pharmacy 17.8 ml/min; Globulin 4.1 gm/dl (2.5-4.0); Potassium 4.4 mmol/L (3.5-5.1); Total Protein 8.4 gm/dl (6.0-8.3)
--- NOTE | 2024-06-24 16:04 | XRay Report ---
XR chest 1V portable HISTORY: 84 years-old Male Trauma acute chest trauma. COMPARISON: 04/11/2024 TECHNIQUE: AP view of the chest FINDINGS: Cardiac silhouette is enlarged. Median sternotomy with cardiac valvular prosthesis. Mild chronic inte rstitial coarsening. No pneumothorax, pleural effusion or airspace consolidation. Left upper quadrant surgical clips. Acute mildly displaced fracture lateral left seventh rib with probable additional ac [place] nondisplaced lateral left rib fractures. IMPRESSION: Acute left-sided rib fractures without pneumothorax identified. ACT 112: Negative or not required by law. The above report was generated using voice recognition software. It may contain grammatical, syntax o r spelling errors. Electronically signed by: Lincoln Velasquez M.D. 06/24/2024 3:42 PM
[2024-06-24 16:07] LABS: INR 1.4 (0.9-1.1); Partial Thromboplastin Time 28 Seconds (21-31); Prothrombin Time 14.6 Seconds (9.0-12.0)
[2024-06-24] MEDS: SODIUM CHLORIDE 0.9% 1,000 ML IV ONE (16:07)
[2024-06-24 16:13] LABS: Appearance Urine Cloudy (Clear); Bacteria Urine Automated None Seen (None Seen); Bilirubin Urine Negative (Negative); Blood Urine 1+ (Negative); Color Urine Yellow; Epithelial Cell Urine Auto 0-2 /hpf (0-2); Glucose Urine UA Negative (Negative); Ketones Urine Trace (Negative); Leukocyte Esterase Urine Negative (Negative); Nitrite Urine Negative (Negative); Protein Urine 1+ (Negative); RBC Urine Automated 0-2 /hpf (0-2); Specific Gravity Urine 1.021 (1.000-1.030); Urobilinogen Urine Negative (Negative); WBC Urine Automated 0-5 /hpf (0-5)
--- NOTE | 2024-06-24 16:49 | CT Scan Report ---
EXAM: CT Head Without Intravenous Contrast INDICATION: Fall this morning. TECHNIQUE: Axial computed tomography images of the head/brain without intravenous contrast. Sagittal and/or coronal reformats are provided. Sagittal and coronal reformatted images were created and reviewed. This CT exam was performed using one or more of the following dose reduction techniques: automated exposure control, adjustment of the mA and/or kV according to patient size, and/or use of iterative reconstruction technique. COMPARISON: 11/26/2023 FINDINGS: Limitations: None. Brain and extra-axial spaces: There is age appropriate cortical atrophy and chronic ischemic periventricular white matter hypodensity. No acute infarct, hemorrhage or mass noted. Bones/joints: No change old fracture of the medial wall right orbit. No acute fracture. Soft tissues: Small right frontal scalp hematoma noted. Vasculature: No acute abnormality noted. Sinuses: No layering fluid in the visualized portions of the paranasal sinuses. Mastoid air cells: No mastoid effusion. Orbits: No significant abnormality noted. IMPRESSION: 1. Cerebral atrophy. No acute changes. 2. Small right frontal scalp hematoma noted. ACT 112: Negative or not required by law. Electronically signed by Aide Matias 06-24-2024 4:25 PM
--- NOTE | 2024-06-24 16:51 | CT Scan Report ---
EXAM: CT Cervical Spine Without Intravenous Contrast INDICATION: Fall. TECHNIQUE: Axial computed tomography images of the cervical spine without intravenous contrast. Sagittal and coronal reformatted images were created and reviewed. This CT exam was performed using one or more of the following dose reduction techniques: automated exposure control, adjustment of the mA and/or kV according to patient size, and/or use of iterative reconstruction technique. COMPARISON: 11/26/2023 FINDINGS: Limitations: None. Vertebrae: Stable osteoporosis with multilevel mild to moderate facet arthrosis and moderate to severe spondylosis and uncal spurring from C3-C6. No acute fracture. No traumatic subluxation noted. Discs/spinal canal/neural foramina: There is moderate disc space narrowing at all levels. Moderate ventral canal and mild bilateral foraminal stenosis noted at C3-C4, C5-C6 and C6-C7. Moderate to severe canal and bilateral foraminal stenosis C4-C5. Soft tissues: No significant abnormality noted. Vasculature: Atherosclerotic calcification noted. Sinuses: Mild chronic bilateral maxillary sinus thickening noted. No sinus fluid visualized. Lung apices: No significant abnormality noted. IMPRESSION: No cervical fracture. Stable chronic changes. ACT 112: Negative or not required by law. Electronically signed by Aide Matias 06-24-2024 4:27 PM
--- NOTE | 2024-06-24 16:54 | CT Scan Report ---
EXAM: CT Abdomen and Pelvis Without Intravenous Contrast INDICATION: Failed today. Abdominal pain. TECHNIQUE: Axial computed tomography images of the abdomen and pelvis without intravenous contrast. Sagittal and coronal reformatted images were created and reviewed. This CT exam was performed using one or more of the following dose reduction techniques: automated exposure control, adjustment of the mA and/or kV according to patient size, and/or use of iterative reconstruction technique. COMPARISON: No relevant prior studies available. FINDINGS: Limitations: Assessment of organ and aortic integrity is limited in the absence of IV contrast. Lung bases: No abnormality noted. Pleural space: No visualized pleural effusion or pneumothorax. Heart: Cardiomegaly. Aortic valve prosthesis noted. Dense coronary calcification. No pericardial effusion. There is mild pericardial calcification along the right atrium. Mediastinum: No abnormality noted. ABDOMEN: Liver: Lack of intravenous contrast limits detection of some masses. No abnormality noted. Gallbladder and bile ducts: No calcified stones or surrounding fluid. Pancreas: No pancreatic mass, calcification, inflammation or ductal dilation noted. Spleen: No significant abnormality noted. Adrenals: No significant abnormality noted. Kidneys and ureters: No abnormality noted. No stones. No hydronephrosis. No significant perinephric fluid. Stomach and bowel: Colonic diverticulosis without diverticulitis. No intestinal thickening or obstruction. PELVIS: Appendix: Well seen and appears normal. Bladder: Catheter balloon inflated in the urinary bladder which is collapsed and not optimally assessed. No visible stones. Reproductive: No abnormalities noted. ABDOMEN and PELVIS: Intraperitoneal space: No free air. No significant fluid collection. Bones/joints: There are acute fractures of the lateral left seventh, anterior left 4th through 6th ribs. Multilevel degenerative changes noted in the spine with moderate to severe canal stenosis most significant at L4-L5. No acute osseous abnormality. Soft tissues: There are small bilateral fat containing inguinal hernias. Vasculature: Atherosclerotic calcification of the aorta and branches. No aneurysm. Lymph nodes: No pathologically enlarged lymph nodes. IMPRESSION: 1. There are acute fractures of the lateral left seventh, anterior left 4th through 6th ribs. 2. Allowing for limitations secondary to lack of IV contrast, no traumatic change of the intra-abdominal or pelvic organs noted. ACT 112: Negative or not required by law. Electronically signed by Aide Matias 06-24-2024 4:32 PM
--- NOTE | 2024-06-24 17:06 | CT Scan Report ---
EXAM: CT Chest Without Intravenous Contrast INDICATION: Fall. TECHNIQUE: Axial computed tomography images of the chest without intravenous contrast. Sagittal and coronal reformatted images were created and reviewed. This CT exam was performed using one or more of the following dose reduction techniques: automated exposure control, adjustment of the mA and/or kV according to patient size, and/or use of iterative reconstruction technique. COMPARISON: No relevant prior studies available. FINDINGS: Limitations: Assessment of aortic integrity limited in the absence of IV contrast. Lungs and pleural spaces: Scattered atelectasis in both lungs. No bronchiectasis, honeycombing or reticulation. No pleural effusion or pneumothorax. Heart: Cardiomegaly. Aortic valve prosthesis present. There is pericardial calcification along the bilateral atria. Thyroid: No abnormality noted. Bones/joints: Acute fracture left lateral seventh ribs displaced nearly 1 cortex width. There are acute nondisplaced fractures of the left anterior 3rd through 6th ribs. Age-indeterminate fractures right lateral 3rd through 6th ribs. Mild diffuse thoracic spondylosis. No vertebral body fracture or subluxation noted. Sternotomy well-healed. Soft tissues: No significant abnormality noted. Vasculature: Atherosclerotic calcification of the aorta and branches. No aneurysm. Lymph nodes: No enlarged lymph nodes. IMPRESSION: 1. Acute left and age-indeterminate right rib fractures as above. 2. No other traumatic change identified allowing for the lack of IV contrast. ACT 112: Negative or not required by law. Electronically signed by Aide Matias 06-24-2024 4:45 PM
--- NOTE | 2024-06-24 17:22 | History & Physical Report ---
Date of Service June 24, 2024 Assessment & Plan (1) Fall: (2) Multiple rib fractures: (3) Multiple contusions: (4) Syncope: (5) Acute worsening of stage 3 chronic kidney disease: (6) Hypertensive urgency: (7) Elevated troponin: (8) PAF (paroxysmal atrial fibrillation): (9) snf current use of anticoagulant: Plan This is an 84 yr old M who has a significant PMH of CAD s/p CABG ( SCOTT to LAD and SVG to left circumflex, RCA and diagonal), Hx of bioprosthetic AVR, HTN, HLD, PAF on warfarin, CKD-3, cerebrovascular disease who presents to ED after sustaining a fall. Fall Probably syncopal event R frontal scalp hematoma Multiple rib fx Multiple areas of ecchymosis/bruising --CT Chest/A/P: There are acute fractures of the lateral left seventh, anterior left 4th through 6th ribs. Obtain Facial CT due to R sided facial swelling/erythema - appears traumatic supportive care with Prn O2, Incentive spirometry, lidocaine patch, scheduled APAP and prn IV Morphine Hypertensive Urgency in setting of HTN hx CAD s/p CABG Hx bioprosthetic AVR Elevated troponin with ecg changes give labetalol 5mg x 1 now, will add prn IV hydralazine on floor suspect BP elevated in setting of pain, elevated trop possible demand in setting of hypertensive urgency vs trauma continue carvediolol, but hold home dose lasix due to MALIK cycle trop, obtain echo, repeat ecg in a.m. Metabolic encephalopathy 2/2 Acute on Chronic CKD -3 : baseline cr 1.5, suspect pre renal in setting of poor intake, hold lasix, gentle IVF, repeat renal function in a.m., if not improvement consult nephro PAF: hold warfarin for now in setting of traumatic injuries, if hgb remaining stable for 24hrs consider resumption of warfarin, pt has had previous admissions for falls as well, consideration for risk vs benefit given age HLD: hold statin until CK returns in the a.m. DVT ppx: SCDS for now FULL CODE - previously pt was DNR/DNI, pt with some confusion, this may need to be reassessed when less confused PCP: Rufino Dispo: admit to med tele due to hypertensive urgency, PT/OT consulted, pt lives alone and likely needs additional support at home given previous admission with falls PT was seen and examined in collaboration with Dr. Vidales, please see addendum I spent a total of 59 minutes reviewing notes, outpatient records, labs, medication, coordinating, documenting and providing care for this patient excluding time spent in the performance of separately billed services. History of Present Illness Chief Complaint: Fell 1 day ago. Primary Care Provider: Akiko Joy MD This is an 84 yr old M who has a significant PMH of CAD s/p CABG ( SCOTT to LAD and SVG to left circumflex, RCA and diagonal), Hx of bioprosthetic AVR, HTN, HLD, PAF on warfarin, CKD-3, cerebrovascular disease who presents to ED after sustaining a fall. Pt son is at bedside who also helps elicit history. Hx obtained from pt and chart review. Son reports he was found on the kitchen floor this morning by a friend. He lives a lone at home and uses a cane/walker to walk. He reports epigastric pain and pain to side of chest. He is also complaining of pain in his back. He reports feeling a heaviness to his epigastrum. The pain started after he fell. He is unsure how he fell or if he passed out. He denies and SUH, dizziness, lightheaded, sob, n/v/d. He is unsure if he is eating/drinking well. He has a chronic dry cough. Son at bedside feels he is more confused that his normal. Pt denies any current pain. He reports being compliant with his medications. In ED Was significantly hypertensive. Lab work notable for an MALIK with BUN/creatinine of 79 and 2.79, initial troponin over 200 with a repeat at 2 hours of 192.5. Head CT revealed cerebral atrophy and small right frontal scalp hematoma. Chest CT revealed acute left and age- indeterminate right rib fractures. CT a/p pelvis There are acute fractures of the lateral left seventh, anterior left 4th through 6th ribs. Allergies Allergy/AdvReac Type Severity Reaction Status Date / Time No Known Allergies Allergy Unverified 11/26/23 15:12 Home Medications Medication Instructions Recorded Confirmed Type atorvastatin 40 mg tablet 40 mg PO HS 06/07/19 06/24/24 History docusate sodium 100 mg capsule 100 mg PO BID PRN Constipation 06/07/19 06/24/24 History furosemide 20 mg tablet 40 mg PO QAM 06/07/19 06/24/24 History warfarin 2.5 mg tablet 5 mg PO UD 06/07/19 06/24/24 History acetaminophen 325 mg tablet 650 mg PO Q4H PRN pain/fever 04/11/24 06/24/24 History diclofenac sodium 1 % topical gel 4 g topical UD 04/11/24 06/24/24 History (Voltaren Arthritis Pain) carvedilol 25 mg tablet 12.5 mg (1/2 x 25 mg) PO BID 30 04/12/24 06/24/24 Rx days #30 tabs Past Med/Surg History Problem List (Updated 06/24/24 @ 18:06 by Esthela Sherman 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 PAF (paroxysmal atrial fibrillation) Elevated troponin Hypertensive urgency Acute worsening of stage 3 chronic kidney disease Syncope Multiple contusions Multiple rib fractures Fall Chest pain (Acute) Ambulatory dysfunction (Acute) Knee pain, left (Acute) HTN (hypertension) HLD (hyperlipidemia) CHF (congestive heart failure) Medical History Abdominal pain Viral illness Contusion of left shoulder Facial laceration CHI (closed head injury) No pertinent family history Surgical History H/O heart surgery Social History Smoking Status: Never smoker Tobacco Type: Smokeless Tobacco (Dip or Chew) Second Hand Exposure: No; Do You Dip or Chew Tobacco: No; Hx Alcohol Use: Yes Alcohol type: beer Hx Substance Use: No Preferred Language: Persian Communication Ability: Effective 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 Feels Safe at Home: Yes Assistive Devices: Cane and Glasses Review of Systems Review of Systems: All systems reviewed & are unremarkable except as noted in HPI & below Physical Exam Physical Exam: please refer to Dr. Vidales addendum for physical exam findings. Results & Data Results & Data Vital Signs (Past 12 Hours) Vital Signs Temp Pulse Pulse Resp BP BP Pulse Ox 06/24/24 16:04 97 H 18 97 06/24/24 16:04 36.1 C L 95 H 18 186/117 H 97 06/24/24 15:00 36.6 C 95 H 18 194/120 H 96 O2 Del Method 06/24/24 16:04 Room Air 06/24/24 16:04 Room Air 06/24/24 15:00 Room Air Laboratory Results I have independently reviewed and interpreted patient's admitting labs including CBC, CMP, PTT, PT/INR, mag and troponin. Diagnostic Findings Chest X-Ray 06/24/24 15:11 XR chest 1V portable HISTORY: 84 years-old Male Trauma acute chest trauma. COMPARISON: 04/11/2024 TECHNIQUE: AP view of the chest FINDINGS: Cardiac silhouette is enlarged. Median sternotomy with cardiac valvular prosthesis. Mild chronic interstitial coarsening. No pneumothorax, pleural effusion or airspace consolidation. Left upper quadrant surgical clips. Acute mildly displaced fracture lateral left seventh rib with probable additional acute nondisplaced lateral left rib fractures. IMPRESSION: Acute left-sided rib fractures without pneumothorax identified. ACT 112: Negative or not required by law. The above report was generated using voice recognition software. It may contain grammatical, syntax or spelling errors. Electronically signed by: Lincoln Velasquez M.D. 06/24/2024 3:[address] 06/24/24 15:12 EXAM: CT Cervical Spine Without Intravenous Contrast INDICATION: Fall. TECHNIQUE: Axial computed tomography images of the cervical spine without intravenous contrast. Sagittal and coronal reformatted images were created and reviewed. This CT exam was performed using one or more of the following dose reduction techniques: automated exposure control, adjustment of the mA and/or kV according to patient size, and/or use of iterative reconstruction technique. COMPARISON: 11/26/2023 FINDINGS: Limitations: None. Vertebrae: Stable osteoporosis with multilevel mild to moderate facet arthrosis and moderate to severe spondylosis and uncal spurring from C3-C6. No acute fracture. No traumatic subluxation noted. Discs/spinal canal/neural foramina: There is moderate disc space narrowing at all levels. Moderate ventral canal and mild bilateral foraminal stenosis noted at C3-C4, C5-C6 and C6-C7. Moderate to severe canal and bilateral foraminal stenosis C4-C5. Soft tissues: No significant abnormality noted. Vasculature: Atherosclerotic calcification noted. Sinuses: Mild chronic bilateral maxillary sinus thickening noted. No sinus fluid visualized. Lung apices: No significant abnormality noted. IMPRESSION: No cervical fracture. Stable chronic changes. ACT 112: Negative or not required by law. Electronically signed by Aide Matias 06-24-2024 4:27 PM Abdomen/Pelvis CT 06/24/24 15:38 EXAM: CT Abdomen and Pelvis Without Intravenous Contrast INDICATION: Failed today. Abdominal pain. TECHNIQUE: Axial computed tomography images of the abdomen and pelvis without intravenous contrast. Sagittal and coronal reformatted images were created and reviewed. This CT exam was performed using one or more of the following dose reduction techniques: automated exposure control, adjustment of the mA and/or kV according to patient size, and/or use of iterative reconstruction technique. COMPARISON: No relevant prior studies available. FINDINGS: Limitations: Assessment of organ and aortic integrity is limited in the absence of IV contrast. Lung bases: No abnormality noted. Pleural space: No visualized pleural effusion or pneumothorax. Heart: Cardiomegaly. Aortic valve prosthesis noted. Dense coronary calcification. No pericardial effusion. There is mild pericardial calcification along the right atrium. Mediastinum: No abnormality noted. ABDOMEN: Liver: Lack of intravenous contrast limits detection of some masses. No abnormality noted. Gallbladder and bile ducts: No calcified stones or surrounding fluid. Pancreas: No pancreatic mass, calcification, inflammation or ductal dilation noted. Spleen: No significant abnormality noted. Adrenals: No significant abnormality noted. Kidneys and ureters: No abnormality noted. No stones. No hydronephrosis. No significant perinephric fluid. Stomach and bowel: Colonic diverticulosis without diverticulitis. No intestinal thickening or obstruction. PELVIS: Appendix: Well seen and appears normal. Bladder: Catheter balloon inflated in the urinary bladder which is collapsed and not optimally assessed. No visible stones. Reproductive: No abnormalities noted. ABDOMEN and PELVIS: Intraperitoneal space: No free air. No significant fluid collection. Bones/joints: There are acute fractures of the lateral left seventh, anterior left 4th through 6th ribs. Multilevel degenerative changes noted in the spine with moderate to severe canal stenosis most significant at L4-L5. No acute osseous abnormality. Soft tissues: There are small bilateral fat containing inguinal hernias. Vasculature: Atherosclerotic calcification of the aorta and branches. No aneurysm. Lymph nodes: No pathologically enlarged lymph nodes. IMPRESSION: 1. There are acute fractures of the lateral left seventh, anterior left 4th through 6th ribs. 2. Allowing for limitations secondary to lack of IV contrast, no traumatic change of the intra-abdominal or pelvic organs noted. ACT 112: Negative or not required by law. Electronically signed by Aide Matias 06-24-2024 4:[address] 06/24/24 15:38 EXAM: CT Chest Without Intravenous Contrast INDICATION: Fall. TECHNIQUE: Axial computed tomography images of the chest without intravenous contrast. Sagittal and coronal reformatted images were created and reviewed. This CT exam was performed using one or more of the following dose reduction techniques: automated exposure control, adjustment of the mA and/or kV according to patient size, and/or use of iterative reconstruction technique. COMPARISON: No relevant prior studies available. FINDINGS: Limitations: Assessment of aortic integrity limited in the absence of IV contrast. Lungs and pleural spaces: Scattered atelectasis in both lungs. No bronchiectasis, honeycombing or reticulation. No pleural effusion or pneumothorax. Heart: Cardiomegaly. Aortic valve prosthesis present. There is pericardial calcification along the bilateral atria. Thyroid: No abnormality noted. Bones/joints: Acute fracture left lateral seventh ribs displaced nearly 1 cortex width. There are acute nondisplaced fractures of the left anterior 3rd through 6th ribs. Age-indeterminate fractures right lateral 3rd through 6th ribs. Mild diffuse thoracic spondylosis. No vertebral body fracture or subluxation noted. Sternotomy well-healed. Soft tissues: No significant abnormality noted. Vasculature: Atherosclerotic calcification of the aorta and branches. No aneurysm. Lymph nodes: No enlarged lymph nodes. IMPRESSION: 1. Acute left and age-indeterminate right rib fractures as above. 2. No other traumatic change identified allowing for the lack of IV contrast. ACT 112: Negative or not required by law. Electronically signed by Aide Matias 06-24-2024 4:[address] 06/24/24 15:38 EXAM: CT Head Without Intravenous Contrast INDICATION: Fall this morning. TECHNIQUE: Axial computed tomography images of the head/brain without intravenous contrast. Sagittal and/or coronal reformats are provided. Sagittal and coronal reformatted images were created and reviewed. This CT exam was performed using one or more of the following dose reduction techniques: automated exposure control, adjustment of the mA and/or kV according to patient size, and/or use of iterative reconstruction technique. COMPARISON: 11/26/2023 FINDINGS: Limitations: None. Brain and extra-axial spaces: There is age appropriate cortical atrophy and chronic ischemic periventricular white matter hypodensity. No acute infarct, hemorrhage or mass noted. Bones/joints: No change old fracture of the medial wall right orbit. No acute fracture. Soft tissues: Small right frontal scalp hematoma noted. Vasculature: No acute abnormality noted. Sinuses: No layering fluid in the visualized portions of the paranasal sinuses. Mastoid air cells: No mastoid effusion. Orbits: No significant abnormality noted. IMPRESSION: 1. Cerebral atrophy. No acute changes. 2. Small right frontal scalp hematoma noted. ACT 112: Negative or not required by law. Electronically signed by Aide Matias 06-24-2024 4:25 PM Medications Administered Medication List Discontinued Medications Sodium Chloride (Nss) 1,000 mls @ 999 mls/hr IV .Q1H1M ONE Stop: 06/24/24 16:39 Last Infusion: 06/24/24 17:10 Dose: Infused Documented By: Admin: 06/24/24 16:07 Dose: 999 mls/hr Documented By: JULIA ECG Additional Comments: I have independently reviewed and interpreted patient's admitting EKG which revealed: 90 NSR, PAC,T wave inversion V2-V5 which is new from March COVID- Results Results COVID-19 Adm Lab Results: RBC 5.38 M/uL (4.70-6.10) 06/24/24 WBC 17.11 K/ul (4.8-10.8) H 06/24/24 Hgb 16.0 g/dl (14.0-18.0) 06/24/24 Hct 45.9 % (42.0-52.0) 06/24/24 Plt Count 241 K/uL (130-400) 06/24/24 Neutrophils (%) (Auto) 86.0 % 06/24/24 Lymphocytes (%) (Auto) 6.3 % 06/24/24 Monocytes # (Auto) 1.18 K/uL (0.11-0.59) H 06/24/24 Eosinophils # (Auto) 0.01 K/uL (0.00-0.50) 06/24/24 Neutrophils # (Auto) 14.73 K/uL (1.40-6.50) H 06/24/24 Lymphocytes # (Auto) 1.07 K/uL (1.20-3.40) L 06/24/24 Monocytes # (Auto) 1.18 K/uL (0.11-0.59) H 06/24/24 Eosinophils # (Auto) 0.01 K/uL (0.00-0.50) 06/24/24 Basophils # (Auto) 0.03 K/uL (0.00-0.20) 06/24/24 Immature Granulocyte # (Auto) 0.09 K/uL (0.01-0.20) 4 Na 141 mmol/L (136-145) 06/24/24 K 4.4 mmol/L (3.5-5.1) 06/24/24 Cl 108 mmol/L (98-107) H 06/24/24 CO2 19 mmol/L (21-32) L 06/24/24 Anion Gap 14 (3-11) H 06/24/24 BUN 79 mg/dl (6-23) H 06/24/24 Creatinine 2.79 mg/dl (0.6-1.4) H 06/24/24 BUN/Creatinine Ratio 28.3 (10-20) H 06/24/24 Glucose Level 133 mg/dl (70-99(Fasting)) H 06/24/24 Ca 9.5 mg/dl (8.6-10.3) 06/24/24 Total Bilirubin 1.3 mg/dl (0.2-1.0) H 06/24/24 AST/SGOT 22 U/L (13-39) 06/24/24 ALT/SGPT 17 U/L (7-52) 06/24/24 Alkaline Phosphatase 101 U/L (34-104) 06/24/24 Total Protein 8.4 gm/dl (6.0-8.3) H 06/24/24 Albumin 4.3 gm/dl (3.4-5.0) 06/24/24 Globulin 4.1 gm/dl (2.5-4.0) H 06/24/24 Albumin/Globulin Ratio 1.0 (0.9-2) 06/24/24 Total CK 172 U/L (30-223) 06/24/24 PTT 28 Seconds (21-31) 06/24/24 INR 1.4 (0.9-1.1) H 06/24/[address] 06/24/24 Chest X-Ray 06/24/24 Code Status & VTE Plan Code Status DNR/DNI VTE Prophylaxis Plan VTE Prophylaxis will be ordered: Yes Supervising Physician Co-Signing Physician Notes Patient is a 89-year-old male with history of CABG, hypertension, diastolic heart failure, aortic valve replacement, recurrent falls, ambulatory dysfunction and other medical problems presents with history of rib pain after sustaining a fall today. He was unsure whether he passed out but admits to have hit his head. He reports pain at epigastric region, back and left-sided chest pain. He was advised to use a walker for ambulation but he uses only a cane currently. Patient's son believes is slightly confused today. Please review HPI for complete details of presentation. I personally reviewed blood work and imaging studies. EKG showed normal sinus rhythm, PACs, left axis deviation. Initial troponin elevated. Also noted MALIK creatinine 2.7. Imaging studies suggestive of multiple rib fractures. INR subtherapeutic 1.4. Also imaging suggestive of right scalp hematoma. Physical Exam: Vitals signs as noted above General Appearance: Thin, frail, elderly, no apparent distress Head: normocephalic, +traumatic, Eyes: normal inspection, EOMI Neck: supple, Trachea midline Respiratory/Chest: Normal breath sounds, CTA, No accessory muscle use, + CABG scar Cardiovascular: S1, S2, No murmur Abdomen/GI:Soft, Non tender, Bowel sounds present Extremities/Musculoskeletal:normal inspection, no edema Neurologic/Psych:AAOX2, grossly no focal neurological deficits, decreased hearing Skin: normal color, warm, + multiple bruises epigastric, left-sided chest, B/L knees, Mechanical fall Possible concussion/syncope Right frontal scalp hematoma Multiple rib fractures Acute kidney injury Elevated troponin likely secondary to chest trauma Leukocytosis likely reactive Subtherapeutic INR Fall precautions, PT OT Will obtain echo Trend troponins, repeat EKG in the morning Consider cardiology evaluation if troponin continues to rise IV fluids Avoid nephrotoxic agents as able Hold anticoagulation for today Monitor on telemetry to rule out arrhythmias Will consider MRI brain if mental status does not improve I personally interviewed and examined at bedside. Patient's care is coordinated with Esthela Sherman PA-C. I have reviewed the advanced practitioner's d ocumentation, and I agree with plan of care. Please refer to the documentation above for details of patient's presentation and for discussion of other issues. I spent a total [id number] coordinating, documenting, and providing care for this patient excluding time spent in the performance of separately billed services.
[2024-06-24] MEDS: LABETALOL HCL IV 5 MG/ML 20ML IV STA (18:33)
[2024-06-24] MEDS: SODIUM CHLORIDE 0.9% 1,000 ML IV SCH ×2 (18:33→21:51)
--- NOTE | 2024-06-24 19:05 | CT Scan Report ---
EXAM: CT Maxillofacial Without Intravenous Contrast INDICATION: Fall. Bruising and redness to the right. TECHNIQUE: Axial computed tomography images of the face without intravenous contrast. Sagittal and coronal reformatted images were created and reviewed. This CT exam was performed using one or more of the following dose reduction techniques: automated exposure control, adjustment of the mA and/or kV according to patient size, and/or use of iterative reconstruction technique. COMPARISON: No relevant prior studies available. FINDINGS: Bones/joints: No acute changes. Soft tissues: No significant abnormality noted. Orbits: No abnormality noted. Sinuses: Mild chronic bilateral maxillary and ethmoid sinus thickening noted. No sinus fluid. Dental: There is mild apical erosive changes of the residual right molars. IMPRESSION: 1. No facial fracture noted. 2. Right dental disease without adjacent abscess. 3. Mild chronic bilateral maxillary sinusitis. ACT 112: Negative or not required by law. Electronically signed by Aide Matias 06-24-2024 7:05 PM
[2024-06-24] MEDS ORDERED: hydrALAZINE HCL 20 MG/ML VIAL IV PRN (19:50)
[2024-06-24] MEDS ORDERED: FAMOTIDINE 20 MG TAB PO PRN (19:50)
[2024-06-24] MEDS: LIDOCAINE 5% 1 PATCH TD SCH (22:01)
[2024-06-24] MEDS: ACETAMINOPHEN 325 MG TAB PO SCH (22:01)
[2024-06-24] MEDS: carvediloL 12.5 MG TAB PO SCH (22:02)
[2024-06-24] MEDS: DOCUSATE SODIUM 100 MG CAP PO SCH (22:02)
--- NOTE | 2024-06-24 23:37 | Ultrasound Report ---
Exam(s): US CAROTID EXAM: US Duplex Bilateral Extracranial Arteries CLINICAL HISTORY: Reason for exam: probably syncope. TECHNIQUE: Real-time duplex ultrasound scan of the extracranial arteries integrating B-mode two-dimensional vascular structure, Doppler spectral analysis and color flow Doppler imaging. COMPARISON: No relevant prior studies available. FINDINGS: Right common carotid artery: Mild plaque. 49 cm/s. Normal waveform. Right internal carotid artery: Plaque proximally. 51 cm/s. Normal waveform. Right external carotid artery: Calcified plaque. 204 cm/s. Right vertebral artery: 57 cm/s. Antegrade flow. Right ICA/CCA ratio: 1.0. Within normal limits. Left common carotid artery: No plaque. 56 cm/s. Normal waveform. Left internal carotid artery: Atheromatous disease of the bulb. 102 cm/s. Normal waveform. Left external carotid artery: 62 cm/s. No occlusion or significant stenosis on color flow and spectral Doppler imaging. Left vertebral artery: 63 cm/s. Antegrade flow. Left ICA/CCA ratio: 1.9. Within normal limits. Lymph nodes: Unremarkable. No lymphadenopathy. CAROTID STENOSIS REFERENCE USING SRU CRITERIA: Mild - <50% stenosis. ICA PSV is less than 125 cm/second and plaque or intimal thickening is visible. Moderate - 50-69% stenosis. ICA PSV is 125 to 230 cm/second and plaque is visible. Severe - 70-94% stenosis. ICA PSV is more than 230 cm/second and visible plaque with lumen narrowing is seen. Near occlusion - 95-99% stenosis. ICA PSV is variable and significant plaque with luminal narrowing is seen. Occluded - 100% stenosis. No flow identified. IMPRESSION: 1. Atheromatous plaque at the carotid bulbs bilaterally causing less than 50% stenosis. 2. 50-69% stenosis within the right ECA. Electronically signed by: Marcelo Lora MD 06/24/24 23:36 PM
--- NOTE | 2024-06-25 00:58 | Communication Note ---
Date of Service: June 25, 2024 Patient noted to be febrile and hypotensive. No cough or diarrhea symptoms as per RN. WBC 17 Elevated procalcitonin AP Sepsis Unknown source for now CS, Cefepime
[2024-06-25 01:12] LABS: Adenovirus PCR Not Detected (NotDetected); Bordetella parapertussis PCR Not Detected (NotDetected); Bordetella pertussis PCR Not Detected (NotDetected); Chlamydia pneumoniae PCR Not Detected (NotDetected); Coronavirus 229E PCR Not Detected (NotDetected); Coronavirus CoV-2 (COVID19)PCR Not Detected (NotDetected); Coronavirus HKU1 PCR Not Detected (NotDetected); Coronavirus NL63 PCR Not Detected (NotDetected); Coronavirus OC43PCR Not Detected (NotDetected); Human Metapneumovirus PCR Not Detected (NotDetected); Influenza A PCR Not Detected (NotDetected); Influenza B PCR Not Detected (NotDetected); Mycoplasma pneumoniae PCR Not Detected (NotDetected); Parainfluenza Virus 1 PCR Not Detected (NotDetected); Parainfluenza Virus 2 PCR Not Detected (NotDetected); Parainfluenza Virus 3 PCR Not Detected (NotDetected); Parainfluenza Virus 4 PCR Not Detected (NotDetected); Respiratory Syncytial VirusPCR Not Detected (NotDetected); Rhinovirus/Enterovirus PCR Not Detected (NotDetected)
[2024-06-25] MEDS: CEFEPIME 2000MG 2,000 MG/20 ML SYR IV ONE (01:27)
[2024-06-25 06:42] LABS: Hematocrit (blood only) 37.1 % (42.0-52.0); Hemoglobin 12.5 g/dl (14.0-18.0); Mean Corpuscular Hemoglobin 29.2 pg (25.0-34.0); Mean Corpuscular Hgb Conc 33.7 g/dL (32.0-36.0); Mean Corpuscular Volume 86.7 fL (80.0-100.0); Mean Platelet Volume 10.3 fL (9.4-12.4); Platelet Count 182 K/uL (130-400); RDW Coefficient of Variation 14.8 % (11.5-14.5); Red Blood Count 4.28 M/uL (4.70-6.10); White Blood Count 11.93 K/ul (4.8-10.8)
[2024-06-25 06:44] LABS: Albumin Level 3.1 gm/dl (3.4-5.0); BUN Creatinine Ratio 32.4 (10-20); Bilirubin,Total 0.8 mg/dl (0.2-1.0); Calcium 8.4 mg/dl (8.6-10.3); Creatinine Clr Calc Pharmacy 19.6 ml/min; Globulin 3.1 gm/dl (2.5-4.0); Magnesium 2.7 mg/dl (1.7-2.4); Potassium 4.1 mmol/L (3.5-5.1); Total Protein 6.2 gm/dl (6.0-8.3)
[2024-06-25 06:53] LABS: INR 1.5 (0.9-1.1)
[2024-06-25 07:05] LABS: Troponin I High Sensitivity 152.1 pg/ml (0-20)
[2024-06-25 07:37] LABS: Basophils # (auto) 0.01 K/uL (0.00-0.20); Basophils % (auto) 0.1 %; Eosinophils # (auto) 0.01 K/uL (0.00-0.50); Eosinophils % (auto) 0.1 %; Immature Granulocytes # (auto) 0.09 K/uL (0.01-0.20); Immature Granulocytes % (auto) 0.8 %; Lymphocytes # (auto) 0.98 K/uL (1.20-3.40); Lymphocytes % (auto) 8.2 %; Monocytes # (auto) 1.18 K/uL (0.11-0.59); Monocytes % (auto) 9.9 %; Neutrophils # (auto) 9.66 K/uL (1.40-6.50); Neutrophils % (auto) 80.9 %
--- NOTE | 2024-06-25 09:00 | Electrocardiogram Report ---
Test Reason : Blood Pressure : */* mmHG Vent. Rate : 90 BPM Atrial Rate : 90 BPM P-R Int : 168 ms QRS Dur : 100 ms QT Int : 408 ms P-R-T Axes : 14 -42 75 degrees QTcB Int : 499 ms Poor data quality, interpretation may be adversely affected Sinus rhythm with with occasional Premature ventricular complexes Left anterior fascicular block T-wave inversion in Anterior leads , consider ischemia Abnormal ECG When compared with ECG of 11-Apr-2024 03:54, T wave inversion now evident in Anterior leads Premature ventricular complexes now present Confirmed by Robb Mast ([id number]) on 06/25/2024 9:00:13 AM Referred By: REFERRED SELF Confirmed By: Robb Mast
[2024-06-25] MEDS: MoRPHine SULFATE 2 MG/ML CARP IV PRN (09:58)
--- NOTE | 2024-06-25 12:31 | Electrocardiogram Report ---
Test Reason : Blood Pressure : */* mmHG Vent. Rate : 74 BPM Atrial Rate : 72 BPM P-R Int : * ms QRS Dur : 106 ms QT Int : 438 ms P-R-T Axes : * -31 44 degrees QTcB Int : 486 ms Probable Sinus rhythm with occasional Premature ventricular complexes with occasional Premature atria l complexes Left anterior fascicular block T wave abnormality, consider anterior ischemia Abnormal ECG When compared with ECG of 24-Jun-2024 15:19, No significant change Confirmed by Robb Mast ([id number]) on 06/25/2024 12:31:15 PM Referred By: REFERRED SELF Confirmed By: Robb Mast
--- NOTE | 2024-06-25 13:43 | Hospitalist Progress Note ---
Date of Service June 25, 2024 Assessment & Plan (1) Fall: (2) Multiple rib fractures: (3) Multiple contusions: (4) Syncope: (5) Acute worsening of stage 3 chronic kidney disease: (6) Hypertensive urgency: (7) Elevated troponin: (8) PAF (paroxysmal atrial fibrillation): (9) half-way current use of anticoagulant: Plan 84 yr old M who has a significant PMH of CAD s/p CABG ( SCOTT to LAD and SVG to left circumflex, RCA and diagonal), Hx of bioprosthetic AVR, HTN, HLD, PAF on warfarin, CKD-3, cerebrovascular disease who presents to ED after sustaining a fall. He was found on the kitchen floor by a friend, patient lives alone at home and uses cane/walker to move around. Patient's dtr notes that patient has fallen 9-10 times in the last 1 year. He is being managed for the following: Fall, Probably syncopal event R frontal scalp hematoma Multiple rib fx Multiple areas of ecchymosis/bruising at presentation CT Chest/A/P: There are acute fractures of the lateral left seventh, anterior left 4th through 6th ribs. Face CT: No fractures. Right dental disease without adjacent abscess. Mild chronic bilateral maxillary sinusitis. supportive care with Prn O2, Incentive spirometry, lidocaine patch, scheduled APAP and prn IV Morphine Patient's daughter states that patient had fallen at least 9-10 times in the last 1 year, discussion ongoing for suitability of warfarin going forward. She states that she will speak with her brother prior to reaching to conclusion. PT/OT Hypertensive Urgency in setting of acute distress (fall) CAD s/p CABG Hx bioprosthetic AVR Elevated troponin, Likely demand ischemia Status post IV BP medication in the ED, troponin down trended, patient with no chest pain. Echo with EF of 60 to 65%, LV wall motion normal, LV systolic function normal. Continue home Coreg, Lasix on hold due to MALIK. Continue telemetry monitoring for now. Metabolic encephalopathy 2/2 Acute on Chronic CKD -3 : baseline cr 1.5, Admitting creatinine of 2.79, suspect pre renal in setting of poor intake, hold lasix, c/w gentle IVF, repeat renal function in a.m., creatinine slowly improving, 2.53 today. Mild fever: noted overnight 06/24-06/25. Admitting WBC was elevated, procalcitonin was elevated [ISO MALIK with CKD]. Admitting CT Chest w/ no infxn, UA neg for uti, Admitting bl cx pending. No open wounds and cellulitis noted. Pt started on cefepime 06/25 early am, will continue, follow blood culture. if blood cultures negative, consider discontinuing antibiotic and monitoring off of antibiotic. PAF: hold warfarin for now in setting of traumatic injuries, discussion regarding warfarin initiation ongoing w/ family and patient. HLD: c/w home statin DVT ppx: SCDS for now FULL CODE - previously pt was DNR/DNI, pt with some confusion, this may need to be reassessed when less confused PCP: Rufino Dispo: PT/OT, pt lives alone and likely needs additional support at home given previous admission with falls Admission and Anticipated Discharge Date Admission Date: June 24, 2024 Subjective Patient was seen and examined at bedside. Patient's daughter at bedside was also updated on plan of care. Patient was lying in bed, on room air, NAD, reports pain fairly under control. Patient reports not feeling well in the recent past week, denies fever, patient's daughter reports that patient has complained of not feeling well in the last few weeks. Patient denies sore throat or pain or burning with passing urine. Patient's daughter states that patient had fallen 9-10 times in the last year. Physical Exam Physical Exam: General Appearance: Thin, frail, elderly, no apparent distress Head: normocephalic, +traumatic, Eyes: normal inspection, EOMI Neck: supple, Trachea midline Respiratory/Chest: Normal breath sounds, CTA, No accessory muscle use, + CABG scar Cardiovascular: S1, S2, No murmur Abdomen/GI:Soft, Non tender, Bowel sounds present Extremities/Musculoskeletal:normal inspection, no edema Neurologic/Psych:AAOX2, grossly no focal neurological deficits, decreased hearing Skin: normal color, warm, + multiple bruises epigastric, left-sided chest, B/L knees, Results & Data Results & Data Vital Signs (Past 12 Hours) Vital Signs Temp Pulse Pulse Resp BP BP BP 06/25/24 11:25 36.2 C L 68 18 117/66 06/25/24 07:54 36.3 C L 73 19 157/89 H 06/25/24 07:00 71 06/25/24 03:44 37.7 C H 75 20 174/77 H 06/25/24 02:03 72 23 114/67 Pulse Ox O2 Del Method 06/25/24 11:25 97 Room Air 06/25/24 07:54 97 Room Air 06/25/24 07:00 06/25/24 03:44 95 Room Air 06/25/24 02:03 97 Room Air (1) Fall Encounter type: initial encounter Qualified Code(s): W19.XXXA - Unspecified fall, initial encounter
[2024-06-25] MEDS: CEFEPIME 1000MG 1,000 MG/10 ML SYR IV SCH (14:21)
[2024-06-25] MEDS: MELATONIN 3 MG TAB PO PRN (20:20)
[2024-06-25] MEDS: ATORVASTATIN 40 MG TAB PO SCH (20:20)
[2024-06-26 06:06] LABS: Hematocrit (blood only) 32.5 % (42.0-52.0); Hemoglobin 10.7 g/dl (14.0-18.0); Mean Corpuscular Hgb Conc 32.9 g/dL (32.0-36.0); Mean Corpuscular Volume 88.1 fL (80.0-100.0); Mean Platelet Volume 10.3 fL (9.4-12.4); Platelet Count 149 K/uL (130-400); RDW Standard Deviation 48.1 fL (36.4-46.3); Red Blood Count 3.69 M/uL (4.70-6.10); White Blood Count 8.76 K/ul (4.8-10.8)
[2024-06-26 06:24] LABS: Calcium 7.8 mg/dl (8.6-10.3); Creatinine Clr Calc Pharmacy 23.4 ml/min; Magnesium 2.6 mg/dl (1.7-2.4); Potassium 3.8 mmol/L (3.5-5.1)
[2024-06-26] MEDS: POLYETHYLENE (MIRALAX) 17 GM PACK PO PRN (09:54)
--- OUTSIDE RECORDS SUMMARY | 2024-06-26 10:02 | External Medical Summary | Summary of Care ---
Author Name Unknown Organization [facility] Address [address] [facility] [place] [address] Phone [phone] Care Team Providers Care Enrollment Services Dean Name Role Phone Rebeca Mendez PA-C Primary Care Provider [phone]- [phone] Reason for Visit * Reason Comments Dosage Adjustment Via Phone (anticoag Cl inic) Encounter Details Date Type Department Care Team (Late st Contact Info) Description 05/13/2024 6:00 AM EDT Anticoagulation Centralized Clinical Pharmacy Services, Juvenal Guerrero [address] [place] [address] [place] [address] [place] [address] Paroxysmal atrial fibrillation (HCC)* Allergies No known active allergiesdocumented as of this encounter (statuses as of 05/13/2024) Medications Medication Sig Dispensed Refills Start Date [...] on phone. 270 Tablet 1 12/11/2023 Active Atorvastatin Calcium 40 MG Oral Tablet (Lipitor)Indications :Dyslipidemia, goal LDL below 100 TAKE 1 TABLET BY MOUTH EVERYDAY AT BEDTIME 90 Tablet 1 04/07/2024 Active Carvedilol 12.5 MG Oral Tablet (Coreg)Indications:H ypertensive kidney disease with stage 3a chronic kidney disease (HCC),Paroxysmal atrial fibrillation (HCC) Take 1 Tablet by mouth in the morning and 1 Tablet in the evening. 180 Tablet 1 04/19/2024 Active Furosemide 20 MG Oral Tablet (Lasix)Indications:C oronary artery disease involving [place] coronary artery of [place] heart without angina pectoris TAKE 2 TABLETS BY MOUTH EVERY DAY 180 Tablet 1 04/21/2024 Active documented as of this encounter (statuses as of 05/13/2024) Active Problems Problem Noted Date Diagnosed Date [...] as of this encounter (statuses as of 05/13/2024) Resolved Problems Problem Noted Date Diagnosed Date [...] as of this encounter (statuses as of 05/13/2024) Immunizations Name Administration Dates Next Due COVID-19 mRNA, LNP-s, No Pre serve, 2-Dose Series (Moderna) 11/28/2020 COVID-19, MRNA-LNP, 23-24, P F, 30 MCG/0.3 mL, 12 YRS AND ABOVE, IM (PFIZER-Comirnaty) 09/22/2023 Pneumococcal Conjugate Vacc, 13 Valent (Prevnar) 11/23/2015,03/14/2012 Pneumococcal Polysaccharide PPV23 (Pneumovax) 03/14/2012 Seasonal Influenza Vac., MDV , IM, 0.5 mL (Fluzone) 04/13/2017,06/14/2014,03/24/2013 Seasonal Influenza, High Dos e, Trivalent, PF, IM (Fluzone HD) 04/07/2024 Seasonal Influenza, PF, 6 M & above, IM , (FluLaval or Fluzone) 05/07/2018 Seasonal Influenza, Quadriva lent Hd (Fluzone Hd) 03/26/2023 Seasonal Influenza, Quadriva lent, No Preserve, IM 04/16/2016,05/04/2015 documented as of this encounter Social History [...] this encounter Progress Notes * Yuli Castillo, stone setter metal optical frames - 05/13/2024 9:52 AM EDT Contacts Contact Date/Time Type Contact Phone/Fax 05/13/2024 09:50 AM EDT Phone (Outgoing) Mal Tran (Self) [phone] (H) Spoke to Patient Subjective Patient Findings [...] date communicated as noted by Pharmacist: Yes YULI CASTILLO CPhT 05/13/2024, 9:52 AM * Monique Andrews RPh - 05/13/2024 7:53 AM EDT Coumadin Clinic (region specific) Objective Current Warfarin Dose As of 05/13/2024 Warfarin maintenance plan: 7.5 mg (2.5 mg x 3) every Tue; 5 mg (2.5 mg x 2) all other days INR Result As of 05/13/2024 INR goal: 2.0-3.0 INR used for dosin.1 (05/12/2024) Assessment & Plan Warfarin Plan As of 05/13/2024 Full warfarin instructions: 7.5 mg every Tue; 5 mg all other days No change documented: Monique Andrews RPh Next INR check: 05/26/2024 Repeat PT/INR in 2 week(s) Weekly dose: not changed Additional Dosing Information: Description [facility] Tech to contact patient with dose instructions as noted. Monique Andrews RPh 05/13/2024, 7:53 AM documented in this encounter Plan of Treatment Upcoming Encounters Date Type Department Care Team (Late st Contact Info) Description 05/26/2024 7:00 AM EST Laboratory Lab Mobile Phlebotomy [facility] [address] [facility] [place] [address] Mvmg, Gml Mobile Home Draw [address] [place] [address] 05/27/2024 6:00 AM EST Anticoagulation Centralized Clinical Pharmacy Services, Juvenal Guerrero [address] [place] [address] [place] [address] [place] [address] 09/24/2024 1:40 PM EDT Office Visit Family Medicine [address] [place] [phone] Akiko Joy MD [address] [place] [address] [place] [address] Health Maintenance Due Date Last Done Comments DTap/Tdap Vaccines (1 - Tdap) 1959 Zoster Vaccines (1 of 2) 1988 Adult Wellness Visit 02/18/2020 02/17/2019 Depression Screening 02/18/2020 02/17/2019 COVID-19 Vaccine ( season) 2024 09/22/2023, 09/22/2023, 11/28/2020 Albumin/Creatinine Ratio 04/07/2025 04/07/2024 CKD HGB USE SMARTSET 14895 04/07/202504/07, 04/07/2024, 12/10/2023, Additional history exists CKD PHOS USE SMARTSET 35766 04/07/202503/15, 02/26/2023, 02/20/2021, Additional history exists Pneumococcal Vaccine: 65+ Years [...] fibrillation documented in this encounter Care Teams Enrollment Services Dean Relationship Specialty Start Date End Date Rebeca Mendez PA-C [address] [place] [address] [place] [address] PCP - General Physician Runner Worker 05/03/24 documented as of this encounter
--- OUTSIDE RECORDS SUMMARY | 2024-06-26 10:02 | External Medical Summary | Summary of Care ---
Author Name Unknown Organization [facility] Address [address] [facility] [place] [address] Phone [phone] Care Team Providers Care Leather Roller Name Role Phone Rebeca Mendez PA-C Primary Care Provider +1- [phone] Reason for Visit * Reason Comments Dosage Adjustment Via Phone (anticoag Cl inic) Encounter Details Date Type Department Care Team (Late st Contact Info) Description 05/27/2024 6:00 AM EST Anticoagulation Centralized Clinical Pharmacy Services, Juvenal Guerrero [address] [place] [address] [place] [address] [facility], [address] [place] [address] Paroxysmal atrial fibrillation (HCC)* Allergies No known active allergiesdocumented as of this encounter (statuses as of 05/27/2024) Medications Acetaminophen 325 MG Oral Tablet (Tylenol) Take 2 Tablets by mouth every 4 hours as needed for Fever >38C(100.5F), Pain, Severe, Pain, Moderate or Pain, Mild. 4 Active Diclofenac Sodium 1 % External Gel (Voltaren) Apply topically to affected area 4 times a day as needed (joint and muscle pain). Apply 4g to knee up to 4 times a day 100 g 4 Active Warfarin Sodium 2.5 MG Oral Tablet (Coumadin)Indicat ions:Unspecified atrial fibrillation (HCC) Take 2-3 tablets by mouth daily as directed by Coumadin Clinic on phone. 270 Tablet 1 4 Active Atorvastatin Calcium 40 MG Oral Tablet (Lipitor)Indicati ons:Dyslipidemia, goal LDL below 100 TAKE 1 TABLET BY MOUTH EVERYDAY AT BEDTIME 90 Tablet 1 4 Active Carvedilol 12.5 MG Oral Tablet (Coreg)Indication s:Hypertensive kidney disease with stage 3a chronic kidney disease (HCC),Paroxysmal atrial fibrillation (HCC) Take 1 Tablet by mouth in the morning and 1 Tablet in the evening. 180 Tablet 1 4 Active Furosemide 20 MG Oral Tablet (Lasix)Indication s:Coronary artery disease involving [place] coronary artery of [place] heart without angina pectoris TAKE 2 TABLETS BY MOUTH EVERY DAY 180 Tablet 1 4 Active documented as of this encounter (statuses as of 05/27/2024) Active Problems Problem Noted Date Diagnosed Date [...] as of this encounter (statuses as of 05/27/2024) Resolved Problems Problem Noted Date Diagnosed Date [...] as of this encounter (statuses as of 05/27/2024) Immunizations Name Administration Dates Next Due COVID-19 mRNA, LNP-s, No Pre serve, 2-Dose Series (Moderna) 11/28/2020 COVID-19, MRNA-LNP, PF, 30 M CG/0.3 mL, 12 YRS AND ABOVE, IM (PFIZER-Comirnaty) [...] Assigned at Male 02/17/2019 9:08 AM EDT Legal Sex Male 5:28 AM EST Gender Identity Male 02/17/2019 9:08 AM EDT Sexual Orientation Not on file documented as of this encounter Progress Notes * Monique Andrews [facility] - 05/27/2024 11:16 AM EST Noted. Pt has weekly dose, will follow up once INR received. Monique Andrews Rp, Pharm.D. Clinical Pharmacist [facility] ([facility]) [phone] 05/27/2024,11:16 AM * Yuli Castillo CPhT - 05/26/2024 3:21 PM EST GML marked patient a no show for INR draw, with a note that he is out of town until middle of June. They rescheduled patient for PT/INR draw on 06/30. Follow up call scheduled. Please advise as that is greater than 1 week from recommended INR check. User Action Outcome Comment CY WILLETT 05/26/2024 4:52 AM patient out of town reschdule for 06/30 Thank you, Yuli Castillo CPhT Wedding Consultant II [facility] ([facility]) 05/26/2024,3:22 PM documented in this encounter Plan of Treatment Upcoming Encounters Date Type Department Care Team (Late st Contact Info) Description 06/30/2024 7:05 AM EST Laboratory Lab Mobile Phlebotomy [facility] [address] [facility] [place] [address] Mvmg, Gml Mobile Home Draw [address] [employer] [place] [address] 07/01/2024 6:00 AM EST Anticoagulation Centralized Clinical Pharmacy Services, Juvenal Guerrero [address] [place] [address] [place] [address] [facility], [address] [place] [address] 09/24/2024 1:40 PM EDT Office Visit Family Medicine [address] [place] [phone] Akiko Joy MD [address] [place] [address] [place] [address] Health Maintenance Due Date Last Done Comments DTap/Tdap Vaccines (1 - Tdap) 1959 Zoster Vaccines (1 of 2) 1988 Adult Wellness Visit 02/18/2020 02/17/2019 Depression Screening 02/18/2020 02/17/2019 COVID-19 Vaccine (3 - season) 2024 09/22/2023, 09/22/2023, 11/28/2020 Albumin/Creatinine Ratio 04/07/2025 04/07/2024 CKD HGB USE SMARTSET 16367 04/07/202504/07, 04/07/2024, 12/10/2023, Additional history exists CKD PHOS USE SMARTSET 91495 04/07/202503/15, 02/26/2023, 02/20/2021, Additional history exists Pneumococcal [...] fibrillation documented in this encounter Care Teams Leather Roller Relationship Specialty Start Date End Date Rebeca Mendez PA-C [address] [place] [address] [place] [address] PCP - General Physician Layout Operator 05/03/24 documented as of this encounter
--- OUTSIDE RECORDS SUMMARY | 2024-06-26 10:03 | External Medical Summary ---
Author Name Unknown Address Unknown Organization [id number]:[facility] [place] [address] [place] [address] Laboratory Report Ordering Provider Test Date Status ALLYSONSHON 04/28/2024 07:41:00 Final Please draw PT/INR every 1-4 weeks or as requested by the [facility] Coumadin Clinic

Warfarin Therapy
INR: 2.0-3.0 conventional anticoagulation
INR: 2.5-3.5 high intensity anticoagulation Observation Date Value Abnormality Reference (Units ) Status PT 04/28/2024 07:41:00 34.8 Above high normal 11 .6-15.2 (seconds) Final INR 04/28/2024 07:41:00 3.4 Above high normal 0. 8-1.2 Final Performing Location [facility] [place] [address] [place] [address]
--- OUTSIDE RECORDS SUMMARY | 2024-06-26 10:03 | External Medical Summary | Summary of Care ---
Author Name Unknown Organization [facility] Address [address] [facility] [place] [address] Phone [phone] Care Team Providers Care Ice Cream Maker Name Role Phone Akiko Joy MD Primary Care Provide r Reason for Visit * Reason Comments Dosage Adjustment Via Phone (anticoag Cl inic) Encounter Details Date Type Department Care Team (Late st Contact Info) Description 04/29/2024 6:00 AM EDT Anticoagulation Centralized Clinical Pharmacy Services, Juvenal Guerrero [address] [place] [address] [place] [address] [facility], [address] [place] [address] Paroxysmal atrial fibrillation (HCC)* Allergies No known active allergiesdocumented as of this encounter (statuses as of 04/29/2024) Medications Medication Sig Dispensed Refills Start Date [...] Oral Tablet (Lasix)Indications:C oronary artery disease involving [place] coronary artery of [place] heart without angina pectoris TAKE 2 TABLETS BY MOUTH EVERY DAY 180 Tablet 1 04/21/2024 Active documented as of this encounter (statuses as of 04/29/2024) Active Problems Problem Noted Date Diagnosed Date [...] as of this encounter (statuses as of 04/29/2024) Resolved Problems Problem Noted Date Diagnosed Date [...] as of this encounter (statuses as of 04/29/2024) Immunizations Name Administration Dates Next Due COVID-19 [...] as of this encounter Progress Notes * uYli Castillo, oysterman - 04/29/2024 9:20 AM EDT Contacts Contact Date/Time Type Contact Phone/Fax 04/29/2024 09:17 AM EDT Phone (Outgoing) Mal Tran (Self) [phone] (H) Spoke to Patient Subjective Patient Findings [...] as noted by Pharmacist: Yes YULI CASTILLO oysterman 04/29/2024, 9:20 AM * Monique Andrews RPh - 04/29/2024 8:09 AM EDT Images from the original note were not included. Coumadin Clinic (region specific) Objective Current Warfarin Dose As of 04/29/2024 Warfarin maintenance plan: 7.5 mg (2.5 mg x 3) every Tue; 5 mg (2.5 mg x 2) all other days INR Result As of 04/29/2024 INR goal: 2.0-3.0 INR used for dosin.4 (04/28/2024) Assessment & Plan Warfarin Plan As of 04/29/2024 Full warfarin instructions: 04/29: Hold; Otherwise 7.5 mg every Tue; 5 mg all other days Next INR check: 05/12/2024 Repeat PT/INR in 2 week(s) Weekly dose: not changed Additional Dosing Information: Description [facility] ([facility]) Tech to contact patient with dose instructions as noted. Monique Andrews RPh 04/29/2024, 8:09 AM documented in this encounter Plan of Treatment Upcoming Encounters Date Type Department Care Team ([facility] Contact Info) Description 05/13/2024 6:00 AM EDT Anticoagulation Centralized Clinical Pharmacy Services, Juvenal Guerrero [address] [place] [address] [place] [address] [facility] [address] [place] [address] 09/24/2024 1:40 PM EDT Office Visit Family Medicine [address] [place] [phone] Akiko Joy MD [address] [place] [address] [place] [address] Health Maintenance Due Date Last Done Comments DTap/Tdap Vaccines (1 - Tdap) 1959 Zoster Vaccines (1 of 2) 1988 Adult Wellness Visit 02/18/2020 02/17/2019 Depression Screening 02/18/2020 02/17/2019 COVID-19 Vaccine ( season) 2024 09/22/2023, 09/22/2023, 11/28/2020 Albumin/Creatinine Ratio 04/07/2025 04/07/2024 CKD HGB USE SMARTSET 04199 04/07/202504/07, 04/07/2024, 12/10/2023, Additional history exists CKD PHOS USE SMARTSET 14409 04/07/202503/15, 02/26/2023, 02/20/2021, Additional history exists Pneumococcal [...] fibrillation documented in this encounter Care Teams Ice Cream Maker Relationship Specialty Start Date End Date Akiko Joy MD PCP - General Family Medicine 05/22/15 documented as of this encounter
--- OUTSIDE RECORDS SUMMARY | 2024-06-26 10:03 | External Medical Summary | Summary of Care ---
Author Name Unknown Organization [facility] Address [address] [place] [address] Phone [phone] Care Team Providers Care Media Manager Name Role Phone Efraín Joy MD Primary Care Provide r Reason for Visit * Reason Comments eRx-Medication Refill Encounter Details Date Type Department Care Team (Late st Contact Info) Description 04/19/2024 Refill Family Medicine [address] [phone] Efraín Joy MD [address] [place] [address] [place] [id number] HTN, goal below 140/90; Coronary artery disease involving [place] coronary artery of [place] heart without angina pectoris Allergies No known active allergiesdocumented as of this encounter (statuses as of 04/21/2024) Medications Medication Sig Dispensed Refills Start Date [...] 04/07/2024 Active Carvedilol 12.5 MG Oral Tablet (Coreg)Indications :Hypertensive kidney disease with stage 3a chronic kidney disease (HCC),Paroxysmal atrial fibrillation (HCC) Take 1 Tablet by mouth in the morning and 1 Tablet in the evening. 180 Tablet 1 04/19/2024 Active Furosemide 20 MG Oral Tablet (Lasix)Indications :Coronary artery disease involving [place] coronary artery of [place] heart without angina pectoris TAKE 2 TABLETS BY MOUTH EVERY DAY 180 Tablet 1 04/21/2024 Active Furosemide 20 MG Oral Tablet (Lasix)Indications :Coronary artery disease involving [place] coronary artery of [place] heart without angina pectoris TAKE 2 TABLETS BY MOUTH EVERY DAY 180 Tablet 1 01/19/2024 Discontinued documented as of this encounter (statuses as of 04/21/2024) Active Problems Problem Noted Date Diagnosed Date [...] as of this encounter (statuses as of 04/21/2024) Resolved Problems Problem Noted Date Diagnosed Date [...] as of this encounter (statuses as of 04/21/2024) Immunizations Name Administration Dates Next Due COVID-19 [...] encounter Miscellaneous Notes * Telephone Encounter - Sara Murray RPh - 04/21/2024 4:22 PM EDTSigned Prescriptions: Disp Refills Furosemide 20 MG Oral Tablet (Lasix) 180 Ta*1 Sig: TAKE 2 TABLETS BY MOUTH EVERY DAYAuthorizing Provider: EFRAÍN JOYOrdermonica User: SARA MURRAYefstephanie Prescriptions: Disp Refills amLODIPine Besylate 5 MG Oral Tablet (Norv*90 Tab*1 Sig: TAKE 1 TABLET BY MOUTH EVERY DAYRefused By: SARA MURRAYeason for Refusal: Course of treatment complete documented in this encounter Plan of Treatment Upcoming Encounters Date Type Department Care Team (Late st Contact Info) Description 04/28/2024 7:05 AM EDT Laboratory Lab [facility] [address] [facility] [place] [address] [facility] [facility] [place] [address] 04/29/2024 6:00 AM EDT Anticoagulation [facility], Juvenal Guerrero [address] [place] [address] [place] [address] [place] [address] 09/24/2024 1:40 PM EDT Office Visit Family Medicine [address] [place] [phone] Efraín Joy MD [address] [place] [address] [place] [phone] Health Maintenance Due Date Last Done Comments DTap/Tdap Vaccines (1 - Tdap) 1959 Zoster Vaccines (1 of 2) 1988 Adult Wellness Visit 02/18/2020 02/17/2019 Depression Screening 02/18/2020 02/17/2019 COVID-19 Vaccine (3 - season) 2024 09/22/2023, 09/22/2023, 11/28/2020 Albumin/Creatinine Ratio 04/07/2025 04/07/2024 CKD HGB USE SMARTSET 47710 04/07/202504/07, 04/07/2024, 12/10/2023, Additional history exists CKD PHOS USE SMARTSET 16214 04/07/202503/15, 02/26/2023, 02/20/2021, Additional history exists Pneumococcal [...] Unspecified essential hypertension Coronary artery disease involving [place] coronary artery of [place] heart without angina pectoris documented in this encounter Care Teams Media Manager Relationship Specialty Start Date End Date Efraín Joy MD PCP - General Family Medicine 05/22/15 documented as of this encounter
--- OUTSIDE RECORDS SUMMARY | 2024-06-26 10:03 | External Medical Summary | Summary of Care ---
Author Name Unknown Organization [facility] Address [address] [facility] [place] [address] Phone [phone] Care Team Providers Care Collections Agent Name Role Phone Akiko Joy MD Primary Care Provide r Reason for Visit * Reason Comments Dosage Adjustment Via Phone (anticoag Cl inic) Encounter Details Date Type Department Care Team (Late st Contact Info) Description 04/15/2024 6:00 AM EDT Anticoagulation [facility], Juvenal Guerrero [address] [place] [address] [place] [address] [facility], [address] [place] [address] Paroxysmal atrial fibrillation (HCC)* Allergies No known active allergiesdocumented as of this encounter (statuses as of 04/15/2024) Medications Medication Sig Dispensed Refills Start Date [...] Oral Tablet (Lasix)Indications:C oronary artery disease involving [place] coronary artery of [place] heart without angina pectoris TAKE 2 TABLETS BY MOUTH EVERY DAY 180 Tablet 1 01/19/2024 Active Atorvastatin Calcium 40 MG Oral Tablet (Lipitor)Indications :Dyslipidemia, goal LDL below 100 TAKE 1 TABLET BY MOUTH EVERYDAY AT BEDTIME 90 Tablet 1 04/07/2024 Active Carvedilol 12.5 MG Oral Tablet (Coreg) Take 1 Tablet by mouth in the morning and 1 Tablet in the evening. 04/12/2024 Active documented as of this encounter (statuses as of 04/15/2024) Active Problems Problem Noted Date Diagnosed Date [...] as of this encounter (statuses as of 04/15/2024) Resolved Problems Problem Noted Date Diagnosed Date [...] as of this encounter (statuses as of 04/15/2024) Immunizations Name Administration Dates Next Due COVID-19 [...] as of this encounter Progress Notes * Arianna Pereira, curtain framer - 04/15/2024 9:18 AM EDT Contacts Contact Date/Time Type Contact Phone/Fax 04/15/2024 09:17 AM EDT Phone (Outgoing) Mal Tran (Self) [phone] (H) Spoke to Patient Subjective Patient Findings [...] communicated as noted by Pharmacist: Yes TRE Moreno 04/15/2024, 9:18 AM * Monique Andrews RPh - 04/15/2024 8:19 AM EDT Coumadin Clinic (region specific) Objective Current Warfarin Dose As of 04/15/2024 Warfarin maintenance plan: 7.5 mg (2.5 mg x 3) every Tue; 5 mg (2.5 mg x 2) all other days INR Result As of 04/15/2024 INR goal: 2.0-3.0 INR used for dosin.1 (04/14/2024) Assessment & Plan Warfarin Plan As of 04/15/2024 Full warfarin instructions: 7.5 mg every Tue; 5 mg all other days No change documented: Monique Andrews RPh Next INR check: 04/28/2024 Repeat PT/INR in 2 week(s) Weekly dose: not changed Additional Dosing Information: Description [facility] Tech to contact patient with dose instructions as noted. Monique Andrews RPh 04/15/2024, 8:19 AM documented in this encounter Plan of Treatment Upcoming Encounters Date Type Department Care Team (Late st Contact Info) Description 04/19/2024 4:00 PM EDT Office Visit [address] [phone] Akiko Joy MD [address] [place] [address] [place] [id number] 04/29/2024 6:00 AM EDT Anticoagulation [facility] Clinical Pharmacy Services, Juvenal Guerrero [address] [place] [address] [place] [address] [place] [address] 09/24/2024 1:40 PM EDT Office Visit Family Medicine [address] [place] [phone] Akiko Joy MD [address] [place] [address] [place] [phone] Health Maintenance Due Date Last Done Comments DTap/Tdap Vaccines (1 - Tdap) 1959 Zoster Vaccines (1 of 2) 1988 Adult Wellness Visit 02/18/2020 02/17/2019 Depression Screening 02/18/2020 02/17/2019 COVID-19 Vaccine ( season) 2024 09/22/2023, 11/28/2020 Albumin/Creatinine Ratio 04/07/2025 04/07/2024 CKD HGB USE SMARTSET 51413 04/07/202504/07, 04/07/2024, 12/10/2023, Additional history exists CKD PHOS USE SMARTSET 32091 04/07/202503/15, 02/26/2023, 02/20/2021, Additional history exists Pneumococcal [...] fibrillation documented in this encounter Care Teams Collections Agent Relationship Specialty Start Date End Date Akiko Joy MD PCP - General Family Medicine 05/22/15 documented as of this encounter
--- OUTSIDE RECORDS SUMMARY | 2024-06-26 10:03 | External Medical Summary ---
Author Name Unknown Address Unknown Organization [id number][place] [place] [address] [place] [address] Laboratory Report Ordering Provider Test Date Status ALLYSONSHON 05/12/2024 07:45:00 Final Please draw PT/INR every 1-4 weeks or as requested by the [facility] Cou[facility]

Warfarin Therapy
INR: 2.0-3.0 conventional anticoagulation
INR: 2.5-3.5 high intensity anticoagulation Observation Date Value Abnormality Reference (Units ) Status PT 05/12/2024 07:45:00 23.6 Above high normal 11 .6-15.2 (seconds) Final INR 05/12/2024 07:45:00 2.1 Above high normal 0. 8-1.2 Final Performing Location [facility] [place] [address] [place] [address]
--- OUTSIDE RECORDS SUMMARY | 2024-06-26 10:03 | External Medical Summary | Summary of Care ---
Author Name Unknown Organization [facility] Address [address] [facility] [address] Phone [phone] Care Team Providers Care Brick Shader Name Role Phone Akiko oJy MD Primary Care Provide r Reason for Visit * Reason Onset Date Comments Hospital Follow-Up Hospital Follow-Up 04/19/2024 Encounter Details Date Type Department Care Team (Late st Contact Info) Description 04/19/2024 4:00 PM EDT Office Visit Family Medicine [address] [phone] Akiko Joy MD [address] [place], [place] [address] [address] Hospital discharge follow-up*; Viral gastroenteritis; HTN, goal below 140/90; Hypertensive kidney disease with stage 3a chronic kidney disease (HCC); Paroxysmal atrial fibrillation (HCC); Dyslipidemia, goal LDL below 100; S/P aortic valve replacement Allergies No known active allergiesdocumented as of this encounter (statuses as of 04/19/2024) Medications Medication Sig Dispensed Refills Start Date [...] Oral Tablet (Lasix)Indications :Coronary artery disease involving venetie ira coronary artery of ven[place] ir[place] heart without angina pectoris TAKE 2 TABLETS [...] the evening. 180 Tablet 1 04/19/2024 Active Carvedilol 12.5 MG Oral Tablet (Coreg) Take 1 Tablet by mouth in the morning and 1 Tablet in the evening. 04/12/2024 Discontinued documented as of this encounter (statuses as of 04/19/2024) Active Problems Problem Noted Date Diagnosed Date [...] as of this encounter (statuses as of 04/19/2024) Resolved Problems Problem Noted Date Diagnosed Date [...] as of this encounter (statuses as of 04/19/2024) Immunizations Name Administration Dates Next Due COVID-19 [...] Sign Reading Time Taken Comments Blood Pressure 126/74 04/19/2024 3:59 PM EDT Pulse 71 04/19/2024 3:59 PM EDT Temperature 36.1 C (97 F) 04/19/2024 3:59 PM EDT Respiratory Rate - - Oxygen Saturation 96% 04/19/2024 3:59 PM EDT Inhaled Oxygen Concentration - - Weight 64.4 kg (142 lb) 04/19/2024 3:59 PM EDT Height - - Body Mass Index 24.37 04/07/2024 1:38 PM EDT documented in this encounter Patient Instructions * Patient Instructions* Akiko Joy MD - 04/19/2024 4:03 PM EDT Taking Medicine Safely Medicine is given to help treat or prevent illness. But if you don't take it correctly, it might not help. It might even harm you. Your doctor or pharmacist can help you learn the right way to take your medicine. Listed below are some tips to help you take medicine safely. Safety Tips Have a routine for taking each medicine. Make it part of something you do each day, such as brushing your teeth or eating a meal. When you go to the hospital or your doctor's office, bring all your current medicines in their original boxes or bottles. If you can't do that, bring an up-to-date list of your medicines. Do not stop taking a prescription medicine unless your doctor tells you to. Doing so could make your condition worse. Do not share medicines. Let your doctor and pharmacist know of any allergies you have. Taking prescription medicines with alcohol, street drugs, herbs, supplements, or even some nvjm-nzd-szupjrf medicines can be harmful. Talk to your doctor or pharmacist before using any of these things while taking a prescription medicine. When filling your prescriptions, try using the same pharmacy for all your medicines. If not, let the pharmacist know what medicines you are already on. Keep medicines out of the reach of children and pets. Do not use medicine that has or that doesn't look or smell right. Get rid of it properly. To find out the right way to get rid of medicine: Call your [facility] or formerly [facility] government's household trash and recycling service and ask if a drug take-back program is available in your community. Call your local pharmacy and ask the right way to get rid of the medicine. Go to http://www.fda.gov/ForConsumers/ConsumerUpdates/aby228654 to learn how to get rid of medicines safely. Using Generic Medicines Medicines have brand names and generic (chemical) names. When a medicine is first made, it is sold only under its brand name. Later, it can be made and sold as a generic. Generic medicines cost less than brand-name medicines and most work just as well. Most people can use the generic medicine instead of the brand-name medicine, unless their doctor says otherwise. 7414-6159 [facility], [address] [place] [address]. All rights reserved. This information is not intended as a substitute for professional medical care. Always follow your healthcare professional's instructions. Coping with Your Diagnosis of a Chronic Health Condition If you have a chronic health condition, you have a problem that may not go away over time. Heart disease, asthma, arthritis, and diabetes are just a few of the chronic conditions that exist. Right now, these conditions have no known cure. But you can take an active role in managing your health. Coping with Your Diagnosis If you've just learned about your health condition, you may be angry, depressed, or afraid. Or you might feel relieved just to know what's wrong. Even if you've known about your health problem for a while, adjusting to it can be hard. But learning about your condition can help you cope. Look for books at your local library. If you have access to a computer, check the Internet. Or contact a group that focuses on your specific problem. Accepting Change Change is hard for most people. Yet right now you may be facing many changes. What you eat or the way you work may change. Your moods, and even your symptoms, might vary from day to day. Although it isn't easy, learning to accept change can help you feel more in control. Taking Control Feeling you have control can make living with your condition easier. Discuss treatment options withyour health care provider. The more you know, the more active you can be in your care. Moving Forward You may wonder whether you will be able to do the things you've always done. That depends on your age, the condition you have, and your goals. To make the most of each day, try to build caring relationships, be active, and eat right. Also, do your best to keep a [place] [address]. All rights reserved. This information is not intended as a substitute for professional medical care. Always follow your healthcare professional's instructions. Taking an Active Role in Your Medicines Take the time to learn about your medicine. For instance, why are you taking it? What does it do? Work with your doctor or other health care providers to get the answers you need. Talk to your pharmacist about how to take each medicine, and ask for a fact sheet on each one. Ask Questions About Your Medicine What is the name of the medicine? Why do I need to take it? When should I take it? How should I take it: with water? with food? on an empty stomach? How much do I take? What do I do if I miss a dose? What side effects could it cause and which ones should I call the doctor about? Are there any foods or medicines I should avoid while taking this medicine? Keeping track of your medications? Name of medicine: Taken for: Dose: Time(s) to take it: Take an Active Role Fill all your prescriptions at the same pharmacy. This keeps your medicine history in one place. Talk to the pharmacist. Make sure you understand how to take each medicine. Ask for a fact sheet about each one. Tell your doctor and pharmacist about all the prescription and crvq-gof-etbbtai medicines you take.This includes vitamins and herbal remedies. Tell your doctor and pharmacist if you have any medical conditions or allergies to any medicine or food, or if you are or . Keep a list of all your medicines. Use the sample to the right as a guide for the type of information needed. [place] [id number]. All rights reserved. This information is not intended as a substitute for professional medical care. Always follow your healthcare professional's instructions. documented in this encounter Progress Notes * Akiko Joy MD - 04/19/2024 4:03 PM EDT SUBJECTIVE: Mal Trna is a 84 year old male. Chief Complaint Patient presents with Hospital Follow-Up Hospital Follow-Up Recent Admission: Patient was recently admitted to [facility] on 04/11/24. The date of discharge was 04/13/24. Discharge report received and reviewed. HPI: Brief Clinical History Mr. Tran is a 84 year old male last seen in Family Medicine [facility] on 04/07/2024 by Rebeca Mendez He has a h/o the following chronic conditions indicated on the problem list: Chronic Conditions CAD (coronary artery disease) DNR (do not resuscitate) S/P aortic valve replacement Admitted to [facility] 04/11/24-04/13/24 with abdominal pain and vomiting for several days. Patient had been around another family member with similar symptoms as well. In the ED, labs were unremarkable. UA was negative. Respiratory PCR was negative. CT of the abdomen and pelvis was negative for any acute processes. He was admitted and given IV fluids. Was felt to have viral gastroenteritis. His carvedilol was reduced to 12.5 mg twice daily due to hypotension. No other medication changes were made. Patient improved and was discharged to home. Patient is feeling well. He has not had any more nausea, vomiting, diarrhea, fever, chills, or abdominal pain. Eating well. States he is feeling great. Had recent check up here and labs were stable/good. Patient Active Problem List Diagnosis HTN, goal below 140/90 Dyslipidemia, goal LDL below 100 CAD (coronary artery disease) Aortocoronary bypass status S/P aortic valve replacement Paroxysmal atrial fibrillation (HCC) Chronic kidney disease, stage 3a (HCC) Hypertensive kidney disease with stage 3a chronic kidney disease (HCC) DNR (do not resuscitate) Cerebrovascular disease DDD (degenerative disc disease), cervical Ambulatory dysfunction Current Outpatient Medications Medication Sig Dispense Refill Acetaminophen 325 MG Oral Tablet (Tylenol) Take 2 Tablets by mouth every 4 hours as needed for Fever >38C(100.5F), Pain, Severe, Pain, Moderate or Pain, Mild. Diclofenac Sodium 1 % External Gel (Voltaren) [...] EVERYDAY AT BEDTIME 90 Tablet 1 Carvedilol 12.5 MG Oral Tablet (Coreg) Take 1 Tablet by mouth in the morning and 1 Tablet in the evening. 180 Tablet 1 No current facility-administered medications for this visit. Current and discharge medications have been reconciled. Review of patient's allergies indicates: No Known Allergies OBJECTIVE: BP 126/74 | Pulse 71 | Temp 36.1 C (97 F) (Tympanic) | Wt 64.4 kg (142 lb) | SpO2 96% | BMI 24.37 kg/m | BSA 1.71 m Review Of Systems: Skin: pt denies, new or changing moles, pigmentation change, rash, scaling, itching, bruising, lumps or bumps, hair changes, nail changes Eyes: negative Ears/Nose/Throat: pt denies:, deafness, tinnitus, vertigo, frequent URI's, sinus trouble Respiratory: pt denies:, cough, sputum, pneumonia or bronchitis, asthma, wheezing, and dyspnea on exertion Cardiovascular: pt denies:, palpitations, tachycardia, irregular heart beat, +controlled hypertension, No chest pain, exertional chest pain or pressure, paroxysmal nocturnal dyspnea, and lower extremity edema Gastrointestinal: +as above. Symptoms now resolved Genitourinary: pt denies:, nocturia, dysuria, and frequency Musculoskeletal: pt denies significant joint pain or stiffness Neurologic: pt denies:, headaches, syncope, and seizures Psychiatric: pt denies:, sleep disturbance, anxiety, nervousness, and depression Hematologic/Lymphatic/Immunologic: pt denies:, recurrent infections, immunodeficiency, anemia, bruising, bleeding disorder, fever, night sweats, chills, and weight loss Endocrine: pt denies:, thyroid disorder, cold intolerance, heat intolerance, and diabetes PHYSICAL EXAM: General: alert, no distress, well nourished, and well [...] Neck: supple, no adenopathy, no bruits Heart: regular rate & rhythm, no murmur, and no gallops Lungs: chest symmetric with normal AP diameter, no chest deformities noted, no chest wall tenderness, lungs clear to auscultation Extremities: no clubbing, no cyanosis, trace edema bilateral lower extremities Neuro Exam: alert & oriented x 3 with fluent speech, no focal motor/sensory deficits ASSESSMENT: Hospital discharge follow-up (Primary) - DISCH MED RECON CUR MED LIS Viral gastroenteritis--resolved. CT scan while admitted normal. Labs were stable/good. HTN, goal below 140/90--controlled at lower dose of carvedilol 12.5 mg twice daily. Hypertensive kidney disease with stage 3a chronic kidney disease (HCC)--controlled with carvedilol 12.5 mg twice daily. Kidney function stable. - Carvedilol 12.5 MG Oral Tablet (Coreg); Take 1 Tablet by mouth in the morning and 1 Tablet in theevening. Paroxysmal atrial fibrillation (HCC)--rate controlled with Carvedilol. Continue Coumadin. - Carvedilol 12.5 MG Oral Tablet (Coreg); Take 1 Tablet by mouth in the morning and 1 Tablet in theevening. Dyslipidemia, goal LDL below 100--controlled with atorvastatin 40 mg daily. S/P aortic valve replacement Follow Up: Return as scheduled. PLAN: Continue present medication(s): Renew prescription(s) for: Carvedilol at lower dose of 12.5 mg so he does not have to cut them in half Patient education: Discussed hospital stay. Reviewed recent labs with patient. Follow up in as scheduled in about 6 month(s). I spent a total of 30-39 minutes (exact time 35 mins) minutes on the date of service in preparation, delivery, and documentation of the care provided to Mal Tran excluding any time spent in performance of separately billed services. Akiko Joy MD documented in this encounter Nursing Notes * Esthela Dennis LPN - 04/19/2024 3:58 PM EDT [facility] hospital follow up No concerns today documented in this encounter Plan of Treatment Upcoming Encounters Date Type Department Care Team (Late st Contact Info) Description 04/28/2024 7:05 AM EDT Laboratory Lab Mobile Phlebotomy [facility] [address] [place] [address] [facility], [facility] Mobile Home Draw [address] [place] [address] 04/29/2024 6:00 AM EDT Anticoagulation [facility], [address] [place] [address] [facility], [address] [place] [address] 09/24/2024 1:40 PM EDT Office Visit Family Medicine [address] [place] [phone] Akiko Joy MD [address] [place] [address] [place] [address] Health Maintenance Due Date Last Done Comments DTap/Tdap Vaccines (1 - Tdap) 1959 Zoster Vaccines (1 of 2) 1988 Adult Wellness Visit 02/18/2020 02/17/2019 Depression Screening 02/18/2020 02/17/2019 COVID-19 Vaccine (3 - season) 2024 09/22/2023, 09/22/2023, 11/28/2020 Albumin/Creatinine Ratio 04/07/2025 04/07/2024 CKD HGB USE SMARTSET 62869 04/07/202504/07, 04/07/2024, 12/10/2023, Additional history exists CKD PHOS USE SMARTSET 39817 04/07/202503/15, 02/26/2023, 02/20/2021, Additional history exists Pneumococcal [...] as of this encounter Visit Diagnoses Diagnosis Hospital discharge follow-up- Primary Other follow-up examination Viral gastroenteritis Intestinal infection due to other organism, not elsewhere classified HTN, goal below 140/90 Unspecified essential hypertension Hypertensive kidney disease with stage 3a chronic kidney disease (HCC) Paroxysmal atrial fibrillation (HCC) Atrial fibrillation Dyslipidemia, goal LDL below 100 Other and unspecified hyperlipidemia S/P aortic valve replacement Heart valve replaced by other means documented in this encounter Care Teams Brick Shader Relationship Specialty Start Date End Date Akiko Joy MD PCP - General Family Medicine 05/22/15 documented as of this encounter"
--- OUTSIDE RECORDS SUMMARY | 2024-06-26 10:03 | External Medical Summary | Summary of Care ---
Author Name Unknown Organization [facility] Address [address] [facility] [place] [address] Phone [phone] Care Team Providers Care Tea Leaf Reader Name Role Phone Akiko Joy MD Primary Care Provide r Encounter Details Date Type Department Care Team (Late st Contact Info) Description 04/11/2024 Result Scan Unspecified Department <No scans attached> Allergies No known active allergiesdocumented as of [...] Care Team (Late st Contact Info) Description 05/12/2024 7:10 AM EDT Laboratory Lab Mobile Phlebotomy [facility] [address] [facility] [place] [address] [facility], Gml Mobile Home Draw [address] [facility] [place] [address] 05/13/2024 6:00 AM EDT Anticoagulation [facility] Clinical [facility], Juvenal Guerrero [address] [place] [address] [place] [address] [facility], [address] [place] [address] 09/24/2024 1:40 PM EDT Office Visit Family Medicine [address] [place] [phone] Akiko Joy MD [address] [place] [address] [place] [address] Health Maintenance Due Date Last Done Comments DTap/Tdap Vaccines (1 - Tdap) 1959 Zoster Vaccines (1 of 2) 1990 Adult Wellness Visit 02/18/2020 02/17/2019 Depression Screening 02/18/2020 02/17/2019 COVID-19 Vaccine (3 - season) 2024 09/22/2023, 09/22/2023, 11/28/2020 Albumin/Creatinine Ratio 04/07/2025 04/07/2024 CKD HGB USE SMARTSET 10263 04/07/202504/07, 04/07/2024, 12/10/2023, Additional history exists CKD PHOS USE SMARTSET 97623 04/07/2025 0911/2023, 02/26/2023, 02/20/2021, Additional history exists Pneumococcal Vaccine: [...] Not on filedocumented as of this encounter Procedures Procedure Name Priority Date/Time Associated Diagnosis Comments RADIOLOGY SCANNED RESULT 04/11/2024 documented in this encounter Results * RADIOLOGY SCANNED RESULT (04/11/2024) 04/11/2024 No Physician Data Unknown DIAGNOSTIC RAD IOLOGY SERVICES documented in this encounter Care Teams Tea Leaf Reader Relationship Specialty Start Date End Date Akiko Joy MD PCP - General Family Medicine 05/22/15 documented as of this encounter
--- OUTSIDE RECORDS SUMMARY | 2024-06-26 10:03 | External Medical Summary ---
Author Name Unknown Address Unknown Organization K01:[facility] - [address] [place] [address] Laboratory Report Ordering Provider Test Date Status ALLYSONSHON 04/14/2024 07:28:00 Final Please draw PT/INR every 1-4 weeks or as requested by the [facility] Cou[facility]in [facility]

Warfarin Therapy
INR: 2.0-3.0 conventional anticoagulation
INR: 2.5-3.5 high intensity anticoagulation Observation Date Value Abnormality Reference (Units ) Status PT 04/14/2024 07:28:00 24.0 Above high normal 11 .6-15.2 (seconds) Final INR 04/14/2024 07:28:00 2.1 Above high normal 0. 8-1.2 Final Performing Location [facility] - [address] [place] [address]
--- OUTSIDE RECORDS SUMMARY | 2024-06-26 10:03 | External Medical Summary | Summary of Care ---
Author Name Unknown Organization [facility] Address [address] [facility] [address] [place] [address] Phone [phone] Care Team Providers Care Mixing Plant Operator Name Role Phone Akiko Joy MD Primary Care Provide r Reason for Visit * Reason Onset Date Comments Hospital Follow-Up 04/14/2024 [facility] 04/13 JUANA call Encounter Details Date Type Department Care Team (Late st Contact Info) Description 04/14/2024 Telephone [address] [place] [address] Radha Damico, RN Hospital Follow-Up ([facility] 04/13 JUANA call) Allergies No known active allergiesdocumented as of this encounter (statuses as of 04/14/2024) Medications Medication Sig Dispensed Refills Start Date [...] Oral Tablet (Lasix)Indications :Coronary artery disease involving akhi[place] coronary artery of [place] heart without angina pectoris TAKE 2 TABLETS BY MOUTH EVERY DAY 180 Tablet 1 01/19/2024 Active Atorvastatin Calcium 40 MG Oral Tablet (Lipitor)Indicatio ns:Dyslipidemia, goal LDL below 100 TAKE 1 TABLET BY MOUTH EVERYDAY AT BEDTIME 90 Tablet 1 04/07/2024 Active Carvedilol 12.5 MG Oral Tablet (Coreg) Take 1 Tablet by mouth in the morning and 1 Tablet in the evening. 04/12/2024 Active Carvedilol 25 MG Oral Tablet (Coreg)Indications :S/P aortic valve replacement,Aortoc oronary bypass status,HTN, goal below 140/90 Take 1 Tablet by mouth in the morning and 1 Tablet before bedtime. 180 Tablet 3 12/11/2023 Discontinue d(Medicatio n/Dose Changed) documented as of this encounter (statuses as of 04/14/2024) Active Problems Problem Noted Date Diagnosed Date [...] as of this encounter (statuses as of 04/14/2024) Resolved Problems Problem Noted Date Diagnosed Date [...] as of this encounter (statuses as of 04/14/2024) Immunizations Name Administration Dates Next Due COVID-19 [...] Telephone Encounter - Radha Damico RN - 04/14/2024 1:11 PM EDT Transitions of Care Note Reason for Referral:Recent Admission Phone visit for follow up: JUANA Admitted to: [facility], Date: 04/11 Discharged to: home, Date: 04/13 Diagnosis driving hospitalization: Nausea and Vomiting Source/Contact: Patient SUBJECTIVE Consent: Verbal consent for [...] Needs Assistance With:N/A as pt is independent he just needs a ride places Cognitive and Mental Health: denies problems, alert and oriented x 3, and able to communicate, understand instructions, process information. MEDICATION RECONCILIATION Medications: Discharge med list reviewed with patient or caregiver Changed medication(s) since hospitalization Carvediolol Reports all medications taken as prescribed. Denies side effects OBJECTIVE ASSESSMENT Medication Risk Assessment: No risks identified Did patient fail outpatient treatment? No Discharge instructions available for review? Yes PLAN Symptom Monitoring Interventions:Member/caregiver education - signs and symptoms to contact PrimaryCare (DO NOT DELETE-Three diaz symptoms patient is to report to PCP) 1. N/V/D 2. Falls 3. Feeling dizzy/lightheaded Pattern MakerHeel Cutter of Care interventions/Action Plan: Medication reconciliation and 5 - 7 day follow-up with PCP in place - Date: 04/19 Educated on role of JUANA completed with patient/caregiver. Educated patient/caregiver on patient right to have input on JUANA plan of care. Verification of Home Health/DME if indicated: YES [facility] but pt doesn't think he needs them Identified Care Gaps: Yes Care Gaps closed this call: Appointment made or confirmed, Medication adherence, and Transition of Care follow-up communication Re-evaluation [...] Anticoagulation Central[facility] Clinical Pharmacy Services, Juvenal Guerrero [address] [place] [address] [place] [address] [facility], [address] [place] [address] 04/19/2024 4:00 PM EDT Office Visit [address] [phone] Akiko Joy MD [address] [place] [address] [place] [address] 09/24/2024 1:40 PM EDT Office Visit [address] [phone] Akiko Joy MD [address] [place] [address] [place] [address] Health Maintenance Due Date Last Done Comments DTap/Tdap Vaccines (1 - Tdap) 1959 Zoster Vaccines (1 of 2) 1988 Adult Wellness Visit 02/18/2020 02/17/2019 Depression Screening 02/18/2020 02/17/2019 COVID-19 Vaccine ( - season) 2024 09/22/2023, 11/28/2020 Albumin/Creatinine Ratio 04/07/2025 04/07/2024 CKD HGB USE SMARTSET 86356 04/07/202504/07, 04/07/2024, 12/10/2023, Additional history exists CKD PHOS USE SMARTSET 08632 04/07/2025 03/15, 02/26/2023, 02/20/2021, Additional history exists Pneumococcal Vaccine: [...] filedocumented as of this encounter Care Teams Mixing Plant Operator Relationship Specialty Start Date End Date Akiko Joy MD PCP - General Family Medicine 05/22/15 documented as of this encounter
--- NOTE | 2024-06-26 14:37 | Hospitalist Progress Note ---
Date of Service June 26, 2024 Assessment & Plan (1) Fall: (2) Multiple rib fractures: (3) Multiple contusions: (4) Syncope: (5) Acute worsening of stage 3 chronic kidney disease: (6) Hypertensive urgency: (7) Elevated troponin: (8) PAF (paroxysmal atrial fibrillation): (9) care home current use of anticoagulant: Plan 84 yr old M who has a significant PMH of CAD s/p CABG ( SCOTT to LAD and SVG to left circumflex, RCA and diagonal), Hx of bioprosthetic AVR, HTN, HLD, PAF on warfarin, CKD-3, cerebrovascular disease who presents to ED after sustaining a fall. He was found on the kitchen floor by a friend, patient lives alone at home and uses cane/walker to move around. Patient's dtr notes that patient has fallen 9-10 times in the last 1 year. He is being managed for the following: Fall, Probably syncopal event R frontal scalp hematoma Multiple rib fx Multiple areas of ecchymosis/bruising at presentation CT Chest/A/P: There are acute fractures of the lateral left seventh, anterior left 4th through 6th ribs. Face CT: No fractures. Right dental disease without adjacent abscess. Mild chronic bilateral maxillary sinusitis. supportive care with Prn O2, Incentive spirometry, lidocaine patch, scheduled APAP and prn IV Morphine Patient's daughter states that patient had fallen at least 9-10 times in the last 1 year, discussion ongoing for suitability of warfarin going forward. She states that she will speak with her brother prior to reaching to conclusion. PT/OT Hypertensive Urgency in setting of acute distress (fall) CAD s/p CABG Hx bioprosthetic AVR Elevated troponin, Likely demand ischemia Status post IV BP medication in the ED, troponin down trended, patient with no chest pain. Echo with EF of 60 to 65%, LV wall motion normal, LV systolic function normal. Continue home Coreg, Lasix on hold due to MALIK. Continue telemetry monitoring for now. Metabolic encephalopathy 2/2 Acute on Chronic CKD -3 : baseline cr 1.5, Admitting creatinine of 2.79, suspect pre renal in setting of poor intake, hold lasix, s/p gentle IVF, Cr improving, repeat renal function in a.m., creatinine slowly improving, 2.03 today. Mild fever: noted overnight 06/24-06/25. Admitting WBC was elevated, procalcitonin was elevated [ISO MALIK with CKD]. Admitting CT Chest w/ no infxn, UA neg for uti, Admitting bl cx NG48 hr. No open wounds and cellulitis noted. Pt started on cefepime 06/25 early am, will continue, follow blood culture. if blood cultures negative for 48 hours, consider discontinuing antibiotic and monitoring off of antibiotic. PAF: hold warfarin for now in setting of traumatic injuries, discussion regarding warfarin initiation held between pt/pt's dtr/pt's son. They understand the risk involved both ways, risk of embolic stroke if warfarin dc'd, risk of fall leading to brain bleed if continued on warfarin. they all would like to continue w/ warfarin. Once Hb stability is ensured, will resume warfarin soon. HLD: c/w home statin DVT ppx: SCDS for now FULL CODE - previously pt was DNR/DNI, pt with some confusion, this may need to be reassessed when less confused PCP: Rufino Dispo: PT/OT, pt lives alone and likely needs additional support at home given previous admission with falls Admission and Anticipated Discharge Date Admission Date: June 24, 2024 Subjective Patient was seen and examined at bedside. Patient was lying in bed, on room air, NAD, reports pain fairly under control w/ pain meds. Pt report feeling better. Patient denies sore throat , lower belly pain. Physical Exam Physical Exam: General Appearance: Thin, frail, elderly, no apparent distress Head: normocephalic, +traumatic, Eyes: normal inspection, EOMI Neck: supple, Trachea midline Respiratory/Chest: Normal breath sounds, CTA, No accessory muscle use, + CABG scar Cardiovascular: S1, S2, No murmur Abdomen/GI:Soft, Non tender, Bowel sounds present Extremities/Musculoskeletal:normal inspection, no edema Neurologic/Psych:AAOX2, grossly no focal neurological deficits, decreased hearing Skin: normal color, warm, + multiple bruises epigastric, left-sided chest, B/L knees, Results & Data Results & Data Vital Signs (Past 12 Hours) Vital Signs Temp Pulse Pulse Resp BP BP Pulse Ox 06/26/24 11:55 70 126/66 137/70 06/26/24 11:01 36.6 C 66 18 175/55 H 97 06/26/24 09:45 65 12/14/24 07:12 37.0 C 65 18 154/73 H 95 06/26/24 03:08 36.7 C 64 14 121/66 95 O2 Del Method 06/26/24 11:55 06/26/24 11:01 Room Air 06/26/24 09:45 06/26/24 07:12 Room Air 06/26/24 03:08 Room Air (1) Fall Encounter type: initial encounter Qualified Code(s): W19.XXXA - Unspecified fall, initial encounter
[2024-06-27 04:24] LABS: Hematocrit (blood only) 31.7 % (42.0-52.0); Hemoglobin 10.6 g/dl (14.0-18.0); Mean Corpuscular Hemoglobin 29.3 pg (25.0-34.0); Mean Corpuscular Hgb Conc 33.4 g/dL (32.0-36.0); Mean Corpuscular Volume 87.6 fL (80.0-100.0); Mean Platelet Volume 10.5 fL (9.4-12.4); Platelet Count 160 K/uL (130-400); RDW Coefficient of Variation 14.6 % (11.5-14.5); RDW Standard Deviation 46.8 fL (36.4-46.3); Red Blood Count 3.62 M/uL (4.70-6.10); White Blood Count 7.88 K/ul (4.8-10.8)
[2024-06-27 04:39] LABS: BUN Creatinine Ratio 32.3 (10-20); Calcium 7.8 mg/dl (8.6-10.3); Creatinine Clr Calc Pharmacy 24.4 ml/min; Magnesium 2.5 mg/dl (1.7-2.4); Phosphorus 2.8 mg/dl (2.5-4.9)
--- NOTE | 2024-06-27 11:22 | Hospitalist Progress Note ---
Date of Service June 27, 2024 Assessment & Plan (1) Fall: (2) Multiple rib fractures: (3) Multiple contusions: (4) Syncope: (5) Acute worsening of stage 3 chronic kidney disease: (6) Hypertensive urgency: (7) Elevated troponin: (8) PAF (paroxysmal atrial fibrillation): (9) [facility] current use of anticoagulant: Plan 84 yr old M who has a significant PMH of CAD s/p CABG ( SCOTT to LAD and SVG to left circumflex, RCA and diagonal), Hx of bioprosthetic AVR, HTN, HLD, PAF on warfarin, CKD-3, cerebrovascular disease who presents to ED after sustaining a fall. He was found on the kitchen floor by a friend, patient lives alone at home and uses cane/walker to move around. Patient's dtr notes that patient has fallen 9-10 times in the last 1 year. He is being managed for the following: Fall, Probably syncopal event R frontal scalp hematoma Multiple rib fx Multiple areas of ecchymosis/bruising at presentation CT Chest/A/P: There are acute fractures of the lateral left seventh, anterior left 4th through 6th ribs. Face CT: No fractures. Right dental disease without adjacent abscess. Mild chronic bilateral maxillary sinusitis. supportive care with Prn O2, Incentive spirometry, lidocaine patch, scheduled APAP and prn IV Morphine Pt report feeling better and reports pain under control PT/OT, will need snf vs rehab. Hypertensive Urgency in setting of acute distress (fall) CAD s/p CABG Hx bioprosthetic AVR Elevated troponin, Likely demand ischemia Status post IV BP medication in the ED, troponin down trended, patient with no chest pain. Echo with EF of 60 to 65%, LV wall motion normal, LV systolic function normal. Continue home Coreg, Lasix on hold due to MALIK. Continue telemetry monitoring for now. c/w home coreg, prn iv hydralazine Metabolic encephalopathy 2/2 Acute on Chronic CKD -3 : baseline cr 1.5, Admitting creatinine of 2.79, suspect pre renal in setting of poor intake, hold lasix, s/p gentle IVF, Cr improving, repeat renal function in a.m., creatinine slowly improving, 1.95 today. Mentation back to baseline. Mild fever: noted overnight 06/24-06/25. Admitting WBC was elevated, procalcitonin was elevated [ISO MALIK with CKD]. Admitting CT Chest w/ no infxn, UA neg for uti, Admitting bl cx NG48 hr. No open wounds and cellulitis noted. Pt started on cefepime 06/25 early am, Bl Cx no growth for 48 hours, will dc antibiotic and monitor off antibiotic. PAF: held warfarin at presentation in setting of traumatic injuries, discussion regarding warfarin initiation held between pt/pt's dtr/pt's son 06/25. They understand the risk involved both ways, risk of embolic stroke if warfarin dc'd, risk of fall leading to brain bleed if continued on warfarin. they all would like to continue w/ warfarin. HnH appears stable, will start hep sc tid and put him back on warfarin, follow pt/inr daily, once > 2.0, dc heparin HLD: c/w home statin DVT ppx: SCDS for now FULL CODE - previously pt was DNR/DNI, pt with some confusion at presentation, this may need to be reassessed when improved mentation. PCP: Rufino Dispo: PT/OT, pt lives alone and likely needs additional support at home given previous admission with falls Admission and Anticipated Discharge Date Admission Date: June 24, 2024 Subjective Patient was seen and examined at bedside. Patient was sitting up in chair, on room air, NAD, reports pain fairly under control w/ pain meds. Pt report feeling better. Patient denies sore throat , lower belly pain. Per RN, pt eating ok, moved bowel, no issues overnight. Physical Exam Physical Exam: General Appearance: Thin, frail, elderly, no apparent distress Head: normocephalic, +traumatic, Eyes: normal inspection, EOMI Neck: supple, Trachea midline Respiratory/Chest: Normal breath sounds, CTA, No accessory muscle use, + CABG scar Cardiovascular: S1, S2, No murmur Abdomen/GI:Soft, Non tender, Bowel sounds present Extremities/Musculoskeletal:normal inspection, no edema Neurologic/Psych:AAOX2, grossly no focal neurological deficits, decreased hearing Skin: normal color, warm, + multiple bruises epigastric, left-sided chest, B/L knees - healing, no infection. Results & Data Results & Data Vital Signs (Past 12 Hours) Vital Signs Temp Pulse Pulse Resp BP Pulse Ox O2 Del Method 06/27/24 07:46 54 L 06/27/24 07:04 36.8 C 60 18 149/75 H 96 Room Air 06/27/24 03:18 36.7 C 63 19 129/72 95 Room Air 06/26/24 23:19 36.5 C 63 14 97/57 L 95 Room Air (1) Fall Encounter type: initial encounter Qualified Code(s): W19.XXXA - Unspecified fall, initial encounter
[2024-06-27] MEDS: HEPARIN SOD 5,000 UNIT/0.5 ML VIAL SQ SCH (13:28)
[2024-06-27] MEDS: WARFARIN SOD 5 MG TAB PO SCH (15:42)
[2024-06-27 20:12] LABS: Hematocrit (blood only) 35.3 % (42.0-52.0); Hemoglobin 11.7 g/dl (14.0-18.0)
[2024-06-28 06:45] LABS: Hematocrit (blood only) 33.7 % (42.0-52.0); Hemoglobin 11.3 g/dl (14.0-18.0); Mean Corpuscular Hemoglobin 29.4 pg (25.0-34.0); Mean Corpuscular Hgb Conc 33.5 g/dL (32.0-36.0); Mean Corpuscular Volume 87.5 fL (80.0-100.0); Mean Platelet Volume 10.1 fL (9.4-12.4); Platelet Count 177 K/uL (130-400); RDW Coefficient of Variation 14.6 % (11.5-14.5); RDW Standard Deviation 46.7 fL (36.4-46.3); Red Blood Count 3.85 M/uL (4.70-6.10); White Blood Count 10.06 K/ul (4.8-10.8)
[2024-06-28 07:03] LABS: BUN Creatinine Ratio 30.1 (10-20); Calcium 8.1 mg/dl (8.6-10.3); Creatinine Clr Calc Pharmacy 31.4 ml/min
[2024-06-28 07:05] LABS: INR 1.3 (0.9-1.1); Prothrombin Time 13.7 Seconds (9.0-12.0)
--- NOTE | 2024-06-28 11:15 | Hospitalist Progress Note ---
Date of Service June 28, 2024 Assessment & Plan (1) Fall: (2) Multiple rib fractures: (3) Multiple contusions: (4) Syncope: (5) Acute worsening of stage 3 chronic kidney disease: (6) Hypertensive urgency: (7) Elevated troponin: (8) PAF (paroxysmal atrial fibrillation): (9) nursing home current use of anticoagulant: Plan 84 yr old M who has a significant PMH of CAD s/p CABG ( SCOTT to LAD and SVG to left circumflex, RCA and diagonal), Hx of bioprosthetic AVR, HTN, HLD, PAF on warfarin, CKD-3, cerebrovascular disease who presents to ED after sustaining a fall. He was found on the kitchen floor by a friend, patient lives alone at home and uses cane/walker to move around. Patient's dtr notes that patient has fallen 9-10 times in the last 1 year. He is being managed for the following: Fall, Probably syncopal event R frontal scalp hematoma Multiple rib fx Multiple areas of ecchymosis/bruising at presentation CT Chest/A/P: There are acute fractures of the lateral left seventh, anterior left 4th through 6th ribs. Face CT: No fractures. Right dental disease without adjacent abscess. Mild chronic bilateral maxillary sinusitis. supportive care, Incentive spirometry, lidocaine patch, scheduled APAP and prn IV Morphine Pt report feeling better and reports pain under control PT/OT, will need snf vs rehab. Hypertensive Urgency in setting of acute distress (fall) CAD s/p CABG Hx bioprosthetic AVR Elevated troponin, Likely demand ischemia Status post IV BP medication in the ED, troponin down trended, patient with no chest pain. Echo with EF of 60 to 65%, LV wall motion normal, LV systolic function normal. Continue home Coreg, Will resume home lasix as malik resolved. Continue telemetry monitoring for now. c/w home coreg, lasix, prn iv hydralazine Metabolic encephalopathy 2/2 Acute on Chronic CKD -3 : baseline cr 1.5, Admitting creatinine of 2.79, suspect pre renal in setting of poor intake, hold lasix, s/p gentle IVF, Cr resolved, will resume home lasix, repeat renal function in a.m. Mentation back to baseline. Mild fever: noted overnight 06/24-06/25. Admitting WBC was elevated, procalcitonin was elevated [ISO MALIK with CKD]. Admitting CT Chest w/ no infxn, UA neg for uti, Admitting bl cx NG48 hr. No open wounds and cellulitis noted. Pt started on cefepime 06/25 early am, Bl Cx no growth for 48 hours, will dc antibiotic and monitor off antibiotic. WBC has been wnl, pt has been afebrile, no s/s of infection noted or complained of. PAF: held warfarin at presentation in setting of traumatic injuries, discussion regarding warfarin initiation held between pt/pt's dtr/pt's son 06/25. They understand the risk involved both ways, risk of embolic stroke if warfarin dc'd, risk of fall leading to brain bleed if continued on warfarin. they all would like to continue w/ warfarin. HnH appears stable, will start hep sc tid and put him back on warfarin, follow pt/inr daily, once > 2.0, dc heparin HLD: c/w home statin DVT ppx: SCDS for now FULL CODE - pt states full code. PCP: Rufino Dispo: PT/OT, pt lives alone and likely needs additional support at home given previous admission with falls Admission and Anticipated Discharge Date Admission Date: June 24, 2024 Subjective Patient was seen and examined at bedside. Patient was lying in bed, on room air, NAD, reports pain fairly under control. Using less pain meds gradually. Pt report feeling better. Patient denies sore throat , lower belly pain. Per RN, pt eating ok, moving bowels ok, no issues overnight. Physical Exam Physical Exam: General Appearance: Thin, frail, elderly, no apparent distress Head: normocephalic, +traumatic, Eyes: normal inspection, EOMI Neck: supple, Trachea midline Respiratory/Chest: Normal breath sounds, CTA, No accessory muscle use, + CABG scar Cardiovascular: S1, S2, No murmur Abdomen/GI:Soft, Non tender, Bowel sounds present Extremities/Musculoskeletal:normal inspection, no edema Neurologic/Psych:AAOX2, grossly no focal neurological deficits, decreased hearing Skin: normal color, warm, + multiple bruises epigastric, left-sided chest, B/L knees - healing, no infection. Results & Data Results & Data Vital Signs (Past 12 Hours) Vital Signs Temp Pulse Pulse Resp BP Pulse Ox O2 Del Method 06/28/24 08:27 36.4 C L 64 18 166/76 H 96 Room Air 06/28/24 07:30 63 06/28/24 02:40 37 C 63 16 175/82 H 97 Room Air 06/28/24 00:52 Room Air (1) Fall Encounter type: initial encounter Qualified Code(s): W19.XXXA - Unspecified fall, initial encounter
[2024-06-28] MEDS: FUROSEMIDE 40 MG TAB PO SCH (11:34)
[2024-06-29 08:08] LABS: Hematocrit (blood only) 34.8 % (42.0-52.0); Mean Corpuscular Hemoglobin 29.7 pg (25.0-34.0); Mean Corpuscular Hgb Conc 34.5 g/dL (32.0-36.0); Mean Corpuscular Volume 86.1 fL (80.0-100.0); Platelet Count 211 K/uL (130-400); RDW Coefficient of Variation 14.5 % (11.5-14.5); RDW Standard Deviation 45.3 fL (36.4-46.3); Red Blood Count 4.04 M/uL (4.70-6.10); White Blood Count 10.59 K/ul (4.8-10.8)
[2024-06-29 08:31] LABS: INR 1.6 (0.9-1.1); Prothrombin Time 16.8 Seconds (9.0-12.0)
--- NOTE | 2024-06-29 15:21 | Hospitalist Progress Note ---
Date of Service June 29, 2024 Assessment & Plan (1) Fall: (2) Multiple rib fractures: (3) Multiple contusions: (4) Syncope: (5) Acute worsening of stage 3 chronic kidney disease: (6) Hypertensive urgency: (7) Elevated troponin: (8) PAF (paroxysmal atrial fibrillation): (9) alf current use of anticoagulant: Plan 84 yr old M who has a significant PMH of CAD s/p CABG ( SCOTT to LAD and SVG to left circumflex, RCA and diagonal), Hx of bioprosthetic AVR, HTN, HLD, PAF on warfarin, CKD-3, cerebrovascular disease who presents to ED after sustaining a fall. He was found on the kitchen floor by a friend, patient lives alone at home and uses cane/walker to move around. Patient's dtr notes that patient has fallen 9-10 times in the last 1 year. He is being managed for the following: Fall, Probably syncopal event R frontal scalp hematoma Multiple rib fx Multiple areas of ecchymosis/bruising at presentation CT Chest/A/P: There are acute fractures of the lateral left seventh, anterior left 4th through 6th ribs. Face CT: No fractures. Right dental disease without adjacent abscess. Mild chronic bilateral maxillary sinusitis. supportive care, Incentive spirometry, lidocaine patch, scheduled APAP and prn IV Morphine Pt report feeling better and reports pain under control PT/OT, will need snf vs rehab. Hypertensive Urgency in setting of acute distress (fall) CAD s/p CABG Hx bioprosthetic AVR Elevated troponin, Likely demand ischemia Status post IV BP medication in the ED, troponin down trended, patient with no chest pain. Echo with EF of 60 to 65%, LV wall motion normal, LV systolic function normal. Continue home Coreg, Will resume home lasix as malik resolved. Continue telemetry monitoring for now. c/w home coreg, lasix, prn iv hydralazine Metabolic encephalopathy 2/2 Acute on Chronic CKD -3 : baseline cr 1.5, Admitting creatinine of 2.79, suspect pre renal in setting of poor intake, s/p gentle IVF, Cr resolved, c/w home lasix, repeat renal function in a.m. Mentation back to baseline. Mild fever: noted overnight 12-06/25. Admitting WBC was elevated, procalcitonin was elevated [ISO MALIK with CKD]. Admitting CT Chest w/ no infxn, UA neg for uti, Admitting bl cx NG48 hr. No open wounds and cellulitis noted. Pt started on cefepime 06/25 early am, Bl Cx no growth for 48 hours, DC'd antibiotic and monitor off antibiotic. WBC has been wnl, pt has been afebrile, no s/s of infection noted or complained of. PAF: held warfarin at presentation in setting of traumatic injuries, discussion regarding warfarin initiation held between pt/pt's dtr/pt's son 06/25. They understand the risk involved both ways, risk of embolic stroke if warfarin dc'd, risk of fall leading to brain bleed if continued on warfarin. they all would like to continue w/ warfarin. HnH appears stable, c/w hep sc tid and home warfarin, follow pt/inr daily, once > 2.0, dc heparin HLD: c/w home statin DVT ppx: SCDS for now FULL CODE - pt states full code. PCP: Rufino Dispo: PT/OT, pt lives alone and likely needs additional support at home given previous admission with falls. awaiting placement. Admission and Anticipated Discharge Date Admission Date: June 24, 2024 Subjective Patient was seen and examined at bedside. Patient was lying in bed, on room air, NAD, reports pain fairly under control. Using less pain meds gradually. Pt report feeling better. Patient denies sore throat , lower belly pain. Physical Exam Physical Exam: General Appearance: Thin, frail, elderly, no apparent distress Head: normocephalic, +traumatic, Eyes: normal inspection, EOMI Neck: supple, Trachea midline Respiratory/Chest: Normal breath sounds, CTA, No accessory muscle use, + CABG scar Cardiovascular: S1, S2, No murmur Abdomen/GI:Soft, Non tender, Bowel sounds present Extremities/Musculoskeletal:normal inspection, no edema Neurologic/Psych:AAOX2, grossly no focal neurological deficits, decreased hearing Skin: normal color, warm, + multiple bruises epigastric, left-sided chest, B/L knees - healing, no infection. Results & Data Results & Data Vital Signs (Past 12 Hours) Vital Signs Temp Pulse Pulse Resp BP Pulse Ox O2 Del Method 06/29/24 14:15 65 06/29/24 11:25 36.7 C 61 20 111/64 95 Room Air 06/29/24 08:29 36.7 C 64 18 159/88 H 96 Room Air 06/29/24 07:16 62 (1) Fall Encounter type: initial encounter Qualified Code(s): W19.XXXA - Unspecified fall, initial encounter
[2024-06-29 15:35] VITALS: RESP 18
[2024-06-30 03:14] VITALS: O2SAT 96
[2024-06-30 07:17] VITALS: PULSE 64; TEMP 97.9
[2024-06-30 08:47] LABS: Hematocrit (blood only) 35.2 % (42.0-52.0); Hemoglobin 11.9 g/dl (14.0-18.0); Mean Corpuscular Hemoglobin 29.2 pg (25.0-34.0); Mean Corpuscular Hgb Conc 33.8 g/dL (32.0-36.0); Mean Corpuscular Volume 86.3 fL (80.0-100.0); Mean Platelet Volume 10.1 fL (9.4-12.4); Platelet Count 222 K/uL (130-400); RDW Coefficient of Variation 14.3 % (11.5-14.5); RDW Standard Deviation 45.1 fL (36.4-46.3); Red Blood Count 4.08 M/uL (4.70-6.10); White Blood Count 8.93 K/ul (4.8-10.8)
[2024-06-30 09:00] LABS: BUN Creatinine Ratio 24.2 (10-20); Calcium 8.3 mg/dl (8.6-10.3); Creatinine Clr Calc Pharmacy 31.2 ml/min; Potassium 4.3 mmol/L (3.5-5.1)
[2024-06-30 09:09] LABS: INR 1.8 (0.9-1.1); Prothrombin Time 18.2 Seconds (9.0-12.0)
[2024-06-30 12:39] VITALS: BP 137/70
--- NOTE | 2024-06-30 12:50 | Discharge Summary ---
Date of Service June 30, 2024 Admission HPI Per Admitting Provider This is an 84 yr old M who has a significant PMH of CAD s/p CABG ( SCOTT to LAD and SVG to left circumflex, RCA and diagonal), Hx of bioprosthetic AVR, HTN, HLD, PAF on warfarin, CKD-3, cerebrovascular disease who presents to ED after sustaining a fall. Pt son is at bedside who also helps elicit history. Hx obtained from pt and chart review. Son reports he was found on the kitchen floor this morning by a friend. He lives a lone at home and uses a cane/walker to walk. He reports epigastric pain and pain to side of chest. He is also complaining of pain in his back. He reports feeling a heaviness to his epigastru m. The pain started after he fell. He is unsure how he fell or if he passed out. He denies and SUH, dizziness, lightheaded, sob, n/v/d. He is unsure if he is eating/drinking well. He has a chronic dry cough. Son at bedside feels he is more confused that his normal. Pt denies any current pain. He reports being compliant with his medications. In ED Was significantly hypertensive. Lab work notable for an MALIK with BUN/creatinine of 79 and 2.79, initial troponin over 200 with a repeat at 2 hours of 192.5. Head CT revealed cerebral atrophy and small right frontal scalp hematoma. Chest CT revealed acute left and age- indeterminate right rib fractures. CT a/p pelvis There are acute fractures of the lateral left seventh, anterior left 4th through 6th ribs. Admission Exam Per Admitting Provider General Appearance: Thin, frail, elderly, no apparent distress Head: normocephalic, +traumatic, Eyes: normal inspection, EOMI Neck: supple, Trachea midline Respiratory/Chest: Normal breath sounds, CTA, No accessory muscle use, + CABG scar Cardiovascular: S1, S2, No murmur Abdomen/GI:Soft, Non tender, Bowel sounds present Extremities/Musculoskeletal:normal inspection, no edema Neurologic/Psych:AAOX2, grossly no focal neurological deficits, decreased hearing Skin: normal color, warm, + multiple bruises epigastric, left-sided chest, B/L knees, Principal Diagnosis Fall R frontal scalp hematoma Multiple rib fx Discharge Exam Constitutional: WD/WN, vitals as above, NAD, sitting up in bed, pleasant, conversing easily Respiratory: normal respiratory effort, lungs clear to auscultation, no wheeze, rales, rhonchi. Normal insp/exp effort, no accessory muscle use Cardiovascular: RRR, no murmur, no edema Vessels: no JVD or carotid bruit Chest: normal inspection of chest Abdomen: normal bowel sounds, soft, nontender, no hepatosplenomegaly Musculoskeletal:normal color, warm, + multiple bruises epigastric, left-sided chest, B/L knees - healing, no infection. Neurologic: PERRL, EOMI, accommodation nl, no face palsy, no dysarthria CN's II- XI intact bilaterally and moves all extremities Psychiatric: A+Ox3, euthymic affect Discharge Data Allergies Allergy/AdvReac Type Severity Reaction Status Date / Time No Known Allergies Allergy Unverified 11/26/23 15:12 Consultations 06/24/24 17:06 ED Decision to Admit Stat Ordered Studies 06/24/24 15:12 CT cervical spine wo con Stat 06/24/24 15:38 CT abd pelvis wo con Stat CT chest diagnostic wo con Stat CT head/brain wo con Stat 06/24/24 17:37 CT facial bones wo con Stat 06/24/24 19:50 Carotid duplex [US carotid doppler BI] Routine Hospital Course (1) Fall: (2) Multiple rib fractures: (3) Multiple contusions: (4) Syncope: (5) Acute worsening of stage 3 chronic kidney disease: (6) Hypertensive urgency: (7) Elevated troponin: (8) PAF (paroxysmal atrial fibrillation): (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 He was found on the kitchen floor by a friend, patient lives alone at home and uses cane/walker to move around. Patient's dtr notes that patient has fallen 9-10 times in the last 1 year. He is being managed for the following: Fall R frontal scalp hematoma Multiple rib fx Multiple areas of ecchymosis/bruising at presentation CT Chest/A/P: There are acute fractures of the lateral left seventh, anterior left 4th through 6th ribs. Face CT: No fractures. Right dental disease without adjacent abscess. Mild chronic bilateral maxillary sinusitis. Patient was treated with supportive care, Incentive spirometry, lidocaine patch, scheduled APAP and prn IV Morphine Pt report feeling better and reports pain under control PT/OT eval was done, patient recommended for SNF. Hypertensive Urgency in setting of acute distress (fall) CAD s/p CABG Hx bioprosthetic AVR Elevated troponin, Likely demand ischemia Status post IV BP medication in the ED, troponin down trended, patient with no chest pain. Echo with EF of 60 to 65%, LV wall motion normal, LV systolic function normal. Continue home Coreg, lasix Continue telemetry monitoring for now. c/w home coreg, lasix, prn iv hydralazine Metabolic encephalopathy 2/2 Acute on Chronic CKD -3 : baseline cr 1.5, Admitting creatinine of 2.79, suspect pre renal in setting of poor intake, s/p gentle IVF, Cr resolved, c/w home lasix, repeat renal function in a.m. Mentation back to baseline at the time of discharge. PAF: held warfarin at presentation in setting of traumatic injuries, previous attending discussed regarding warfarin initiation held between pt/pt's dtr/pt's son 06/25. They understand the risk involved both ways, risk of embolic stroke if warfarin dc'd, risk of fall leading to brain bleed if continued on warfarin. they all would like to continue w/ warfarin. HnH appears stable, c/w hep sc tid and home warfarin. Patient was discharged to SNF. Please note the above document was generated using voice recognition software. It may contain grammatical, syntax or spelling errors. Any formal questions or concerns about the content, text or information contained within the body of this dictation should be directly addressed to the provider for clarification Total Time Total Time Spent Total Time Spent (In Minutes): 45 Total Time Includes: Examination of the Patient, Discharge Planning, Medication Reconciliation, Communication With Other Providers and Other Discharge Plan Discharge Items Patient Disposition: Home - Self-Care Reason For Visit: FALL, RIB FRACTURE Discharge Diagnosis: Fall, R frontal scalp hematoma Multiple rib fx Activity: Resume your previous activity Non-emergency contact: Primary Care Provider Call non-emergency contact if: you have any medication questions and your symptoms worsen Follow-up/Referrals: Akiko Joy MD [Primary Care Provider] - Diet: Regular Addtl Attending Provider Instructions: You were admitted to the hospital due to a fall resulting in multiple rib fracture. Please take Tylenol as needed for pain control. Please continue to do incentive spirometry to prevent pneumonia. Follow-up with your primary care doctor after discharge from rehab. Pending Studies at Discharge: No Stand-Alone Forms: My [facility] [address], Smoking Cessation Medications and DC Order Prescriptions: Continued atorvastatin 40 mg tablet 40 mg PO HS Rx Instructions: last filled 04/07 for 90 day supply warfarin 2.5 mg tablet 5 mg PO UD Rx Instructions: original directions: 5 mg po qpm (discharge document from 12/03/23 has 5 mg po pm) List has 2-3 tablets po daily as directed by coumadin clinic. Fill history has fill date of 04/16/23 90 day supply docusate sodium 100 mg Capsule 100 mg PO BID PRN (Reason: Constipation) Rx Instructions: OTC furosemide 20 mg Tablet 40 mg PO QAM Rx Instructions: last filled 01/18 90 day supply diclofenac sodium [Voltaren Arthritis Pain] 1 % gel 4 g topical UD Rx Instructions: original: 4 g qid OTC/ no fill history available. apply to single knee, ankle, foot; for foot includes sole/toes/top of foot acetaminophen 325 mg Tablet 650 mg PO Q4H PRN (Reason: pain/fever) carvedilol 25 mg tablet 12.5 mg PO BID 30 Days Qty: 30 0RF Rx Instructions: last filled 01/16 for 90 day supply Discharge Orders: Discharge Order (Routine); Ordered 06/30/24 Ordered By: Harjit Aldana Admission Data Admit Date/Time: 06/24/24 17:16 Attending Provider: Harjit Aldana Admit Provider: Baldemar Vidales Primary Care Provider: Akiko Joy Other Providers: Baldemar Vidales; [facility]; [facility]; [facility] Other Interventions: Discharge Summary Assessment (RN) Last Done: 06/30/24 12:38
== END 2024-06-30 14:30 | DRG 91 ==
LOC: ED 14:53 → EDINP 17:16 → SUATTDRO 17:16 → 4W 19:50 → 2N 06-27 23:04